=== PATIENT | female | born 1970 | race Caucasian/White ===

== ENCOUNTER 2021-08-13 10:51 | Outpatient (REF) | payer BC, SELFPAY ==
[2021-08-13 12:07] LABS: MANUAL DIFF FLAG NO
[2021-08-13 13:02] LABS: Basophils Percent Auto 0.4 % (0-2); Eosinophils Absolute Auto 0.3 X10*3/uL (0.0-0.4); Eosinophils Percent Auto 4.2 % (0-4); Hematocrit 41.3 % (37-47); Hemoglobin 13.1 g/dl (12.0-16.0); Imm Gran Abs Auto 0.04 X10*3/uL (0.00-0.03); Imm Gran Pct Auto 0.6 % (0.0-0.4); Lymphocytes Absolute Auto 1.6 X10*3/uL (1.2-4.9); Lymphocytes Percent Auto 22.3 % (20-40); Mean Corpuscular HGB Conc 31.7 g/dl (31.0-35.0); Mean Corpuscular Volume 85.2 fL (80-98); Mean Platelet Volume 9.5 fL (9.4-12.3); Monocytes Absolute Auto 0.5 X10*3/uL (0.1-1.2); Monocytes Percent Auto 6.3 % (2-11); Neutrophils Absolute Auto 4.7 X10*3/uL (2.0-8.3); Neutrophils Percent Auto 66.2 % (45-73); Platelet Count 258 X10*3/uL (160-400); Red Blood Count 4.85 X10*6/uL (4.20-5.50); Red Cell Distribution Width 14.6 % (11.0-16.0); White Blood Count 7.2 X10*3/uL (4.8-10.8)
[2021-08-13 13:57] LABS: Erythrocyte Sedimentation Rate 51 MM/HR (0-20)
[2021-08-20 17:12] LABS: Asperg fumigatus Precip Abs NEGATIVE (NEGATIVE); Micropoly faeni Abs NEGATIVE (NEGATIVE); Pigeon serum Abs NEGATIVE (NEGATIVE); Saccharo pora viridis Abs NEGATIVE (NEGATIVE); Thermo candidus Abs NEGATIVE (NEGATIVE); Thermoa vulgaris #1 NEGATIVE (NEGATIVE)
== END 2021-08-13 10:52 | disposition home or self-care (01) ==
LOC: HO.LAB 10:51
PROVIDERS: PCP Internal Medicine; Visit Provider Hospitalist
DX: J47.9 Bronchiectasis, uncomplicated (principal); J45.50 Severe persistent asthma, uncomplicated; R91.8 Other nonspecific abnormal finding of lung field; J30.9 Allergic rhinitis, unspecified; G47.33 Obstructive sleep apnea (adult) (pediatric); Z99.89 Dependence on other enabling machines and devices
CPT/HCPCS: 36415; 82785; 85025; 85652; 86003; 86331; 86606; 86609

== ENCOUNTER 2021-08-19 14:50 | Outpatient (REF) | payer BC, SELFPAY ==
--- NOTE | 2021-08-19 | PFT_ITS ---
Forced vital capacity FEV1, [id number], and MVV are normal. Post-bronchodilator therapy, there is no change. Total lung capacity normal. Residual volume slightly increased. Diffusion capacity normal. CONCLUSION: 1. Normal pulmonary function test. 2. No obstructive or restrictive pulmonary disorder. Thom Waterman MD MSB/MODL / [id number]
== END 2021-08-19 14:51 | disposition home or self-care (01) ==
LOC: HO.RESP 14:50
PROVIDERS: PCP Internal Medicine; Visit Provider Hospitalist
DX: R06.00 Dyspnea, unspecified (principal)
CPT/HCPCS: 94060; 94727; 94729

== ENCOUNTER 2021-09-09 15:12 | Outpatient (REF) | payer BC, SELFPAY ==
--- NOTE | ~2021-09-09 | XR_ITS ---
EXAMINATION: XR CHEST CLINICAL INFORMATION: Chest pain. COMPARISON: None TECHNIQUE: 2 views of the chest were obtained. FINDINGS: No significant abnormality is noted involving the heart, lungs, mediastinum, bony thorax or soft tissues. XR/XR chest 2V IMPRESSION: Unremarkable chest examination.
== END 2021-09-09 15:13 | disposition home or self-care (01) ==
LOC: HO.XRAY 15:12
PROVIDERS: PCP Internal Medicine; Visit Provider Hospitalist
DX: R07.1 Chest pain on breathing (principal); J47.9 Bronchiectasis, uncomplicated; J45.51 Severe persistent asthma with (acute) exacerbation; G47.33 Obstructive sleep apnea (adult) (pediatric); J30.9 Allergic rhinitis, unspecified; L30.9 Dermatitis, unspecified; Z99.89 Dependence on other enabling machines and devices; Z79.899 Other long term (current) drug therapy; Z79.51 Long term (current) use of inhaled steroids
CPT/HCPCS: 71046

== ENCOUNTER → 2021-09-16 13:58 | Outpatient (BNVA) | payer BC, SELFPAY | PROVIDERS: PCP Internal Medicine; Visit Provider Hospitalist | DX: J45.909 Unspecified asthma, uncomplicated (principal); J47.9 Bronchiectasis, uncomplicated; R91.8 Other nonspecific abnormal finding of lung field ==

== ENCOUNTER → 2021-10-06 14:16 | Outpatient (BNVA) | payer BC, SELFPAY | PROVIDERS: PCP Internal Medicine; Visit Provider Hospitalist | DX: J45.909 Unspecified asthma, uncomplicated (principal); J47.9 Bronchiectasis, uncomplicated; R91.8 Other nonspecific abnormal finding of lung field; G47.33 Obstructive sleep apnea (adult) (pediatric); Z99.89 Dependence on other enabling machines and devices ==

== ENCOUNTER 2021-11-08 15:07 | Inpatient (IN) | payer BC, SELFPAY ==
[2021-11-08] VITALS (8 sets, daily range): BP systolic 122–178; BP diastolic 66–90; PULSE 80–103; RESP 20–31; TEMP 36.2–36.8; O2SAT 90–95; BMI 54.8; BMI 50.0
--- NOTE | 2021-11-08 | ECG_ITS ---
Test Reason : CHEST PAIN Blood Pressure : / mmHG Vent. Rate : 096 BPM Atrial Rate : 096 BPM P-R Int : 148 ms QRS Dur : 084 ms QT Int : 366 ms P-R-T Axes : 060 012 006 degrees QTc Int : 462 ms Normal sinus rhythm Possible Left atrial enlargement Cannot rule out Anterior infarct , age undetermined Abnormal ECG No previous ECGs available Referred By: Generic ED Physician Electronically Signed By:Sergo Jaquez
--- NOTE | ~2021-11-08 | US_ITS ---
EXAMINATION: US ABDOMEN LIMITED CLINICAL INFORMATION: Mild transaminase and alkaline phosphatase elevation. Rule out cirrhosis. Rule out cholecystitis. COMPARISON: None TECHNIQUE: Real-time imaging of the right upper quadrant abdominal viscera. FINDINGS: PANCREAS: Normal. LIVER: Liver is enlarged. Liver echotexture is increased. Liver contour is normal. No focal hepatic lesion. There is no intrahepatic biliary duct dilatation seen. GALLBLADDER: The gallbladder is physiologically distended. Multiple mobile gallstones are present. No evidence of gallbladder wall thickening or pericholecystic fluid. COMMON BILE DUCT: Normal in caliber measuring 0.5 cm in diameter. RIGHT KIDNEY: Normal. No hydronephrosis. No renal calculi or focal parenchymal lesions. The kidney measures 13.3 cm in maximum dimension. FREE FLUID: None. US/US abdomen limited IMPRESSION: Enlarged echogenic liver. Gallstones. No ultrasound evidence of cholecystitis.
--- NOTE | ~2021-11-08 | XR_ITS ---
EXAMINATION: XR CHEST CLINICAL INFORMATION: Shortness of breath COMPARISON: Previous chest x-ray August 2021 TECHNIQUE: Frontal view of the chest was obtained. FINDINGS: The cardiac and mediastinal contours are normal. There are bilateral patchy infiltrates. Covid infection should be excluded. There is no pleural effusion or pneumothorax. There are degenerative changes of the spine. XR/XR chest 1V IMPRESSION: Bilateral patchy infiltrates. Covid infection should be excluded.
[2021-11-08 16:12] LABS: MANUAL DIFF FLAG NO
[2021-11-08 16:15] LABS: Basophils Percent Auto 0.1 % (0-2); Hematocrit 48.6 % (37.0-47.0); Hemoglobin 14.4 g/dl (12.0-16.0); Imm Gran Abs Auto 0.13 X10*3/uL (0.00-0.03); Imm Gran Pct Auto 1.8 % (0.0-0.4); Lymphocytes Absolute Auto 0.9 X10*3/uL (1.2-4.9); Lymphocytes Percent Auto 11.7 % (20-40); Mean Corpuscular HGB Conc 29.6 g/dl (31.0-35.0); Mean Corpuscular Hemoglobin 27.5 pg (27.0-33.0); Mean Corpuscular Volume 92.9 fL (80.0-98.0); Mean Platelet Volume 10.9 fL (9.4-12.3); Monocytes Absolute Auto 0.5 X10*3/uL (0.1-1.2); Neutrophils Absolute Auto 5.9 x10*3/uL (2.0-8.3); Neutrophils Percent Auto 79.4 % (45-73); Platelet Count 244 X10*3/uL (160-400); Red Blood Count 5.23 X10*6/uL (4.20-5.50); Red Cell Distribution Width 17.4 % (11.0-16.0); White Blood Count 7.4 X10*3/uL (4.8-10.8)
[2021-11-08 16:37] LABS: Troponin-I High Sensitivity 3.8 ng/L (<3.5-17.0)
[2021-11-08 16:38] LABS: B Type Natriuretic Peptide 17 pg/mL (<100)
[2021-11-08 16:39] LABS: COVID-19 Test Positive (Negative)
[2021-11-08 16:51] LABS: Anion Gap 31 (12-20); Blood Urea Nitrogen 53 mg/dL (9-16); Carbon Dioxide 7 mmol/L (22-29); Chloride 102 mmol/L (96-108); Creatinine Clr Calc Pharmacy 39.7; Estimated Glomerular Filt Rate 23; Glucose Random 1011 mg/dL (60-115); Potassium 6.6 mmol/L (3.3-5.1); Sodium 133 mmol/L (135-145)
[2021-11-08 17:31] LABS: Alanine Aminotransferase 191 U/L (0-31); Albumin Level 3.9 g/dL (3.5-5.0); Alkaline Phosphatase 176 U/L (39-117); Aspartate Amino Transferase 95 U/L (5-31); Bilirubin Direct 0.3 mg/dL (0.0-0.5); Bilirubin Total 0.3 mg/dL (0.0-1.0); Total Protein 8.5 g/dL (6.5-8.0)
[2021-11-08] MEDS: Insulin Regular, Human 100 UNIT/ML 3 ML VIAL 10 UNIT IVPUSH (17:34)
[2021-11-08] MEDS: 0.9 % Sodium Chloride 1,000 ML 999 ML IV (17:34)
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
[2021-11-08] MEDS: Insulin Regular/NS 100 UNIT/100 ML PLAST..BAG IVCONT (17:55)
[2021-11-08] MEDS: cefTRIAXone sodium 1 GM in 0.9 % Sodium Chloride 50 ML IV (18:00)
--- NOTE | 2021-11-08 18:11 | ECG_ITS ---
Test Reason : Hyperglycemia Blood Pressure : / mmHG Vent. Rate : 101 BPM Atrial Rate : 101 BPM P-R Int : 148 ms QRS Dur : 086 ms QT Int : 356 ms P-R-T Axes : 058 012 011 degrees QTc Int : 461 ms Sinus tachycardia Possible Left atrial enlargement Borderline ECG When compared with ECG of 08-NOV-2021 15:45, No significant change was found Referred By: Anmol Sparks Electronically Signed By:HAILEE MAY MD
--- NOTE | 2021-11-08 18:13 | PHA.MEDREC ---
Pharmacy Consult ? Medication Reconciliation Pharmacy has completed the medication reconciliation. Pt picked up fluconazole 150 on 11/07/21 and took first dose, next dose on day 4 and last dose on day 7. Also picked up dexamethasone 6mg QD x 10 days and started 11/07/21. No remarkable issues. Lolly Sheriff, PharmD
[2021-11-08 18:21] LABS: Glucose, Whole Blood > 600 mg/dL (60-115)
[2021-11-08 18:21] LABS: Glucose, Whole Blood > 600 mg/dL (60-115)
[2021-11-08 18:37] LABS: D Dimer High Sensitivity 160 NG/ML; Lactic Acid 1.7 mmol/L (0.5-2.0)
[2021-11-08 18:47] LABS: Anion Gap 29 (12-20); Blood Urea Nitrogen 54 mg/dL (9-16); Calcium 10.1 mg/dL (8.4-10.2); Carbon Dioxide 9 mmol/L (22-29); Chloride 104 mmol/L (96-108); Creatinine Clr Calc Pharmacy 38.7; Estimated Glomerular Filt Rate 22; Glucose Random 935 mg/dL (60-115); Lipase 51 U/L (8-78); Potassium 6.2 mmol/L (3.3-5.1); Sodium 136 mmol/L (135-145)
[2021-11-08 18:49] LABS: Appearance Urine CLEAR; Color Urine STRAW; Glucose Urine UA >=1000 MG/DL (NEG); Leukocyte Esterase Urine NEG (NEG); Nitrite Urine NEG (NEG); PH 5.5 (5.0-8.0); UACC Culture Trigger NO; Urine Blood 2+ (NEG); Urine Ketones 40 MG/DL (NEG); Urine Protein TRACE MG/DL (NEG-TRACE)
[2021-11-08 18:53] LABS: UPreg QC Valid YES; Urine Pregnancy NEGATIVE (NEGATIVE)
[2021-11-08 18:55] LABS: Bacteria Urine TRACE /LPF; Mucus Urine TRACE /LPF; Squamous Epithelial Cell Urine TRACE /LPF; WBC Urine 0-2 /HPF (0-4)
[2021-11-08 19:23] LABS: Glucose, Whole Blood > 600 mg/dL (60-115)
[2021-11-08] MEDS: Heparin Sodium,Porcine 5,000 UNIT/ML VIAL 5000 UNIT SUBCUT (19:26)
--- NOTE | 2021-11-08 19:33 | P.HPCC_ITS ---
History of Present Illness Date of Service: 11/08/21 Attending physician on admission: Farhad Airas Chief Complaint: Shortness of breath Patient is a 50-year-old female with a past medical history of? diabetes mellitus,? hypertension, asthma,? chronic allergic rhinitis and TERRA? who presented to the emergency room today with complaints of shortness of breath, dyspnea on exertion, fever, chills, nausea, diarrhea and fatigue.? She reports following closely with? stunt woman Dr. Lui? in the past few months for her asthma,? and has been on several antibiotics and steroids.? She also reported being tested for COVID on 11/06/2021, and? was notified yesterday that she was COVID positive and was started on dexamethasone by her stunt woman.? Today in emergency? room? vital signs stable,? satting 93-95% on room air.? But? chemistry showed bicarb of 7, anion gap 29? and ? random glucose of a 1011.? ?ED course:? she received? ceftriaxone and azithromycin,? 1 L bolus,? 10 units of IV push insulin started on insulin drip.? ?Patient will be admitted? to ICU for management of DKA requiring insulin drip Review of Systems Review of Systems: Constitutional: + fever, + fatigue, + chills ENT: No sore throat, No nasal congestion. no ear pain ?Cardiovascular: No Chest pain, no palpitations. ?Pulmonary: + SOB, + wheezing,? + cough productive Gastrointestinal: + nausea? No vomiting, no diarrhea, no abdominal pain Neurological: No headache, no dizziness, no lightheaded Musculoskeletal:??No muscle pain, back pain, joint pain or stiffness. Integumentary: No rash PMFSH Past Medical History Medical History (Updated 11/08/21 @ 20:42 by Jessica Thurman NP) Asthma Bronchiectasis Chronic allergic rhinitis Diabetes mellitus Eczema TERRA on CPAP Social History Social History (Updated 08/13/21 @ 11:04 by CHEY Harden) Patient Tobacco Use Status: Never used Tobacco Advance Directives: No Advance Directives Information Provided: No Patient : No Meds Allergies Allergy/AdvReac Type Severity Reaction Status Date / Time Penicillins Allergy Severe Rash Verified 11/08/21 15:28 Active Medications: Current Medications Dextrose (Dextrose 50 % 25 Gm/50 Ml Syringe) 25 gm IVPUSH Q30M PRN PRN Reason: Nursing Actions in Insulin Infusion Protocol Heparin Sodium (Porcine) (Heparin Sodium,Porcine 5,000 Unit/Ml Vial) 5,000 unit SUBCUT Q8H [facility] Last Admin: 11/08/21 19:26 Dose: 5,000 unit Documented by: Insulin Human Regular (Myxredlin) 100 unit in 100 mls @ 0 mls/hr IVCONT .Q0M ANA; Protocol Last Admin: 11/08/21 17:55 Dose: 5 unit/hr, 5 mls/hr Documented by: Lactated Ringer's (Lr) 1,000 mls @ 150 mls/hr IVCONT .Q6H40M [facility] Ondansetron HCl (Ondansetron Hcl 4 Mg/2 Ml Vial) 4 mg IVPUSH Q8H PRN PRN Reason: Nausea Pharmacy Consult (Consult Rx Perform Med Rec) 1 each MISCELLANE ONCE PRN PRN Reason: Consult order Home Medications Medication Instructions Recorded Confirmed Last Taken Type Oxygen Home Use 08/13/21 Unknown History aspirin 81 mg tablet,delayed 81 mg PO DAILY 08/13/21 11/08/21 11/08/21 History release cetirizine 10 mg tablet (24Hour 10 mg PO DAILY 08/13/21 11/08/21 11/08/21 History Allergy) citalopram 20 mg tablet 20 mg PO DAILY 08/13/21 11/08/21 11/08/21 History losartan 50 mg tablet 50 mg PO DAILY 08/13/21 11/08/21 11/08/21 History metformin 500 mg tablet,extended 500 mg PO DAILY 08/13/21 11/08/21 11/08/21 History release 24 hr omeprazole 20 mg capsule,delayed 20 mg PO DAILY 08/13/21 11/08/21 11/08/21 History release albuterol sulfate 1 vial INHALATION Q4H PRN 11/08/21 11/08/21 Unknown History fluconazole 150 mg tablet 150 mg PO 3XW 11/08/21 11/08/21 11/07/21 History Physical Exam Vital Signs: Vital Signs: Last Vital Signs Temp 98.2 F 11/08/21 18:00 Pulse 103 H 11/08/21 18:00 Resp 26 H 11/08/21 18:00 BP 149/66 H 11/08/21 18:00 Pulse Ox 95 11/08/21 18:00 BMI result Body Mass Index 54.8 Constitutional: Alert, in no distress. Sitting comfortably on the hospital bed. Mental Status: Oriented to person, place and time. Head: Normocephalic. Eyes: Pupils are equal, round and reactive to light. Extraocular muscles intact. Ear, Nose and Throat: Oropharynx clear, mucous membranes moist. Ears and nose without masses, lesions or deformities. Trachea midline. Neck: Supple, Full range of motion. Respiratory: Expiratory wheezing in all lung frye.? Cardiovascular: S1 S2 regular. NSR.No murmurs, rubs or gallops. Gastrointestinal: Abdomen soft, non-tender, non-distended. Normal bowel sounds. No pulsatile mass. No hepatosplenomegaly. Genitourinary: No costovertebral angle tenderness. Neurologic: Cranial nerves II-XII grossly intact. No focal neurological deficits. Moves all extremities spontaneously. Sensation intact bilaterally. Skin: No rashes or lesions. No petechiae or purpura. 1er extremity.? Trace pitting edema of right lower extremity. Musculoskeletal: No gross deformities. Normal range of motion. Psychiatric: Normal mood and affect Results Labs CBC and Chem 7: 11/08/21 16:06 11/08/21 18:09 Labs: Laboratory Results - last 24 hr 11/08/21 11/08/21 11/08/21 16:06 16:07 16:07 MCV 92.9 MCH 27.5 MCHC 29.6 L RDW 17.4 H Plt Count 244 MPV 10.9 Immature Gran % (Auto) 1.8 H Neut % (Auto) 79.4 H Lymph % (Auto) 11.7 L [place] % (Auto) 7.0 Eos % (Auto) 0.0 Baso % (Auto) 0.1 Lymph # (Auto) 0.9 L [place] # (Auto) 0.5 Eos # (Auto) 0.0 Baso # (Auto) 0.0 Abs Immat Gran (auto) 0.13 H Absolute Neuts (auto) 5.9 Absolute Nucleated RBC 0.000 Nucleated RBC % (auto) 0.0 D-Dimer High Sensitivty Anion Gap 31 H Estim Creat Clear Calc 39.7 Estimated GFR 23 POC Glucose Random Glucose 1011 H* Lactic Acid Calcium 10.0 Total Bilirubin 0.3 Direct Bilirubin 0.3 AST 95 H ALT 191 H Alkaline Phosphatase 176 H Troponin I High Sens B-Natriuretic Peptide 17 Total Protein 8.5 H Albumin 3.9 Lipase Urine Color Urine Appearance Urine pH Ur Specific [place] Urine Protein Urine Glucose (UA) Urine Ketones Urine Blood Urine Nitrite Ur Leukocyte Esterase Urine RBC Urine WBC Ur Squamous Epith Cells Urine Bacteria Urine Mucus Urine Test COVID-19 (JENNY) COVID-19 Clin Com 11/08/21 11/08/21 11/08/21 16:07 16:07 17:33 MCV MCH MCHC RDW Plt Count MPV Immature Gran % (Auto) Neut % (Auto) Lymph % (Auto) [place] % (Auto) Eos % (Auto) Baso % (Auto) Lymph # (Auto) [place] # (Auto) Eos # (Auto) Baso # (Auto) Abs Immat Gran (auto) Absolute Neuts (auto) Absolute Nucleated RBC Nucleated RBC % (auto) D-Dimer High Sensitivty Anion Gap Estim Creat Clear Calc Estimated GFR POC Glucose > 600 H* Random Glucose Lactic Acid Calcium Total Bilirubin Direct Bilirubin AST ALT Alkaline Phosphatase Troponin I High Sens 3.8 B-Natriuretic Peptide Total Protein Albumin Lipase Urine Color Urine Appearance Urine pH Ur Specific [place] Urine Protein Urine Glucose (UA) Urine Ketones Urine Blood Urine Nitrite Ur Leukocyte Esterase Urine RBC Urine WBC Ur Squamous Epith Cells Urine Bacteria Urine Mucus Urine Test COVID-19 (JENNY) Positive A COVID-19 Clin Com See Note 11/08/21 11/08/21 11/08/21 18:09 18:09 18:09 MCV MCH MCHC RDW Plt Count MPV Immature Gran % (Auto) Neut % (Auto) Lymph % (Auto) [place] % (Auto) Eos % (Auto) Baso % (Auto) Lymph # (Auto) [place] # (Auto) Eos # (Auto) Baso # (Auto) Abs Immat Gran (auto) Absolute Neuts (auto) Absolute Nucleated RBC Nucleated RBC % (auto) D-Dimer High Sensitivty 160 Anion Gap 29 H Estim Creat Clear Calc 38.7 Estimated GFR 22 POC Glucose Random Glucose 935 H* Lactic Acid 1.7 Calcium 10.1 Total Bilirubin Direct Bilirubin AST ALT Alkaline Phosphatase Troponin I High Sens B-Natriuretic Peptide Total Protein Albumin Lipase 51 Urine Color Urine Appearance Urine pH Ur Specific [place] Urine Protein Urine Glucose (UA) Urine Ketones Urine Blood Urine Nitrite Ur Leukocyte Esterase Urine RBC Urine WBC Ur Squamous Epith Cells Urine Bacteria Urine Mucus Urine Test COVID-19 (JENNY) COVID-19 Clin Com 11/08/21 11/08/21 11/08/21 18:11 18:42 18:42 MCV MCH MCHC RDW Plt Count MPV Immature Gran % (Auto) Neut % (Auto) Lymph % (Auto) [place] % (Auto) Eos % (Auto) Baso % (Auto) Lymph # (Auto) [place] # (Auto) Eos # (Auto) Baso # (Auto) Abs Immat Gran (auto) Absolute Neuts (auto) Absolute Nucleated RBC Nucleated RBC % (auto) D-Dimer High Sensitivty Anion Gap Estim Creat Clear Calc Estimated GFR POC Glucose > 600 H* Random Glucose Lactic Acid Calcium Total Bilirubin Direct Bilirubin AST ALT Alkaline Phosphatase Troponin I High Sens B-Natriuretic Peptide Total Protein Albumin Lipase Urine Color STRAW Urine Appearance CLEAR Urine pH 5.5 Ur Specific [place] 1.020 Urine Protein TRACE Urine Glucose (UA) >=1000 H Urine Ketones 40 Urine Blood 2+ H Urine Nitrite NEG Ur Leukocyte Esterase NEG Urine RBC 1-4 Urine WBC 0-2 Ur Squamous Epith Cells TRACE Urine Bacteria TRACE Urine Mucus TRACE Urine Test NEGATIVE COVID-19 (JENNY) COVID-19 [email or web address] Com 11/08/21 19:18 MCV MCH MCHC RDW Plt Count MPV Immature Gran % (Auto) Neut % (Auto) Lymph % (Auto) [place] % (Auto) Eos % (Auto) Baso % (Auto) Lymph # (Auto) [place] # (Auto) Eos # (Auto) Baso # (Auto) Abs Immat Gran (auto) Absolute Neuts (auto) Absolute Nucleated RBC Nucleated RBC % (auto) D-Dimer High Sensitivty Anion Gap Estim Creat Clear Calc Estimated GFR POC Glucose > 600 H* Random Glucose Lactic Acid Calcium Total Bilirubin Direct Bilirubin AST ALT Alkaline Phosphatase Troponin I High Sens B-Natriuretic Peptide Total Protein Albumin Lipase Urine Color Urine Appearance Urine pH Ur Specific [place] Urine Protein Urine Glucose (UA) Urine Ketones Urine Blood Urine Nitrite Ur Leukocyte Esterase Urine RBC Urine WBC Ur Squamous Epith Cells Urine Bacteria Urine Mucus Urine Test COVID-19 (JENNY) COVID-19 Clin Com Imaging Radiologist's Impressions: Impressions Chest X-Ray 11/08/21 16:10 IMPRESSION: Bilateral patchy infiltrates. Covid infection should be excluded. Assessment and Plan (1) Diabetic ketoacidosis: Status: Acute (2) Diabetes mellitus: Status: Acute (3) CANDIDO (acute kidney injury): Status: Acute (4) COVID-19 virus infection: Status: Acute 50-year-old female past medical history of asthma and diabetes mellitus admitted to the ICU for the management of diabetic ketoacidosis and COVID infection Neuro:? no acute issues?? Cardiac:? no acute issues Pulmonary:?? ?COVID-19 infection:? patient is on room air,? was started on dexamethasone x1 day ago.? Due to patient being in room air,? would not continue steroids especially in the setting of DKA.? If symptoms worsen I will continue to revise my plan.?? Renal:? CANDIDO- ? most likely related to hypoperfusion, nonoliguric.? Continue IV fluid.? Continue to check renal induces and urine output Hyperkalemia-? most likely related to DKA.? Closely monitor electrolytes GI:?? nausea and vomiting from? gastroparesis. ? Continue Zofran p.r.n.,? Endo:?Diabetes mellitus /diabetic ketoacidosis- ? patient has been on multiple rounds of steroids? in the last couple month,? and started on dexamethasone yesterday for management of COVID-19 infection.? This is likely the cause of DKA. Will continue insulin drip until her gap is close. Follow DKA protocol? ID: ? no acute issues? Heme/Onc:? No acute issues. Psych:? No acute issues. Miscellaneous:? No acute issues. Prophylaxis: subcu heparin? Diet: ? NPO? with sips of water ice chips CODE: FULL Critical care time: Does not qualify for critical care time?
[2021-11-08 20:04] LABS: Glucose, Whole Blood > 600 mg/dL (60-115)
[2021-11-08] MEDS: Lactated Ringers 1,000 ML 150 ML IVCONT (20:46)
[2021-11-08] MEDS: Azithromycin 500 MG in 0.9 % Sodium Chloride 250 ML 125 MG IV (20:46)
[2021-11-08 21:08] LABS: Glucose, Whole Blood > 600 mg/dL (60-115)
[2021-11-08 22:04] LABS: Glucose, Whole Blood 564 mg/dL (60-115)
[2021-11-08 23:08] LABS: Glucose, Whole Blood 458 mg/dL (60-115)
[2021-11-09] VITALS (24 sets, daily range): BP systolic 116–170; BP diastolic 55–91; PULSE 63–85; RESP 13–25; TEMP 36.5–37.1; O2SAT 90–95; BMI 50.0
[2021-11-09 00:08] LABS: Glucose, Whole Blood 358 mg/dL (60-115)
[2021-11-09] MEDS: Insulin Regular/NS 100 UNIT/100 ML PLAST..BAG 18 UNIT IVCONT (00:17)
[2021-11-09 01:15] LABS: Glucose, Whole Blood 294 mg/dL (60-115)
[2021-11-09 01:49] LABS: Glucose, Whole Blood 271 mg/dL (60-115)
[2021-11-09 03:51] LABS: Glucose, Whole Blood 155 mg/dL (60-115)
[2021-11-09] MEDS: Dextrose 5 % and Lactated Ring 1,000 ML 150 ML IVCONT ×4 (03:55→23:52)
[2021-11-09] MEDS: Heparin Sodium,Porcine 5,000 UNIT/ML VIAL 5000 UNIT SUBCUT ×3 (03:56→18:05)
--- NOTE | 2021-11-09 04:57 | PC.NURSE ---
Pt to ICU last night at 1945. Pt alert and oriented and in no acute distress. O2 on via nasal cannulaat 2L. Pt transferred self from stretcher to bed but with dyspnea on exertion. O2 sats dropped from 93% to mid 80's. She recovered quickly. Denied pain or discomfort. Initial SBP was 170's but came down to 140's after 15 minutes when pt settled in and calm. Monitor showed NSR, heart rate has been 70's-90's. Insulin drip infusing, see insulin infusion flow sheet. POC sugars initially on arrival to ICU was >600 but came down each hour per direction of MIRNA Lopez. Last POC 155 and IV Lactated Ringers with 5% dextrose infusing at 150 ml/hr. Pt OOB to bedside commode with assist. Gait is steady. Pt gets SOB on exertion. O2 Sats with this activity dropped to 82-83% but again, pt recovers quickly. Sleeping in naps during the night
[2021-11-09 05:44] LABS: Glucose, Whole Blood 165 mg/dL (60-115)
[2021-11-09] MEDS: Insulin Regular/NS 100 UNIT/100 ML PLAST..BAG 12 UNIT IVCONT ×2 (06:17→14:40)
[2021-11-09 07:09] LABS: Albumin Level 3.6 g/dL (3.5-5.0); Anion Gap 17 (12-20); Blood Urea Nitrogen 51 mg/dL (9-16); Calcium 9.8 mg/dL (8.4-10.2); Carbon Dioxide 14 mmol/L (22-29); Chloride 121 mmol/L (96-108); Creatinine Clr Calc Pharmacy 59.8; Estimated Glomerular Filt Rate 39; Glucose Random 177 mg/dL (60-115); Magnesium 3.3 mg/dL (1.6-2.6); Phosphorus 2.8 mg/dL (2.7-4.5); Potassium 4.6 mmol/L (3.3-5.1); Sodium 147 mmol/L (135-145)
[2021-11-09 07:40] LABS: VBG Base Excess -5.7 mmol/L; VBG HCO3 19 mmol/L (22-26); VBG pCO2 34 mmHg; VBG pH 7.35 (7.32-7.43); VBG pO2 28 mmHg
[2021-11-09 07:45] LABS: MANUAL DIFF FLAG NO
[2021-11-09 07:53] LABS: Hematocrit 40.8 % (37.0-47.0); Imm Gran Abs Auto 0.06 X10*3/uL (0.00-0.03); Imm Gran Pct Auto 0.7 % (0.0-0.4); Lymphocytes Absolute Auto 0.9 X10*3/uL (1.2-4.9); Lymphocytes Percent Auto 10.7 % (20-40); Mean Corpuscular HGB Conc 31.9 g/dl (31.0-35.0); Mean Corpuscular Hemoglobin 27.1 pg (27.0-33.0); Mean Platelet Volume 9.8 fL (9.4-12.3); Monocytes Absolute Auto 0.6 X10*3/uL (0.1-1.2); Monocytes Percent Auto 6.8 % (2-11); Neutrophils Absolute Auto 6.9 x10*3/uL (2.0-8.3); Neutrophils Percent Auto 81.8 % (45-73); Platelet Count 198 X10*3/uL (160-400); Red Cell Distribution Width 16.9 % (11.0-16.0); White Blood Count 8.4 X10*3/uL (4.8-10.8)
[2021-11-09 07:55] LABS: Glucose, Whole Blood 176 mg/dL (60-115)
[2021-11-09 08:43] LABS: Venous Blood Gas Refer to POC result
[2021-11-09 10:14] LABS: Glucose, Whole Blood 150 mg/dL (60-115)
[2021-11-09] MEDS: dexAMETHasone 6 MG TABLET PO (10:59)
[2021-11-09] MEDS: Fluconazole 100 MG TABLET PO (11:07)
--- NOTE | 2021-11-09 11:20 | P.PNCC_ITS ---
Subjective Subjective Date of Service: 11/09/21 Interval History: ICU day to for acute hypoxic respiratory failure, COVID-19, diabetic ketoacidosis. 50-year-old lady with underlying history of diabetes mellitus on metformin, hypertension, asthma, TERRA, COVID positive on 11/06/2021, started on dexamethasone by her director of medical services admitted on 11/08/2021 with hypoxemia requiring supplemental oxygen and diabetic ketoacidosis. Patient has been started on insulin drip and transferred to intensive care unit. No events overnight. Continues to requiring insulin drip. FiO2 requirements are stable. Critical Care Time (minutes): 30 Physical Exam Vital Signs: Vital Signs: Last Vital Signs Temp 98.2 F 11/09/21 08:00 Pulse 83 11/09/21 11:00 Resp 21 H 11/09/21 11:00 BP 146/85 H 11/09/21 11:00 Pulse Ox 92 11/09/21 11:00 BMI result Body Mass Index 50.0 Const: General: no acute distress, alert and awake Nutritional Appearance: obese Eyes: Sclerae: sclerae normal EOM: EOMs intact bilaterally Neck: Neck: Yes no lymphadenopathy, Yes trachea midline and Yes supple Resp: Effort & Inspection: normal respiratory effort and no respiratory distr ess Auscultation: clear to auscultation bilaterally Cardio: Rate: regular rate Rhythm: regular rhythm Heart sounds: no gallops, no murmurs and no rubs GI: Palpation (GI): Soft to palpation and Other GI palpation findings present ( Nontender) Auscultation: normal bowel sounds Extrem: General: Yes no pedal edema, No clubbing and No cyanosis Objective Data Labs CBC & Chem 7: 11/09/21 07:33 11/09/21 05:53 Labs: Laboratory Results - last 24 hr 11/08/21 11/08/21 11/08/21 16:06 16:07 16:07 WBC 7.4 RBC 5.23 Hgb 14.4 Hct 48.6 H MCV 92.9 MCH 27.5 MCHC 29.6 L RDW 17.4 H Plt Count 244 MPV 10.9 Immature Gran % (Auto) 1.8 H Neut % (Auto) 79.4 H Lymph % (Auto) 11.7 L [place] % (Auto) 7.0 Eos % (Auto) 0.0 Baso % (Auto) 0.1 Lymph # (Auto) 0.9 L [place] # (Auto) 0.5 Eos # (Auto) 0.0 Baso # (Auto) 0.0 Abs Immat Gran (auto) 0.13 H Absolute Neuts (auto) 5.9 Absolute Nucleated RBC 0.000 Nucleated RBC % (auto) 0.0 D-Dimer High Sensitivty VBG pH VBG pCO2 VBG pO2 VBG HCO3 VBG O2 Saturation VBG Base Excess Sodium 133 L Potassium 6.6 H* Chloride 102 Carbon Dioxide 7 L* Anion Gap 31 H BUN 53 H Creatinine 2.31 H Estim Creat Clear Calc 39.7 Estimated GFR 23 POC Glucose Random Glucose 1011 H* Lactic Acid Calcium 10.0 Phosphorus Magnesium Total Bilirubin 0.3 Direct Bilirubin 0.3 AST 95 H ALT 191 H Alkaline Phosphatase 176 H Troponin I High Sens B-Natriuretic Peptide 17 Total Protein 8.5 H Albumin 3.9 Lipase Urine Color Urine Appearance Urine pH Ur Specific [place] Urine Protein Urine Glucose (UA) Urine Ketones Urine Blood Urine Nitrite Ur Leukocyte Esterase Urine RBC Urine WBC Ur Squamous Epith Cells Urine Bacteria Urine Mucus Urine Test COVID-19 (JENNY) [employer] 11/08/21 11/08/21 11/08/21 16:07 16:07 17:33 WBC RBC Hgb Hct MCV MCH MCHC RDW Plt Count MPV Immature Gran % (Auto) Neut % (Auto) Lymph % (Auto) [place] % (Auto) Eos % (Auto) Baso % (Auto) Lymph # (Auto) [place] # (Auto) Eos # (Auto) Baso # (Auto) Abs Immat Gran (auto) Absolute Neuts (auto) Absolute Nucleated RBC Nucleated RBC % (auto) D-Dimer High Sensitivty VBG pH VBG pCO2 VBG pO2 VBG HCO3 VBG O2 Saturation VBG Base Excess Sodium Potassium Chloride Carbon Dioxide Anion Gap BUN Creatinine Estim Creat Clear Calc Estimated GFR POC Glucose > 600 H* Random Glucose Lactic Acid Calcium Phosphorus Magnesium Total Bilirubin Direct Bilirubin AST ALT Alkaline Phosphatase Troponin I High Sens 3.8 B-Natriuretic Peptide Total Protein Albumin Lipase Urine Color Urine Appearance Urine pH Ur Specific [place] Urine Protein Urine Glucose (UA) Urine Ketones Urine Blood Urine Nitrite Ur Leukocyte Esterase Urine RBC Urine WBC Ur Squamous Epith Cells Urine Bacteria Urine Mucus Urine Test COVID-19 (JENNY) Positive A 6[employer] Pro 360 See Note 11/08/21 11/08/21 11/08/21 18:09 18:09 18:09 WBC RBC Hgb Hct MCV MCH MCHC RDW Plt Count MPV Immature Gran % (Auto) Neut % (Auto) Lymph % (Auto) [place] % (Auto) Eos % (Auto) Baso % (Auto) Lymph # (Auto) [place] # (Auto) Eos # (Auto) Baso # (Auto) Abs Immat Gran (auto) Absolute Neuts (auto) Absolute Nucleated RBC Nucleated RBC % (auto) D-Dimer High Sensitivty 160 VBG pH VBG pCO2 VBG pO2 VBG HCO3 VBG O2 Saturation VBG Base Excess Sodium 136 Potassium 6.2 H* Chloride 104 Carbon Dioxide 9 L* D Anion Gap 29 H BUN 54 H Creatinine 2.37 H Estim Creat Clear Calc 38.7 Estimated GFR 22 POC Glucose Random Glucose 935 H* Lactic Acid 1.7 Calcium 10.1 Phosphorus Magnesium Total Bilirubin Direct Bilirubin AST ALT Alkaline Phosphatase Troponin I High Sens B-Natriuretic Peptide Total Protein Albumin Lipase 51 Urine Color Urine Appearance Urine pH Ur Specific [place] Urine Protein Urine Glucose (UA) Urine Ketones Urine Blood Urine Nitrite Ur Leukocyte Esterase Urine RBC Urine WBC Ur Squamous Epith Cells Urine Bacteria Urine Mucus Urine Test COVID-19 (JENNY) COVID-19 Clin Com 11/08/21 11/08/21 11/08/21 18:11 18:42 18:42 WBC RBC Hgb Hct MCV MCH MCHC RDW Plt Count MPV Immature Gran % (Auto) Neut % (Auto) Lymph % (Auto) [place] % (Auto) Eos % (Auto) Baso % (Auto) Lymph # (Auto) [place] # (Auto) Eos # (Auto) Baso # (Auto) Abs Immat Gran (auto) Absolute Neuts (auto) Absolute Nucleated RBC Nucleated RBC % (auto) D-Dimer High Sensitivty VBG pH VBG pCO2 VBG pO2 VBG HCO3 VBG O2 Saturation VBG Base Excess Sodium Potassium Chloride Carbon Dioxide Anion Gap BUN Creatinine Estim Creat Clear Calc Estimated GFR POC Glucose > 600 H* Random Glucose Lactic Acid Calcium Phosphorus Magnesium Total Bilirubin Direct Bilirubin AST ALT Alkaline Phosphatase Troponin I High Sens B-Natriuretic Peptide Total Protein Albumin Lipase Urine Color STRAW Urine Appearance CLEAR Urine pH 5.5 Ur Specific [place] 1.020 Urine Protein TRACE Urine Glucose (UA) >=1000 H Urine Ketones 40 Urine Blood 2+ H Urine Nitrite NEG Ur Leukocyte Esterase NEG Urine RBC 1-4 Urine WBC 0-2 Ur Squamous Epith Cells TRACE Urine Bacteria TRACE Urine Mucus TRACE Urine Test NEGATIVE COVID-19 (JENNY) COVID-19 Clin Com 11/08/21 11/08/21 11/08/21 19:18 20:00 21:04 WBC RBC Hgb Hct MCV MCH MCHC RDW Plt Count MPV Immature Gran % (Auto) Neut % (Auto) Lymph % (Auto) [place] % (Auto) Eos % (Auto) Baso % (Auto) Lymph # (Auto) [place] # (Auto) Eos # (Auto) Baso # (Auto) Abs Immat Gran (auto) Absolute Neuts (auto) Absolute Nucleated RBC Nucleated RBC % (auto) D-Dimer High Sensitivty VBG pH VBG pCO2 VBG pO2 VBG HCO3 VBG O2 Saturation VBG Base Excess Sodium Potassium Chloride Carbon Dioxide Anion Gap BUN Creatinine Estim Creat Clear Calc Estimated GFR POC Glucose > 600 H* > 600 H* > 600 H* Random Glucose Lactic Acid Calcium Phosphorus Magnesium Total Bilirubin Direct Bilirubin AST ALT Alkaline Phosphatase Troponin I High Sens B-Natriuretic Peptide Total Protein Albumin Lipase Urine Color Urine Appearance Urine pH Ur Specific [place] Urine Protein Urine Glucose (UA) Urine Ketones Urine Blood Urine Nitrite Ur Leukocyte Esterase Urine RBC Urine WBC Ur Squamous Epith Cells Urine Bacteria Urine Mucus Urine Test COVID-19 (JENNY) COVID-19 [facility] Com 11/08/21 11/08/21 11/09/21 22:01 23:04 00:01 WBC RBC Hgb Hct MCV MCH MCHC RDW Plt Count MPV Immature Gran % (Auto) Neut % (Auto) Lymph % (Auto) [place] % (Auto) Eos % (Auto) Baso % (Auto) Lymph # (Auto) [place] # (Auto) Eos # (Auto) Baso # (Auto) Abs Immat Gran (auto) Absolute Neuts (auto) Absolute Nucleated RBC Nucleated RBC % (auto) D-Dimer High Sensitivty VBG pH VBG pCO2 VBG pO2 VBG HCO3 VBG O2 Saturation VBG Base Excess Sodium Potassium Chloride Carbon Dioxide Anion Gap BUN Creatinine Estim Creat Clear Calc Estimated GFR POC Glucose 564 H* 458 H* 358 H* Random Glucose Lactic Acid Calcium Phosphorus Magnesium Total Bilirubin Direct Bilirubin AST ALT Alkaline Phosphatase Troponin I High Sens B-Natriuretic Peptide Total Protein Albumin Lipase Urine Color Urine Appearance Urine pH Ur Specific [place] Urine Protein Urine Glucose (UA) Urine Ketones Urine Blood Urine Nitrite Ur Leukocyte Esterase Urine RBC Urine WBC Ur Squamous Epith Cells Urine Bacteria Urine Mucus Urine Test COVID-19 (JENNY) COVID-19 [facility] Com 11/09/21 11/09/21 11/09/21 01:11 01:44 03:46 WBC RBC Hgb Hct MCV MCH MCHC RDW Plt Count MPV Immature Gran % (Auto) Neut % (Auto) Lymph % (Auto) [place] % (Auto) Eos % (Auto) Baso % (Auto) Lymph # (Auto) [place] # (Auto) Eos # (Auto) Baso # (Auto) Abs Immat Gran (auto) Absolute Neuts (auto) Absolute Nucleated RBC Nucleated RBC % (auto) D-Dimer High Sensitivty VBG pH VBG pCO2 VBG pO2 VBG HCO3 VBG O2 Saturation VBG Base Excess Sodium Potassium Chloride Carbon Dioxide Anion Gap BUN Creatinine Estim Creat Clear Calc Estimated GFR POC Glucose 294 H 271 H 155 H Random Glucose Lactic Acid Calcium Phosphorus Magnesium Total Bilirubin Direct Bilirubin AST ALT Alkaline Phosphatase Troponin I High Sens B-Natriuretic Peptide Total Protein Albumin Lipase Urine Color Urine Appearance Urine pH Ur Specific [place] Urine Protein Urine Glucose (UA) Urine Ketones Urine Blood Urine Nitrite Ur Leukocyte Esterase Urine RBC Urine WBC Ur Squamous Epith Cells Urine Bacteria Urine Mucus Urine Test COVID-19 (JENNY) COVID-19 [facility] Com 11/09/21 11/09/21 11/09/21 05:39 05:53 07:33 WBC 8.4 RBC 4.80 Hgb 13.0 Hct 40.8 MCV 85.0 D MCH 27.1 MCHC 31.9 RDW 16.9 H Plt Count 198 MPV 9.8 Immature Gran % (Auto) 0.7 H Neut % (Auto) 81.8 H Lymph % (Auto) 10.7 L [place] % (Auto) 6.8 Eos % (Auto) 0.0 Baso % (Auto) 0.0 Lymph # (Auto) 0.9 L [place] # (Auto) 0.6 Eos # (Auto) 0.0 Baso # (Auto) 0.0 Abs Immat Gran (auto) 0.06 H Absolute Neuts (auto) 6.9 Absolute Nucleated RBC 0.000 Nucleated RBC % (auto) 0.0 D-Dimer High Sensitivty VBG pH VBG pCO2 VBG pO2 VBG HCO3 VBG O2 Saturation VBG Base Excess Sodium 147 H Potassium 4.6 D Chloride 121 H Carbon Dioxide 14 L Anion Gap 17 BUN 51 H Creatinine 1.43 H Estim Creat Clear Calc 59.8 Estimated GFR 39 POC Glucose 165 H Random Glucose 177 H D Lactic Acid Calcium 9.8 Phosphorus 2.8 Magnesium 3.3 H Total Bilirubin Direct Bilirubin AST ALT Alkaline Phosphatase Troponin I High Sens B-Natriuretic Peptide Total Protein Albumin 3.6 Lipase Urine Color Urine Appearance Urine pH Ur Specific [place] Urine Protein Urine Glucose (UA) Urine Ketones Urine Blood Urine Nitrite Ur Leukocyte Esterase Urine RBC Urine WBC Ur Squamous Epith Cells Urine Bacteria Urine Mucus Urine Test COVID-19 (JENNY) [employer] 11/09/21 11/09/21 11/09/21 07:33 07:51 10:09 WBC RBC Hgb Hct MCV MCH MCHC RDW Plt Count MPV Immature Gran % (Auto) Neut % (Auto) Lymph % (Auto) [place] % (Auto) Eos % (Auto) Baso % (Auto) Lymph # (Auto) [place] # (Auto) Eos # (Auto) Baso # (Auto) Abs Immat Gran (auto) Absolute Neuts (auto) Absolute Nucleated RBC Nucleated RBC % (auto) D-Dimer High Sensitivty VBG pH 7.35 VBG pCO2 34 VBG pO2 28 VBG HCO3 19 L VBG O2 Saturation 45.0 VBG Base Excess -5.7 Sodium Potassium Chloride Carbon Dioxide Anion Gap BUN Creatinine Estim Creat Clear Calc Estimated GFR POC Glucose 176 H 150 H Random Glucose Lactic Acid Calcium Phosphorus Magnesium Total Bilirubin Direct Bilirubin AST ALT Alkaline Phosphatase Troponin I High Sens B-Natriuretic Peptide Total Protein Albumin Lipase Urine Color Urine Appearance Urine pH Ur Specific [place] Urine Protein Urine Glucose (UA) Urine Ketones Urine Blood Urine Nitrite Ur Leukocyte Esterase Urine RBC Urine WBC Ur Squamous Epith Cells Urine Bacteria Urine Mucus Urine Test COVID-19 (JENNY) COVID-19 [facility] Progress Note: A&P Assessment and plan (1) COVID-19 virus infection: Status: Acute (2) CANDIDO (acute kidney injury): Status: Acute (3) Diabetes mellitus: Status: Acute (4) Diabetic ketoacidosis: Status: Acute (5) 2018 novel coronavirus-infected pneumonia (NCIP): Status: Acute (6) TERRA on CPAP: Status: Acute (7) Asthma: Status: Acute Assessment and Plan: Assessment: 51-year-old lady with underlying obesity, asthma, diabetes mellitus admitted with acute hypoxic respiratory failure secondary to COVID-19 and d iabetic ketoacidosis requiring insulin drip. Plan: Neuro: No acute issues. Cardiac: No acute issues. Pulmonary: Acute hypoxic respiratory failure secondary to COVID-19. Continue to titrate off supplemental oxygen as tolerated. Underlying history of asthma, continue with nebulized bronchodilators. Renal: Acute kidney injury secondary to diabetic ketoacidosis. Non oliguric. Continue to monitor renal indices and urine output. Endo: Diabetic ketoacidosis, continue to titrate off insulin drip as tolerated. GI: No acute issues. ID: COVID 19 with hypoxemia, started on p.o. dexamethasone. Heme/Onc: No acute issues. Psych: No acute issues. Miscellaneous: No acute issues. Prophylaxis: Heparin Diet: NPO Critical care time spent: 30 minutes Quality Stroke Does the patient have a stroke diagnosis?: No VTE Prior VTE?: No VTE Risk Level:: Medical - moderate - high VTE Device Contraindication: Treatment Not Indicated VTE Drug Contraindication: N/A - Med Ordered
[2021-11-09 11:49] LABS: Glucose, Whole Blood 160 mg/dL (60-115)
[2021-11-09 13:07] LABS: Anion Gap 14 (12-20); Blood Urea Nitrogen 50 mg/dL (9-16); Calcium 9.6 mg/dL (8.4-10.2); Carbon Dioxide 19 mmol/L (22-29); Chloride 121 mmol/L (96-108); Creatinine Clr Calc Pharmacy 59.8; Estimated Glomerular Filt Rate 39; Glucose Random 160 mg/dL (60-115); Potassium 4.2 mmol/L (3.3-5.1); Sodium 150 mmol/L (135-145)
[2021-11-09 14:38] LABS: Glucose, Whole Blood 152 mg/dL (60-115)
[2021-11-09 16:16] LABS: Glucose, Whole Blood 163 mg/dL (60-115)
[2021-11-09 18:00] LABS: Glucose, Whole Blood 200 mg/dL (60-115)
[2021-11-09 18:33] LABS: Anion Gap 12 (12-20); Blood Urea Nitrogen 46 mg/dL (9-16); Calcium 9.4 mg/dL (8.4-10.2); Carbon Dioxide 18 mmol/L (22-29); Chloride 121 mmol/L (96-108); Creatinine Clr Calc Pharmacy 63.3; Estimated Glomerular Filt Rate 42; Glucose Random 233 mg/dL (60-115); Potassium 4.2 mmol/L (3.3-5.1); Sodium 147 mmol/L (135-145)
[2021-11-09 20:11] LABS: Glucose, Whole Blood 252 mg/dL (60-115)
[2021-11-09 22:09] LABS: Glucose, Whole Blood 261 mg/dL (60-115)
[2021-11-09] MEDS: Insulin Regular/NS 100 UNIT/100 ML PLAST..BAG 14 UNIT IVCONT (22:53)
[2021-11-10] VITALS (25 sets, daily range): BP systolic 119–187; BP diastolic 68–105; PULSE 52–89; RESP 16–29; TEMP 36.7–37.1; O2SAT 89–96; BMI 51.4
[2021-11-10 00:10] LABS: Glucose, Whole Blood 212 mg/dL (60-115)
[2021-11-10] MEDS: Heparin Sodium,Porcine 5,000 UNIT/ML VIAL 5000 UNIT SUBCUT ×2 (02:00→08:36)
[2021-11-10 02:11] LABS: Glucose, Whole Blood 237 mg/dL (60-115)
[2021-11-10] MEDS: Insulin Regular/NS 100 UNIT/100 ML PLAST..BAG 15 UNIT IVCONT (04:08)
[2021-11-10 04:20] LABS: VBG Base Excess -5.8 mmol/L; VBG HCO3 18 mmol/L (22-26); VBG pCO2 30 mmHg; VBG pH 7.38 (7.32-7.43); VBG pO2 41 mmHg
[2021-11-10 04:23] LABS: Venous Blood Gas Refer to POC result
[2021-11-10 04:32] LABS: MANUAL DIFF FLAG NO
[2021-11-10 04:33] LABS: Basophils Percent Auto 0.2 % (0-2); Hematocrit 38.5 % (37.0-47.0); Hemoglobin 12.2 g/dl (12.0-16.0); Imm Gran Abs Auto 0.06 X10*3/uL (0.00-0.03); Lymphocytes Absolute Auto 0.5 X10*3/uL (1.2-4.9); Lymphocytes Percent Auto 8.4 % (20-40); Mean Corpuscular HGB Conc 31.7 g/dl (31.0-35.0); Mean Corpuscular Hemoglobin 26.9 pg (27.0-33.0); Mean Corpuscular Volume 84.8 fL (80.0-98.0); Mean Platelet Volume 10.3 fL (9.4-12.3); Monocytes Absolute Auto 0.3 X10*3/uL (0.1-1.2); Monocytes Percent Auto 5.4 % (2-11); Neutrophils Absolute Auto 5.1 x10*3/uL (2.0-8.3); Platelet Count 157 X10*3/uL (160-400); Red Blood Count 4.54 X10*6/uL (4.20-5.50); White Blood Count 5.9 X10*3/uL (4.8-10.8)
[2021-11-10 04:56] LABS: Glucose, Whole Blood 200 mg/dL (60-115)
[2021-11-10 05:05] LABS: Anion Gap 12 (12-20); Blood Urea Nitrogen 42 mg/dL (9-16); Carbon Dioxide 19 mmol/L (22-29); Chloride 122 mmol/L (96-108); Potassium 3.9 mmol/L (3.3-5.1); Sodium 149 mmol/L (135-145)
[2021-11-10 05:06] LABS: Albumin Level 2.9 g/dL (3.5-5.0); Calcium 9.3 mg/dL (8.4-10.2); Creatinine Clr Calc Pharmacy 76.3; Estimated Glomerular Filt Rate 51; Glucose Random 193 mg/dL (60-115); Magnesium 2.8 mg/dL (1.6-2.6); Phosphorus 1.8 mg/dL (2.7-4.5)
[2021-11-10] MEDS: Dextrose 5 % and Lactated Ring 1,000 ML 150 ML IVCONT (05:54)
[2021-11-10 06:17] LABS: Glucose, Whole Blood 185 mg/dL (60-115)
--- NOTE | 2021-11-10 06:31 | PC.NURSE ---
CARE ASSUMED 23:15...AWAKE..ALERT..ORIENTED X3...D5LR 150 CC/HR AND INSULIN DRIP PER MAR/PAPER FLOW SHEET...OOB AT HS WITH STEADY GAIT TO VOID..BACK TO BED...O2 4 L/M AT HS...SAO2 92-95%...RT PRESENT AND PLACED ON NOCTURNAL CPAP 6-10CM/O2 4 L/M...RESTFUL OVERNIGHT...NSR..NO ECTOPY...OFF CPAP 6AM PER REQUEST..MENTATING AT BASE-LINE...PHARMACY CALLED FOR POTASSIUM PHOSPHATE AAS ORDERED..RECEIPT PENDING...DENIES/OFFERS NO COMPLAINTS
[2021-11-10 08:13] LABS: Glucose, Whole Blood 108 mg/dL (60-115)
[2021-11-10] MEDS: dexAMETHasone 6 MG TABLET PO (08:36)
[2021-11-10] MEDS: Fluconazole 100 MG TABLET PO (08:36)
[2021-11-10 09:00] LABS: Glucose, Whole Blood 165 mg/dL (60-115)
[2021-11-10 10:07] LABS: Hemoglobin A1c % > 14.0 %
[2021-11-10 10:15] LABS: Glucose, Whole Blood 331 mg/dL (60-115)
[2021-11-10] MEDS: Aspirin 325 MG TABLET PO (10:50)
[2021-11-10] MEDS: Thiamine HCL 100 MG TABLET 200 MG PO ×2 (10:50→20:36)
[2021-11-10] MEDS: Cholecalciferol (Vitamin D3) 25 MCG TABLET 50 MCG PO (10:50)
[2021-11-10] MEDS: Ascorbic Acid 500 MG TABLET 1000 MG PO ×4 (10:50→20:36)
[2021-11-10] MEDS: Insulin Lispro 100 UNIT/ML 3 ML VIAL 20 UNIT SUBCUT ×2 (10:54→18:12)
[2021-11-10] MEDS: Insulin Glargine,Hum.rec.anlog 100 UNIT/ML 10 ML VIAL 30 UNIT SUBCUT ×2 (10:55→20:36)
[2021-11-10] MEDS: Sodium Chloride 0.45 % 1,000 ML 150 ML IVCONT ×3 (10:57→22:13)
[2021-11-10 11:47] LABS: Glucose, Whole Blood 402 mg/dL (60-115)
--- NOTE | 2021-11-10 13:45 | MHC.CM.PN ---
Pt continues care in ICU for DKA/COVID: pt resides at home with family and is independent with all care needs: Family to transport: [facility] X2. HCP requested
[2021-11-10 14:17] LABS: Glucose, Whole Blood 502 mg/dL (60-115)
[2021-11-10] MEDS: Insulin Regular, Human 100 UNIT/ML 3 ML VIAL 25 UNIT IVPUSH (14:32)
[2021-11-10] MEDS: Enoxaparin Sodium 40 MG/0.4 ML SYRINGE SUBCUT (14:32)
[2021-11-10 15:59] LABS: Glucose, Whole Blood 446 mg/dL (60-115)
[2021-11-10] MEDS: Insulin Lispro 100 UNIT/ML 3 ML VIAL 30 UNIT SUBCUT (16:43)
[2021-11-10 17:59] LABS: Glucose, Whole Blood 492 mg/dL (60-115)
[2021-11-10] MEDS: Insulin Regular, Human 100 UNIT/ML 3 ML VIAL 20 UNIT IVPUSH (18:12)
[2021-11-10 20:27] LABS: Glucose, Whole Blood 370 mg/dL (60-115)
--- NOTE | 2021-11-10 21:47 | P.PNCC_ITS ---
Subjective Subjective Date of Service: 11/10/21 Interval History: Ms. Sin was admitted to the ICU yesterday (Nov 09) because of DKA. The patient is a 50-year-old female with a past medical history of morbid obesity, TERRA compliant with CPAP at home (not on oxygen, AFAIK), DM, HTN, and asthma. She presented to the ED Nov 08 because of severe and worsening SOB and CRUM x4 days, fever, chills, nausea, diarrhea and fatigue.? She?d been sick for two months with SOB and CRUM, thought secondary to his severe asthma, bronchiectasis, and yeast infections.? Don?t know if she had a COVID test during that time. ?Followed closely by her rail switchman, Dr. Lui.? Has been on several antibiotics and steroids.? On 11/06/2021 she tested positive for COVID and was started on dexamethasone by Dr. Lui. ?Also recently noticed polydipsia and blurred vision. ?O2 Sat was 80% at home on room air.? She had COVID vaccination x2 in December,. In ED, Sat 90-95% on room air.? But chemistries showed bicarb of 7 and random glucose of a 1011, w BUN/creat 53/2.3 (don?t have any prev labs). ?White count normal, hemoglobin was hemoconcentrated, COVID positive.? Chest x-ray showed bilateral patchy and interstitial infiltrates consistent with COVID. She was given ceftriaxone and azithromycin, IV fluids, insulin, and admitted to ICU for management of DKA.? Usual management except that she required high dose insulin infusion for a prolonged period.? Early yesterday morning, she was godfrey ged to D5LR.? Last night, bicarb was up to 18, BUN/creatinine down to 46/1.3. ?This morning, she was still on 15units/hr.? Her POC dropped to 105.? BUN/creatinine down to 42/1.1, sodium 149. ?We shut the insulin drip off, changed her IV fluids to ? NS, and and gave her Lantus 30 units and have been giving her SQ and/or IVP insulin q2hrs thru the day. She?s been eating her meals throughout the day today.? Alert with normal mental status.? On 4L NC, RR thru the day?s been running 20-24, with no WOB, w Sat 90- 95%.? With getting up to go to the commode, Sat drops into 80?s, and the FiO2 is increased to 8L, with Sat rising to 94%.? HR 60, SR, BP 179/99.? She?s been afebrile throughout. LABORATORY DATA:? Below.? Notably, phosphorus was 1.8 this morning, magnesium was 2.8.? Potassium was 3.9.? POC hit 502 during the afternoon today, treated with IV bolus insulin. IMPRESSION: 1. Underlying obesity with TERRA.? Wearing CPAP at night.? Using her own machine here. 2. Bilat COVID pneumonia.? Impossible to estimate her symptom onset date.? Hoping that she?s well into the pulmonary phase and her oxygen requirement won?t get worse.? She?s on Decadron.? I added vitamin-C, vitamin-D, aspirin, and thiamine.? If her oxygenation worsens, I?ll change the Decadron to Solu-Medrol, and go to full dose Lovenox. 3. Acute hypoxemic resp failure.? Oxygen requirement has been stable. 4. Uncontrolled DM with DKA.? Huge insulin requirement, for unclear reasons -- given that she?s not on insulin at home, only takes low dose metformin.? Hb A1c is > 14, however (off the scale high), so her glucose levels were not previously well controlled.? DKA is now resolving, despite the persistently high POCs. 5. Uncontrolled HTN.? She doesn?t take any medications at home. ?I?ll start her on Lisinopril. 6. Still hypovolemic.? Continue IVF with ? NS 7. CANDIDO. ?2? hypovolemia.? Resolving slowly with vol resuscitation. 8. Metabolic.? Replete potassium and phosphate. Time:? [id number]. Critical Care Time (minutes): 0 Physical Exam Vital Signs: Vital Signs: Last Vital Signs Temp 98.3 F 11/10/21 15:00 Pulse 56 11/10/21 21:00 Resp 20 11/10/21 21:00 BP 175/93 H 11/10/21 21:00 Pulse Ox 95 11/10/21 21:00 BMI result Body Mass Index 51.4 Objective Data Labs CBC & Chem 7: 11/10/21 04:16 11/10/21 04:16 Labs: Laboratory Results - last 24 hr 11/09/21 11/10/21 11/10/21 22:04 00:00 02:04 WBC RBC Hgb Hct MCV MCH MCHC RDW Plt Count MPV Immature Gran % (Auto) Neut % (Auto) Lymph % (Auto) [place] % (Auto) Eos % (Auto) Baso % (Auto) Lymph # (Auto) [place] # (Auto) Eos # (Auto) Baso # (Auto) Abs Immat Gran (auto) Absolute Neuts (auto) Absolute Nucleated RBC Nucleated RBC % (auto) VBG pH VBG pCO2 VBG pO2 VBG HCO3 VBG O2 Saturation VBG Base Excess Sodium Potassium Chloride Carbon Dioxide Anion Gap BUN Creatinine Estim Creat Clear Calc Estimated GFR POC Glucose 261 H 212 H 237 H Random Glucose Estimat Average Glucose Hemoglobin A1c % Calcium Phosphorus Magnesium Albumin 11/10/21 11/10/21 11/10/21 04:03 04:14 04:16 WBC 5.9 RBC 4.54 Hgb 12.2 Hct 38.5 MCV 84.8 MCH 26.9 L MCHC 31.7 RDW 17.0 H Plt Count 157 L MPV 10.3 Immature Gran % (Auto) 1.0 H Neut % (Auto) 85.0 H Lymph % (Auto) 8.4 L [place] % (Auto) 5.4 Eos % (Auto) 0.0 Baso % (Auto) 0.2 Lymph # (Auto) 0.5 L [place] # (Auto) 0.3 Eos # (Auto) 0.0 Baso # (Auto) 0.0 Abs Immat Gran (auto) 0.06 H Absolute Neuts (auto) 5.1 Absolute Nucleated RBC 0.000 Nucleated RBC % (auto) 0.0 VBG pH 7.38 VBG pCO2 30 VBG pO2 41 VBG HCO3 18 L VBG O2 Saturation 69.0 VBG Base Excess -5.8 Sodium Potassium Chloride Carbon Dioxide Anion Gap BUN Creatinine Estim Creat Clear Calc Estimated GFR POC Glucose 200 H Random Glucose Estimat Average Glucose Hemoglobin A1c % Calcium Phosphorus Magnesium Albumin 11/10/21 11/10/21 11/10/21 04:16 04:16 05:58 WBC RBC Hgb Hct MCV MCH MCHC RDW Plt Count MPV Immature Gran % (Auto) Neut % (Auto) Lymph % (Auto) [place] % (Auto) Eos % (Auto) Baso % (Auto) Lymph # (Auto) [place] # (Auto) Eos # (Auto) Baso # (Auto) Abs Immat Gran (auto) Absolute Neuts (auto) Absolute Nucleated RBC Nucleated RBC % (auto) VBG pH VBG pCO2 VBG pO2 VBG HCO3 VBG O2 Saturation VBG Base Excess Sodium 149 H Potassium 3.9 Chloride 122 H Carbon Dioxide 19 L Anion Gap 12 BUN 42 H Creatinine 1.14 Estim Creat Clear Calc 76.3 Estimated GFR 51 POC Glucose 185 H Random Glucose 193 H Estimat Average Glucose TNP Hemoglobin A1c % > 14.0 Calcium 9.3 Phosphorus 1.8 L Magnesium 2.8 H Albumin 2.9 L 11/10/21 11/10/21 11/10/21 08:06 08:55 10:09 WBC RBC Hgb Hct MCV MCH MCHC RDW Plt Count MPV Immature Gran % (Auto) Neut % (Auto) Lymph % (Auto) [place] % (Auto) Eos % (Auto) Baso % (Auto) Lymph # (Auto) [place] # (Auto) Eos # (Auto) Baso # (Auto) Abs Immat Gran (auto) Absolute Neuts (auto) Absolute Nucleated RBC Nucleated RBC % (auto) VBG pH VBG pCO2 VBG pO2 VBG HCO3 VBG O2 Saturation VBG Base Excess Sodium Potassium Chloride Carbon Dioxide Anion Gap BUN Creatinine Estim Creat Clear Calc Estimated GFR POC Glucose 108 165 H 331 H Random Glucose Estimat Average Glucose Hemoglobin A1c % Calcium Phosphorus Magnesium Albumin 11/10/21 11/10/21 11/10/21 11:42 14:14 15:55 WBC RBC Hgb Hct MCV MCH MCHC RDW Plt Count MPV Immature Gran % (Auto) Neut % (Auto) Lymph % (Auto) [place] % (Auto) Eos % (Auto) Baso % (Auto) Lymph # (Auto) [place] # (Auto) Eos # (Auto) Baso # (Auto) Abs Immat Gran (auto) Absolute Neuts (auto) Absolute Nucleated RBC Nucleated RBC % (auto) VBG pH VBG pCO2 VBG pO2 VBG HCO3 VBG O2 Saturation VBG Base Excess Sodium Potassium Chloride Carbon Dioxide Anion Gap BUN Creatinine Estim Creat Clear Calc Estimated GFR POC Glucose 402 H* 502 H* 446 H* Random Glucose Estimat Average Glucose Hemoglobin A1c % Calcium Phosphorus Magnesium Albumin 11/10/21 11/10/21 17:54 20:02 WBC RBC Hgb Hct MCV MCH MCHC RDW Plt Count MPV Immature Gran % (Auto) Neut % (Auto) Lymph % (Auto) [place] % (Auto) Eos % (Auto) Baso % (Auto) Lymph # (Auto) [place] # (Auto) Eos # (Auto) Baso # (Auto) Abs Immat Gran (auto) Absolute Neuts (auto) Absolute Nucleated RBC Nucleated RBC % (auto) VBG pH VBG pCO2 VBG pO2 VBG HCO3 VBG O2 Saturation VBG Base Excess Sodium Potassium Chloride Carbon Dioxide Anion Gap BUN Creatinine Estim Creat Clear Calc Estimated GFR POC Glucose 492 H* 370 H* Random Glucose Estimat Average Glucose Hemoglobin A1c % Calcium Phosphorus Magnesium Albumin Microbiology Microbiology Results: Microbiology 11/08/21 18:03 Blood - Venous Blood Culture - Preliminary No growth after 48 hours. 11/08/21 18:09 Blood - Venous Blood Culture - Preliminary No growth after 48 hours. Quality Stroke Does the patient have a stroke diagnosis?: No VTE Prior VTE?: No VTE Risk Level:: Medical - moderate - high VTE Device Contraindication: Treatment Not Indicated VTE Drug Contraindication: N/A - Med Ordered
[2021-11-10 22:05] LABS: Glucose, Whole Blood 302 mg/dL (60-115)
[2021-11-10] MEDS: Insulin Regular, Human 100 UNIT/ML 3 ML VIAL IVPUSH (22:13)
[2021-11-10] MEDS: Insulin Glargine,Hum.rec.anlog 100 UNIT/ML 10 ML VIAL 10 UNIT SUBCUT (22:13)
[2021-11-11] VITALS (27 sets, daily range): BP systolic 122–187; BP diastolic 63–124; PULSE 47–90; RESP 15–29; TEMP 35.1–37.1; O2SAT 86–96; BMI 52.8
[2021-11-11 00:09] LABS: Glucose, Whole Blood 242 mg/dL (60-115)
[2021-11-11] MEDS: Potassium Chloride Packet 20 MEQ PACKET 40 MEQ PO (00:58)
[2021-11-11 02:16] LABS: Glucose, Whole Blood 251 mg/dL (60-115)
[2021-11-11] MEDS: Insulin Lispro 100 UNIT/ML 3 ML VIAL SUBCUT ×2 (02:25→08:28)
[2021-11-11 04:13] LABS: D Dimer High Sensitivity 280 NG/ML
[2021-11-11 04:28] LABS: Anion Gap 12 (12-20); Blood Urea Nitrogen 35 mg/dL (9-16); C Reactive Protein 2.65 mg/dL (< or = 0.50); Calcium 8.7 mg/dL (8.4-10.2); Carbon Dioxide 17 mmol/L (22-29); Chloride 117 mmol/L (96-108); Creatinine Clr Calc Pharmacy 87.9; Estimated Glomerular Filt Rate 60; Glucose Random 267 mg/dL (60-115); Magnesium 2.4 mg/dL (1.6-2.6); Phosphorus 2.8 mg/dL (2.7-4.5); Potassium 4.9 mmol/L (3.3-5.1); Sodium 141 mmol/L (135-145)
[2021-11-11 04:39] LABS: Lactate Dehydrogenase 483 U/L (122-220)
[2021-11-11 05:01] LABS: Ferritin 442 ng/mL (10-250)
[2021-11-11] MEDS: Sodium Chloride 0.45 % 1,000 ML 150 ML IVCONT ×3 (05:17→18:28)
[2021-11-11 08:15] LABS: Glucose, Whole Blood 234 mg/dL (60-115)
[2021-11-11] MEDS: Insulin Glargine,Hum.rec.anlog 100 UNIT/ML 10 ML VIAL 40 UNIT SUBCUT (08:28)
[2021-11-11] MEDS: Cholecalciferol (Vitamin D3) 25 MCG TABLET 50 MCG PO (08:29)
[2021-11-11] MEDS: lisinopriL 5 MG TABLET PO (08:29)
[2021-11-11] MEDS: dexAMETHasone 6 MG TABLET PO (08:29)
[2021-11-11] MEDS: Aspirin 325 MG TABLET PO (08:29)
[2021-11-11] MEDS: Ascorbic Acid 500 MG TABLET 1000 MG PO ×4 (08:29→20:13)
[2021-11-11] MEDS: Enoxaparin Sodium 40 MG/0.4 ML SYRINGE SUBCUT (08:30)
[2021-11-11] MEDS: Fluconazole 100 MG TABLET PO (08:30)
[2021-11-11 11:11] LABS: Glucose, Whole Blood 407 mg/dL (60-115)
[2021-11-11] MEDS: Thiamine HCL 100 MG TABLET 200 MG PO ×2 (11:55→20:13)
[2021-11-11] MEDS: Insulin Lispro 100 UNIT/ML 3 ML VIAL 30 UNIT SUBCUT ×3 (11:55→17:26)
[2021-11-11 14:16] LABS: Glucose, Whole Blood 381 mg/dL (60-115)
[2021-11-11 16:51] LABS: Glucose, Whole Blood 399 mg/dL (60-115)
--- NOTE | 2021-11-11 17:44 | PM.CCPN ---
Subjective Subjective Date of Service: 11/11/21 Interval History: Ms. Sin was admitted to the ICU Nov 09 because of DKA. The patient is a 50-year-old female with a past medical history of morbid obesity, TERRA compliant with CPAP at home (not on oxygen, AFAIK), DM, HTN, and asthma. She presented to the ED Nov 08 because of severe and worsening SOB and CRUM x4 days, fever, chills, nausea, diarrhea and fatigue.? She?d been sick for two months with SOB and CRUM, thought secondary to his severe asthma, bronchiectasis, and yeast infections.? Followed closely by her merchandise processor, Dr. Lui.? Has been on several antibiotics and steroids.? Didn?t get a COVID test till about Oct 13, when her and son tested positive.? She tested negative that day. On 11/06/2021 she tested positive for COVID and was started on dexamethasone by Dr. Lui. ?(Symptom onset date undetermined.)? Also recently noticed polydipsia and blurred vision.? O2 Sat was 80% at home on room air.? She had COVID vaccination x2 in December,. In ED, Sat 90-95% on room air.? But chemistries showed bicarb of 7 and random glucose of a 1011, w BUN/creat 53/2.3 (don?t have any prev labs). ?White count normal, hemoglobin was hemoconcentrated, COVID positive.? Chest x-ray showed bilateral patchy and interstitial infiltrates consistent with COVID. She was given ceftriaxone and azithromycin, IV fluids, insulin, and admitted to ICU for management of DKA.? Usual management except that she required high dose insulin infusion for a prolonged period.? The insulin drip was turned off yesterday and since then we?ve been checking her POC q2hr and treating her with SQ and IV bolus insulin.? This morning we started her on Lantus 40 units bid, and we?re covering her every 2 hours with SQ Lispro.? She?s been getting 20-30 units of Lispro q2hrs.? She?s on a 2000 kenzie ADA diet.? Her Hb A1c was off the scale high (> 14). She?s been eating her meals with no problem.? Getting in and out of bed with no problem, altho her Sats drop into the 80?s with exertion.? Fully alert with normal mental status, able to talk at length with no problem, and give me a good history.? On 5L NC, RR is about 20, Sat 93%, with no WOB.? HR 69, SR, BP 129/63.? She?s been afebrile throughout.? No JVD at 10?.? Chest shows markedly diminished BS, but clear, with normal exp phase.? No audible heart tones.? Abdomen benign.? Traced pretibial edema. LABORATORY DATA:? Below.? Notably, BUN/creat continue to come down on ? NS @ 150 cc/hr.? Had massive phosphorus and potassium repletion yesterday.? Despite the Lantus, POC still hitting 400.? OI?m giving her 30 units Lispro almost every two hours. IMPRESSION: 1. Underlying obesity with TERRA.? Wearing CPAP at night.? Using her own machine here. 2. Bilat COVID pneumonia.? Symptom onset date is sometime betw Oct 13 and Nov 06.? Hoping that she?s well into the pulmonary phase and her oxygen requirement won?t get worse.? She?s on Decadron.? I added vitamin-C, vitamin-D, aspirin, and thiamine.? If her oxygenation worsens, I?ll change the Decadron to Solu-Medrol, and go to full dose Lovenox. 3. Acute hypoxemic resp failure.? Oxygen requirement has been stable. 4. Uncontrolled DM with DKA.? Huge insulin requirement.? Hb A1c shows that she?s been uncontrolled for years.? DKA is now resolving, despite the persistently high POCs. 5. Uncontrolled HTN.? She takes Losartan at home.? I?ll start that tonight. 6. Still hypovolemic.? Continue IVF with ? NS 7. CANDIDO.? 2? hypovolemia.? Resolving slowly with vol resuscitation. 8. Metabolic.? Bicarb not yet back to normal.? Continue with insulin and IVF 9. Nutrition.? I?ll cut her diet back to 1800 kenzie. 10. Perineal yeast infection.? On 10 day course of fluconazole. Time:? [id number]. Critical Care Time (minutes): 0 Physical Exam Vital Signs: Vital Signs: Last Vital Signs Temp 97.9 F 11/11/21 15:40 Pulse 80 11/11/21 16:56 Resp 28 H 11/11/21 16:56 BP 160/124 H 11/11/21 16:56 Pulse Ox 89 L 11/11/21 16:56 BMI result Body Mass Index 52.8 Objective Data Labs CBC & Chem 7: 11/10/21 04:16 11/11/21 03:59 Labs: Laboratory Results - last 24 hr 11/10/21 11/10/21 11/10/21 17:54 20:02 22:00 D-Dimer High Sensitivty Sodium Potassium Chloride Carbon Dioxide Anion Gap BUN Creatinine Estim Creat Clear Calc Estimated GFR POC Glucose 492 H* 370 H* 302 H Random Glucose Calcium Phosphorus Magnesium Ferritin Lactate Dehydrogenase C-Reactive Protein 11/11/21 11/11/21 11/11/21 00:05 02:08 03:59 D-Dimer High Sensitivty 280 Sodium Potassium Chloride Carbon Dioxide Anion Gap BUN Creatinine Estim Creat Clear Calc Estimated GFR POC Glucose 242 H 251 H Random Glucose Calcium Phosphorus Magnesium Ferritin Lactate Dehydrogenase C-Reactive Protein 11/11/21 11/11/21 11/11/21 03:59 07:49 11:07 D-Dimer High Sensitivty Sodium 141 Potassium 4.9 D Chloride 117 H Carbon Dioxide 17 L Anion Gap 12 BUN 35 H Creatinine 0.99 Estim Creat Clear Calc 87.9 Estimated GFR 60 POC Glucose 234 H 407 H* Random Glucose 267 H Calcium 8.7 D Phosphorus 2.8 Magnesium 2.4 Ferritin 442 H Lactate Dehydrogenase 483 H C-Reactive Protein 2.65 H 11/11/21 11/11/21 14:11 16:43 D-Dimer High Sensitivty Sodium Potassium Chloride Carbon Dioxide Anion Gap BUN Creatinine Estim Creat Clear Calc Estimated GFR POC Glucose 381 H* 399 H* Random Glucose Calcium Phosphorus Magnesium Ferritin Lactate Dehydrogenase C-Reactive Protein Microbiology Microbiology Results: Microbiology 11/08/21 18:03 Blood - Venous Blood Culture - Preliminary No growth after 48 hours. 11/08/21 18:09 Blood - Venous Blood Culture - Preliminary No growth after 48 hours. Quality Stroke Does the patient have a stroke diagnosis?: No VTE Prior VTE?: No VTE Risk Level:: Medical - moderate - high VTE Device Contraindication: Treatment Not Indicated VTE Drug Contraindication: N/A - Med Ordered
[2021-11-11] MEDS: Losartan Potassium 50 MG TABLET PO (18:27)
[2021-11-11 19:33] LABS: Glucose, Whole Blood 401 mg/dL (60-115)
[2021-11-11] MEDS: Insulin Lispro 100 UNIT/ML 3 ML VIAL 40 UNIT SUBCUT (20:13)
[2021-11-11] MEDS: Insulin Glargine,Hum.rec.anlog 100 UNIT/ML 10 ML VIAL SUBCUT (21:18)
[2021-11-11] MEDS: Omeprazole 40 MG CAPSULE.DR PO (21:19)
[2021-11-11 21:56] LABS: Glucose, Whole Blood 247 mg/dL (60-115)
[2021-11-12] VITALS (28 sets, daily range): BP systolic 97–194; BP diastolic 48–94; PULSE 44–72; RESP 12–29; TEMP 36.3–37.1; O2SAT 88–98; BMI 52.9
[2021-11-12 01:12] LABS: Glucose, Whole Blood 144 mg/dL (60-115)
[2021-11-12] MEDS: Sodium Chloride 0.45 % 1,000 ML 150 ML IVCONT ×2 (01:35→08:59)
[2021-11-12 05:54] LABS: VBG Base Excess -2.7 mmol/L; VBG HCO3 21 mmol/L (22-26); VBG pCO2 34 mmHg; VBG pH 7.39 (7.32-7.43); VBG pO2 27 mmHg
[2021-11-12 06:33] LABS: Glucose, Whole Blood 106 mg/dL (60-115)
[2021-11-12 06:38] LABS: Alanine Aminotransferase 105 U/L (0-31); Albumin Level 2.8 g/dL (3.5-5.0); Alkaline Phosphatase 133 U/L (39-117); Anion Gap 11 (12-20); Aspartate Amino Transferase 122 U/L (5-31); Bilirubin Total 0.5 mg/dL (0.0-1.0); Blood Urea Nitrogen 25 mg/dL (9-16); Calcium 8.5 mg/dL (8.4-10.2); Carbon Dioxide 19 mmol/L (22-29); Chloride 115 mmol/L (96-108); Creatinine Clr Calc Pharmacy 94.4; Estimated Glomerular Filt Rate > 60; Glucose Random 114 mg/dL (60-115); Magnesium 2.2 mg/dL (1.6-2.6); Phosphorus 3.6 mg/dL (2.7-4.5); Potassium 4.1 mmol/L (3.3-5.1); Sodium 141 mmol/L (135-145)
[2021-11-12] MEDS: Omeprazole 40 MG CAPSULE.DR PO (06:40)
[2021-11-12 06:41] LABS: Venous Blood Gas Refer to POC result
[2021-11-12 06:45] LABS: Basophils Percent Auto 0.1 % (0-2); Eosinophils Percent Auto 0.1 % (0-4); Hematocrit 37.6 % (37.0-47.0); Hemoglobin 12.1 g/dl (12.0-16.0); Imm Gran Pct Auto 2.7 % (0.0-0.4); Lymphocytes Absolute Auto 1.1 X10*3/uL (1.2-4.9); Lymphocytes Percent Auto 14.4 % (20-40); MANUAL DIFF FLAG NO; Mean Corpuscular HGB Conc 32.2 g/dl (31.0-35.0); Mean Corpuscular Hemoglobin 26.9 pg (27.0-33.0); Mean Corpuscular Volume 83.6 fL (80.0-98.0); Mean Platelet Volume 10.5 fL (9.4-12.3); Monocytes Absolute Auto 0.5 X10*3/uL (0.1-1.2); Monocytes Percent Auto 6.2 % (2-11); Neutrophils Absolute Auto 5.7 x10*3/uL (2.0-8.3); Neutrophils Percent Auto 76.5 % (45-73); Platelet Count 141 X10*3/uL (160-400); Red Cell Distribution Width 15.9 % (11.0-16.0); White Blood Count 7.4 X10*3/uL (4.8-10.8)
[2021-11-12] MEDS: Losartan Potassium 50 MG TABLET PO (08:48)
[2021-11-12] MEDS: Ascorbic Acid 500 MG TABLET 1000 MG PO ×4 (08:48→19:56)
[2021-11-12] MEDS: Enoxaparin Sodium 40 MG/0.4 ML SYRINGE SUBCUT (08:48)
[2021-11-12] MEDS: Fluconazole 100 MG TABLET PO (08:48)
[2021-11-12] MEDS: Thiamine HCL 100 MG TABLET 200 MG PO ×2 (08:48→19:57)
[2021-11-12] MEDS: Aspirin 325 MG TABLET PO (08:48)
[2021-11-12] MEDS: Cholecalciferol (Vitamin D3) 25 MCG TABLET 50 MCG PO (08:48)
[2021-11-12] MEDS: dexAMETHasone 6 MG TABLET PO (08:49)
[2021-11-12 09:30] LABS: Glucose, Whole Blood 134 mg/dL (60-115)
[2021-11-12] MEDS: Insulin Glargine,Hum.rec.anlog 100 UNIT/ML 10 ML VIAL 80 UNIT SUBCUT (10:37)
[2021-11-12 12:03] LABS: Glucose, Whole Blood 274 mg/dL (60-115)
[2021-11-12] MEDS: Insulin Lispro 100 UNIT/ML 3 ML VIAL 20 UNIT SUBCUT (12:44)
[2021-11-12 14:05] LABS: Glucose, Whole Blood 336 mg/dL (60-115)
--- NOTE | 2021-11-12 14:33 | MHC.CM.PN ---
Call placed to pt's spouse to clarify some of her d/c needs/concerns. Per Garrett, pt has a CPAP (usage is sporadic) and a cannister of O2 that he keeps in his police cruiser for prn asthma needs. Pt does not have an O2 script. He states pt had been checking her BG daily for about 3 weeks in the fall but has since stopped because her readings were better Pt was independent prior to admission with no services. Discussed pt's need for outpt f/u and likely need for insulin, and possible O2. Will discuss VNA options with pt. CM to follow.
[2021-11-12] MEDS: Insulin Lispro 100 UNIT/ML 3 ML VIAL 30 UNIT SUBCUT ×2 (14:38→16:36)
[2021-11-12 16:15] LABS: Glucose, Whole Blood 327 mg/dL (60-115)
[2021-11-12 17:54] LABS: Glucose, Whole Blood 236 mg/dL (60-115)
[2021-11-12] MEDS: Insulin Lispro 100 UNIT/ML 3 ML VIAL 25 UNIT SUBCUT (18:16)
[2021-11-12] MEDS: Insulin Glargine,Hum.rec.anlog 100 UNIT/ML 10 ML VIAL 45 UNIT SUBCUT ×2 (18:17)
--- NOTE | 2021-11-12 19:07 | PC.NURSE ---
AFEBRILE. VSS. DENIES PAIN. REMAINS ON 8L MACK CANNULA - TOLERATING WELL. THIS AFTERNOON REPORTED FEELING A LITTLE ANXIOUS FOR A FEW MINUTES, BUT FEELS BETTER NOW. STANDBY ASSIST TO COMMODE AND RECLINER. ATE 100% OF MEALS. SEE [facility] FOR ALL INSULIN COVERAGE. NO FURTHER EPISODES OF PAUSES SINCE THIS AM. CARDIOLOGY AND MD AWARE.
--- NOTE | 2021-11-12 19:43 | P.PNCC_ITS ---
Subjective Subjective Date of Service: 11/12/21 Interval History: Ms. Sin was admitted to the ICU Nov 09 because of DKA. The patient is a 50-year-old female with a past medical history of morbid obesity, TERRA compliant with CPAP at home (not on oxygen, AFAIK), DM, HTN, and asthma. She presented to the ED Nov 08 because of severe and worsening SOB and CRUM x4 days, fever, chills, nausea, diarrhea and fatigue.? She?d been sick for two months with SOB and CRUM, thought secondary to his severe asthma, bronchiectasis, and yeast infections.? Followed closely by her claim adjuster, Dr. Lui.? Has been on several antibiotics and steroids.? Didn?t get a COVID test till about Oct 13, when her and son tested positive.? She tested negative that day. On 11/06/2021 she tested positive for COVID and was started on dexamethasone by Dr. Lui. ?(Symptom onset date undetermined.)? Also recently noticed polydipsia and blurred vision.? O2 Sat was 80% at home on room air.? She had COVID vaccination x2 in December,. In ED, Sat 90-95% on room air.? But chemistries showed bicarb of 7 and random glucose of a 1011, w BUN/creat 53/2.3 (don?t have any prev labs). ?White count normal, hemoglobin was hemoconcentrated, COVID positive.? Chest x-ray showed bilateral patchy and interstitial infiltrates consistent with COVID. She was given ceftriaxone and azithromycin, IV fluids, insulin, and admitted to ICU for management of DKA.? Her Hb A1c was off the scale high (> 14).? Usual management except that she required high dose insulin infusion for a prolonged period.? The insulin drip was turned off the morning of Nov 10, and since then we?ve been checking her POC q2hr and treating her with Lantus and sliding scale Lispro SQ insulin. Last night she was given Lantus 100 units.? Her POC this morning was 106.? We gave her Lantus 80 units this morning.? From there ther POC key during the day.? At noon, her POC was 274 and we started again with high dose SS Lispro. She?s been eating her meals with no problem.? Getting in and out of bed with no problem, altho her Sats drop into the 80?s with exertion.? Fully alert with normal mental status, able to talk at length with no problem.? On 5L NC, RR is about 20-24, Sat 95%, with no WOB.? HR 51, SR, BP 159/78.? When she sleeps, her heart rate has been dropping into the 40s, even a few numbers in the 30s.? This morning, while the patient was sleeping she had a 3.2 second pause and another about 2 second pause. ?(The strips are in her chart.) ?She?s been afebrile throughout.? No JVD at 10?.? Normal exp phase.? Abdomen benign.? Trace pretibial edema. LABORATORY DATA:? Below.? Notably, BUN/creat continue to come down on ? NS @ 150 cc/hr. IMPRESSION: 1. Underlying obesity with TERRA.? Wearing CPAP at night.? Using her own machine here. 2. Bilat COVID pneumonia.? Symptom onset date is sometime betw Oct 13 and Nov 06.? Hoping that she?s well into the pulmonary phase and her oxygen requirement won?t get worse.? It?s been stable since she?s been here.? She?s on Decadron.? I added vitamin-C, vitamin-D, aspirin, and thiamine.? If her oxygenation worsens, I?ll change the Decadron to Solu-Medrol, and go to full dose Lovenox. 3. Acute hypoxemic resp failure.? Oxygen requirement has been stable. 4. Uncontrolled DM with DKA.? Huge insulin requirement.? Hb A1c shows that she?s been uncontrolled for years.? Discussed this evening with Dr. Holman from Endocrine. 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 ?DKA is now resolving, despite the persistently high POCs. 5. Sinus pauses, bradycardia.? Occuring while she?s sleeping. ?Discussed with Dr. Brennan.? My own inclination is to continue to watch and see what happens.? She is probably going to be in the hospital for probably least another week, maybe two, and she will be monitored the whole time.? Given that the cause appeared reversible, we are holding off on a formal consult. 6. Uncontrolled HTN.? Improved on the Losartan she takes at home. 7. She?s approaching euvolemia (based on her renal indices.? We stopped the IVF. 8. CANDIDO.? 2? hypovolemia.? Resolving post vol resuscitation. 9. Metabolic.? Bicarb still not yet back to normal.? Expect it will normalize once her glucose is under control. 10. Nutrition. Cut her diet back to 1800 kenzie. 11. Perineal yeast infection.? On 10 day course of fluconazole. Time:? . Critical Care Time (minutes): 0 Physical Exam Verdana 4l Vital Signs: Verdana 4d Verdana 4d Vital Signs: Verdana 4d Verdana 4Bd Last Vital Signs Verdana 4d Advisory Internship New 4d Advisory Internship New 4d Temp 98.8 F 11/12/21 08:00 Advisory Internship New 4d Pulse 52 11/12/21 19:00 Advisory Internship New 4d Resp 19 11/12/21 19:00 BP 159/78 H 11/12/21 19:00 Pulse Ox 97 11/12/21 19:00 BMI result Body Mass Index 52.9 Objective Data Labs CBC & Chem 7: 11/12/21 06:00 11/12/21 05:35 Labs: Laboratory Results - last 24 hr 11/11/21 11/12/21 11/12/21 21:52 01:08 05:32 WBC RBC Hgb Hct MCV MCH MCHC RDW Plt Count MPV Immature Gran % (Auto) Neut % (Auto) Lymph % (Auto) [place] % (Auto) Eos % (Auto) Baso % (Auto) Lymph # (Auto) [place] # (Auto) Eos # (Auto) Baso # (Auto) Abs Immat Gran (auto) Absolute Neuts (auto) Absolute Nucleated RBC Nucleated RBC % (auto) VBG pH VBG pCO2 VBG pO2 VBG HCO3 VBG O2 Saturation VBG Base Excess Sodium Potassium Chloride Carbon Dioxide Anion Gap BUN Creatinine Estim Creat Clear Calc Estimated GFR POC Glucose 247 H 144 H 106 Random Glucose Calcium Phosphorus Magnesium Total Bilirubin AST ALT Alkaline Phosphatase Total Protein Albumin 11/12/21 11/12/21 11/12/21 05:35 05:40 06:00 WBC 7.4 RBC 4.50 Hgb 12.1 Hct 37.6 MCV 83.6 MCH 26.9 L MCHC 32.2 RDW 15.9 Plt Count 141 L MPV 10.5 Immature Gran % (Auto) 2.7 H Neut % (Auto) 76.5 H Lymph % (Auto) 14.4 L [place] % (Auto) 6.2 Eos % (Auto) 0.1 Baso % (Auto) 0.1 Lymph # (Auto) 1.1 L [place] # (Auto) 0.5 Eos # (Auto) 0.0 Baso # (Auto) 0.0 Abs Immat Gran (auto) 0.20 H Absolute Neuts (auto) 5.7 Absolute Nucleated RBC 0.000 Nucleated RBC % (auto) 0.0 VBG pH 7.39 VBG pCO2 34 VBG pO2 27 VBG HCO3 21 L VBG O2 Saturation 39.0 VBG Base Excess -2.7 Sodium 141 Potassium 4.1 Chloride 115 H Carbon Dioxide 19 L Anion Gap 11 L BUN 25 H Creatinine 0.94 Estim Creat Clear Calc 94.4 Estimated GFR > 60 POC Glucose Random Glucose 114 Calcium 8.5 Phosphorus 3.6 Magnesium 2.2 Total Bilirubin 0.5 AST 122 H ALT 105 H Alkaline Phosphatase 133 H D Total Protein 6.0 L D Albumin 2.8 L 11/12/21 11/12/21 11/12/21 09:27 11:55 14:02 WBC RBC Hgb Hct MCV MCH MCHC RDW Plt Count MPV Immature Gran % (Auto) Neut % (Auto) Lymph % (Auto) [place] % (Auto) Eos % (Auto) Baso % (Auto) Lymph # (Auto) [place] # (Auto) Eos # (Auto) Baso # (Auto) Abs Immat Gran (auto) Absolute Neuts (auto) Absolute Nucleated RBC Nucleated RBC % (auto) VBG pH VBG pCO2 VBG pO2 VBG HCO3 VBG O2 Saturation VBG Base Excess Sodium Potassium Chloride Carbon Dioxide Anion Gap BUN Creatinine Estim Creat Clear Calc Estimated GFR POC Glucose 134 H 274 H 336 H Random Glucose Calcium Phosphorus Magnesium Total Bilirubin AST ALT Alkaline Phosphatase Total Protein Albumin 11/12/21 11/12/21 16:07 17:42 WBC RBC Hgb Hct MCV MCH MCHC RDW Plt Count MPV Immature Gran % (Auto) Neut % (Auto) Lymph % (Auto) [place] % (Auto) Eos % (Auto) Baso % (Auto) Lymph # (Auto) [place] # (Auto) Eos # (Auto) Baso # (Auto) Abs Immat Gran (auto) Absolute Neuts (auto) Absolute Nucleated RBC Nucleated RBC % (auto) VBG pH VBG pCO2 VBG pO2 VBG HCO3 VBG O2 Saturation VBG Base Excess Sodium Potassium Chloride Carbon Dioxide Anion Gap BUN Creatinine Estim Creat Clear Calc Estimated GFR POC Glucose 327 H 236 H Random Glucose Calcium Phosphorus Magnesium Total Bilirubin AST ALT Alkaline Phosphatase Total Protein Albumin Microbiology Microbiology Results: Microbiology 11/08/21 18:03 Blood - Venous Blood Culture - Preliminary No growth after 48 hours. 11/08/21 18:09 Blood - Venous Blood Culture - Preliminary No growth after 48 hours. Quality Stroke Does the patient have a stroke diagnosis?: No VTE Prior VTE?: No VTE Risk Level:: Medical - moderate - high VTE Device Contraindication: Treatment Not Indicated VTE Drug Contraindication: N/A - Med Ordered
[2021-11-12] MEDS: Escitalopram Oxalate 10 MG TABLET PO (19:57)
[2021-11-12 22:00] LABS: Glucose, Whole Blood 130 mg/dL (60-115)
[2021-11-13] VITALS (7 sets, daily range): BP systolic 143–186; BP diastolic 69–87; PULSE 51–67; RESP 15–22; TEMP 36.1–37.2; O2SAT 95–98; BMI 52.2
[2021-11-13 02:12] LABS: Glucose, Whole Blood 120 mg/dL (60-115)
[2021-11-13 05:35] LABS: Glucose, Whole Blood 90 mg/dL (60-115)
[2021-11-13 05:45] LABS: Hematocrit 37.7 % (37.0-47.0); Hemoglobin 12.2 g/dl (12.0-16.0); Mean Corpuscular HGB Conc 32.4 g/dl (31.0-35.0); Mean Corpuscular Hemoglobin 27.1 pg (27.0-33.0); Mean Corpuscular Volume 83.8 fL (80.0-98.0); Platelet Count 161 X10*3/uL (160-400); Red Cell Distribution Width 15.3 % (11.0-16.0); White Blood Count 7.1 X10*3/uL (4.8-10.8)
[2021-11-13] MEDS: Omeprazole 40 MG CAPSULE.DR PO (05:52)
[2021-11-13 06:05] LABS: Atypical Lymph Absolute Manual 0.1 x10*3/uL; Atypical Lymphs Percent Manual 1 % (0-6); Band Neutrophils Percent 3 % (3-5); Lymphocytes Absolute Manual 0.9 X10*3/uL (1.2-4.9); Lymphocytes Percent Manual 12 % (20-40); Metamyelocytes Absolute 0.2 X10*3/uL; Metamyelocytes Percent 3 %; Monocytes Absolute Manual 0.4 X10*3/uL (0.1-1.2); Monocytes Percent Manual 5 % (2-11); Neutrophils Absolute Manual 5.6 X10*3/uL (2.0-8.3); Neutrophils Percent Manual 76 % (45-73)
[2021-11-13 06:07] LABS: Large Platelet PRESENT; Platelet Estimate SLIGHTLY DECREASED (NORMAL); Platelet Morphology Comment NOTED; RBC Morphology NORMAL
[2021-11-13 06:15] LABS: Alanine Aminotransferase 125 U/L (0-31); Albumin Level 2.8 g/dL (3.5-5.0); Alkaline Phosphatase 158 U/L (39-117); Anion Gap 10 (12-20); Aspartate Amino Transferase 139 U/L (5-31); Bilirubin Total 0.4 mg/dL (0.0-1.0); Blood Urea Nitrogen 21 mg/dL (9-16); Calcium 8.9 mg/dL (8.4-10.2); Carbon Dioxide 24 mmol/L (22-29); Chloride 109 mmol/L (96-108); Creatinine Clr Calc Pharmacy 102.3; Estimated Glomerular Filt Rate > 60; Glucose Random 98 mg/dL (60-115); Magnesium 2.2 mg/dL (1.6-2.6); Phosphorus 4.3 mg/dL (2.7-4.5); Potassium 4.3 mmol/L (3.3-5.1); Sodium 139 mmol/L (135-145); Total Protein 6.2 g/dL (6.5-8.0)
[2021-11-13 07:14] LABS: Hemoglobin A1c % > 14.0 %
[2021-11-13 07:19] LABS: Glucose, Whole Blood 171 mg/dL (60-115)
[2021-11-13] MEDS: Insulin Lispro 100 UNIT/ML 3 ML VIAL SUBCUT ×3 (07:59→22:30)
[2021-11-13] MEDS: Insulin Lispro 100 UNIT/ML 3 ML VIAL 30 UNIT SUBCUT ×4 (08:00→22:28)
--- NOTE | 2021-11-13 08:33 | P.PNCC_ITS ---
Subjective Subjective Date of Service: 11/13/21 Interval History: Ms. Sin was admitted to the ICU on Nov 09 because of DKA. The patient is a 50-year-old female with a past medical history of morbid obesity, TERRA compliant with CPAP at home (not on oxygen), DM, HTN, and asthma.? She had COVID vaccination x2 in December,. Been sick for last two months with SOB and CRUM, thought secondary to her severe asthma, bronchiectasis, and yeast infections.? Followed closely by her lacquer mixer, Dr. Lui.? Has been on several antibiotics and steroids.? Didn?t get a COVID test till about Oct 13, when her and son tested positive.? She tested negative that day. On 11/06/2021 she tested positive for COVID and was started on dexamethasone by Dr. Lui. ?(Symptom onset date undetermined.)? Also recently noticed polydipsia and blurred vision.? She presented to the ED Nov 08 because of sev ere and worsening SOB and CRUM x4 days, fever, chills, nausea, diarrhea and fatigue. In ED, Sat 90-95% on room air. ?But chemistries showed bicarb of 7 and random glucose of a 1011, w BUN/creat 53/2.3 (don?t have any prev labs). ?White count normal, hemoglobin was hemoconcentrated, COVID positive.? Chest x-ray showed bilateral patchy and interstitial infiltrates consistent with COVID. She was given ceftriaxone and azithromycin, IV fluids, insulin, and admitted to ICU for management of DKA.? Her Hb A1c was off the scale high (> 14).? DKA was managed in the usual fashion except that she required high dose insulin infusion for a prolonged period.? The insulin drip was turned off the morning of Nov 10, and since then we?ve been checking her POC q2hr and treating her with Lantus and sliding scale Lispro SQ insulin, up to 30 units q2hrs. Last night I discussed her situation with endocrinology, Dr. Holman ([phone]).? We started her on Lantus 100units qAM, 90 units qPM.? [Dr. Holman indicated that when using Lantus, giving 100units in a single injection might not be absorbed well, so she recommended giving that amount in two divided injections, 50 units each.? So we?re giving the morning dose as two 50 unit injections.]? On top of that, we?re giving her Lispro four times daily, QACHS, 30 units + sliding scale. She?s been eating her meals with no problem.? Getting in and out of bed with no problem, altho her Sats drop into the 80?s with exertion.? When she?s sleeping, her HR drops into the 50s and 40s, and rarely the 30s, with stable BP.? Yesterday morning, while the patient was sleeping, she had a 3.2 second pause and another 2 second pause.? (The strips are in her chart.) She?s been fully alert with normal mental status, able to talk at length with no problem.? On 5L NC, RR is about 20-24, Sat 95%, with no WOB.? HR 50 this morning while she?s sleeping, SR.? BP 147/79.? She?s been afebrile throughout.? No JVD at 10?.? Normal exp phase. LABORATORY DATA:? Below.? Notably, BUN/creat 21/0.8, continuing to come down.? Bicarb finally normal.? We stopped her IVF yesterday. IMPRESSION: 1. Underlying obesity with TERRA.? Wearing CPAP at night.? Using her own machine here. 2. Bilat COVID pneumonia.? Symptom onset date is sometime betw Oct 13 and Nov 06.? She?s on Decadron.? I added vitamin-C, vitamin-D, aspirin, and thiamine.? If her oxygenation worsened, my plan was to change the Decadron to Solu-Medrol, and go to full dose Lovenox. 3. Acute hypoxemic resp failure.? Oxygen requirement has been stable since she?s been here at about 5L NC. 4. Uncontrolled DM with DKA.? Huge insulin requirement.? Hb A1c shows that sh e?s been uncontrolled for years.? 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 DKA is resolved.? Based on this morning?s POC of 90, I?ll drop her evening dose of Lantus to 80 units, given in one single injection. 5. Sinus pauses, bradycardia.? Occuring while she?s sleeping.? Discussed with Dr. Brennan.? My own inclination is to continue to watch and see what happens.? She?s probably going to be in the hospital for probably at least another week, and she?ll be monitored the whole time.? Given that the cause appeared reversible, we are holding off on a formal consult. 6. Uncontrolled HTN.? Improved on the Losartan she takes at home. 7. CANDIDO.? 2? hypovolemia.? Resolved post vol resuscitation. 8. Metabolic.? Bicarb finally normalized, which suggests that her glucose l evels are finally under control. 9. Nutrition. Cut her diet back to 1800 kenzie. 10. Perineal yeast infection.? On 10 day course of fluconazole. Time:? 32937. Critical Care Time (minutes): 0 Physical Exam Verdana 4l Vital Signs: Verdana 4d Verdana 4d Vital Signs: Verdana 4d Verdana 4Bd Last Vital Signs Verdana 4d Supervisor Capacitor Processing New 4d Supervisor Capacitor Processing New 4d Temp 98.7 F 11/13/21 08:00 Supervisor Capacitor Processing New 4d Pulse 61 11/13/21 08:00 Supervisor Capacitor Processing New 4d Resp 19 11/13/21 08:00 BP 147/79 H 11/13/21 08:00 Pulse Ox 95 11/13/21 08:00 BMI result Body Mass Index 52.2 Objective Data Labs CBC & Chem 7: 11/13/21 05:11 11/13/21 05:11 Labs: Laboratory Results - last 24 hr 11/12/21 11/12/21 11/12/21 09:27 11:55 14:02 WBC RBC Hgb Hct MCV MCH MCHC RDW Plt Count MPV Immature Gran % (Auto) Neut % (Auto) Lymph % (Auto) Eddy % (Auto) Eos % (Auto) Baso % (Auto) Lymph # (Auto) Eddy # (Auto) Eos # (Auto) Baso # (Auto) Abs Immat Gran (auto) Absolute Neuts (auto) Absolute Nucleated RBC Nucleated RBC % (auto) Neutrophils % (Manual) Band Neutrophils % Lymphocytes % (Manual) Atypical Lymphs % (Man) Monocytes % (Manual) Metamyelocytes % Abs Neuts (Manual) Lymphocytes # (Manual) Atyp Lymphs # (Manual) Monocytes # (Manual) Metamyelocytes # Platelet Estimate Large Platelets Plt Morphology Comment RBC Morphology Sodium Potassium Chloride Carbon Dioxide Anion Gap BUN Creatinine Estim Creat Clear Calc Estimated GFR POC Glucose 134 H 274 H 336 H Random Glucose Estimat Average Glucose Hemoglobin A1c % Calcium Phosphorus Magnesium Total Bilirubin AST ALT Alkaline Phosphatase Total Protein Albumin 11/12/21 11/12/21 11/12/21 16:07 17:42 21:55 WBC RBC Hgb Hct MCV MCH MCHC RDW Plt Count MPV Immature Gran % (Auto) Neut % (Auto) Lymph % (Auto) Eddy % (Auto) Eos % (Auto) Baso % (Auto) Lymph # (Auto) Eddy # (Auto) Eos # (Auto) Baso # (Auto) Abs Immat Gran (auto) Absolute Neuts (auto) Absolute Nucleated RBC Nucleated RBC % (auto) Neutrophils % (Manual) Band Neutrophils % Lymphocytes % (Manual) Atypical Lymphs % (Man) Monocytes % (Manual) Metamyelocytes % Abs Neuts (Manual) Lymphocytes # (Manual) Atyp Lymphs # (Manual) Monocytes # (Manual) Metamyelocytes # Platelet Estimate Large Platelets Plt Morphology Comment RBC Morphology Sodium Potassium Chloride Carbon Dioxide Anion Gap BUN Creatinine Estim Creat Clear Calc Estimated GFR POC Glucose 327 H 236 H 130 H Random Glucose Estimat Average Glucose Hemoglobin A1c % Calcium Phosphorus Magnesium Total Bilirubin AST ALT Alkaline Phosphatase Total Protein Albumin 11/13/21 11/13/21 11/13/21 02:02 05:11 05:11 WBC 7.1 RBC 4.50 Hgb 12.2 Hct 37.7 MCV 83.8 MCH 27.1 MCHC 32.4 RDW 15.3 Plt Count 161 MPV 11.0 Immature Gran % (Auto) Cancelled Neut % (Auto) Cancelled Lymph % (Auto) Cancelled Eddy % (Auto) Cancelled Eos % (Auto) Cancelled Baso % (Auto) Cancelled Lymph # (Auto) Cancelled Eddy # (Auto) Cancelled Eos # (Auto) Cancelled Baso # (Auto) Cancelled Abs Immat Gran (auto) Cancelled Absolute Neuts (auto) Cancelled Absolute Nucleated RBC 0.000 Nucleated RBC % (auto) 0.0 Neutrophils % (Manual) 76 H Band Neutrophils % 3 Lymphocytes % (Manual) 12 L Atypical Lymphs % (Man) 1 Monocytes % (Manual) 5 Metamyelocytes % 3 Abs Neuts (Manual) 5.6 Lymphocytes # (Manual) 0.9 L Atyp Lymphs # (Manual) 0.1 Monocytes # (Manual) 0.4 Metamyelocytes # 0.2 Platelet Estimate SLIGHTLY DECREASED Large Platelets PRESENT Plt Morphology Comment NOTED RBC Morphology NORMAL Sodium Cancelled Potassium Cancelled Chloride Cancelled Carbon Dioxide Cancelled Anion Gap Cancelled BUN Cancelled Creatinine Cancelled Estim Creat Clear Calc Cancelled Estimated GFR Cancelled POC Glucose 120 H Random Glucose Cancelled Estimat Average Glucose Hemoglobin A1c % Calcium Cancelled Phosphorus Cancelled Magnesium Cancelled Total Bilirubin AST ALT Alkaline Phosphatase Total Protein Albumin 11/13/21 11/13/21 11/13/21 05:11 05:11 05:28 WBC RBC Hgb Hct MCV MCH MCHC RDW Plt Count MPV Immature Gran % (Auto) Neut % (Auto) Lymph % (Auto) Eddy % (Auto) Eos % (Auto) Baso % (Auto) Lymph # (Auto) Eddy # (Auto) Eos # (Auto) Baso # (Auto) Abs Immat Gran (auto) Absolute Neuts (auto) Absolute Nucleated RBC Nucleated RBC % (auto) Neutrophils % (Manual) Band Neutrophils % Lymphocytes % (Manual) Atypical Lymphs % (Man) Monocytes % (Manual) Metamyelocytes % Abs Neuts (Manual) Lymphocytes # (Manual) Atyp Lymphs # (Manual) Monocytes # (Manual) Metamyelocytes # Platelet Estimate Large Platelets Plt Morphology Comment RBC Morphology Sodium 139 Potassium 4.3 Chloride 109 H Carbon Dioxide 24 Anion Gap 10 L BUN 21 H Creatinine 0.86 Estim Creat Clear Calc 102.3 Estimated GFR > 60 POC Glucose 90 Random Glucose 98 Estimat Average Glucose TNP Hemoglobin A1c % > 14.0 Calcium 8.9 Phosphorus 4.3 Magnesium 2.2 Total Bilirubin 0.4 AST 139 H ALT 125 H Alkaline Phosphatase 158 H Total Protein 6.2 L Albumin 2.8 L 11/13/21 07:08 WBC RBC Hgb Hct MCV MCH MCHC RDW Plt Count MPV Immature Gran % (Auto) Neut % (Auto) Lymph % (Auto) Eddy % (Auto) Eos % (Auto) Baso % (Auto) Lymph # (Auto) Eddy # (Auto) Eos # (Auto) Baso # (Auto) Abs Immat Gran (auto) Absolute Neuts (auto) Absolute Nucleated RBC Nucleated RBC % (auto) Neutrophils % (Manual) Band Neutrophils % Lymphocytes % (Manual) Atypical Lymphs % (Man) Monocytes % (Manual) Metamyelocytes % Abs Neuts (Manual) Lymphocytes # (Manual) Atyp Lymphs # (Manual) Monocytes # (Manual) Metamyelocytes # Platelet Estimate Large Platelets Plt Morphology Comment RBC Morphology Sodium Potassium Chloride Carbon Dioxide Anion Gap BUN Creatinine Estim Creat Clear Calc Estimated GFR POC Glucose 171 H Random Glucose Estimat Average Glucose Hemoglobin A1c % Calcium Phosphorus Magnesium Total Bilirubin AST ALT Alkaline Phosphatase Total Protein Albumin Microbiology Microbiology Results: Microbiology 11/08/21 18:03 Blood - Venous Blood Culture - Preliminary No growth after 48 hours. 11/08/21 18:09 Blood - Venous Blood Culture - Preliminary No growth after 48 hours. Quality Stroke Does the patient have a stroke diagnosis?: No VTE Prior VTE?: No VTE Risk Level:: Medical - moderate - high VTE Device Contraindication: Treatment Not Indicated VTE Drug Contraindication: N/A - Med Ordered
[2021-11-13] MEDS: Enoxaparin Sodium 40 MG/0.4 ML SYRINGE SUBCUT (10:03)
[2021-11-13] MEDS: Losartan Potassium 50 MG TABLET PO (10:03)
[2021-11-13] MEDS: Aspirin 325 MG TABLET PO (10:03)
[2021-11-13] MEDS: Cholecalciferol (Vitamin D3) 25 MCG TABLET 50 MCG PO (10:03)
[2021-11-13] MEDS: Ascorbic Acid 500 MG TABLET 1000 MG PO ×4 (10:03→22:27)
[2021-11-13] MEDS: Escitalopram Oxalate 10 MG TABLET PO (10:03)
[2021-11-13] MEDS: Thiamine HCL 100 MG TABLET 200 MG PO ×2 (10:03→22:28)
[2021-11-13] MEDS: Fluconazole 100 MG TABLET PO (10:03)
[2021-11-13] MEDS: dexAMETHasone 6 MG TABLET PO (10:03)
[2021-11-13] MEDS: Insulin Glargine,Hum.rec.anlog 100 UNIT/ML 10 ML VIAL 50 UNIT SUBCUT ×2 (10:05→10:06)
[2021-11-13 11:47] LABS: Glucose, Whole Blood 135 mg/dL (60-115)
[2021-11-13 16:40] LABS: Glucose, Whole Blood 230 mg/dL (60-115)
[2021-11-13 21:04] LABS: Glucose, Whole Blood 310 mg/dL (60-115)
[2021-11-13] MEDS: Insulin Glargine,Hum.rec.anlog 100 UNIT/ML 10 ML VIAL 80 UNIT SUBCUT (22:27)
[2021-11-14] VITALS (9 sets, daily range): BP systolic 141–188; BP diastolic 64–98; PULSE 52–72; RESP 18–20; TEMP 36.2–36.7; O2SAT 93–98
[2021-11-14] MEDS: Omeprazole 40 MG CAPSULE.DR PO (05:58)
[2021-11-14 06:12] LABS: Glucose, Whole Blood 90 mg/dL (60-115)
[2021-11-14 07:19] LABS: Alanine Aminotransferase 154 U/L (0-31); Albumin Level 2.9 g/dL (3.5-5.0); Alkaline Phosphatase 163 U/L (39-117); Anion Gap 10 (12-20); Aspartate Amino Transferase 155 U/L (5-31); Bilirubin Total 0.6 mg/dL (0.0-1.0); Blood Urea Nitrogen 26 mg/dL (9-16); Calcium 8.7 mg/dL (8.4-10.2); Carbon Dioxide 26 mmol/L (22-29); Chloride 109 mmol/L (96-108); Estimated Glomerular Filt Rate > 60; Glucose Random 94 mg/dL (60-115); Sodium 141 mmol/L (135-145); Total Protein 6.2 g/dL (6.5-8.0)
[2021-11-14 07:36] LABS: Glucose, Whole Blood 74 mg/dL (60-115)
[2021-11-14 08:41] LABS: HBS Num1 1.52 mIU/mL (0-7.99); HBc Num1 0.17 S/CO (0.00-0.79); Hepatitis A Antibody IgM 0.17 Index (0-0.79); Hepatitis B Core Antibody Nonreactive (Nonreactive); Hepatitis B Surface Antigen Negative (Negative); ~HepC Num1 0.13 S/CO (0.00-0.79); ~Hepatitis A Antibody IgM Nonreactive (Nonreactive); ~Hepatitis B Surface Antibody NONREACTIVE (Nonreactive); ~Hepatitis C Antibody Nonreactive (Nonreactive)
[2021-11-14] MEDS: dexAMETHasone 6 MG TABLET PO (10:56)
[2021-11-14] MEDS: Fluconazole 100 MG TABLET PO (10:56)
[2021-11-14] MEDS: Cholecalciferol (Vitamin D3) 25 MCG TABLET 50 MCG PO (10:57)
[2021-11-14] MEDS: Aspirin 325 MG TABLET PO (10:57)
[2021-11-14] MEDS: Losartan Potassium 50 MG TABLET PO (10:57)
[2021-11-14] MEDS: Ascorbic Acid 500 MG TABLET 1000 MG PO ×4 (10:57→20:51)
[2021-11-14] MEDS: Escitalopram Oxalate 10 MG TABLET PO (10:57)
[2021-11-14] MEDS: Thiamine HCL 100 MG TABLET 200 MG PO ×2 (10:57→20:51)
[2021-11-14] MEDS: Enoxaparin Sodium 40 MG/0.4 ML SYRINGE SUBCUT (10:57)
[2021-11-14 11:05] LABS: Glucose, Whole Blood 174 mg/dL (60-115)
[2021-11-14] MEDS: Insulin Lispro 100 UNIT/ML 3 ML VIAL SUBCUT ×3 (12:47→20:52)
[2021-11-14] MEDS: Insulin Lispro 100 UNIT/ML 3 ML VIAL 10 UNIT SUBCUT ×2 (12:56→17:40)
--- NOTE | 2021-11-14 14:32 | P.PNIM_ITS ---
Subjective Subjective Date of Service: 11/14/21 Interval History: Doing well...of O2. Sugars markedly improved. No acute issues overnight Review of Systems Denies CP Denies SOB Denies N/V/D Physical Exam Verdana 4l Vital Signs: Verdana 4d Verdana 4d Vital Signs: Verdana 4d Verdana 4Bd Last Vital Signs Verdana 4d Digital Media Buyer New 4d Digital Media Buyer New 4d Temp 98.0 F 11/14/21 12:00 Digital Media Buyer New 4d Pulse 72 11/14/21 12:00 Digital Media Buyer New 4d Resp 20 11/14/21 12:00 BP 142/89 H 11/14/21 12:00 Pulse Ox 96 11/14/21 12:00 BMI result Body Mass Index 52.2 Const: Other: No acute issues. Resp: Other: Clear A/P Cardio: Other: -S4 +S1S2 -S3 M/R/G GI: Other: Soft NABS [id number] Extrem: Other: No edema bilat Objective Data Active Medications Ascorbic Acid (Ascorbic Acid 500 Mg Tablet) 1,000 mg PO QID [facility] Last Admin: 11/14/21 12:47 Dose: 1,000 mg Documented by: KELLY Aspirin (Aspirin 325 Mg Tablet) 325 mg PO DAILY [facility] Last Admin: 11/14/21 10:57 Dose: 325 mg Documented by: KELLY Dexamethasone (Dexamethasone 6 Mg Tablet) 6 mg PO DAILY [facility] Last Admin: 11/14/21 10:56 Dose: 6 mg Documented by: KELLY Dextrose (Dextrose 50 % 25 Gm/50 Ml Syringe) 25 gm IVPUSH Q15M PRN; Protocol PRN Reason: per Hypoglycemia Standing Ord. Enoxaparin Sodium (Enoxaparin Sodium 40 Mg/0.4 Ml Syringe) 40 mg SUBCUT DAILY [facility] Last Admin: 11/14/21 10:57 Dose: 40 mg Documented by: KELLY Escitalopram Oxalate (Escitalopram Oxalate 10 Mg Tablet) 10 mg PO DAILY [facility] Last Admin: 11/14/21 10:57 Dose: 10 mg Documented by: KELLY Fluconazole (Fluconazole 100 Mg Tablet) 100 mg PO DAILY [facility] Stop: 11/18/21 09:01 Last Admin: 11/14/21 10:56 Dose: 100 mg Documented by: KELLY Glucose (Glucose Gel 15 Gm Gel..Gram.) 15 gm PO Q15M PRN; Protocol PRN Reason: per Hypoglycemia Standing Ord. Insulin Glargine (Insulin Glargine,Hum.Rec.Anlog 100 Unit/Ml 10 Ml Vial) 30 unit SUBCUT BEDTIME [facility] Insulin Human Lispro (Insulin Lispro 100 Unit/Ml 3 Ml Vial) 0 unit SUBCUT QIDACHS [facility]; Protocol Last Admin: 11/14/21 12:47 Dose: 5 unit Documented by: KELLY Insulin Human Lispro (Insulin Lispro 100 Unit/Ml 3 Ml Vial) 10 unit SUBCUT TIDAC [facility] Last Admin: 11/14/21 12:56 Dose: 10 unit Documented by: KELLY Losartan Potassium (Losartan Potassium 50 Mg Tablet) 50 mg PO DAILY [facility]; Protocol Last Admin: 11/14/21 10:57 Dose: 50 mg Documented by: KELLY Metformin HCl (Metformin Hcl 500 Mg Tablet) 500 mg PO BIDWM [facility] Omeprazole (Omeprazole 40 Mg Capsule.Dr) 40 mg PO DAILY@0630 [facility] Last Admin: 11/14/21 05:58 Dose: 40 mg Documented by: ОЛЕГ Ondansetron HCl (Ondansetron Hcl 4 Mg/2 Ml Vial) 4 mg IVPUSH Q8H PRN PRN Reason: Nausea Pharmacy Consult (Consult Rx Perform Med Rec) 1 each MISCELLANE ONCE PRN PRN Reason: Consult order Thiamine HCl (Thiamine Hcl 100 Mg Tablet) 200 mg PO BID [facility] Last Admin: 11/14/21 10:57 Dose: 200 mg Documented by: KELLY Vitamin D (Cholecalciferol (Vitamin D3) 25 Mcg Tablet) 50 mcg PO DAILY [facility] Last Admin: 11/14/21 10:57 Dose: 50 mcg Documented by: KELLY Labs CBC & Chem 7: 11/13/21 05:11 11/14/21 06:08 Labs: Laboratory Results - last 24 hr 11/13/21 11/13/21 11/14/21 16:37 21:01 06:08 Anion Gap 10 L Estim Creat Clear Calc 106.0 Estimated GFR > 60 POC Glucose 230 H 310 H Random Glucose 94 Calcium 8.7 Total Bilirubin 0.6 AST 155 H ALT 154 H Alkaline Phosphatase 163 H Total Protein 6.2 L Albumin 2.9 L Hepatitis A IgM Ab Hep Bs Antigen Hep Bs Antibody Hep B Core Total Ab Hepatitis C Ab (EIA) 11/14/21 11/14/21 11/14/21 06:08 06:09 07:32 Anion Gap Estim Creat Clear Calc Estimated GFR POC Glucose 90 74 Random Glucose Calcium Total Bilirubin AST ALT Alkaline Phosphatase Total Protein Albumin Hepatitis A IgM Ab Nonreactive Hep Bs Antigen Negative Hep Bs Antibody NONREACTIVE Hep B Core Total Ab Nonreactive Hepatitis C Ab (EIA) Nonreactive 11/14/21 11:01 Anion Gap Estim Creat Clear Calc Estimated GFR POC Glucose 174 H Random Glucose Calcium Total Bilirubin AST ALT Alkaline Phosphatase Total Protein Albumin Hepatitis A IgM Ab Hep Bs Antigen Hep Bs Antibody Hep B Core Total Ab Hepatitis C Ab (EIA) Microbiology Microbiology Results: Microbiology 11/08/21 18:03 Blood Culture - Final Blood - Venous No growth after 5 days. 11/08/21 18:09 Blood Culture - Final Blood - Venous No growth after 5 days. Assessment and Plan (1) COVID-19 virus infection: Status: Acute (2) CANDIDO (acute kidney injury): Status: Acute (3) 2019 novel coronavirus-infected pneumonia (NCIP): Status: Acute (4) Acute respiratory failure due to COVID-19: Status: Acute Plan 51-year-old lady with underlying obesity, asthma, diabetes mellitus admitted with acute hypoxic respiratory failure secondary to COVID-19 and diabetic ketoacidosis requiring insulin drip; returning back to baseline. SUgars markedly improved 1. Acute hypoxic respiratory failure secondary to COVID-19 - O2 sats 94-96% RA - prn nebs with Hx asthma 2.Acute kidney injury secondary to diabetic ketoacidosis/Covid - reolved - follow renals/divalents 3. DMII - elevated secondary to Covid/High dose steroids....normalizing. - deiscussed with Endo.. -Lantus 30nuits at HS -resume Metformin - Lispro 10units TID AC -cover with sliding scale/POCs TID AC and HS Prophylaxis: Heparin Diet: NPO Quality Stroke Does the patient have a stroke diagnosis?: No VTE Prior VTE?: No VTE Risk Level:: Medical - moderate - high VTE Device Contraindication: Treatment Not Indicated VTE Drug Contraindication: N/A - Med Ordered
--- NOTE | 2021-11-14 15:43 | MHC.CM.PN ---
Female 51 DX DKA Covid+ No discharge today per Dr Mcmillan. Medication management for adjustment New Insulin. [facility] will start services on Wednesday. Patients discharge is planned for Wednesday. A same day start was requested and denied. Patient will arrange for transportation home.
[2021-11-14 16:59] LABS: Glucose, Whole Blood 210 mg/dL (60-115)
[2021-11-14] MEDS: metFORMIN HCl 500 MG TABLET PO (17:26)
[2021-11-14 20:46] LABS: Glucose, Whole Blood 268 mg/dL (60-115)
[2021-11-14] MEDS: Insulin Glargine,Hum.rec.anlog 100 UNIT/ML 10 ML VIAL 30 UNIT SUBCUT (20:52)
[2021-11-15] VITALS (8 sets, daily range): BP systolic 117–164; BP diastolic 67–101; PULSE 48–89; RESP 18–20; TEMP 36.2–37.1; O2SAT 94–98
[2021-11-15] MEDS: Omeprazole 40 MG CAPSULE.DR PO (05:35)
[2021-11-15 07:45] LABS: Glucose, Whole Blood 90 mg/dL (60-115)
[2021-11-15 08:28] LABS: Hematocrit 36.7 % (37.0-47.0); Hemoglobin 11.9 g/dl (12.0-16.0); Mean Corpuscular HGB Conc 32.4 g/dl (31.0-35.0); Mean Corpuscular Volume 83.2 fL (80.0-98.0); Mean Platelet Volume 10.9 fL (9.4-12.3); Platelet Count 221 X10*3/uL (160-400); Red Blood Count 4.41 X10*6/uL (4.20-5.50); Red Cell Distribution Width 15.4 % (11.0-16.0)
[2021-11-15 08:55] LABS: Alanine Aminotransferase 201 U/L (0-31); Albumin Level 2.9 g/dL (3.5-5.0); Alkaline Phosphatase 161 U/L (39-117); Anion Gap 11 (12-20); Aspartate Amino Transferase 177 U/L (5-31); Atypical Lymph Absolute Manual 0.1 x10*3/uL; Atypical Lymphs Percent Manual 1 % (0-6); Band Neutrophils Percent 5 % (3-5); Bilirubin Total 0.5 mg/dL (0.0-1.0); Blood Urea Nitrogen 26 mg/dL (9-16); Calcium 8.8 mg/dL (8.4-10.2); Carbon Dioxide 26 mmol/L (22-29); Chloride 109 mmol/L (96-108); Creatinine Clr Calc Pharmacy 103.4; Estimated Glomerular Filt Rate > 60; Glucose Random 90 mg/dL (60-115); Lymphocytes Absolute Manual 1.7 X10*3/uL (1.2-4.9); Lymphocytes Percent Manual 19 % (20-40); Metamyelocytes Absolute 0.1 X10*3/uL; Metamyelocytes Percent 1 %; Monocytes Absolute Manual 0.7 X10*3/uL (0.1-1.2); Monocytes Percent Manual 8 % (2-11); Neutrophils Absolute Manual 6.4 X10*3/uL (2.0-8.3); Neutrophils Percent Manual 66 % (45-73); Potassium 4.1 mmol/L (3.3-5.1); Sodium 142 mmol/L (135-145)
[2021-11-15 08:56] LABS: Platelet Estimate NORMAL (NORMAL); RBC Morphology NORMAL
[2021-11-15 08:57] LABS: Large Platelet PRESENT; Platelet Morphology Comment NOTED
[2021-11-15] MEDS: Thiamine HCL 100 MG TABLET 200 MG PO ×2 (10:08→22:19)
[2021-11-15] MEDS: Cholecalciferol (Vitamin D3) 25 MCG TABLET 50 MCG PO (10:09)
[2021-11-15] MEDS: Ascorbic Acid 500 MG TABLET 1000 MG PO ×4 (10:09→22:19)
[2021-11-15] MEDS: Aspirin 325 MG TABLET PO (10:09)
[2021-11-15] MEDS: Escitalopram Oxalate 10 MG TABLET PO (10:09)
[2021-11-15] MEDS: dexAMETHasone 6 MG TABLET PO (10:09)
[2021-11-15] MEDS: metFORMIN HCl 500 MG TABLET PO ×2 (10:09→17:04)
[2021-11-15] MEDS: Losartan Potassium 50 MG TABLET PO (10:09)
[2021-11-15] MEDS: Enoxaparin Sodium 40 MG/0.4 ML SYRINGE SUBCUT (10:10)
[2021-11-15 11:19] LABS: Glucose, Whole Blood 163 mg/dL (60-115)
--- NOTE | 2021-11-15 11:26 | P.PNIM_ITS ---
Subjective Subjective Date of Service: 11/15/21 Interval History: Doing well with therapies. Sugars controlled. Review of Systems Denies CP Denies SOB Denies N/V/D Physical Exam Verdana 4l Vital Signs: Verdana 4d Verdana 4d Vital Signs: Verdana 4d Verdana 4Bd Last Vital Signs Verdana 4d Piping Manager New 4d Piping Manager New 4d Temp 97.2 F 11/15/21 09:50 Piping Manager New 4d Pulse 67 11/15/21 08:00 Piping Manager New 4d Resp 20 11/15/21 08:00 BP 146/101 H 11/15/21 08:00 Pulse Ox 94 11/15/21 08:00 BMI result Body Mass Index 52.2 Const: Other: No acute issues. Resp: Other: Clear A/P Cardio: Other: -S4 +S1S2 -S3 M/R/G GI: Other: Soft NABS [id number] Extrem: Other: No edema bilat Objective Data Active Medications Ascorbic Acid (Ascorbic Acid 500 Mg Tablet) 1,000 mg PO QID [facility] Last Admin: 11/15/21 10:09 Dose: 1,000 mg Documented by: JENNIFFER Aspirin (Aspirin 325 Mg Tablet) 325 mg PO DAILY [facility] Last Admin: 11/15/21 10:09 Dose: 325 mg Documented by: JENNIFFER Dexamethasone (Dexamethasone 6 Mg Tablet) 6 mg PO DAILY [facility] Last Admin: 11/15/21 10:09 Dose: 6 mg Documented by: JENNIFFER Dextrose (Dextrose 50 % 25 Gm/50 Ml Syringe) 25 gm IVPUSH Q15M PRN; Protocol PRN Reason: per Hypoglycemia Standing Ord. Enoxaparin Sodium (Enoxaparin Sodium 40 Mg/0.4 Ml Syringe) 40 mg SUBCUT DAILY [facility] Last Admin: 11/15/21 10:10 Dose: 40 mg Documented by: JENNIFFER Escitalopram Oxalate (Escitalopram Oxalate 10 Mg Tablet) 10 mg PO DAILY [facility] Last Admin: 11/15/21 10:09 Dose: 10 mg Documented by: JENNIFFER Fluconazole (Fluconazole 100 Mg Tablet) 100 mg PO DAILY [facility] Stop: 11/18/21 09:01 Last Admin: 11/14/21 10:56 Dose: 100 mg Documented by: KELLY Glucose (Glucose Gel 15 Gm Gel..Gram.) 15 gm PO Q15M PRN; Protocol PRN Reason: per Hypoglycemia Standing Ord. Insulin Glargine (Insulin Glargine,Hum.Rec.Anlog 100 Unit/Ml 10 Ml Vial) 30 unit SUBCUT BEDTIME [facility] Last Admin: 11/14/21 20:52 Dose: 30 unit Documented by: GIFTY Insulin Human Lispro (Insulin Lispro 100 Unit/Ml 3 Ml Vial) 0 unit SUBCUT QIDACHS [facility]; Protocol Last Admin: 11/15/21 10:03 Dose: Not Given Documented by: JENNIFFER Non-Admin Reason: No Insulin Coverage Insulin Human Lispro (Insulin Lispro 100 Unit/Ml 3 Ml Vial) 10 unit SUBCUT TIDAC [facility] Last Admin: 11/15/21 10:03 Dose: Not Given Documented by: JENNIFFER Non-Admin Reason: Physician Approved Losartan Potassium (Losartan Potassium 50 Mg Tablet) 50 mg PO DAILY [facility]; Protocol Last Admin: 11/15/21 10:09 Dose: 50 mg Documented by: JENNIFFER Metformin HCl (Metformin Hcl 500 Mg Tablet) 500 mg PO BIDWM [facility] Last Admin: 11/15/21 10:09 Dose: 500 mg Documented by: JENNIFFER Omeprazole (Omeprazole 40 Mg Capsule.Dr) 40 mg PO DAILY@0630 [facility] Last Admin: 11/15/21 05:35 Dose: 40 mg Documented by: GIFTY Ondansetron HCl (Ondansetron Hcl 4 Mg/2 Ml Vial) 4 mg IVPUSH Q8H PRN PRN Reason: Nausea Pharmacy Consult (Consult Rx Perform Med Rec) 1 each MISCELLANE ONCE PRN PRN Reason: Consult order Thiamine HCl (Thiamine Hcl 100 Mg Tablet) 200 mg PO BID [facility] Last Admin: 11/15/21 10:08 Dose: 200 mg Documented by: JENNIFFER Vitamin D (Cholecalciferol (Vitamin D3) 25 Mcg Tablet) 50 mcg PO DAILY [facility] Last Admin: 11/15/21 10:09 Dose: 50 mcg Documented by: JENNIFFER Labs CBC & Chem 7: 11/15/21 08:13 11/15/21 08:13 Labs: Laboratory Results - last 24 hr 11/14/21 11/14/21 11/15/21 16:52 20:43 07:40 MCV MCH MCHC RDW Plt Count MPV Immature Gran % (Auto) Neut % (Auto) Lymph % (Auto) [place] % (Auto) Eos % (Auto) Baso % (Auto) Lymph # (Auto) [place] # (Auto) Eos # (Auto) Baso # (Auto) Abs Immat Gran (auto) Absolute Neuts (auto) Absolute Nucleated RBC Nucleated RBC % (auto) Neutrophils % (Manual) Band Neutrophils % Lymphocytes % (Manual) Atypical Lymphs % (Man) Monocytes % (Manual) Metamyelocytes % Abs Neuts (Manual) Lymphocytes # (Manual) Atyp Lymphs # (Manual) Monocytes # (Manual) Metamyelocytes # Platelet Estimate Large Platelets Plt Morphology Comment RBC Morphology Anion Gap Estim Creat Clear Calc Estimated GFR POC Glucose 210 H 268 H 90 Random Glucose Calcium Total Bilirubin AST ALT Alkaline Phosphatase Total Protein Albumin 11/15/21 11/15/21 11/15/21 08:13 08:13 11:15 MCV 83.2 MCH 27.0 MCHC 32.4 RDW 15.4 Plt Count 221 D MPV 10.9 Immature Gran % (Auto) Cancelled Neut % (Auto) Cancelled Lymph % (Auto) Cancelled [place] % (Auto) Cancelled Eos % (Auto) Cancelled Baso % (Auto) Cancelled Lymph # (Auto) Cancelled [place] # (Auto) Cancelled Eos # (Auto) Cancelled Baso # (Auto) Cancelled Abs Immat Gran (auto) Cancelled Absolute Neuts (auto) Cancelled Absolute Nucleated RBC 0.000 Nucleated RBC % (auto) 0.0 Neutrophils % (Manual) 66 Band Neutrophils % 5 Lymphocytes % (Manual) 19 L Atypical Lymphs % (Man) 1 Monocytes % (Manual) 8 Metamyelocytes % 1 Abs Neuts (Manual) 6.4 Lymphocytes # (Manual) 1.7 Atyp Lymphs # (Manual) 0.1 Monocytes # (Manual) 0.7 Metamyelocytes # 0.1 Platelet Estimate NORMAL Large Platelets PRESENT Plt Morphology Comment NOTED RBC Morphology NORMAL Anion Gap 11 L Estim Creat Clear Calc 103.4 Estimated GFR > 60 POC Glucose 163 H Random Glucose 90 Calcium 8.8 Total Bilirubin 0.5 AST 177 H ALT 201 H Alkaline Phosphatase 161 H Total Protein 6.0 L Albumin 2.9 L Assessment and Plan (1) Acute respiratory failure due to COVID-19: Status: Acute (2) CANDIDO (acute kidney injury): Status: Acute (3) Diabetes mellitus: Status: Acute Plan 51-year-old lady with underlying obesity, asthma, diabetes mellitus admitted with acute hypoxic respiratory failure secondary to COVID-19 and diabetic ketoacidosis requiring insulin drip; returning back to baseline. SUgars markedly improved 1. Acute hypoxic respiratory failure secondary to COVID-19 - O2 sats 94-96% RA - prn nebs with Hx asthma 2.Acute kidney injury secondary to diabetic ketoacidosis/Covid - reolved - follow renals/divalents 3. DMII - elevated secondary to Covid/High dose steroids....normalizing. - discussed with Endo.. -Lantus 30nuits at HS -resume Metformin - Lispro 10units TID AC -cover with sliding scale/POCs TID AC and HS Prophylaxis: Heparin Quality Stroke Does the patient have a stroke diagnosis?: No VTE Prior VTE?: No VTE Risk Level:: Medical - moderate - high VTE Device Contraindication: Treatment Not Indicated VTE Drug Contraindication: N/A - Med Ordered
[2021-11-15] MEDS: Insulin Lispro 100 UNIT/ML 3 ML VIAL SUBCUT ×3 (12:36→22:19)
[2021-11-15] MEDS: Insulin Lispro 100 UNIT/ML 3 ML VIAL 10 UNIT SUBCUT ×2 (12:38→17:04)
[2021-11-15 16:58] LABS: Glucose, Whole Blood 194 mg/dL (60-115)
[2021-11-15] MEDS: Fluconazole 100 MG TABLET PO (17:04)
[2021-11-15 20:22] LABS: Glucose, Whole Blood 271 mg/dL (60-115)
[2021-11-15] MEDS: Insulin Glargine,Hum.rec.anlog 100 UNIT/ML 10 ML VIAL 30 UNIT SUBCUT (22:20)
[2021-11-16 04:00] VITALS: BP 142/78; PULSE 73; RESP 18; TEMP 36.7; O2SAT 96
[2021-11-16] MEDS: Omeprazole 40 MG CAPSULE.DR PO (05:57)
[2021-11-16 06:36] LABS: Hematocrit 36.2 % (37.0-47.0); Hemoglobin 11.8 g/dl (12.0-16.0); Mean Corpuscular HGB Conc 32.6 g/dl (31.0-35.0); Mean Corpuscular Hemoglobin 27.1 pg (27.0-33.0); Mean Platelet Volume 11.5 fL (9.4-12.3); Platelet Count 239 X10*3/uL (160-400); Red Blood Count 4.36 X10*6/uL (4.20-5.50); Red Cell Distribution Width 15.7 % (11.0-16.0); White Blood Count 9.6 X10*3/uL (4.8-10.8)
[2021-11-16 07:28] LABS: Alanine Aminotransferase 232 U/L (0-31); Albumin Level 2.9 g/dL (3.5-5.0); Alkaline Phosphatase 153 U/L (39-117); Anion Gap 13 (12-20); Aspartate Amino Transferase 178 U/L (5-31); Bilirubin Total 0.4 mg/dL (0.0-1.0); Blood Urea Nitrogen 28 mg/dL (9-16); Calcium 8.9 mg/dL (8.4-10.2); Carbon Dioxide 23 mmol/L (22-29); Chloride 108 mmol/L (96-108); Creatinine Clr Calc Pharmacy 98.9; Estimated Glomerular Filt Rate > 60; Glucose Fasting 171 mg/dL (60-99); Potassium 4.6 mmol/L (3.3-5.1); Sodium 139 mmol/L (135-145); Total Protein 6.2 g/dL (6.5-8.0)
[2021-11-16 07:29] LABS: Band Neutrophils Percent 4 % (3-5); Eosinophils Absolute Manual 0.2 X10*3/uL (0.0-0.4); Eosinophils Percent Manual 2 % (0-4); Lymphocytes Absolute Manual 1.4 X10*3/uL (1.2-4.9); Lymphocytes Percent Manual 15 % (20-40); Metamyelocytes Absolute 0.1 X10*3/uL; Metamyelocytes Percent 1 %; Monocytes Absolute Manual 0.9 X10*3/uL (0.1-1.2); Monocytes Percent Manual 9 % (2-11); Neutrophils Percent Manual 69 % (45-73)
[2021-11-16 07:31] LABS: Large Platelet PRESENT; Platelet Estimate NORMAL (NORMAL); Platelet Morphology Comment NOTED; RBC Morphology NORMAL
[2021-11-16 07:33] LABS: Glucose, Whole Blood 125 mg/dL (60-115)
[2021-11-16 08:00] VITALS: BP 140/70; PULSE 62; RESP 20; TEMP 36.3; O2SAT 98
[2021-11-16] MEDS: Insulin Lispro 100 UNIT/ML 3 ML VIAL 10 UNIT SUBCUT ×2 (08:08→12:11)
[2021-11-16] MEDS: Ascorbic Acid 500 MG TABLET 1000 MG PO ×2 (08:09→12:12)
[2021-11-16] MEDS: Escitalopram Oxalate 10 MG TABLET PO (08:10)
[2021-11-16] MEDS: Cholecalciferol (Vitamin D3) 25 MCG TABLET 50 MCG PO (08:10)
[2021-11-16] MEDS: dexAMETHasone 6 MG TABLET PO (08:10)
[2021-11-16] MEDS: Aspirin 325 MG TABLET PO (08:10)
[2021-11-16] MEDS: metFORMIN HCl 500 MG TABLET PO (08:10)
[2021-11-16] MEDS: Thiamine HCL 100 MG TABLET 200 MG PO (08:10)
[2021-11-16] MEDS: Losartan Potassium 50 MG TABLET PO (08:10)
[2021-11-16] MEDS: Enoxaparin Sodium 40 MG/0.4 ML SYRINGE SUBCUT (08:11)
[2021-11-16] MEDS: Fluconazole 100 MG TABLET PO (08:16)
[2021-11-16 11:29] LABS: Glucose, Whole Blood 145 mg/dL (60-115)
[2021-11-16 11:55] VITALS: BP 135/70; PULSE 65; RESP 20; TEMP 36.7; O2SAT 96
--- NOTE | 2021-11-16 12:05 | P.DS_ITS ---
DS: Providers Provider Date of Service: 11/16/21 Date of admission: 11/08/21 17:55 Date of discharge: 11/16/21 Primary care physician: Shady Crowley MD DS: Diagnosis Discharge Diagnosis (1) Diabetic ketoacidosis: Status: Acute (2) CANDIDO (acute kidney injury): Status: Acute (3) Acute respiratory failure due to COVID-19: Status: Acute DS: Summary Hospital Course Hospital Course: 50-year-old female with a past medical history of? diabetes mellitus,? hypertension, asthma,? chronic allergic rhinitis and TERRA? who presented to the emergency room today with complaints of shortness of breath, dyspnea on exertion, fever, chills, nausea, diarrhea and fatigue.? She reports following closely with? bundle breaker Dr. Lui? in the past few months for her asthma,? and has been on several antibiotics and steroids.? She also reported being tested for COVID on 11/06/2021, and? was notified yesterday that she was COVID positive and was started on dexamethasone by her bundle breaker.? Today in emergency? room? vital signs stable,? satting 93-95% on room air.? But? chemistry showed bicarb of 7, anion gap 29? and ? random glucose of a 1011.? ?ED course:? she received? ceftriaxone and azithromycin,? 1 L bolus,? 10 units of IV push insulin started on insulin drip.? ?Patient will be admitted? to ICU for management of DKA requiring insulin drip Hospital Course Admitted to ICU on insulin drip until bicarb normalized. Transitioned to GMF. Case discussed with Endocrinology; Advised Lantus 30units at bedtime and Humalog 10 TID-AC. Observed x 24hrs after implementaion without issue. Will be D/C to home with [facility] for assistance and teaching Time Spent with Patient Time attestation: Total time spent providing and/or coordinating discharge services: Discharge coordination time: Greater than 30 minutes Quality: Stroke Does the patient have a stroke diagnosis?: No Physical Exam Verdana 4l Vital Signs: Verdana 4d Verdana 4d Vital Signs: Verdana 4d Verdana 4Bd Last Vital Signs Verdana 4d Bilingual Speech Therapist New 4d Bilingual Speech Therapist New 4d Temp 98.1 F 11/16/21 11:55 Bilingual Speech Therapist New 4d Pulse 65 11/16/21 11:55 Bilingual Speech Therapist New 4d Resp 20 11/16/21 11:55 BP 135/70 11/16/21 11:55 Pulse Ox 96 11/16/21 11:55 BMI result Body Mass Index 52.2 Const: Other: No acute issues. Resp: Other: Clear A/P Cardio: Other: -S4 +S1S2 -S3 M/R/G GI: Other: Soft NABS [id number] Extrem: Other: No edema bilat DS: Data Data Completed and Pending Labs on day of discharge: Laboratory Results - last 24 hr 11/15/21 11/15/21 11/16/21 16:53 20:18 06:11 WBC 9.6 RBC 4.36 Hgb 11.8 L Hct 36.2 L MCV 83.0 MCH 27.1 MCHC 32.6 RDW 15.7 Plt Count 239 MPV 11.5 Immature Gran % (Auto) Cancelled Neut % (Auto) Cancelled Lymph % (Auto) Cancelled [place] % (Auto) Cancelled Eos % (Auto) Cancelled Baso % (Auto) Cancelled Lymph # (Auto) Cancelled [place] # (Auto) Cancelled Eos # (Auto) Cancelled Baso # (Auto) Cancelled Abs Immat Gran (auto) Cancelled Absolute Neuts (auto) Cancelled Absolute Nucleated RBC 0.000 Nucleated RBC % (auto) 0.0 Neutrophils % (Manual) 69 Band Neutrophils % 4 Lymphocytes % (Manual) 15 L Monocytes % (Manual) 9 Eosinophils % (Manual) 2 Metamyelocytes % 1 Abs Neuts (Manual) 7.0 Lymphocytes # (Manual) 1.4 Monocytes # (Manual) 0.9 Eosinophils # (Manual) 0.2 Metamyelocytes # 0.1 Platelet Estimate NORMAL Large Platelets PRESENT Plt Morphology Comment NOTED RBC Morphology NORMAL Sodium Potassium Chloride Carbon Dioxide Anion Gap BUN Creatinine Estim Creat Clear Calc Estimated GFR POC Glucose 194 H 271 H Fasting Glucose Calcium Total Bilirubin AST ALT Alkaline Phosphatase Total Protein Albumin 11/16/21 11/16/21 11/16/21 06:11 07:28 10:52 WBC RBC Hgb Hct MCV MCH MCHC RDW Plt Count MPV Immature Gran % (Auto) Neut % (Auto) Lymph % (Auto) [place] % (Auto) Eos % (Auto) Baso % (Auto) Lymph # (Auto) [place] # (Auto) Eos # (Auto) Baso # (Auto) Abs Immat Gran (auto) Absolute Neuts (auto) Absolute Nucleated RBC Nucleated RBC % (auto) Neutrophils % (Manual) Band Neutrophils % Lymphocytes % (Manual) Monocytes % (Manual) Eosinophils % (Manual) Metamyelocytes % Abs Neuts (Manual) Lymphocytes # (Manual) Monocytes # (Manual) Eosinophils # (Manual) Metamyelocytes # Platelet Estimate Large Platelets Plt Morphology Comment RBC Morphology Sodium 139 Potassium 4.6 Chloride 108 Carbon Dioxide 23 Anion Gap 13 BUN 28 H Creatinine 0.89 Estim Creat Clear Calc 98.9 Estimated GFR > 60 POC Glucose 125 H 145 H Fasting Glucose 171 H Calcium 8.9 Total Bilirubin 0.4 AST 178 H ALT 232 H Alkaline Phosphatase 153 H Total Protein 6.2 L Albumin 2.9 L Discharge Plan Discharge Patient Disposition: Home Health Service Discharge Diagnosis: Diabetic Ketoacidosis Referrals: Shady Crowley MD [Primary Care Provider] - 1 Week Discharge Medications: Continued metformin 500 mg tablet extended release 24 hr 500 mg PO DAILY 0RF losartan 50 mg tablet 50 mg PO DAILY 0RF citalopram 20 mg tablet 20 mg PO DAILY 0RF aspirin 81 mg tablet,delayed release (DR/EC) 81 mg PO DAILY 0RF omeprazole 20 mg capsule,delayed release(DR/EC) 20 mg PO DAILY 0RF cetirizine [24Hour Allergy] 10 mg tablet 10 mg PO DAILY 0RF Breztri Aerosphere 160-9-4.8 mcg/actuation HFA aerosol inhaler 2 inh inhalation BID 30 Days Qty: 10.7 11RF montelukast 10 mg tablet 10 mg PO DAILY 30 Days Qty: 30 11RF albuterol sulfate 90 mcg/actuation HFA aerosol inhaler 2 inh inhalation Q4H PRN (Reason: shortness of breath or wheezing) Qty: 8.5 11RF Discontinued dexamethasone [Decadron] 6 mg tablet 6 mg PO DAILY 10 Days Qty: 10 0RF Rx Instructions: DAILY X 10 DAYS, STARTED ON 11/07/21 albuterol sulfate 2.5 mg /3 mL (0.083 %) solution for nebulization 1 vial inhalation Q4H PRN (Reason: wheezing) 0RF fluconazole 150 mg tablet 150 mg PO 3XW 0RF Rx Instructions: 1 TAB PO ON DAY 1,4,7; DAY ONE TAKEN ON 11/07/21 (DME) Oxygen Home Use Kit See Rx Instructions .ROUTE 0RF Rx Instructions: As directed Discharge Orders: Discharge Order (Routine); Ordered 11/16/21 Ordered By: Gonzalo Mcmillan Diet: diabetic diet Activity on Discharge: As tolerated Stand Alone Forms: Patient Portal Discharge page Care Plan Goals: Continue metformin. Lantus pen 30 units at bedtime;Humalog pen 10 units 15 minutes before each meal. Health Concerns: Follow up with PCP 1-2 weeks; Call PCP 11/18/21 for Endocrine referral Plan of Treatment: Try to adhere to diabetic diet... Assessment: as per D/C summary
--- NOTE | 2021-11-16 12:12 | MHC.CM.PN ---
Patient has been medically cleared for dc to home today with services. [facility] has been notified of today,sent the dc summary, and has confirmed SOC for tomorrow.
== END 2021-11-16 14:31 | disposition home health service (06) | DRG 137 ==
LOC: HO.ED 18:10 → HO.EDOVER 18:14 → HO.ICU 18:55 → HO.IMC 11-13 11:31
PROVIDERS: Anesthesiology; Physician Assistant Medical; Admitting Provider Internal Medicine Pulmonary Disease; Emergency Provider Emergency Medicine Emergency Medical Services; PCP Internal Medicine; Visit Provider Hospitalist
DX: U07.1 COVID-19 (principal); J96.01 Acute respiratory failure with hypoxia; J12.82 Pneumonia due to coronavirus disease 2019; E11.10 Type 2 diabetes mellitus with ketoacidosis without coma; N17.9 Acute kidney failure, unspecified; E87.5 Hyperkalemia; K31.84 Gastroparesis; Z68.43 Body mass index [BMI] 50.0-59.9, adult; E11.43 Type 2 diabetes mellitus with diabetic autonomic (poly)neuropathy; E66.01 Morbid (severe) obesity due to excess calories; G47.33 Obstructive sleep apnea (adult) (pediatric); B37.2 Candidiasis of skin and nail; Z99.89 Dependence on other enabling machines and devices; Z79.82 Long term (current) use of aspirin; Z79.84 Long term (current) use of oral hypoglycemic drugs; Z79.899 Other long term (current) drug therapy
CPT/HCPCS: 36415; 71045; 76705; 80048; 80053; 80076; 81001; 81025; 82040; 82728; 82803; 82947; 83036; 83605; 83615; 83690; 83735; 83880; 84100; 84484; 85007; 85025; 85027; 85379; 86140; 86704; 86706; 86709; 86803; 87040; 87340; 87635; 93005; 94660; 96361; 96365; 96367; 96375; 99285; 99291; J0456; J0696; J1650; J8540

== ENCOUNTER → 2021-12-19 13:53 | Outpatient (BNVA) | payer BC, SELFPAY | PROVIDERS: PCP Internal Medicine; Visit Provider Hospitalist ==

== ENCOUNTER 2022-02-16 14:34 | Outpatient (REF) | payer BC, SELFPAY ==
--- NOTE | ~2022-02-16 | XR_ITS ---
EXAMINATION: XR CHEST CLINICAL INFORMATION: Bronchiectasis COMPARISON: Previous chest x-ray most recent October 2021 TECHNIQUE: 2 views of the chest were obtained. FINDINGS: The cardiac and mediastinal contours are stable. The lungs are clear. The previously identified pulmonary infiltrates October 2021 are no longer seen. There is no significant pleural effusion. There is slight blunting of the right costophrenic angle questionable for tiny right pleural effusion. There is no pneumothorax. There are degenerative changes of the spine. XR/XR chest 2V IMPRESSION: No evidence for acute disease in the chest. Cleared pulmonary infiltrates from October 2021 exam.
== END 2022-02-16 14:35 | disposition home or self-care (01) ==
LOC: HO.XRAY 14:34
PROVIDERS: PCP Internal Medicine; Visit Provider Hospitalist
DX: J45.909 Unspecified asthma, uncomplicated (principal); J47.9 Bronchiectasis, uncomplicated
CPT/HCPCS: 71046

== ENCOUNTER → 2022-02-19 14:39 | Outpatient (BNVA) | payer BC, SELFPAY | PROVIDERS: PCP Internal Medicine; Visit Provider Hospitalist | DX: Z13.89 Encounter for screening for other disorder (principal) ==

== ENCOUNTER → 2022-03-14 20:18 | Outpatient (REF) | payer BC, SELFPAY | LOC: HO.SL 20:18 | PROVIDERS: PCP Internal Medicine; Visit Provider Hospitalist | DX: G47.33 Obstructive sleep apnea (adult) (pediatric) (principal) | CPT/HCPCS: 95811 ==

== ENCOUNTER 2023-01-18 13:52 | Outpatient (REF) | payer BC, SELFPAY ==
--- NOTE | ~2023-01-18 | XR_ITS ---
EXAMINATION: XR CHEST CLINICAL INFORMATION: Asthma with acute exacerbation COMPARISON: Chest x-ray 02/16/2022 TECHNIQUE: 2 views of the chest were obtained. FINDINGS: The lungs are well-expanded and clear. The heart size and pulmonary vascularity is normal. There is mild elevation of right hemidiaphragm. No gross bony abnormality seen. XR/XR chest 2V IMPRESSION: Unremarkable chest examination. No change from 02/16/2022
[2023-01-18 14:58] LABS: MANUAL DIFF FLAG NO
[2023-01-18 15:24] LABS: Basophils Percent Auto 0.3 % (0-2); Eosinophils Absolute Auto 0.2 X10*3/uL (0.0-0.4); Eosinophils Percent Auto 1.4 % (0-4); Hematocrit 38.7 % (37.0-47.0); Hemoglobin 12.2 g/dl (12.0-16.0); Imm Gran Abs Auto 0.13 X10*3/uL (0.00-0.03); Lymphocytes Absolute Auto 3.5 X10*3/uL (1.2-4.9); Lymphocytes Percent Auto 26.8 % (20-40); Mean Corpuscular HGB Conc 31.5 g/dl (31.0-35.0); Mean Corpuscular Hemoglobin 26.2 pg (27.0-33.0); Mean Platelet Volume 9.3 fL (9.4-12.3); Monocytes Absolute Auto 0.8 X10*3/uL (0.1-1.2); Neutrophils Absolute Auto 8.3 x10*3/uL (2.0-8.3); Neutrophils Percent Auto 64.5 % (45-73); Platelet Count 245 X10*3/uL (160-400); Red Blood Count 4.66 X10*6/uL (4.20-5.50); Red Cell Distribution Width 15.9 % (11.0-16.0); White Blood Count 12.9 X10*3/uL (4.8-10.8)
[2023-01-18 16:15] LABS: Erythrocyte Sedimentation Rate 34 MM/HR (0-20)
[2023-01-19 14:33] LABS: IgA 349 mg/dL (47-310); IgG 1251 mg/dL (600-1640); IgM 84 mg/dL (50-300)
== END 2023-01-18 13:53 | disposition home or self-care (01) ==
LOC: HO.LAB 13:52
PROVIDERS: PCP Internal Medicine; Visit Provider Hospitalist
DX: J45.51 Severe persistent asthma with (acute) exacerbation (principal); J47.9 Bronchiectasis, uncomplicated; J30.9 Allergic rhinitis, unspecified; L30.9 Dermatitis, unspecified; Z99.89 Dependence on other enabling machines and devices
CPT/HCPCS: 36415; 71046; 82784; 82785; 85025; 85652; 86003; 94640

== ENCOUNTER → 2023-03-09 15:04 | Outpatient (BNVA) | payer BC, SELFPAY | PROVIDERS: PCP Internal Medicine; Visit Provider Hospitalist ==

== ENCOUNTER 2023-12-21 09:05 | Outpatient (AMB) | payer BC, SELFPAY ==
--- NOTE | 2023-12-21 09:15 | A.OFFVIS_ITS ---
Intake Vital Signs 12/21/23 09:16 Pulse 82 Pulse Source Pulse Oximeter Pulse Oximetry (%) 98 Oxygen Delivery Method Room Air Intake Visit Reasons: Prod cough, HX of Asthma Labeling Strategist Required: No Cartography Professor: Cartography Professor offered & declined Accompanied by: Spouse Allergies Penicillins Allergy (Severe, Verified 12/21/23 09:20) Rash Medication List - Last Reconciled 12/21/23 by Kirsten Brewster LPN albuterol sulfate 2.5 mg (3 mL) inhalation Q4H PRN 30 days albuterol sulfate 90 mcg/actuation 2 puffs PO Q4H PRN ascorbate calcium (vitamin C) 500 mg PO DAILY Breztri Aerosphere 160-9-4.8 mcg/actuation (ropmuhnnkp-gcggqyii-rzhnylbevl) 2 inhalations PO BID NS cetirizine 10 mg PO DAILY citalopram 20 mg PO DAILY CPAP (CPAP Machine/Device) As directed hydrochlorothiazide 12.5 mg PO DAILY ipratropium-albuterol 0.5 mg-3 mg(2.5 mg base)/3 mL 3 mL inhalation QID 30 days losartan 50 mg PO DAILY montelukast 10 mg PO DAILY nebulizers As directed nystatin 500,000 units PO TID 14 days omeprazole 20 mg PO DAILY HPI Prod cough, HX of Asthma HPI Details Oliva is a pleasant 53 year old female, never smoker with underlying asthma, bronchiectasis and TERRA on CPAP. At baseline, she is moderately controlled on Breztri, singulair and albuterol MDI/neb. She does note that she has not been using her albuterol. Today she presents for an acute visit. She reports chest congestion with difficulty expectorating, wheezing and dyspnea for the past month. She reports being evaluated at an urgent care and prescribed prednisone x 10 days and doxcycline, finishing prescriptions two weeks ago. She notes mild improvement with medications and once finished, symptoms began to worsen. She felt feverish a few days ago, denies any known sick contacts. [facility] Medical History (Updated 03/09/23 @ 22:09 by Corwin Lui MD) Asthma exacerbation TERRA (obstructive sleep apnea) COVID-19 (~10/2021) Diabetes mellitus Eczema TERRA on CPAP Chronic allergic rhinitis Bronchiectasis Asthma Social History (Updated 12/21/23 @ 09:27 by Kirsten Brewster LPN) Household Members: Spouse and Children Housing: House Do you presently have visiting nurse or other home services: No Patient Tobacco Use Status: Never used Tobacco service: No Current occupational status: previously employed Review of Systems Const Denies chills, Denies excessive sweating, Denies fever(s), Denies headache(s) and Denies night sweats Eyes Denies dry eyes, Denies irritation and Denies itchy eyes ENT Reports Normal hearing present, Denies headache(s), Denies nasal congestion, Denies nasal discharge, Denies post nasal drip and Denies sore throat Card Denies chest pain, Denies chest pain at rest, Denies chest pain with activity, Denies claudication, Denies leg edema, Denies orthopnea and Denies paroxysmal nocturnal dyspnea Resp Denies excessive phlegm production, Denies pain on inspiration, Denies pain with cough and Denies stridor Musc Denies myalgias Neuro Reports Normal hearing present and Denies headache(s) Endo Denies excessive sweating Geronimo/Lymph Denies lymphadenopathy Aller/Immun Denies itchy eyes and Denies seasonal rhinorrhea Physical Exam Vital Signs: Last Vital Signs Pulse 82 12/21/23 09:16 Pulse Ox 98 12/21/23 09:16 Oxygen Delivery Method Room Air 12/21/23 09:16 Const General: cooperative, healthy appearing, comfortable, no acute distress, well developed and alert Nutritional Appearance: obese Orientation/consciousness: patient oriented x3 Limitations: no limitations HEENT Head: Yes normal to inspection, Yes normocephalic and Yes atraumatic Ears: hearing grossly normal bilaterally and external ears normal Eyes General: appearance normal, both eyes and all related structures Eyelids: Yes eyelids normal Sclerae: sclerae normal EOM: EOMs intact bilaterally Neck Neck: Yes normal visual inspection and Yes no lymphadenopathy Lymphatic: no lymphadenopathy noted Chest Chest palpation & inspection: normal inspection of the chest Resp Other: moderate rhonchi on examination Effort & Inspection: normal respiratory effort, able to speak in complete sentences, no stridor, not tachypneic, no tripod positioning and no use of accessory muscles Cardio Jugular venous distension: no JVD Rate: regular rate Rhythm: regular rhythm Skin Other: warm, dry General skin exam: no rashes or lesions noted Neuro General: patient oriented x3 Cranial nerves: Yes Normal hearing present Cognition (Neuro): normal cognition Gait exam (Neuro): Normal gait present Extrem General: Yes normal to inspection, Yes capillary refill normal, Yes no clubbing, cyanosis or edema and Yes no pedal edema Psych Appearance: grossly normal and well kempt Speech and movement: Normal speech and movement present and Clear speech present Affect: normal affect Attitude: cooperative Thought process: Normal thought process present Thought content: Normal thought content present Insight: Good insight present (Psych) Judgement: Good judgement present (Psych) Assessment & Plan Assessment & Plan (1) Asthma: Code(s): J45.909 - Unspecified asthma, uncomplicated Qualifiers: Asthma severity: severe Asthma persistence: persistent Asthma complication type: uncomplicated Qualified Code(s): J45.50 - Severe persistent asthma, uncomplicated (2) Bronchiectasis: Code(s): J47.9 - Bronchiectasis, uncomplicated Qualifiers: Bronchiectasis type: uncomplicated Qualified Code(s): J47.9 - Bronchiectasis, uncomplicated Plan Will treat bronchitic symptoms with levaquin, due to poor response to doxycycline and PCN allergy. Will also send in prednisone and encouraged patient to use nebulizer PRN. Patient is aware if symptoms do not improve, will send for CXR. All questions were answered and patient is in agreement of plan. Encouraged patient to make a follow up appointment with Dr. Lui as she has not been seen since February 2023. Medications: New levofloxacin 750 mg PO DAILY 7 tabs 0RF prednisone see taper instructions; 40 mg Daily x3 days, 30 mg daily x3 days, 20 mg daily x3 days, 10 mg daily x3 days 10 mg PO DIRECTED 30 tabs 0RF Refilled albuterol sulfate 90 mcg/actuation 2 puffs PO Q4H PRN 1 ea 0RF for wheezing Coding Level of Care Code Est Pt Level 3 (71629) Diagnoses Severe persistent asthma without complication J45.50 Asthma severity: severe Asthma persistence: persistent Asthma complication type: uncomplicated Bronchiectasis without complication J47.9 Bronchiectasis type: uncomplicated
[2023-12-21 09:16] VITALS: PULSE 82; O2SAT 98
== END 2023-12-21 09:42 | disposition home or self-care (01) ==
PROVIDERS: PCP Internal Medicine; Visit Provider Nurse Practitioner Family
DX: J45.50 Severe persistent asthma, uncomplicated (principal); J47.9 Bronchiectasis, uncomplicated
CPT/HCPCS: 99213

== ENCOUNTER → 2023-12-21 09:05 | Outpatient (BNVA) | payer BC, SELFPAY | PROVIDERS: PCP Internal Medicine; Visit Provider Nurse Practitioner Family ==

== ENCOUNTER 2023-12-30 13:05 | Outpatient (REF) | payer BC, SELFPAY ==
--- NOTE | ~2023-12-30 | XR_ITS ---
EXAMINATION: XR CHEST CLINICAL INFORMATION: Cough unspecified. COMPARISON: 01/18/2023 and 03/08/2022 chest radiographs. TECHNIQUE: 2 views of the chest were obtained. FINDINGS: There is no gross pneumothorax. Lung volumes are low. Heart size is normal. Redemonstration of trace blunting of the right costophrenic angle, possibly representing trace pleural fluid or pleural thickening, also present on 03/08/2022 chest radiograph. No new focal consolidation to suggest pneumonia. Mild degenerative changes in the thoracic spine. XR/XR chest 2V IMPRESSION: Redemonstration of trace blunting of the right costophrenic angle, possibly representing trace pleural fluid or pleural thickening, also present on 03/08/2022 chest radiograph. No new focal consolidation to suggest pneumonia.
== END 2023-12-30 13:06 | disposition home or self-care (01) ==
LOC: HO.XRAY 13:05
PROVIDERS: PCP Internal Medicine; Visit Provider Nurse Practitioner Family
DX: R05.9 Cough, unspecified (principal)
CPT/HCPCS: 71046

== ENCOUNTER 2024-01-11 08:53 | Outpatient (AMB) | payer BC, SELFPAY ==
--- NOTE | 2024-01-10 19:56 | A.OFFVIS_ITS ---
Intake Vital Signs 01/11/24 08:56 Pulse 98 Pulse Oximetry (%) 96 Oxygen Delivery Method Room Air Intake Visit Reasons: coughing, congestion Digital Content Manager Required: No Chair And Couch Maker: Chair And Couch Maker offered & declined Accompanied by: Self / Same As Patient Allergies Penicillins Allergy (Severe, Verified 01/11/24 08:57) Rash Medication List - Last Reconciled 01/11/24 by Kirsten Brewster LPN albuterol sulfate 2.5 mg (3 mL) inhalation Q4H PRN 30 days albuterol sulfate 90 mcg/actuation 2 puffs PO Q4H PRN ascorbate calcium (vitamin C) 500 mg PO DAILY Breztri Aerosphere 160-9-4.8 mcg/actuation (fvucnwdedh-urvdxmyc-gdylugfemr) 2 inhalations PO BID NS cetirizine 10 mg PO DAILY citalopram 20 mg PO DAILY CPAP (CPAP Machine/Device) As directed hydrochlorothiazide 12.5 mg PO DAILY ipratropium-albuterol 0.5 mg-3 mg(2.5 mg base)/3 mL 3 mL inhalation QID 30 days losartan 50 mg PO DAILY montelukast 10 mg PO DAILY nebulizers As directed nystatin 500,000 units PO TID 14 days omeprazole 20 mg PO DAILY tirzepatide (Mounjaro) 7.5 mg subcut QWEEK HPI coughing, congestion HPI Details Oliva is a pleasant 53 year old female, never smoker with underlying asthma, bronchiectasis and TERRA on CPAP. At baseline, she is moderately controlled on Breztri, singulair and albuterol MDI/neb. Today she presents for an acute visit. She reports chest congestion with difficulty expectorating, wheezing and dyspnea for the last 6 weeks. She reports being evaluated at an urgent care and prescribed prednisone x 10 days and doxcycline, finishing prescriptions a month ago. She notes mild improvement with medications and once finished, symptoms began to worsen. She felt feverish a few days ago, denies any known sick contacts. She was then prescribed levaquin and prednisone, with improvement, however when discontinued symptoms returned. CXR from 12/29 negative for any acute changes. She continues to report wheezing, dyspnea, chest congestion with difficulty expectorating and dry cough. She was previously using duoneb q 3 hours and continues to use TID. She denies any fevers or chills. [facility] Medical History (Updated 12/30/23 @ 09:45 by Madai Andersen NP) Asthma exacerbation TERRA (obstructive sleep apnea) COVID-19 (~10/2021) Diabetes mellitus Eczema TERRA on CPAP Chronic allergic rhinitis Bronchiectasis Asthma Social History (Updated 01/11/24 @ 09:01 by Kirsten Brewster LPN) Household Members: Spouse and Children Housing: House Do you presently have visiting nurse or other home services: No Patient Tobacco Use Status: Never used Tobacco Smoked in Last 30 Days: No service: No Current occupational status: previously employed Review of Systems Const Denies chills, Denies excessive sweating, Denies fever(s), Denies headache(s) and Denies night sweats Eyes Denies dry eyes, Denies irritation and Denies itchy eyes ENT Reports Normal hearing present, Denies headache(s), Denies nasal congestion, Denies nasal discharge, Denies post nasal drip and Denies sore throat Card Denies chest pain, Denies chest pain at rest, Denies chest pain with activity, Denies claudication, Denies leg edema, Reports dyspnea, Denies orthopnea and Denies paroxysmal nocturnal dyspnea Resp Reports chest congestion, Reports cough, Denies excessive phlegm production, Denies pain on inspiration, Denies pain with cough, Reports dyspnea, Denies stridor and Reports wheezing Musc Denies myalgias Neuro Reports Normal hearing present and Denies headache(s) Endo Denies excessive sweating Geronimo/Lymph Denies lymphadenopathy Aller/Immun Denies itchy eyes, Denies seasonal rhinorrhea and Reports wheezing Physical Exam Vital Signs: Last Vital Signs Pulse 98 01/11/24 08:56 Pulse Ox 96 01/11/24 08:56 Oxygen Delivery Method Room Air 01/11/24 08:56 Const General: cooperative, healthy appearing, comfortable, no acute distress, well developed and alert Nutritional Appearance: obese Orientation/consciousness: patient oriented x3 Limitations: no limitations HEENT Head: Yes normal to inspection, Yes normocephalic and Yes atraumatic Ears: hearing grossly normal bilaterally and external ears normal Eyes General: appearance normal, both eyes and all related structures Eyelids: Yes eyelids normal Sclerae: sclerae normal EOM: EOMs intact bilaterally Neck Neck: Yes normal visual inspection and Yes no lymphadenopathy Lymphatic: no lymphadenopathy noted Chest Chest palpation & inspection: normal inspection of the chest Resp Effort & Inspection: normal respiratory effort, able to speak in complete sentences, no audible wheezes, no stridor, not tachypneic, no tripod positioning and no use of accessory muscles Auscultation: rhonchi, wheezes and diminished lung sounds Cardio Jugular venous distension: no JVD Rate: regular rate Rhythm: regular rhythm Skin Other: warm, dry General skin exam: no rashes or lesions noted Neuro General: patient oriented x3 Cranial nerves: Yes Normal hearing present Cognition (Neuro): normal cognition Gait exam (Neuro): Normal gait present Extrem General: Yes normal to inspection, Yes capillary refill normal, Yes no clubbing, cyanosis or edema and Yes no pedal edema Psych Appearance: grossly normal and well kempt Speech and movement: Normal speech and movement present and Clear speech present Affect: normal affect Attitude: cooperative Thought process: Normal thought process present Thought content: Normal thought content present Insight: Good insight present (Psych) Judgement: Good judgement present (Psych) Assessment & Plan Assessment & Plan (1) Asthma: Code(s): J45.909 - Unspecified asthma, uncomplicated Qualifiers: Asthma severity: severe Asthma persistence: persistent Asthma complication type: uncomplicated Qualified Code(s): J45.50 - Severe persistent asthma, uncomplicated (2) Bronchiectasis: Code(s): J47.9 - Bronchiectasis, uncomplicated Qualifiers: Bronchiectasis type: uncomplicated Qualified Code(s): J47.9 - Bronchiectasis, uncomplicated Plan Patient with persistent symptoms over the last 6 weeks despite doxycycline and levaquin-PCN allergy. Will send for sputum culture and determine treatment based on results. If unable to obtain sample, will consider bronchoscopy with Dr. Lui. Recommended patient use flutter valve and mucinex DM. Will also send in prednisone as patient with moderate wheezing on exam. Patient is aware if symptoms do not improve, to call office. All questions were answered and patient is in agreement of plan. Orders: Orders Sputum Cult + Gram stain Today J40 - Bronchitis, not specified as acute or chronic Medications: New prednisone see taper instructions Take 4 pills daily for 5 days, then go down by 1 pill every 5 days; 20 days 50 tabs 0RF 10 mg PO DIRECTED 50 tabs 0RF Coding Level of Care Code Est Pt Level 4 (03550) Diagnoses Severe persistent asthma without complication J45.50 Asthma severity: severe Asthma persistence: persistent Asthma complication type: uncomplicated Bronchiectasis without complication J47.9 Bronchiectasis type: uncomplicated
[2024-01-11 08:56] VITALS: PULSE 98; O2SAT 96
== END 2024-01-11 09:47 | disposition home or self-care (01) ==
PROVIDERS: PCP Internal Medicine; Visit Provider Nurse Practitioner Family
DX: J45.50 Severe persistent asthma, uncomplicated (principal); J47.9 Bronchiectasis, uncomplicated
CPT/HCPCS: 99214

== ENCOUNTER → 2024-01-11 08:53 | Outpatient (BNVA) | payer BC, SELFPAY | PROVIDERS: PCP Internal Medicine; Visit Provider Nurse Practitioner Family ==

== ENCOUNTER 2024-02-29 13:52 | Outpatient (AMB) | payer BC, SELFPAY ==
--- NOTE | 2024-02-29 13:56 | MHC.OFFVIS ---
Vital Signs 02/29/24 13:57 Height 5 ft 2 in Weight 273 lb BMI 49.9 Pulse 83 Pulse Source Pulse Oximeter Pulse Oximetry (%) 95 Oxygen Delivery Method Room Air Intake Visit Reasons: hx of asthma Health And Fitness Instructor Required: No Allergies Penicillins Allergy (Severe, Verified 02/29/24 13:58) Rash HPI Comments Details: The patient is a 53-year-old woman with a known history of lifelong asthma. The patient was premature. I do not have the details at this time. Since she was a child she had multiple asthma flare ups and was followed closely by Allergy. She has significant allergies to therefore she was never provided allergy shots due to her significant asthma. She was maintained on respiratory therapy. She did get a 2nd opinion in [facility] and [facility]. There she followed up with Pulmonary for many years. Now she is looking to relocating back in the area. The patient does have significant asthma and does require prednisone 2 to 3 times a year. She has been on Symbicort twice a day which is been partially helpful. In addition to that she takes her allergy medication including Singulair and Zyrtec. She was offered biologic therapy in [place] but she would have to travel back and forth and that will be very difficult for her. Will looking to biologic therapy closer by. In the meantime her other conditions include obstructive sleep apnea. She has been diagnosed with for now about 15 years. Her last machine she got was about 80 years ago. Unfortunately she has not set up with a [employer] and she has not gotten supplies. Therefore, she has been using the same supplies for many years which I find that is not healthy for her specially with her underlying obstructive airway disease. She did have a CT scan of the chest back in 2015 when she was diagnosed with pneumonia and I personally reviewed it. It appears that she does have obstructions status changes she primarily at the bases left more than right in does have areas of atelectasis suggesting recurrent infections. 09/09/2021 the patient is here for a pulmonary follow-up visit. The patient is here for sick visit. Apparently for the last 3 4 days she is developing worsening shortness of breath and wheezing. She has also has chest tightness. She has been using her nebulized therapy regularly. Denies any fevers or chills. The patient is concerned that she is getting worse. She has a productive cough. She did call over the weekend she was given a course of prednisone 40 mg for 5 days and also azithromycin. Her symptoms did not improve significantly. However, she did not take the higher dose prednisone as prescribed. In the office she has significant wheezing. Therefore given Solu-Medrol 125 mg IM x1 and also she received 2 DuoNeb treatments. After she was breathing a little better although she was still having significant chest tightness and wheezing. She also has some pleuritic chest discomfort primarily in the lower lung zones. Therefore have her get an x-ray prior to going home. She understands that her symptoms worsen on the current additional therapy if she develops worsening chest discomfort she would have to go to the ER for further evaluation. In the meantime view of her severe persistent asthma we did review her blood work demonstrating significant eosinophilia and significant allergies to both cats and dogs and also trees. The patient does have an elevated eosinophil count and also an elevated IgE. The patient also has a history of eczema. No evidence of any nasal polyps. In view of her symptoms in the findings I do believe that Dupixent will be a good option for her. Therefore will start the process for her to start Dupixent therapy. 09/16/2021 the patient is here for sick visit. She was just seen about a week ago with significant asthma exacerbation. She did receive Solu-Medrol in the office in a did improve her symptoms. She also started doxycycline. Unfortunately, the patient still has a significant cough very congested and difficult to expectorate. Moderate severity. She has been using her nebulizer regularly. She is still using the prednisone at 30 mg. At this point she does not have any significant wheezing therefore we will give her additional steroids. However, will broaden her antibiotic coverage in case she has a resistant organism. Her chest x-ray did not demonstrate any focal airspace disease. However, x-rays may be limited. It may be that she is developing something. some if he needs she continues to be symptomatic we can always consider getting a CT scan of the chest to further address her ongoing symptoms. Bronchoscopy is also another options to assess her airways and send the cultures. In the meantime she does have significant allergies and a way to control her respiratory symptoms will be to start biologic therapy. Once her respiratory status is better we can see about starting biologic therapy. At this point is either between starting and IL5 inhibitor versus IL4/ 13 inhibitor. In addition to that she does have underlying sleep apnea. She has not gotten supplies in years. CPAP therapy has been very affecting beneficial. I did download her machine and her usage is more than 6 hours average. Her average pressure is around 12 cm. In her AHI 0.8 therefore, the patient needs to have a repeat sleep study in order to get activated again with a DME company and start getting supplies. Currently she is using really all supplies and tubing has holes in therefore resulted in increased leakage. I do not have any tubing supplies available to give her otherwise I would. 10/06/2021 the patient is here for a pulmonary follow-up visit. She is now better from her previous exacerbation. She did complete the prednisone and also the antibiotics. Again, she continues on an aggressive respiratory regimen. She is agreeable to starting biologic therapy. I believe Dupixent will be the best option for her for both eosinophilic in IgE levels are elevated. The patient also and is requiring high levels of steroids frequently. Therefore biologic therapy will help decrease the need for systemic steroids and the adverse effects that come with that. In the meantime she continues with CPAP therapy. The CPAP therapy continues to be affecting beneficial. She continues using more than 4 hours a night. she does need new supplies. She patient is scheduled to have a repeat sleep study in order for us to we activate her with a [employer] company in order to get supplies. 12/19/2021 the patient is here for a pulmonary follow-up visit. Since we last spoke the patient was admitted to the hospital with severe COVID. She developed severe DKA in addition to renal failure in addition to COVID pneumonia. She required oxygen supplementation. The patient was able to improved. In the meantime we will trying to get her on biologic therapy for severe asthma. She was denied for Dupixent. We did appeal the decision from the insurance company in view of her severe asthma. We are awaiting the results of the appeal at this time. The patient did have says a significant issue with steroids. Therefore the use of biologics will help decrease the need for steroids in view of her severe DKA presenting to the hospital. Her blood sugar was 1100 upon arrival to the hospital and hemoglobin A1c was 14. This at this point is getting better with the help of endocrinology. 02/19/2022 the patient is here for a pulmonary follow-up visit. Overall she is starting to feel a lot better. Seems like her breathing has been improving. She continues use the oxygen at nighttime while sleeping. The patient does have issues with significant snoring. Apparently her having hard time with her snoring. She is also waking up tired. Her [place] score is elevated 12/24. She did carry a diagnosis of sleep apnea but she had not been adherent to her therapy. At this point she is on oxygen therefore I will request an in-lab sleep study to further address her significant worsening sleep apnea symptoms. The patient also was approved to start Dupixent. There was an issue with her specialty pharmacy and she did not requested early in off and then . Now we have to resubmit for the medication and have her come in the 1st dose. She does have severe persistent asthma and she will respond very well to this biologic therapy. 06/12/2022 The patient is here for a pulmonary follow up visit. She is overall doing better. He breathing and asthma is much better. She did not need to start Biologics. The patient is doing better with the diabetes. She continues to have daytime drowsiness. Her [place] score is 11/24. We reviewed the PSG. She dose have significant TERRA. We need to start CPAP at this time. 01/18/2023 the patient is here for sick visit. The patient had been in her usual state health until about 3-4 weeks ago. She started developing worsening cough. She was placed on doxycycline briefly. However, no improvement. She will back to her primary care doctor because the worsening cough and she was then placed on a 5 day course of prednisone. She initially felt better but then when she stops prednisone her symptoms return. She does have a cough. Moderate to severe. No significant expectoration. She is having worsening shortness of breath. Moderate severity. Having hard time sleeping. She is using her CPAP even during the daytime just to improve with the work of breathing. The patient denies any fevers or chills. Denies any sick contacts. In the office visit her exam demonstrates significant wheezing. She was given 2 DuoNeb treatments. 03/09/2023 the patient is here for pulmonary follow-up visit. The patient overall is feeling better. She is using her CPAP with good effect. The therapy has been affecting beneficial and she does more than 4 hours a day. The patient has been using her respiratory therapy. She continues to have episodic flare-ups Requiring her rescue inhaler for nerve 6 times a week. She is currently off prednisone the last time she used it was last month. The patient did have blood work demonstrating significant elevation in her IgE. The patient does have significant allergic asthma. She also had uncontrolled diabetes and therefore the use of prednisone will resulting worsening diabetes control. The patient is currently maximized on respiratory therapy and will be a good candidate for biologic therapy. We will request Dupixent as a good option for her. Xolair would also be a good option for her to help with her ongoing asthma flare ups. 03/01/2024 the patient is here for a pulmonary follow-up visit. She has been sick now for since November. She developed a lower respiratory infection. At that time she was placed on an antibiotic that she did not feel any significant improvement. Continued to have significant shortness of breath cough and hypoxia. She did have oxygen available at home so therefore she started using the because her oxygen was down in the 80s. The patient was evaluated by our office for a sick visit. She had a chest x-ray demonstrating no acute disease although she does have an slightly elevated right hemidiaphragm with blunting of the recess which appears to be chronic for her. She was given a 2nd course of antibiotics. Although she did not really feels significantly better. She also had some prednisone and she did not feel also that is significantly help. She continued to have cough felt congested and felt rattling but was unable to expectorate. at time she is able to bring up some mucus plugs but not much. On exam she does have some crackles in the right base and also has some rhonchi and prolonged expiratory phase with some wheezing. In view of not responding to the prednisone and 2 courses of antibiotics will go ahead and give her 3rd course of antibiotics but also request a CT scan of the chest for suspicion of pneumonia. The patient also would benefit from a bronchoscopy. Will wait for the CT scan of the chest to then decide to perform the bronchoscopy. In the meantime she does continue to use CPAP. The CPAP therapy continues to be affecting beneficial. She does try to use it more than 4 hours a night. She has also been developing some lower extremity edema. She was placed on a mild diuretic. She does maintain a low-sodium diet. [facility] Medical History (Updated 02/29/24 @ 22:14 by Corwin Lui MD) Pneumonia Asthma exacerbation TERRA (obstructive sleep apnea) COVID-19 (~10/2021) Diabetes mellitus Eczema TERRA on CPAP Chronic allergic rhinitis Bronchiectasis Asthma Social History (Updated 01/11/24 @ 09:01 by Kirsten Brewster LPN) Household Members: Spouse and Children Housing: House Do you presently have visiting nurse or other home services: No Patient Tobacco Use Status: Never used Tobacco service: No Current occupational status: previously employed Review of Systems Const Denies daytime sleepiness, Reports fatigue, Reports headache(s), Denies snoring and Denies stops breathing during sleep Eyes Denies change in vision ENT Denies change in voice, Reports headache(s), Reports nasal congestion and Reports nasal discharge Card Denies chest pain, Denies dyspnea and Reports dyspnea on exertion Resp Reports change in phlegm color, Reports chest congestion, Reports cough, Denies hemoptysis, Reports pain with cough, Denies dyspnea, Reports dyspnea on exertion, Denies snoring and Reports wheezing GI Reports no additional complaints Musc Reports no additional complaints Skin/Breast Denies rash Neuro Reports headache(s) Endo Reports fatigue Aller/Immun Reports wheezing Physical Exam Vital Signs: Last Vital Signs Pulse 83 02/29/24 13:57 Pulse Ox 95 02/29/24 13:57 Oxygen Delivery Method Room Air 02/29/24 13:57 BMI result Body Mass Index 49.9 Const General: alert Neck Neck: Yes normal visual inspection, Yes full ROM and Yes no lymphadenopathy Chest Chest palpation & inspection: normal inspection of the chest Resp Effort & Inspection: audible wheezes and prolonged expiratory phase Auscultation: crackles on the right, no rales, rhonchi, wheezes and diminished lung sounds Cardio Rate: regular rate Rhythm: regular rhythm Heart sounds: S1 normal heart sound present and S2 normal heart sound present GI Palpation (GI): Soft to palpation and nontender Auscultation: normal bowel sounds Skin General skin exam: rashes and/or lesions noted Results Reviewed Results Reviewed: personally reviewd CXR 2023 and 2022 with mild elevated on the right hemidiaphram and blunting of the right recess Assessment & Plan Assessment & Plan (1) Pneumonia: Code(s): J18.9 - Pneumonia, unspecified organism Category: Medical Qualifiers: Pneumonia type: due to unspecified organism Laterality: right Lung location: unspecified part of lung Qualified Code(s): J18.9 - Pneumonia, unspecified organism (2) Asthma: Code(s): J45.909 - Unspecified asthma, uncomplicated Category: Medical Qualifiers: Asthma complication type: uncomplicated Asthma persistence: persistent Asthma severity: severe Qualified Code(s): J45.50 - Severe persistent asthma, uncomplicated (3) Bronchiectasis: Code(s): J47.9 - Bronchiectasis, uncomplicated Category: Medical Qualifiers: Bronchiectasis type: uncomplicated Qualified Code(s): J47.9 - Bronchiectasis, uncomplicated (4) Chronic allergic rhinitis: Code(s): J30.9 - Allergic rhinitis, unspecified Category: Medical (5) TERRA on CPAP: Code(s): G47.33 - Obstructive sleep apnea (adult) (pediatric); Z99.89 - Dependence on other enabling machines and devices Category: Medical (6) Eczema: Code(s): L30.9 - Dermatitis, unspecified Category: Medical Qualifiers: Eczema type: flexural Qualified Code(s): L20.82 - Flexural eczema Plan Start Vantin CT chest will likely need abronchosocopy, will await the CT chest to decide continue Breztri 2 puffs BID OMI as needed Did not start the Dupixent Continue Zyrtec and Singulair continue APAP F/U 6-8 weeks Orders: Orders CT chest wo IV con Today J18.9 - Pneumonia, unspecified organism, J47.9 - Bronchiectasis, uncomplicated Medications: New cefpodoxime must administer with a meal/food 200 mg PO BID 20 tabs 0RF Coding Level of Care Code Est Pt Level 5 (67223) Diagnoses Pneumonia of right lung due to infectious organism, unspecified part of lung J18.9 Pneumonia type: due to unspecified organism Laterality: right Lung location: unspecified part of lung Severe persistent asthma without complication J45.50 Asthma complication type: uncomplicated Asthma persistence: persistent Asthma severity: severe Bronchiectasis without complication J47.9 Bronchiectasis type: uncomplicated Chronic allergic rhinitis J30.9 TERRA on CPAP G47.33; Z99.89 Flexural eczema L20.82 Eczema type: flexural Time Spent (min) 35
[2024-02-29 13:57] VITALS: PULSE 83; O2SAT 95; BMI 49.9
== END 2024-02-29 14:20 | disposition home or self-care (01) ==
PROVIDERS: PCP Internal Medicine; Visit Provider Hospitalist
DX: J45.50 Severe persistent asthma, uncomplicated (principal); J18.9 Pneumonia, unspecified organism; J47.9 Bronchiectasis, uncomplicated; G47.33 Obstructive sleep apnea (adult) (pediatric); Z99.89 Dependence on other enabling machines and devices; L20.82 Flexural eczema
CPT/HCPCS: 99215

== ENCOUNTER → 2024-02-29 13:52 | Outpatient (BNVA) | payer BC, SELFPAY | PROVIDERS: PCP Internal Medicine; Visit Provider Hospitalist ==

== ENCOUNTER 2024-04-04 14:45 | Outpatient (REF) | payer BC, SELFPAY ==
--- NOTE | ~2024-04-04 | CT_ITS ---
EXAMINATION: CT CHEST WITHOUT CONTRAST CLINICAL INFORMATION: Bronchiectasis, pneumonia. COMPARISON: No prior CT available. Correlation made with chest x-ray 12/30/2023. TECHNIQUE: Multidetector volumetric CT imaging of the chest was done. Axial MIP volume rendering provided. Sagittal and coronal reformatted images were obtained. This CT examination was performed using dose optimization techniques as appropriate, variously including the following: *Automated exposure control *Adjustment of mA and/or kV according to patient size (this includes techniques or standardized protocols for targeted exams where dose is matched to indication/reason for exam; i.e. extremities or head) *Use of iterative reconstruction technique DLP: 303 mGy-cm Please note, due to [employer] technical systems and internal issues, this examination was not available for dictation until 05/08/2024. FINDINGS: PULLMAN CONDUCTOR: Increased BMI. Mild elevation of the right hemidiaphragm with right costophrenic angle blunting. LUNGS: -There are no abnormal groundglass opacities or consolidations. -Cylindrical bronchiectasis is present most notably in the right middle lobe and bilateral lower lobes, without evidence of bronchial wall thickening or endobronchial filling defects. -The trachea and mainstem bronchi are normal. -There are foci of parenchymal scarring in the bilateral posterior and medial costophrenic sulci. -A 3 mm calcified granuloma is present (series 6, image 116) in the middle lobe. -There are no suspicious pulmonary nodules. -There is a small amount of parenchymal scarring in the right anterior and lateral costophrenic sulci as well. PLEURA: There is no pleural effusion. No pleural mass or thickening. MEDIASTINUM: -Partially imaged thyroid is normal. -The aorta is normal in caliber and course. -Main pulmonary artery is normal in caliber. -Great vessels branch normally. -No abnormal lymphadenopathy within the mediastinum or hilum. -Heart size is normal. -Esophagus is grossly normal. Probable small type I hiatus hernia. -No pericardial effusion. CORONARY ARTERY CALCIFICATION: Mild to moderate three-vessel coronary calcification. Moderate calcification of the mitral annulus. AXILLA/CHEST WALL: No lymphadenopathy. UPPER ABDOMEN: -There are calcified gallstones in a normal-appearing gallbladder. OSSEOUS STRUCTURES: There is no suspicious lytic or blastic bone lesion. -[id number] degenerative spondylosis of the imaged spine. CT/CT chest wo IV con IMPRESSION: 1. No definite active pulmonary disease. 2. Cylindrical bronchiectasis present in the right middle lobe and bilateral lower lobes, without endobronchial filling defect or bronchial wall thickening. 3. Parenchymal scarring in the posterior and medial costophrenic sulci, as well as the right lateral costophrenic sulcus as well. 4. No suspicious pulmonary nodules or abnormal lymphadenopathy. 5. Elevated right hemidiaphragm. 6. Ancillary findings as discussed in the body of the report. Fleischner guidelines were followed.
== END 2024-04-04 14:46 | disposition home or self-care (01) ==
LOC: HO.CT 14:45
PROVIDERS: PCP Internal Medicine; Visit Provider Hospitalist
DX: J47.9 Bronchiectasis, uncomplicated (principal); J18.9 Pneumonia, unspecified organism
CPT/HCPCS: 71250

== ENCOUNTER → 2024-04-04 14:47 | Outpatient (BNV) | payer BC, SELFPAY | PROVIDERS: PCP Internal Medicine; Visit Provider Radiology Diagnostic Radiology | DX: J47.9 Bronchiectasis, uncomplicated (principal); J18.9 Pneumonia, unspecified organism | CPT/HCPCS: 71250 ==

== ENCOUNTER 2024-04-06 09:45 | Outpatient (AMB) | payer BC, SELFPAY ==
[2024-04-06 10:05] VITALS: PULSE 87; O2SAT 97; BMI 49.9
--- NOTE | 2024-04-06 10:05 | MHC.OFFVIS ---
Vital Signs 04/06/24 10:05 Height 5 ft 2 in Weight 272 lb 14.916 oz BMI 49.9 Pulse 87 Pulse Source Pulse Oximeter Pulse Oximetry (%) 97 Oxygen Delivery Method Room Air Intake Visit Reasons: Asthma/CT Chest Follow Up [employer] Required: No Allergies Penicillins Allergy (Severe, Verified 04/06/24 10:06) Rash HPI Comments Details: The patient is a 53-year-old woman with a known history of lifelong asthma. The patient was premature. I do not have the details at this time. Since she was a child she had multiple asthma flare ups and was followed closely by Allergy. She has significant allergies to therefore she was never provided allergy shots due to her significant asthma. She was maintained on respiratory therapy. She did get a 2nd opinion in [facility] and [facility]. There she followed up with Pulmonary for many years. Now she is looking to relocating back in the area. The patient does have significant asthma and does require prednisone 2 to 3 times a year. She has been on Symbicort twice a day which is been partially helpful. In addition to that she takes her allergy medication including Singulair and Zyrtec. She was offered biologic therapy in [place] but she would have to travel back and forth and that will be very difficult for her. Will looking to biologic therapy closer by. In the meantime her other conditions include obstructive sleep apnea. She has been diagnosed with for now about 15 years. Her last machine she got was about 80 years ago. Unfortunately she has not set up with a [employer] company and she has not gotten supplies. Therefore, she has been using the same supplies for many years which I find that is not healthy for her specially with her underlying obstructive airway disease. She did have a CT scan of the chest back in 2015 when she was diagnosed with pneumonia and I personally reviewed it. It appears that she does have obstructions status changes she primarily at the bases left more than right in does have areas of atelectasis suggesting recurrent infections. 09/09/2021 the patient is here for a pulmonary follow-up visit. The patient is here for sick visit. Apparently for the last 3 4 days she is developing worsening shortness of breath and wheezing. She has also has chest tightness. She has been using her nebulized therapy regularly. Denies any fevers or chills. The patient is concerned that she is getting worse. She has a productive cough. She did call over the weekend she was given a course of prednisone 40 mg for 5 days and also azithromycin. Her symptoms did not improve significantly. However, she did not take the higher dose prednisone as prescribed. In the office she has significant wheezing. Therefore given Solu-Medrol 125 mg IM x1 and also she received 2 DuoNeb treatments. After she was breathing a little better although she was still having significant chest tightness and wheezing. She also has some pleuritic chest discomfort primarily in the lower lung zones. Therefore have her get an x-ray prior to going home. She understands that her symptoms worsen on the current additional therapy if she develops worsening chest discomfort she would have to go to the ER for further evaluation. In the meantime view of her severe persistent asthma we did review her blood work demonstrating significant eosinophilia and significant allergies to both cats and dogs and also trees. The patient does have an elevated eosinophil count and also an elevated IgE. The patient also has a history of eczema. No evidence of any nasal polyps. In view of her symptoms in the findings I do believe that Dupixent will be a good option for her. Therefore will start the process for her to start Dupixent therapy. 09/16/2021 the patient is here for sick visit. She was just seen about a week ago with significant asthma exacerbation. She did receive Solu-Medrol in the office in a did improve her symptoms. She also started doxycycline. Unfortunately, the patient still has a significant cough very congested and difficult to expectorate. Moderate severity. She has been using her nebulizer regularly. She is still using the prednisone at 30 mg. At this point she does not have any significant wheezing therefore we will give her additional steroids. However, will broaden her antibiotic coverage in case she has a resistant organism. Her chest x-ray did not demonstrate any focal airspace disease. However, x-rays may be limited. It may be that she is developing something. some if he needs she continues to be symptomatic we can always consider getting a CT scan of the chest to further address her ongoing symptoms. Bronchoscopy is also another options to assess her airways and send the cultures. In the meantime she does have significant allergies and a way to control her respiratory symptoms will be to start biologic therapy. Once her respiratory status is better we can see about starting biologic therapy. At this point is either between starting and IL5 inhibitor versus IL4/ 13 inhibitor. In addition to that she does have underlying sleep apnea. She has not gotten supplies in years. CPAP therapy has been very affecting beneficial. I did download her machine and her usage is more than 6 hours average. Her average pressure is around 12 cm. In her AHI 0.8 therefore, the patient needs to have a repeat sleep study in order to get activated again with a DME company and start getting supplies. Currently she is using really all supplies and tubing has holes in therefore resulted in increased leakage. I do not have any tubing supplies available to give her otherwise I would. 10/06/2021 the patient is here for a pulmonary follow-up visit. She is now better from her previous exacerbation. She did complete the prednisone and also the antibiotics. Again, she continues on an aggressive respiratory regimen. She is agreeable to starting biologic therapy. I believe Dupixent will be the best option for her for both eosinophilic in IgE levels are elevated. The patient also and is requiring high levels of steroids frequently. Therefore biologic therapy will help decrease the need for systemic steroids and the adverse effects that come with that. In the meantime she continues with CPAP therapy. The CPAP therapy continues to be affecting beneficial. She continues using more than 4 hours a night. she does need new supplies. She patient is scheduled to have a repeat sleep study in order for us to we activate her with a [employer] company in order to get supplies. 12/19/2021 the patient is here for a pulmonary follow-up visit. Since we last spoke the patient was admitted to the hospital with severe COVID. She developed severe DKA in addition to renal failure in addition to COVID pneumonia. She required oxygen supplementation. The patient was able to improved. In the meantime we will trying to get her on biologic therapy for severe asthma. She was denied for Dupixent. We did appeal the decision from the insurance company in view of her severe asthma. We are awaiting the results of the appeal at this time. The patient did have says a significant issue with steroids. Therefore the use of biologics will help decrease the need for steroids in view of her severe DKA presenting to the hospital. Her blood sugar was 1100 upon arrival to the hospital and hemoglobin A1c was 14. This at this point is getting better with the help of endocrinology. 02/19/2022 the patient is here for a pulmonary follow-up visit. Overall she is starting to feel a lot better. Seems like her breathing has been improving. She continues use the oxygen at nighttime while sleeping. The patient does have issues with significant snoring. Apparently her having hard time with her snoring. She is also waking up tired. Her Sanford score is elevated 12/24. She did carry a diagnosis of sleep apnea but she had not been adherent to her therapy. At this point she is on oxygen therefore I will request an in-lab sleep study to further address her significant worsening sleep apnea symptoms. The patient also was approved to start Dupixent. There was an issue with her specialty pharmacy and she did not requested early in off and then . Now we have to resubmit for the medication and have her come in the 1st dose. She does have severe persistent asthma and she will respond very well to this biologic therapy. 06/12/2022 The patient is here for a pulmonary follow up visit. She is overall doing better. He breathing and asthma is much better. She did not need to start Biologics. The patient is doing better with the diabetes. She continues to have daytime drowsiness. Her Sanford score is 11/24. We reviewed the PSG. She dose have significant TERRA. We need to start CPAP at this time. 01/18/2023 the patient is here for sick visit. The patient had been in her usual state health until about 3-4 weeks ago. She started developing worsening cough. She was placed on doxycycline briefly. However, no improvement. She will back to her primary care doctor because the worsening cough and she was then placed on a 5 day course of prednisone. She initially felt better but then when she stops prednisone her symptoms return. She does have a cough. Moderate to severe. No significant expectoration. She is having worsening shortness of breath. Moderate severity. Having hard time sleeping. She is using her CPAP even during the daytime just to improve with the work of breathing. The patient denies any fevers or chills. Denies any sick contacts. In the office visit her exam demonstrates significant wheezing. She was given 2 DuoNeb treatments. 03/09/2023 the patient is here for pulmonary follow-up visit. The patient overall is feeling better. She is using her CPAP with good effect. The therapy has been affecting beneficial and she does more than 4 hours a day. The patient has been using her respiratory therapy. She continues to have episodic flare-ups Requiring her rescue inhaler for nerve 6 times a week. She is currently off prednisone the last time she used it was last month. The patient did have blood work demonstrating significant elevation in her IgE. The patient does have significant allergic asthma. She also had uncontrolled diabetes and therefore the use of prednisone will resulting worsening diabetes control. The patient is currently maximized on respiratory therapy and will be a good candidate for biologic therapy. We will request Dupixent as a good option for her. Xolair would also be a good option for her to help with her ongoing asthma flare ups. 03/01/2024 the patient is here for a pulmonary follow-up visit. She has been sick now for since November. She developed a lower respiratory infection. At that time she was placed on an antibiotic that she did not feel any significant improvement. Continued to have significant shortness of breath cough and hypoxia. She did have oxygen available at home so therefore she started using the because her oxygen was down in the 80s. The patient was evaluated by our office for a sick visit. She had a chest x-ray demonstrating no acute disease although she does have an slightly elevated right hemidiaphragm with blunting of the recess which appears to be chronic for her. She was given a 2nd course of antibiotics. Although she did not really feels significantly better. She also had some prednisone and she did not feel also that is significantly help. She continued to have cough felt congested and felt rattling but was unable to expectorate. at time she is able to bring up some mucus plugs but not much. On exam she does have some crackles in the right base and also has some rhonchi and prolonged expiratory phase with some wheezing. In view of not responding to the prednisone and 2 courses of antibiotics will go ahead and give her 3rd course of antibiotics but also request a CT scan of the chest for suspicion of pneumonia. The patient also would benefit from a bronchoscopy. Will wait for the CT scan of the chest to then decide to perform the bronchoscopy. In the meantime she does continue to use CPAP. The CPAP therapy continues to be affecting beneficial. She does try to use it more than 4 hours a night. She has also been developing some lower extremity edema. She was placed on a mild diuretic. She does maintain a low-sodium diet. 04/06/2024 the patient is here for a pulmonary follow-up visit. She is feeling better. He completed the antibiotics. Still having some shortness of breath and chest congestion. Difficult to expectorate. Also having intermittent wheezing. Has been using her respiratory therapy. Also has been using the CPAP. We did review her CT scan demonstrating some evidence of bronchiectatic changes and chronic bronchitis. No evidence of any airspace disease which is referring. Still the patient has a hard time expectorating. We did talk about CPT with hypertonic saline and Acapella valve to see if she can help clear the secretions herself. If the patient is no better she can always call and we can plan for diagnostic/ therapeutic bronchoscopy. The patient will continue her current respiratory regimen. She also continues use her CPAP every night. CPAP therapy continues to be affecting beneficial. Will follow-up in 3-4 months. Again, the patient is no better or worse she will call to set up the bronchoscopy. [facility] Medical History (Updated 02/29/24 @ 22:14 by Corwin Lui MD) Pneumonia Asthma exacerbation TERRA (obstructive sleep apnea) COVID-19 (~10/2021) Diabetes mellitus Eczema TERRA on CPAP Chronic allergic rhinitis Bronchiectasis Asthma Social History (Updated 01/11/24 @ 09:01 by Kirsten Brewster LPN) Household Members: Spouse and Children Housing: House Do you presently have visiting nurse or other home services: No Patient Tobacco Use Status: Never used Tobacco service: No Current occupational status: previously employed Review of Systems Const Denies daytime sleepiness, Reports fatigue, Reports headache(s), Denies snoring and Denies stops breathing during sleep Eyes Denies change in vision ENT Denies change in voice, Reports headache(s), Reports nasal congestion and Reports nasal discharge Card Denies chest pain, Denies dyspnea and Reports dyspnea on exertion Resp Denies change in phlegm color, Reports chest congestion, Reports cough, Denies hemoptysis, Denies pain with cough, Denies dyspnea, Reports dyspnea on exertion, Denies snoring and Reports wheezing GI Reports no additional complaints Musc Reports no additional complaints Skin/Breast Denies rash Neuro Reports headache(s) Endo Reports fatigue Aller/Immun Reports wheezing Physical Exam Vital Signs: Last Vital Signs Pulse 87 04/06/24 10:05 Pulse Ox 97 04/06/24 10:05 Oxygen Delivery Method Room Air 04/06/24 10:05 BMI result Body Mass Index 49.9 Const General: alert Neck Neck: Yes normal visual inspection, Yes full ROM and Yes no lymphadenopathy Chest Chest palpation & inspection: normal inspection of the chest Resp Effort & Inspection: normal respiratory effort and prolonged expiratory phase Auscultation: no crackles, no rales, no rhonchi, wheezes and diminished lung sounds Cardio Rate: regular rate Rhythm: regular rhythm Heart sounds: S1 normal heart sound present and S2 normal heart sound present GI Palpation (GI): Soft to palpation and nontender Auscultation: normal bowel sounds Skin General skin exam: rashes and/or lesions noted Assessment & Plan Assessment & Plan (1) Asthma: Code(s): J45.909 - Unspecified asthma, uncomplicated Category: Medical Qualifiers: Asthma complication type: uncomplicated Asthma persistence: persistent Asthma severity: severe Qualified Code(s): J45.50 - Severe persistent asthma, uncomplicated (2) Bronchiectasis: Code(s): J47.9 - Bronchiectasis, uncomplicated Category: Medical Qualifiers: Bronchiectasis type: uncomplicated Qualified Code(s): J47.9 - Bronchiectasis, uncomplicated (3) Chronic allergic rhinitis: Code(s): J30.9 - Allergic rhinitis, unspecified Category: Medical (4) TERRA on CPAP: Code(s): G47.33 - Obstructive sleep apnea (adult) (pediatric); Z99.89 - Dependence on other enabling machines and devices Category: Medical (5) Eczema: Code(s): L30.9 - Dermatitis, unspecified Category: Medical Qualifiers: Eczema type: flexural Qualified Code(s): L20.82 - Flexural eczema Plan awaiting the CT chest final report continue Breztri 2 puffs BID start CPT with albuterol neb followed by hypertonic saline then acapella valve if no better plan for a diagnostic/therapeutic bronchoscopy OMI as needed Did not start the Dupixent Continue Zyrtec and Singulair continue APAP F/U 6-8 weeks Medications: New sodium chloride 3% 4 mL inhalation BID 30 days 240 mL 11RF J47.9 - Bronchiectasis, uncomplicated Coding Level of Care Code Est Pt Level 4 (19626) Diagnoses Severe persistent asthma without complication J45.50 Asthma complication type: uncomplicated Asthma persistence: persistent Asthma severity: severe Bronchiectasis without complication J47.9 Bronchiectasis type: uncomplicated Chronic allergic rhinitis J30.9 TERRA on CPAP G47.33; Z99.89 Flexural eczema L20.82 Eczema type: flexural Time Spent (min) 17
== END 2024-04-06 10:35 | disposition home or self-care (01) ==
PROVIDERS: PCP Internal Medicine; Visit Provider Hospitalist
DX: J45.50 Severe persistent asthma, uncomplicated (principal); J47.9 Bronchiectasis, uncomplicated; J30.9 Allergic rhinitis, unspecified; G47.33 Obstructive sleep apnea (adult) (pediatric); Z99.89 Dependence on other enabling machines and devices; L20.82 Flexural eczema
CPT/HCPCS: 99214

== ENCOUNTER → 2024-04-06 09:45 | Outpatient (BNVA) | payer BC, SELFPAY | PROVIDERS: PCP Internal Medicine; Visit Provider Hospitalist ==

== ENCOUNTER 2024-06-12 14:39 | Outpatient (AMB) | payer BC, SELFPAY ==
--- NOTE | 2024-06-12 14:43 | A.OFFVIS_ITS ---
Vital Signs 06/12/24 14:44 Height 5 ft 2 in Weight 295 lb BMI 54.0 Pulse 92 Pulse Source Pulse Oximeter Pulse Oximetry (%) 97 Oxygen Delivery Method Room Air Intake Visit Reasons: Asthma/CT Chest Follow Up Process Control Operator Required: No Allergies Penicillins Allergy (Severe, Verified 06/12/24 14:44) Rash HPI Comments Details: The patient is a 53-year-old woman with a known history of lifelong asthma. The patient was premature. I do not have the details at this time. Since she was a child she had multiple asthma flare ups and was followed closely by Allergy. She has significant allergies to therefore she was never provided allergy shots due to her significant asthma. She was maintained on respiratory therapy. She did get a 2nd opinion in [facility] and [facility]. There she followed up with Pulmonary for many years. Now she is looking to relocating back in the area. The patient does have significant asthma and does require prednisone 2 to 3 times a year. She has been on Symbicort twice a day which is been partially helpful. In addition to that she takes her allergy medication including Singulair and Zyrtec. She was offered biologic therapy in [place] but she would have to travel back and forth and that will be very difficult for her. Will looking to biologic therapy closer by. In the meantime her other conditions include obstructive sleep apnea. She has been diagnosed with for now about 15 years. Her last machine she got was about 80 years ago. Unfortunately she has not set up with a [facility] and she has not gotten supplies. Therefore, she has been using the same supplies for many years which I find that is not healthy for her specially with her underlying obstructive airway disease. She did have a CT scan of the chest back in 2015 when she was diagnosed with pneumonia and I personally reviewed it. It appears that she does have obstructions status changes she primarily at the bases left more than right in does have areas of atelectasis suggesting recurrent infections. 09/09/2021 the patient is here for a pulmonary follow-up visit. The patient is here for sick visit. Apparently for the last 3 4 days she is developing worsening shortness of breath and wheezing. She has also has chest tightness. She has been using her nebulized therapy regularly. Denies any fevers or chills. The patient is concerned that she is getting worse. She has a productive cough. She did call over the weekend she was given a course of prednisone 40 mg for 5 days and also azithromycin. Her symptoms did not improve significantly. However, she did not take the higher dose prednisone as prescribed. In the office she has significant wheezing. Therefore given Solu- Medrol 125 mg IM x1 and also she received 2 DuoNeb treatments. After she was breathing a little better although she was still having significant chest tightness and wheezing. She also has some pleuritic chest discomfort primarily in the lower lung zones. Therefore have her get an x-ray prior to going home. She understands that her symptoms worsen on the current additional therapy if she develops worsening chest discomfort she would have to go to the ER for further evaluation. In the meantime view of her severe persistent asthma we did review her blood work demonstrating significant eosinophilia and significant allergies to both cats and dogs and also trees. The patient does have an elevated eosinophil count and also an elevated IgE. The patient also has a history of eczema. No evidence of any nasal polyps. In view of her symptoms in the findings I do believe that Dupixent will be a good option for her. Therefore will start the process for her to start Dupixent therapy. 09/16/2021 the patient is here for sick visit. She was just seen about a week ago with significant asthma exacerbation. She did receive Solu-Medrol in the office in a did improve her symptoms. She also started doxycycline. Unfortunately, the patient still has a significant cough very congested and difficult to expectorate. Moderate severity. She has been using her nebulizer regularly. She is still using the prednisone at 30 mg. At this point she does not have any significant wheezing therefore we will give her additional steroids. However, will broaden her antibiotic coverage in case she has a resistant organism. Her chest x-ray did not demonstrate any focal airspace disease. However, x-rays may be limited. It may be that she is developing something. some if he needs she continues to be symptomatic we can always consider getting a CT scan of the chest to further address her ongoing symptoms. Bronchoscopy is also another options to assess her airways and send the cultures. In the meantime she does have significant allergies and a way to control her respiratory symptoms will be to start biologic therapy. Once her respiratory status is better we can see about starting biologic therapy. At this point is either between starting and IL5 inhibitor versus IL4/ 13 inhibitor. In addition to that she does have underlying sleep apnea. She has not gotten supplies in years. CPAP therapy has been very affecting beneficial. I did download her machine and her usage is more than 6 hours average. Her average pressure is around 12 cm. In her AHI 0.8 therefore, the patient needs to have a repeat sleep study in order to get activated again with a DME company and start getting supplies. Currently she is using really all supplies and tubing has holes in therefore resulted in increased leakage. I do not have any tubing supplies available to give her otherwise I would. 10/06/2021 the patient is here for a pulmonary follow-up visit. She is now better from her previous exacerbation. She did complete the prednisone and also the antibiotics. Again, she continues on an aggressive respiratory regimen. She is agreeable to starting biologic therapy. I believe Dupixent will be the best option for her for both eosinophilic in IgE levels are elevated. The patient also and is requiring high levels of steroids frequently. Therefore biologic therapy will help decrease the need for systemic steroids and the adverse effects that come with that. In the meantime she continues with CPAP therapy. The CPAP therapy continues to be affecting beneficial. She continues using more than 4 hours a night. she does need new supplies. She patient is scheduled to have a repeat sleep study in order for us to we activate her with a [employer] company in order to get supplies. 12/19/2021 the patient is here for a pulmonary follow-up visit. Since we last spoke the patient was admitted to the hospital with severe COVID. She developed severe DKA in addition to renal failure in addition to COVID pneumonia. She required oxygen supplementation. The patient was able to improved. In the meantime we will trying to get her on biologic therapy for severe asthma. She was denied for Dupixent. We did appeal the decision from the insurance company in view of her severe asthma. We are awaiting the results of the appeal at this time. The patient did have says a significant issue with steroids. Therefore the use of biologics will help decrease the need for steroids in view of her severe DKA presenting to the hospital. Her blood sugar was 1100 upon arrival to the hospital and hemoglobin A1c was 14. This at this point is getting better with the help of endocrinology. 02/19/2022 the patient is here for a pulmonary follow-up visit. Overall she is starting to feel a lot better. Seems like her breathing has been improving. She continues use the oxygen at nighttime while sleeping. The patient does have issues with significant snoring. Apparently her having hard time with her snoring. She is also waking up tired. Her [place] score is elevated 12/24. She did carry a diagnosis of sleep apnea but she had not been adherent to her therapy. At this point she is on oxygen therefore I will request an in-lab sleep study to further address her significant worsening sleep apnea symptoms. The patient also was approved to start Dupixent. There was an issue with her specialty pharmacy and she did not requested early in off and then . Now we have to resubmit for the medication and have her come in the 1st dose. She does have severe persistent asthma and she will respond very well to this biolog ic therapy. 06/12/2022 The patient is here for a pulmonary follow up visit. She is overall doing better. He breathing and asthma is much better. She did not need to start Biologics. The patient is doing better with the diabetes. She continues to have daytime drowsiness. Her [place] score is 11/24. We reviewed the PSG. She dose have significant TERRA. We need to start CPAP at this time. 01/18/2023 the patient is here for sick visit. The patient had been in her usual state health until about 3-4 weeks ago. She started developing worsening cough. She was placed on doxycycline briefly. However, no improvement. She will back to her primary care doctor because the worsening cough and she was then placed on a 5 day course of prednisone. She initially felt better but then when she stops prednisone her symptoms return. She does have a cough. Moderate to severe. No significant expectoration. She is having worsening shortness of breath. Moderate severity. Having hard time sleeping. She is using her CPAP even during the daytime just to improve with the work of breathing. The patient denies any fevers or chills. Denies any sick contacts. In the office visit her exam demonstrates significant wheezing. She was given 2 DuoNeb treatments. 03/09/2023 the patient is here for pulmonary follow-up visit. The patient overall is feeling better. She is using her CPAP with good effect. The therapy has been affecting beneficial and she does more than 4 hours a day. The patient has been using her respiratory therapy. She continues to have episodic flare- ups Requiring her rescue inhaler for nerve 6 times a week. She is currently off prednisone the last time she used it was last month. The patient did have blood work demonstrating significant elevation in her IgE. The patient does have significant allergic asthma. She also had uncontrolled diabetes and therefore the use of prednisone will resulting worsening diabetes control. The patient is currently maximized on respiratory therapy and will be a good candidate for biologic therapy. We will request Dupixent as a good option for her. Xolair would also be a good option for her to help with her ongoing asthma flare ups. 03/01/2024 the patient is here for a pulmonary follow-up visit. She has been sick now for since November. She developed a lower respiratory infection. At that time she was placed on an antibiotic that she did not feel any significant improvement. Continued to have significant shortness of breath cough and hypoxia. She did have oxygen available at home so therefore she started using the because her oxygen was down in the 80s. The patient was evaluated by our office for a sick visit. She had a chest x-ray demonstrating no acute disease although she does have an slightly elevated right hemidiaphragm with blunting of the recess which appears to be chronic for her. She was given a 2nd course of antibiotics. Although she did not really feels significantly better. She also had some prednisone and she did not feel also that is significantly help. She continued to have cough felt congested and felt rattling but was unable to expectorate. at time she is able to bring up some mucus plugs but not much. On exam she does have some crackles in the right base and also has some rhonchi and prolonged expiratory phase with some wheezing. In view of not responding to the prednisone and 2 courses of antibiotics will go ahead and give her 3rd course of antibiotics but also request a CT scan of the chest for suspicion of pneumonia. The patient also would benefit from a bronchoscopy. Will wait for the CT scan of the chest to then decide to perform the bronchoscopy. In the meantime she does continue to use CPAP. The CPAP therapy continues to be affecting beneficial. She does try to use it more than 4 hours a night. She has also been developing some lower extremity edema. She was placed on a mild diuretic. She does maintain a low-sodium diet. 04/06/2024 the patient is here for a pulmonary follow-up visit. She is feeling better. He completed the antibiotics. Still having some shortness of breath and chest congestion. Difficult to expectorate. Also having intermittent wheezing. Has been using her respiratory therapy. Also has been using the CPAP. We did review her CT scan demonstrating some evidence of bronchiectatic changes and chronic bronchitis. No evidence of any airspace disease which is referring. Still the patient has a hard time expectorating. We did talk about CPT with hypertonic saline and Acapella valve to see if she can help clear the secretions herself. If the patient is no better she can always call and we can plan for diagnostic/ therapeutic bronchoscopy. The patient will continue her current respiratory regimen. She also continues use her CPAP every night. CPAP therapy continues to be affecting beneficial. Will follow-up in 3-4 months. Again, the patient is no better or worse she will call to set up the br onchoscopy. 06/12/2024 the patient is here for a pulmonary follow-up visit. Patient has not seen any significant improvement she still struggling with cough chest congestion shortness breath and chest tightness. She has been having to use her nebulizer several times a day. Her rescue inhalers that effective. We did talk about bronchoscopy during the last visit. I do believe that is the right approach at this time. The patient is agreeable this time and will go ahead and plan to do it hopefully next week. In the meantime she completed all antibiotics. She also has been off prednisone. Will go ahead and request additional blood work to assess her eosinophils and IgE level to see if she is a candidate for biologic therapy. I do believe Dupixent be a good option for her although other biologics would also would be reasonable depending on her results. Also from her bronchoscopy we can provide her a set up a differential to assess her type of inflammatory condition within the airways. She continues use her CPAP. The CPAP therapy continues to be affecting beneficial. She will continue to use more than 4 hours a night. Will go ahead and plan to order the bronchoscopy will follow-up after the bronchoscopy to review the procedure and the results. [facility] Medical History (Updated 02/29/24 @ 22:14 by Corwin Lui MD) Pneumonia Asthma exacerbation TERRA (obstructive sleep apnea) COVID-19 (~10/2021) Diabetes mellitus Eczema TERRA on CPAP Chronic allergic rhinitis Bronchiectasis Asthma Social History (Updated 01/11/24 @ 09:01 by Kirsten Brewster LPN) Household Members: Spouse and Children Housing: House Do you presently have visiting nurse or other home services: No Patient Tobacco Use Status: Never used Tobacco service: No Current occupational status: previously employed Review of Systems Const Denies daytime sleepiness, Reports fatigue, Reports headache(s), Denies snoring and Denies stops breathing during sleep Eyes Denies change in vision ENT Denies change in voice, Reports dry mouth, Reports headache(s), Reports nasal congestion and Reports nasal discharge Card Denies chest pain, Denies dyspnea and Reports dyspnea on exertion Resp Denies change in phlegm color, Reports chest congestion, Reports cough, Denies hemoptysis, Denies pain with cough, Denies dyspnea, Reports dyspnea on exertion, Denies snoring and Reports wheezing GI Reports no additional complaints Musc Reports no additional complaints Skin/Breast Denies rash Neuro Reports headache(s) Endo Reports fatigue Aller/Immun Reports wheezing Physical Exam Vital Signs: Last Vital Signs Pulse 92 06/12/24 14:44 Pulse Ox 97 06/12/24 14:44 Oxygen Delivery Method Room Air 06/12/24 14:44 BMI result Body Mass Index 54.0 Const General: alert Neck Neck: Yes normal visual inspection, Yes full ROM and Yes no lymphadenopathy Chest Chest palpation & inspection: normal inspection of the chest Resp Effort & Inspection: normal respiratory effort and prolonged expiratory phase Auscultation: no crackles, no rales, rhonchi, wheezes and diminished lung sounds Cardio Rate: regular rate Rhythm: regular rhythm Heart sounds: S1 normal heart sound present and S2 normal heart sound present GI Palpation (GI): Soft to palpation and nontender Auscultation: normal bowel sounds Skin General skin exam: rashes and/or lesions noted Results Reviewed Results Reviewed: personally reviewd CT chest 04/2024 with bronchiectasis bilaterally Assessment & Plan Assessment & Plan (1) Asthma: Code(s): J45.909 - Unspecified asthma, uncomplicated Category: Medical Qualifiers: Asthma complication type: uncomplicated Asthma persistence: persistent Asthma severity: severe Qualified Code(s): J45.50 - Severe persistent asthma, uncomplicated (2) Bronchiectasis: Code(s): J47.9 - Bronchiectasis, uncomplicated Category: Medical Qualifiers: Bronchiectasis type: uncomplicated Qualified Code(s): J47.9 - Bronchiectasis, uncomplicated (3) Chronic allergic rhinitis: Code(s): J30.9 - Allergic rhinitis, unspecified Category: Medical (4) TERRA on CPAP: Code(s): G47.33 - Obstructive sleep apnea (adult) (pediatric); Z99.89 - Dependence on other enabling machines and devices Category: Medical (5) Eczema: Code(s): L30.9 - Dermatitis, unspecified Category: Medical Qualifiers: Eczema type: flexural Qualified Code(s): L20.82 - Flexural eczema Plan continue Breztri 2 puffs BID continue CPT with albuterol neb followed by hypertonic saline then acapella valve plan for a diagnostic/therapeutic bronchoscopy OMI as needed bloodwork to assess for biologic treatment for her severe asthma Continue Zyrtec and Singulair continue APAP F/U 4-6 weeks Orders: Orders Immunoglobulin E Today J18.9 - Pneumonia, unspecified organism, J45.50 - Severe persistent asthma, uncomplicated, J47.9 - Bronchiectasis, uncomplicated Erythrocyte Sedimentation Rate Today J18.9 - Pneumonia, unspecified organism, J45.50 - Severe persistent asthma, uncomplicated, J47.9 - Bronchiectasis, uncomplicated CHEL Reflex Titer and Pattern Today J18.9 - Pneumonia, unspecified organism, J45.50 - Severe persistent asthma, uncomplicated, J47.9 - Bronchiectasis, uncomplicated Cyclic Citrullinated Peptide Today J18.9 - Pneumonia, unspecified organism, J45.50 - Severe persistent asthma, uncomplicated, J47.9 - Bronchiectasis, uncomplicated Cortisol Random Today J18.9 - Pneumonia, unspecified organism, J45.50 - Severe persistent asthma, uncomplicated, J47.9 - Bronchiectasis, uncomplicated Complete Blood Count Auto Diff Today J18.9 - Pneumonia, unspecified organism, J45.50 - Severe persistent asthma, uncomplicated, J47.9 - Bronchiectasis, uncomplicated Hypersensitive Pneumonitis Prf Today J18.9 - Pneumonia, unspecified organism, J45.50 - Severe persistent asthma, uncomplicated, J47.9 - Bronchiectasis, uncomplicated, R91.8 - Other nonspecific abnormal finding of lung field Immunoglobulins,IgG IgA IgM Today J18.9 - Pneumonia, unspecified organism, J45.50 - Severe persistent asthma, uncomplicated, J47.9 - Bronchiectasis, uncomplicated Sjogren's Antibodies Today J18.9 - Pneumonia, unspecified organism, J45.50 - Severe persistent asthma, uncomplicated, J47.9 - Bronchiectasis, uncomplicated Coding Level of Care Code Est Pt Level 5 (46445) Diagnoses Severe persistent asthma without complication J45.50 Asthma complication type: uncomplicated Asthma persistence: persistent Asthma severity: severe Bronchiectasis without complication J47.9 Bronchiectasis type: uncomplicated Chronic allergic rhinitis J30.9 TERRA on CPAP G47.33; Z99.89 Flexural eczema L20.82 Eczema type: flexural Time Spent (min) 30
[2024-06-12 14:44] VITALS: PULSE 92; O2SAT 97; BMI 54.0
== END 2024-06-12 15:14 | disposition home or self-care (01) ==
PROVIDERS: PCP Internal Medicine; Visit Provider Hospitalist
DX: J45.50 Severe persistent asthma, uncomplicated (principal); J47.9 Bronchiectasis, uncomplicated; G47.33 Obstructive sleep apnea (adult) (pediatric); Z99.89 Dependence on other enabling machines and devices; L20.82 Flexural eczema
CPT/HCPCS: 99214

== ENCOUNTER 2024-06-12 14:39 | Outpatient (REF) | payer BC, SELFPAY ==
[2024-06-12 15:26] LABS: MANUAL DIFF FLAG NO
[2024-06-12 15:51] LABS: Basophils Absolute Auto 0.1 X10*3/uL (0.0-0.2); Basophils Percent Auto 0.6 % (0-2); Eosinophils Absolute Auto 0.2 X10*3/uL (0.0-0.4); Eosinophils Percent Auto 2.4 % (0-4); Hemoglobin 12.4 g/dl (12.0-16.0); Imm Gran Abs Auto 0.06 X10*3/uL (0.00-0.03); Imm Gran Pct Auto 0.6 % (0.0-0.4); Lymphocytes Percent Auto 21.3 % (20-40); Mean Corpuscular HGB Conc 31.8 g/dl (31.0-35.0); Mean Corpuscular Hemoglobin 25.7 pg (27.0-33.0); Mean Corpuscular Volume 80.7 fL (80.0-98.0); Mean Platelet Volume 9.9 fL (9.4-12.3); Monocytes Absolute Auto 0.6 X10*3/uL (0.1-1.2); Monocytes Percent Auto 6.7 % (2-11); Neutrophils Absolute Auto 6.4 x10*3/uL (2.0-8.3); Neutrophils Percent Auto 68.4 % (45-73); Platelet Count 254 X10*3/uL (160-400); Red Blood Count 4.83 X10*6/uL (4.20-5.50); Red Cell Distribution Width 14.8 % (11.0-16.0); White Blood Count 9.3 X10*3/uL (4.8-10.8)
[2024-06-12 16:38] LABS: Erythrocyte Sedimentation Rate 67 MM/HR (0-20)
[2024-06-12 16:39] LABS: Cortisol Random 5.1 ug/dL
[2024-06-13 08:52] LABS: IgA 445 mg/dL (47-310); IgG 1699 mg/dL (600-1640); IgM 90 mg/dL (50-300)
[2024-06-13 18:18] LABS: Antibody to SS-A Antigen <1.0 NEG AI (<1.0 NEG); Antibody to SS-B Antigen <1.0 NEG AI (<1.0 NEG)
[2024-06-13 20:03] LABS: Immunoglobulin E 411 kU/L (<OR=114)
[2024-06-15 13:09] LABS: Cyclic Citrullinated Peptide <16 UNITS
[2024-06-15 20:22] LABS: Anti Nuclear Antibody Screen NEGATIVE (NEGATIVE)
[2024-06-28 13:13] LABS: Asperg fumigatus Precip Abs NEGATIVE (NEGATIVE); Micropoly faeni Abs NEGATIVE (NEGATIVE); Pigeon serum Abs NEGATIVE (NEGATIVE); Saccharo pora viridis Abs NEGATIVE (NEGATIVE); Thermo candidus Abs NEGATIVE (NEGATIVE); Thermoa vulgaris #1 NEGATIVE (NEGATIVE)
== END 2024-06-12 14:40 | disposition home or self-care (01) ==
LOC: HO.LAB 14:39
PROVIDERS: PCP Internal Medicine; Visit Provider Hospitalist
DX: J47.9 Bronchiectasis, uncomplicated (principal); J45.50 Severe persistent asthma, uncomplicated; J18.9 Pneumonia, unspecified organism; R91.8 Other nonspecific abnormal finding of lung field
CPT/HCPCS: 36415; 82533; 82784; 82785; 85025; 85652; 86038; 86200; 86235; 86331; 86606; 86609

== ENCOUNTER 2024-06-20 12:52 | Day surgery (SDC) | payer BC, SELFPAY ==
--- NOTE | 2024-06-15 14:07 | P.CONAN_ITS ---
Documented by User: Karissa Barry NP 06/15/24 14:08 HPI - Anesthesia Eval Consult details Narrative: 53yo F for Bronchoscopy Fiberoptic Anesthesia Pre-Procedure Meds Is the patient on any of the following meds?: GLP1/DPP4 PMFSH Active Problems Active Problems: All Active Problems Pneumonia (Acute) Cough (Acute) Asthma exacerbation (Acute) TERRA (obstructive sleep apnea) (Acute) COVID-19 (Acute ~10/2021) Diabetes mellitus (Acute) Eczema (Acute) Chest pain (Acute) TERRA on CPAP (Acute) Chronic allergic rhinitis (Acute) Bronchiectasis (Acute) Asthma (Acute) Past Medical History Medical History (Updated 06/20/24 @ 13:12 by Kajal Pugh RN) Carpal tunnel syndrome on both sides Pneumonia Asthma exacerbation TERRA (obstructive sleep apnea) COVID-19 (~10/2021) Diabetes mellitus Eczema TERRA on CPAP Chronic allergic rhinitis Bronchiectasis Asthma Surgical History Surgical History (Updated 06/20/24 @ 13:12 by Kajal Pugh RN) History of prior ablation treatment Social History Social History (Updated 01/11/24 @ 09:01 by Kirsten Brewster LPN) Household Members: Spouse and Children Housing: House Are you a primary animal care specialist to a significant other at home: No Do you presently have visiting nurse or other home services: No Patient Tobacco Use Status: Never used Tobacco Use of substances other than those prescribed or required for medical reasons: No Have you been hit, kicked, punched, or otherwise hurt by someone within the past year? If so, by whom?: No Are you DNR?: No Advance Directives: No Advance Directives Information Provided: Yes Recently lost weight without trying: No Nutrition Risks: No Nutritional Risk service: No Current occupational status: previously employed Meds Allergies Allergy/AdvReac Type Severity Reaction Status Date / Time Penicillins Allergy Severe Rash Verified 06/20/24 13:09 Home Medications ?Medication ?Instructions ?Recorded ?Confirmed ?Last Taken ?Type omeprazole 20 mg capsule,delayed 20 mg PO DAILY 08/13/21 06/20/24 11/08/21 History release ascorbate calcium (vitamin C) 500 500 mg PO DAILY 12/19/21 06/20/24 06/20/24 History mg tablet CPAP (CPAP Machine/Device) 01/18/23 06/20/24 Unknown History nebulizers 01/18/23 06/20/24 Unknown History hydrochlorothiazide 12.5 mg tablet 12.5 mg PO DAILY 12/21/23 06/20/24 06/20/24 History Exam Pertinent Lab Results Pertinent Lab Results: Laboratory Tests 06/12/24 15:24 WBC 9.3 Hgb 12.4 Hct 39.0 Plt Count 254 Assessment and Plan Assessment Anesthesia Assessment: Chart Reviewed Documented by User: Gilbert Preciado MD 06/20/24 14:01 [facility] Past Medical History Medical History (Updated 06/20/24 @ 13:12 by Kajal Pugh RN) Carpal tunnel syndrome on both sides Pneumonia Asthma exacerbation TERRA (obstructive sleep apnea) COVID-19 (~10/2021) Diabetes mellitus Eczema TERRA on CPAP Chronic allergic rhinitis Bronchiectasis Asthma Family History Family history of problems with anesthesia: No Surgical History Surgical History (Updated 06/20/24 @ 13:12 by Kajal Pugh RN) History of prior ablation treatment History of Problems with Anesthesia: No Social History Social History (Updated 01/11/24 @ 09:01 by Kirsten Brewster LPN) Household Members: Spouse and Children Housing: House Are you a primary animal care specialist to a significant other at home: No Do you presently have visiting nurse or other home services: No Patient Tobacco Use Status: Never used Tobacco Use of substances other than those prescribed or required for medical reasons: No Have you been hit, kicked, punched, or otherwise hurt by someone within the past year? If so, by whom?: No Are you DNR?: No Advance Directives: No Advance Directives Information Provided: Yes Recently lost weight without trying: No Nutrition Risks: No Nutritional Risk service: No Current occupational status: previously employed Meds Allergies Allergy/AdvReac Type Severity Reaction Status Date / Time Penicillins Allergy Severe Rash Verified 06/20/24 13:09 Home Medications ?Medication ?Instructions ?Recorded ?Confirmed ?Last Taken ?Type omeprazole 20 mg capsule,delayed 20 mg PO DAILY 08/13/21 06/20/24 11/08/21 History release ascorbate calcium (vitamin C) 500 500 mg PO DAILY 12/19/21 06/20/24 06/20/24 History mg tablet CPAP (CPAP Machine/Device) 01/18/23 06/20/24 Unknown History nebulizers 01/18/23 06/20/24 Unknown History hydrochlorothiazide 12.5 mg tablet 12.5 mg PO DAILY 12/21/23 06/20/24 06/20/24 History Exam Airway Mallampati Class: II TM Dist: <=3cm Neck ROM: Full Loose/Missing/Broken Teeth: No Heart: ok Lungs: ok Assessment and Plan Assessment Anesthesia Assessment: Anesthesia Plan Discussed Final Anesthetic Review Family History of Problems with Anesthesia: No History of Problems with Anesthesia: No NPO: Yes ASA Class: III Final Preanesthetic Review: No Changes in Pt Med Stat, Meds/Allgs Chart Reviewed, Consent Obtained/Reviewed and Anes Risks/Benef Reviewed Patient Risk: High Procedure Risk: Intermediate Anesthetic Plan Anesthetic Plan: GA and Agree w/ Assess. and Plan Disposition: Standard PACU
[2024-06-20] VITALS (8 sets, daily range): BP systolic 138–172; BP diastolic 81–106; PULSE 73–89; RESP 16–18; TEMP 36–36.6; O2SAT 97–100; BMI 50.2
[2024-06-20 13:36] LABS: Glucose, Whole Blood 86 mg/dL (60-115)
--- NOTE | 2024-06-20 13:44 | MHC.SHP ---
Pre-Procedural Eval Section A - 24 Hr Update-Section A only Date of Service: 06/20/24 The patient is an INPATIENT: No Changes since office visit: No Cold of Flu in the past 2 weeks, No New Medical Problems, No Changes in Medication and No Patient answered all questions The patient has been examined within 24 hours of the surgical procedure. The History & Physical has been completed within 30 days and I have reviewed it.: Yes Section B - Complete if H&P > 30 days Chief Complaint: Bronchiectasis, uncomplicated Allergies: Allergies Allergy/AdvReac Type Severity Reaction Status Date / Time Penicillins Allergy Severe Rash Verified 06/20/24 13:09 Plan I have reviewed the history and physical and performed a pertinent physical examination on my patient. No changes have occurred unless specified. Time Spent With Patient Time: Total time managing care of this patient today ____ minutes.
[2024-06-20] MEDS: Albuterol Sulfate (0.083%) 2.5 MG/3 ML VIAL.NEB INHALE (14:01)
[2024-06-20] MEDS: Lactated Ringers 1,000 ML 100 ML IVCONT (14:11)
--- NOTE | 2024-06-20 15:02 | P.BOP_ITS ---
Brief Operative Note Date of Service: 06/20/24 Pre-op diagnosis: bronchiectasis Post-op diagnosis: other (bronchiectasis, tracheobronchitis) Procedure: bronchoscopy with therapeutic cleaning and brushings Implants: Surgeon: Corwin Lui MD Anesthesia: GLMA Was an Petroleum Refinery Operator used for this Procedure?: No Estimated blood loss (mL): 0 Pathology: none sent Condition: stable Disposition: same day
--- NOTE | 2024-06-21 09:49 | OP_ITS ---
DATE OF SERVICE: 06/20/2024 SURGEON: Corwin Lui MD PREOPERATIVE DIAGNOSIS: Bronchiectasis. POSTOPERATIVE DIAGNOSIS: PROCEDURE PERFORMED: Bronchoscopy with therapeutic cleaning and brushings and washings. ESTIMATED BLOOD LOSS: COMPLICATIONS: ANESTHESIA: LMA. ASSISTANTS: None. SPECIMENS: ASA CLASSIFICATION: IV. POSTOPERATIVE DIAGNOSES: Bronchiectasis, tracheobronchitis, and suppurative secretions. DESCRIPTION OF PROCEDURE: After the patient was adequately sedated, LMA in place, a flexible digital bronchoscope was inserted via the LMA to the level of the larynx. The larynx appeared normal with normal vocal cords. The vocal cords did move symmetrically to the midline. After instilling lidocaine, the bronchoscope was then passed the vocal cords to the level of the trachea. The trachea appeared patent, however, erythematous with evidence of trachitis. No evidence of any tracheomalacia. After instilling additional lidocaine, the bronchoscope navigated through the entire tracheobronchial tree. The patient did have purulent secretions throughout, left more than right, and also friable mucosa with some irritation of the airways. No endobronchial lesions or masses were noted. No evidence of any aspiration. Therapeutic cleaning was provided to all the airways up to the subsegmental level. The patient also received Mucomyst 10% 2 mL to each lung to try to help with the copious secretions. Next, using a micro brush that was introduced into the right lower lobe, the specimen was sent for the appropriate Gram stain and culture. The bronchoscope was then removed. The patient tolerated the procedure well. Vital signs were stable throughout the procedure. No complications were noted. Bronchial washings were sent in addition to the brushings for microbiology and also cytology. MD ALIX Dennis/DERRELL / [id number]
== END 2024-06-20 15:53 | disposition home or self-care (01) ==
PROVIDERS: PCP Internal Medicine; Visit Provider Hospitalist
PROC: 0BJ08ZZ Inspection of Tracheobronchial Tree, Via Natural or Artificial Opening Endoscopic (ICD-10-PCS; CPT 31622; principal; 2024-06-20 14:30)
DX: J47.9 Bronchiectasis, uncomplicated (principal); J40 Bronchitis, not specified as acute or chronic; J45.50 Severe persistent asthma, uncomplicated; J30.9 Allergic rhinitis, unspecified; G47.33 Obstructive sleep apnea (adult) (pediatric); Z87.01 Personal history of pneumonia (recurrent); E11.9 Type 2 diabetes mellitus without complications; L20.82 Flexural eczema; Z99.89 Dependence on other enabling machines and devices; Z79.51 Long term (current) use of inhaled steroids; Z88.0 Allergy status to penicillin
CPT/HCPCS: 31623; 82947; 87070; 87077; 87102; 87107; 87116; 87205; 87206; 88112; 88305; 94640; J0171; J2250; J2704; J3010

== ENCOUNTER → 2024-06-20 12:52 | Outpatient (BNV) | payer BC, SELFPAY | PROVIDERS: PCP Internal Medicine; Visit Provider Hospitalist | DX: J47.9 Bronchiectasis, uncomplicated (principal) | CPT/HCPCS: 31623; 31645 ==

== ENCOUNTER 2024-07-06 09:08 | Outpatient (AMB) | payer BC, SELFPAY ==
[2024-07-06 09:10] VITALS: BP 148/80; PULSE 82; O2SAT 98; BMI 53.2
--- NOTE | 2024-07-06 09:10 | A.OFFVIS_ITS ---
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 The patient was premature. I do not have the details at this time. Since she was a child she had multiple asthma flare ups and was followed closely by Allergy. She has significant allergies to therefore she was never provided allergy shots due to her significant asthma. She was maintained on respiratory therapy. She did get a 2nd opinion in [facility] and [facility]. There she followed up with Pulmonary for many years. Now she is looking to relocating back in the area. The patient does have significant asthma and does require prednisone 2 to 3 times a year. She has been on Symbicort twice a day which is been partially helpful. In addition to that she takes her allergy medication including Singulair and Zyrtec. She was offered biologic therapy in [place] but she would have to travel back and forth and that will be very difficult for her. Will looking to biologic therapy closer by. In the meantime her other conditions include obstructive sleep apnea. She has been diagnosed with for now about 15 years. Her last machine she got was about 80 years ago. Unfortunately she has not set up with a [employer] and she has not gotten supplies. Therefore, she has been using the same supplies for many years which I find that is not healthy for her specially with her underlying obstructive airway disease. She did have a CT scan of the chest back in 2015 when she was diagnosed with pneumonia and I personally reviewed it. It appears that she does have obstructions status changes she primarily at the bases left more than right in does have areas of atelectasis suggesting recurrent infections. 09/09/2021 the patient is here for a pulmonary follow-up visit. The patient is here for sick visit. Apparently for the last 3 4 days she is developing worsening shortness of breath and wheezing. She has also has chest tightness. She has been using her nebulized therapy regularly. Denies any fevers or chills. The patient is concerned that she is getting worse. She has a productive cough. She did call over the weekend she was given a course of prednisone 40 mg for 5 days and also azithromycin. Her symptoms did not improve significantly. However, she did not take the higher dose prednisone as prescribed. In the office she has significant wheezing. Therefore given Solu- Medrol 125 mg IM x1 and also she received 2 DuoNeb treatments. After she was breathing a little better although she was still having significant chest tightness and wheezing. She also has some pleuritic chest discomfort primarily in the lower lung zones. Therefore have her get an x-ray prior to going home. She understands that her symptoms worsen on the current additional therapy if she develops worsening chest discomfort she would have to go to the ER for further evaluation. In the meantime view of her severe persistent asthma we did review her blood work demonstrating significant eosinophilia and significant allergies to both cats and dogs and also trees. The patient does have an elevated eosinophil count and also an elevated IgE. The patient also has a history of eczema. No evidence of any nasal polyps. In view of her symptoms in the findings I do believe that Dupixent will be a good option for her. Therefore will start the process for her to start Dupixent therapy. 09/16/2021 the patient is here for sick visit. She was just seen about a week ago with significant asthma exacerbation. She did receive Solu-Medrol in the office in a did improve her symptoms. She also started doxycycline. Unfortunately, the patient still has a significant cough very congested and difficult to expectorate. Moderate severity. She has been using her nebulizer regularly. She is still using the prednisone at 30 mg. At this point she does not have any significant wheezing therefore we will give her additional steroids. However, will broaden her antibiotic coverage in case she has a resistant organism. Her chest x-ray did not demonstrate any focal airspace disease. However, x-rays may be limited. It may be that she is developing something. some if he needs she continues to be symptomatic we can always consider getting a CT scan of the chest to further address her ongoing symptoms. Bronchoscopy is also another options to assess her airways and send the cultures. In the meantime she does have significant allergies and a way to control her respiratory symptoms will be to start biologic therapy. Once her respiratory status is better we can see about starting biologic therapy. At this point is either between starting and IL5 inhibitor versus IL4/ 13 inhibitor. In addition to that she does have underlying sleep apnea. She has not gotten supplies in years. CPAP therapy has been very affecting beneficial. I did download her machine and her usage is more than 6 hours average. Her average pressure is around 12 cm. In her AHI 0.8 therefore, the patient needs to have a repeat sleep study in order to get activated again with a DME company and start getting supplies. Currently she is using really all supplies and tubing has holes in therefore resulted in increased leakage. I do not have any tubing supplies available to give her otherwise I would. 10/06/2021 the patient is here for a pulmonary follow-up visit. She is now better from her previous exacerbation. She did complete the prednisone and also the antibiotics. Again, she continues on an aggressive respiratory regimen. She is agreeable to starting biologic therapy. I believe Dupixent will be the best option for her for both eosinophilic in IgE levels are elevated. The patient also and is requiring high levels of steroids frequently. Therefore biologic therapy will help decrease the need for systemic steroids and the adverse effects that come with that. In the meantime she continues with CPAP therapy. The CPAP therapy continues to be affecting beneficial. She continues using more than 4 hours a night. she does need new supplies. She patient is scheduled to have a repeat sleep study in order for us to we activate her with a [employer] company in order to get supplies. 12/19/2021 the patient is here for a pulmonary follow-up visit. Since we last spoke the patient was admitted to the hospital with severe COVID. She developed severe DKA in addition to renal failure in addition to COVID pneumonia. She required oxygen supplementation. The patient was able to improved. In the florencia ntime we will trying to get her on biologic therapy for severe asthma. She was denied for Dupixent. We did appeal the decision from the insurance company in view of her severe asthma. We are awaiting the results of the appeal at this time. The patient did have says a significant issue with steroids. Therefore the use of biologics will help decrease the need for steroids in view of her severe DKA presenting to the hospital. Her blood sugar was 1100 upon arrival to the hospital and hemoglobin A1c was 14. This at this point is getting better with the help of endocrinology. 02/19/2022 the patient is here for a pulmonary follow-up visit. Overall she is starting to feel a lot better. Seems like her breathing has been improving. She continues use the oxygen at nighttime while sleeping. The patient does have issues with significant snoring. Apparently her having hard time with her snoring. She is also waking up tired. Her [place] score is elevated 12/24. She did carry a diagnosis of sleep apnea but she had not been adherent to her therapy. At this point she is on oxygen therefore I will request an in-lab sleep study to further address her significant worsening sleep apnea symptoms. The patient also was approved to start Dupixent. There was an issue with her specialty pharmacy and she did not requested early in off and then . Now we have to resubmit for the medication and have her come in the 1st dose. She does have severe persistent asthma and she will respond very well to this biologic therapy. 06/12/2022 The patient is here for a pulmonary follow up visit. She is overall doing better. He breathing and asthma is much better. She did not need to start Biologics. The patient is doing better with the diabetes. She continues to have daytime drowsiness. Her [place] score is 11/24. We reviewed the PSG. She dose have significant TERRA. We need to start CPAP at this time. 01/18/2023 the patient is here for sick visit. The patient had been in her usual state health until about 3-4 weeks ago. She started developing worsening cough. She was placed on doxycycline briefly. However, no improvement. She will back to her primary care doctor because the worsening cough and she was then placed on a 5 day course of prednisone. She initially felt better but then when she stops prednisone her symptoms return. She does have a cough. Moderate to severe. No significant expectoration. She is having worsening shortness of breath. Moderate severity. Having hard time sleeping. She is using her CPAP even during the daytime just to improve with the work of breathing. The patient denies any fevers or chills. Denies any sick contacts. In the office visit her exam demonstrates significant wheezing. She was given 2 DuoNeb treatments. 03/09/2023 the patient is here for pulmonary follow-up visit. The patient overall is feeling better. She is using her CPAP with good effect. The therapy has been affecting beneficial and she does more than 4 hours a day. The patient has been using her respiratory therapy. She continues to have episodic flare- ups Requiring her rescue inhaler for nerve 6 times a week. She is currently off prednisone the last time she used it was last month. The patient did have blood work demonstrating significant elevation in her IgE. The patient does have significant allergic asthma. She also had uncontrolled diabetes and therefore the use of prednisone will resulting worsening diabetes control. The patient is currently maximized on respiratory therapy and will be a good candidate for biologic therapy. We will request Dupixent as a good option for her. Xolair would also be a good option for her to help with her ongoing asthma flare ups. 03/01/2024 the patient is here for a pulmonary follow-up visit. She has been sick now for since November. She developed a lower respiratory infection. At that time she was placed on an antibiotic that she did not feel any significant improvement. Continued to have significant shortness of breath cough and hypoxia. She did have oxygen available at home so therefore she started using the because her oxygen was down in the 80s. The patient was evaluated by our office for a sick visit. She had a chest x-ray demonstrating no acute disease although she does have an slightly elevated right hemidiaphragm with blunting of the recess which appears to be chronic for her. She was given a 2nd course of antibiotics. Although she did not really feels significantly better. She also had some prednisone and she did not feel also that is significantly help. She continued to have cough felt congested and felt rattling but was unable to expectorate. at time she is able to bring up some mucus plugs but not much. On exam she does have some crackles in the right base and also has some rhonchi and prolonged expiratory phase with some wheezing. In view of not responding to the prednisone and 2 courses of antibiotics will go ahead and give her 3rd course of antibiotics but also request a CT scan of the chest for suspicion of pneumonia. The patient also would benefit from a bronchoscopy. Will wait for the CT scan of the chest to then decide to perform the bronchoscopy. In the meantime she does continue to use CPAP. The CPAP therapy continues to be affecting beneficial. She does try to use it more than 4 hours a night. She desir s also been developing some lower extremity edema. She was placed on a mild diuretic. She does maintain a low-sodium diet. 04/06/2024 the patient is here for a pulmonary follow-up visit. She is feeling better. He completed the antibiotics. Still having some shortness of breath and chest congestion. Difficult to expectorate. Also having intermittent wheezing. Has been using her respiratory therapy. Also has been using the CPAP. We did review her CT scan demonstrating some evidence of bronchiectatic changes and chronic bronchitis. No evidence of any airspace disease which is referring. Still the patient has a hard time expectorating. We did talk about CPT with hypertonic saline and Acapella valve to see if she can help clear the secretions herself. If the patient is no better she can always call and we can plan for diagnostic/ therapeutic bronchoscopy. The patient will continue her current respiratory regimen. She also continues use her CPAP every night. CPAP therapy continues to be affecting beneficial. Will follow-up in 3-4 months. Again, the patient is no better or worse she will call to set up the bronchoscopy. 06/12/2024 the patient is here for a pulmonary follow-up visit. Patient has not seen any significant improvement she still struggling with cough chest congestion shortness breath and chest tightness. She has been having to use her nebulizer several times a day. Her rescue inhalers that effective. We did talk about bronchoscopy during the last visit. I do believe that is the right approach at this time. The patient is agreeable this time and will go ahead and plan to do it hopefully next week. In the meantime she completed all antibiotics. She also has been off prednisone. Will go ahead and request additional blood work to assess her eosinophils and IgE level to see if she is a candidate for biologic therapy. I do believe Dupixent be a good option for her although other biologics would also would be reasonable depending on her results. Also from her bronchoscopy we can provide her a set up a differential to assess her type of inflammatory condition within the airways. She continues use her CPAP. The CPAP therapy continues to be affecting beneficial. She will continue to use more than 4 hours a night. Will go ahead and plan to order the bronchoscopy will follow-up after the bronchoscopy to review the procedure and the results. 07/06/2024 the patient is here for pulmonary follow-up visit. She is status post bronchoscopy. She did have purulent secretions throughout. No evidence of any tracheomalacia which is reassuring. Her cultures positive for stenotrophomonas. She was started on doxycycline with good effect. However, then she got sick with a respiratory virus. Her asthma has been more active and she has been having more wheezing. She had to start using her nebulizer. She is happy she has been able to expectorate better. She is continue her respiratory therapy. We did review her blood work which is reassuring. She does have an elevated IgG and also an elevated sedimentation rate likely acute phase reactant. Will recheck him at some point. At this point she does have some wheezing on exam due to her viral syndrome. She will continue with the doxycycline at least for 3 months and then will reassess. The patient may need prednisone. We did check a cortisol level that which is low normal the last time. I did explain to her that prednisone will affect her cortisol level further and therefore we can minimize the amount of steroids. [facility] Medical History (Updated 07/06/24 @ 20:01 by Corwin Lui MD) Carpal tunnel syndrome on both sides Pneumonia Asthma exacerbation TERRA (obstructive sleep apnea) COVID-19 (~10/2021) Diabetes mellitus Eczema TERRA on CPAP Chronic allergic rhinitis Bronchiectasis Asthma Surgical History (Updated 06/20/24 @ 13:12 by Kajal Pugh RN) History of prior ablation treatment Social History (Updated 01/11/24 @ 09:01 by Kirsten Brewster LPN) Household Members: Spouse and Children Housing: House Are you a primary healthcare business analyst to a significant other at home: No Do you presently have visiting nurse or other home services: No Patient Tobacco Use Status: Never used Tobacco service: No Current occupational status: previously employed Review of Systems Const Denies daytime sleepiness, Reports fatigue, Reports headache(s), Denies snoring and Denies stops breathing during sleep Eyes Denies change in vision ENT Denies change in voice, Reports dry mouth, Reports headache(s), Reports nasal congestion and Reports nasal discharge Card Denies chest pain, Denies dyspnea and Reports dyspnea on exertion Resp Denies change in phlegm color, Denies chest congestion, Reports cough, Denies hemoptysis, Denies pain with cough, Denies dyspnea, Reports dyspnea on exertion, Denies snoring and Reports wheezing GI Reports no additional complaints Musc Reports no additional complaints Skin/Breast Denies rash Neuro Reports headache(s) Endo Reports fatigue Aller/Immun Reports wheezing Physical Exam Vital Signs: Last Vital Signs Pulse 82 07/06/24 09:10 BP 148/80 H 07/06/24 09:10 Pulse Ox 98 07/06/24 09:10 Oxygen Delivery Method Room Air 07/06/24 09:10 BMI result Body Mass Index 53.2 Const General: alert Neck Neck: Yes normal visual inspection, Yes full ROM and Yes no lymphadenopathy Chest Chest palpation & inspection: normal inspection of the chest Resp Effort & Inspection: normal respiratory effort and prolonged expiratory phase Auscultation: no crackles, no rales, no rhonchi, wheezes and diminished lung sounds Cardio Rate: regular rate Rhythm: regular rhythm Heart sounds: S1 normal heart sound present and S2 normal heart sound present GI Palpation (GI): Soft to palpation and nontender Auscultation: normal bowel sounds Skin General skin exam: rashes and/or lesions noted Assessment & Plan Assessment & Plan (1) Asthma: Code(s): J45.909 - Unspecified asthma, uncomplicated Category: Medical Qualifiers: Asthma severity: severe Asthma persistence: persistent Asthma complication type: with acute exacerbation Qualified Code(s): J45.51 - Severe persistent asthma with (acute) exacerbation (2) Bronchiectasis: Code(s): J47.9 - Bronchiectasis, uncomplicated Category: Medical Qualifiers: Bronchiectasis type: uncomplicated Qualified Code(s): J47.9 - Bronch iectasis, uncomplicated (3) Chronic allergic rhinitis: Code(s): J30.9 - Allergic rhinitis, unspecified Category: Medical (4) TERRA on CPAP: Code(s): G47.33 - Obstructive sleep apnea (adult) (pediatric); Z99.89 - Dependence on other enabling machines and devices Category: Medical (5) Eczema: Code(s): L30.9 - Dermatitis, unspecified Category: Medical Qualifiers: Eczema type: flexural Qualified Code(s): L20.82 - Flexural eczema Plan continue Breztri 2 puffs BID continue CPT with albuterol neb followed by hypertonic saline then acapella valve prednisone taper continue Doxycycline BID->daily OMI as needed Continue Zyrtec and Singulair continue APAP F/U 3-4 months Medications: New fluconazole (Diflucan) 100 mg PO DAILY 10 tabs 0RF 10 days prednisone PO daily; Take 4 tabs x 3 days, then 3 tabs x 3 days, then 2 tabs daily x 3 days, then 1 tab x 3 days to complete. 30 tabs 0RF 12 days doxycycline monohydrate 100 mg PO BID 60 tabs 3RF 30 days Coding Level of Care Code Est Pt Level 4 (20575) Diagnoses Severe persistent asthma with acute exacerbation J45.51 Asthma severity: severe Asthma persistence: persistent Asthma complication type: with acute exacerbation Bronchiectasis without complication J47.9 Bronchiectasis type: uncomplicated Chronic allergic rhinitis J30.9 TERRA on CPAP G47.33; Z99.89 Flexural eczema L20.82 Eczema type: flexural Time Spent (min) 17
== END 2024-07-06 09:48 | disposition home or self-care (01) ==
PROVIDERS: PCP Internal Medicine; Visit Provider Hospitalist
DX: J45.51 Severe persistent asthma with (acute) exacerbation (principal); J47.9 Bronchiectasis, uncomplicated; J30.9 Allergic rhinitis, unspecified; G47.33 Obstructive sleep apnea (adult) (pediatric); Z99.89 Dependence on other enabling machines and devices; L20.82 Flexural eczema
CPT/HCPCS: 99214

== ENCOUNTER → 2024-07-06 09:08 | Outpatient (BNVA) | payer BC, SELFPAY | PROVIDERS: PCP Internal Medicine; Visit Provider Hospitalist ==

== ENCOUNTER 2024-10-02 08:50 | Outpatient (AMB) | payer BC, SELFPAY ==
[2024-10-02 09:10] VITALS: BP 122/68; PULSE 90; O2SAT 95
--- NOTE | 2024-10-02 09:10 | MHC.OFFVIS ---
Vital Signs 10/02/24 09:10 Weight 297 lb 9.985 oz BP 122/68 Blood Pressure Location Rt brachial Position Sitting Pulse 90 Pulse Source Pulse Oximeter Pulse Oximetry (%) 95 Intake Visit Reasons: Asthma Allergies Penicillins Allergy (Severe, Verified 10/02/24 09:16) Rash Medication List - Last Reconciled 10/02/24 by Lanie Sanabria LPN albuterol sulfate 2.5 mg (3 mL) inhalation Q4H PRN 30 days albuterol sulfate 90 mcg/actuation 2 puffs PO Q4H PRN ascorbate calcium (vitamin C) 500 mg PO DAILY Breztri Aerosphere 160-9-4.8 mcg/actuation (avofogkmpk-lnojulmg-nklctiexvp) 2 inhalations PO BID NS citalopram 40 mg PO DAILY CPAP (CPAP Machine/Device) As directed doxycycline monohydrate 100 mg PO BID 14 days fluconazole (Diflucan) 100 mg PO DAILY 10 days hydrochlorothiazide 12.5 mg PO DAILY ipratropium-albuterol 0.5 mg-3 mg(2.5 mg base)/3 mL 3 mL inhalation QID 30 days losartan 50 mg PO DAILY montelukast 10 mg PO DAILY nebulizers As directed omeprazole 20 mg PO DAILY sodium chloride 3% 4 mL inhalation BID 30 days tirzepatide (Mounjaro) 2.5 mg subcut QWEEK HPI Comments Details: The patient is a 53-year-old woman with a known history of lifelong asthma. The patient was premature. I do not have the details at this time. Since she was a child she had multiple asthma flare ups and was followed closely by Allergy. She has significant allergies to therefore she was never provided allergy shots due to her significant asthma. She was maintained on respiratory therapy. She did get a 2nd opinion in [facility]. There she followed up with Pulmonary for many years. Now she is looking to relocating back in the area. The patient does have significant asthma and does require prednisone 2 to 3 times a year. She has been on Symbicort twice a day which is been partially helpful. In addition to that she takes her allergy medication including Singulair and Zyrtec. She was offered biologic therapy in [place] but she would have to travel back and forth and that will be very difficult for her. Will looking to biologic therapy closer by. In the meantime her other conditions include obstructive sleep apnea. She has been diagnosed with for now about 15 years. Her last machine she got was about 80 years ago. Unfortunately she has not set up with a [employer] and she has not gotten supplies. Therefore, she has been using the same supplies for many years which I find that is not healthy for her specially with her underlying obstructive airway disease. She did have a CT scan of the chest back in 2016 when she was diagnosed with pneumonia and I personally reviewed it. It appears that she does have obstructions status changes she primarily at the bases left more than right in does have areas of atelectasis suggesting recurrent infections. 09/09/2021 the patient is here for a pulmonary follow-up visit. The patient is here for sick visit. Apparently for the last 3 4 days she is developing worsening shortness of breath and wheezing. She has also has chest tightness. She has been using her nebulized therapy regularly. Denies any fevers or chills. The patient is concerned that she is getting worse. She has a productive cough. She did call over the weekend she was given a course of prednisone 40 mg for 5 days and also azithromycin. Her symptoms did not improve significantly. However, she did not take the higher dose prednisone as prescribed. In the office she has significant wheezing. Therefore given Solu-Medrol 125 mg IM x1 and also she received 2 DuoNeb treatments. After she was breathing a little better although she was still having significant chest tightness and wheezing. She also has some pleuritic chest discomfort primarily in the lower lung zones. Therefore have her get an x-ray prior to going home. She understands that her symptoms worsen on the current additional therapy if she develops worsening chest discomfort she would have to go to the ER for further evaluation. In the meantime view of her severe persistent asthma we did review her blood work demonstrating significant eosinophilia and significant allergies to both cats and dogs and also trees. The patient does have an elevated eosinophil count and also an elevated IgE. The patient also has a history of eczema. No evidence of any nasal polyps. In view of her symptoms in the findings I do believe that Dupixent will be a good option for her. Therefore will start the process for her to start Dupixent therapy. 09/16/2021 the patient is here for sick visit. She was just seen about a week ago with significant asthma exacerbation. She did receive Solu-Medrol in the office in a did improve her symptoms. She also started doxycycline. Unfortunately, the patient still has a significant cough very congested and difficult to expectorate. Moderate severity. She has been using her nebulizer regularly. She is still using the prednisone at 30 mg. At this point she does not have any significant wheezing therefore we will give her additional steroids. However, will broaden her antibiotic coverage in case she has a resistant organism. Her chest x-ray did not demonstrate any focal airspace disease. However, x-rays may be limited. It may be that she is developing something. some if he needs she continues to be symptomatic we can always consider getting a CT scan of the chest to further address her ongoing symptoms. Bronchoscopy is also another options to assess her airways and send the cultures. In the meantime she does have significant allergies and a way to control her respiratory symptoms will be to start biologic therapy. Once her respiratory status is better we can see about starting biologic therapy. At this point is either between starting and IL5 inhibitor versus IL4/ 13 inhibitor. In addition to that she does have underlying sleep apnea. She has not gotten supplies in years. CPAP therapy has been very affecting beneficial. I did download her machine and her usage is more than 6 hours average. Her average pressure is around 12 cm. In her AHI 0.8 therefore, the patient needs to have a repeat sleep study in order to get activated again with a [employer] company and start getting supplies. Currently she is using really all supplies and tubing has holes in therefore resulted in increased leakage. I do not have any tubing supplies available to give her otherwise I would. 10/06/2021 the patient is here for a pulmonary follow-up visit. She is now better from her previous exacerbation. She did complete the prednisone and also the antibiotics. Again, she continues on an aggressive respiratory regimen. She is agreeable to starting biologic therapy. I believe Dupixent will be the best option for her for both eosinophilic in IgE levels are elevated. The patient also and is requiring high levels of steroids frequently. Therefore biologic therapy will help decrease the need for systemic steroids and the adverse effects that come with that. In the meantime she continues with CPAP therapy. The CPAP therapy continues to be affecting beneficial. She continues using more than 4 hours a night. she does need new supplies. She patient is scheduled to have a repeat sleep study in order for us to we activate her with a [employer] in order to get supplies. 12/19/2021 the patient is here for a pulmonary follow-up visit. Since we last spoke the patient was admitted to the hospital with severe COVID. She developed severe DKA in addition to renal failure in addition to COVID pneumonia. She required oxygen supplementation. The patient was able to improved. In the meantime we will trying to get her on biologic therapy for severe asthma. She was denied for Dupixent. We did appeal the decision from the insurance company in view of her severe asthma. We are awaiting the results of the appeal at this time. The patient did have says a significant issue with steroids. Therefore the use of biologics will help decrease the need for steroids in view of her severe DKA presenting to the hospital. Her blood sugar was 1100 upon arrival to the hospital and hemoglobin A1c was 14. This at this point is getting better with the help of endocrinology. 02/19/2022 the patient is here for a pulmonary follow-up visit. Overall she is starting to feel a lot better. Seems like her breathing has been improving. She continues use the oxygen at nighttime while sleeping. The patient does have issues with significant snoring. Apparently her having hard time with her snoring. She is also waking up tired. Her [place] score is elevated 12/24. She did carry a diagnosis of sleep apnea but she had not been adherent to her therapy. At this point she is on oxygen therefore I will request an in-lab sleep study to further address her significant worsening sleep apnea symptoms. The patient also was approved to start Dupixent. There was an issue with her specialty pharmacy and she did not requested early in off and then . Now we have to resubmit for the medication and have her come in the 1st dose. She does have severe persistent asthma and she will respond very well to this biologic therapy. 06/12/2022 The patient is here for a pulmonary follow up visit. She is overall doing better. He breathing and asthma is much better. She did not need to start Biologics. The patient is doing better with the diabetes. She continues to have daytime drowsiness. Her [place] score is 11/24. We reviewed the PSG. She dose have significant TERRA. We need to start CPAP at this time. 01/18/2023 the patient is here for sick visit. The patient had been in her usual state health until about 3-4 weeks ago. She started developing worsening cough. She was placed on doxycycline briefly. However, no improvement. She will back to her primary care doctor because the worsening cough and she was then placed on a 5 day course of prednisone. She initially felt better but then when she stops prednisone her symptoms return. She does have a cough. Moderate to severe. No significant expectoration. She is having worsening shortness of breath. Moderate severity. Having hard time sleeping. She is using her CPAP even during the daytime just to improve with the work of breathing. The patient denies any fevers or chills. Denies any sick contacts. In the office visit her exam demonstrates significant wheezing. She was given 2 DuoNeb treatments. 03/09/2023 the patient is here for pulmonary follow-up visit. The patient overall is feeling better. She is using her CPAP with good effect. The therapy has been affecting beneficial and she does more than 4 hours a day. The patient has been using her respiratory therapy. She continues to have episodic flare-ups Requiring her rescue inhaler for nerve 6 times a week. She is currently off prednisone the last time she used it was last month. The patient did have blood work demonstrating significant elevation in her IgE. The patient does have significant allergic asthma. She also had uncontrolled diabetes and therefore the use of prednisone will resulting worsening diabetes control. The patient is currently maximized on respiratory therapy and will be a good candidate for biologic therapy. We will request Dupixent as a good option for her. Xolair would also be a good option for her to help with her ongoing asthma flare ups. 03/01/2024 the patient is here for a pulmonary follow-up visit. She has been sick now for since November. She developed a lower respiratory infection. At that time she was placed on an antibiotic that she did not feel any significant improvement. Continued to have significant shortness of breath cough and hypoxia. She did have oxygen available at home so therefore she started using the because her oxygen was down in the 80s. The patient was evaluated by our office for a sick visit. She had a chest x-ray demonstrating no acute disease although she does have an slightly elevated right hemidiaphragm with blunting of the recess which appears to be chronic for her. She was given a 2nd course of antibiotics. Although she did not really feels significantly better. She also had some prednisone and she did not feel also that is significantly help. She continued to have cough felt congested and felt rattling but was unable to expectorate. at time she is able to bring up some mucus plugs but not much. On exam she does have some crackles in the right base and also has some rhonchi and prolonged expiratory phase with some wheezing. In view of not responding to the prednisone and 2 courses of antibiotics will go ahead and give her 3rd course of antibiotics but also request a CT scan of the chest for suspicion of pneumonia. The patient also would benefit from a bronchoscopy. Will wait for the CT scan of the chest to then decide to perform the bronchoscopy. In the meantime she does continue to use CPAP. The CPAP therapy continues to be affecting beneficial. She does try to use it more than 4 hours a night. She has also been developing some lower extremity edema. She was placed on a mild diuretic. She does maintain a low-sodium diet. 04/06/2024 the patient is here for a pulmonary follow-up visit. She is feeling better. He completed the antibiotics. Still having some shortness of breath and chest congestion. Difficult to expectorate. Also having intermittent wheezing. Has been using her respiratory therapy. Also has been using the CPAP. We did review her CT scan demonstrating some evidence of bronchiectatic changes and chronic bronchitis. No evidence of any airspace disease which is referring. Still the patient has a hard time expectorating. We did talk about CPT with hypertonic saline and Acapella valve to see if she can help clear the secretions herself. If the patient is no better she can always call and we can plan for diagnostic/ therapeutic bronchoscopy. The patient will continue her current respiratory regimen. She also continues use her CPAP every night. CPAP therapy continues to be affecting beneficial. Will follow-up in 3-4 months. Again, the patient is no better or worse she will call to set up the bronchoscopy. 06/12/2024 the patient is here for a pulmonary follow-up visit. Patient has not seen any significant improvement she still struggling with cough chest congestion shortness breath and chest tightness. She has been having to use her nebulizer several times a day. Her rescue inhalers that effective. We did talk about bronchoscopy during the last visit. I do believe that is the right approach at this time. The patient is agreeable this time and will go ahead and plan to do it hopefully next week. In the meantime she completed all antibiotics. She also has been off prednisone. Will go ahead and request additional blood work to assess her eosinophils and IgE level to see if she is a candidate for biologic therapy. I do believe Dupixent be a good option for her although other biologics would also would be reasonable depending on her results. Also from her bronchoscopy we can provide her a set up a differential to assess her type of inflammatory condition within the airways. She continues use her CPAP. The CPAP therapy continues to be affecting beneficial. She will continue to use more than 4 hours a night. Will go ahead and plan to order the bronchoscopy will follow-up after the bronchoscopy to review the procedure and the results. 07/06/2024 the patient is here for pulmonary follow-up visit. She is status post bronchoscopy. She did have purulent secretions throughout. No evidence of any tracheomalacia which is reassuring. Her cultures positive for stenotrophomonas. She was started on doxycycline with good effect. However, then she got sick with a respiratory virus. Her asthma has been more active and she has been having more wheezing. She had to start using her nebulizer. She is happy she has been able to expectorate better. She is continue her respiratory therapy. We did review her blood work which is reassuring. She does have an elevated IgG and also an elevated sedimentation rate likely acute phase reactant. Will recheck him at some point. At this point she does have some wheezing on exam due to her viral syndrome. She will continue with the doxycycline at least for 3 months and then will reassess. The patient may need prednisone. We did check a cortisol level that which is low normal the last time. I did explain to her that prednisone will affect her cortisol level further and therefore we can minimize the amount of steroids. 10/02/2024 the patient is here for a pulmonary follow-up visit. Overall she is doing okay. She is responding well to the doxycycline. She does take it twice a day. She had been taking now for couple months. Those will movement which she ran out of the medication she was waiting for the refill and she was without the medicine for about 4 days. She started becoming symptomatic at that point she became concerned. The stenotrophomonas was not culture for sensitivities. Therefore we are limited as far as what other medications she can receive. Therefore, will try to decrease the doxycycline to daily for the next couple months. If the patient has any worsening respiratory complaints worsening cough congestion short send another sputum sample. In addition to that will request additional blood work to address her significant allergies. She continues uses CPAP. CPAP therapy continues to be affecting beneficial. She does use nasal pillows. She does use it every night. [facility] Medical History (Updated 10/02/24 @ 20:19 by Corwin Lui MD) Carpal tunnel syndrome on both sides Pneumonia Asthma exacerbation TERRA (obstructive sleep apnea) COVID-19 (~10/2021) Diabetes mellitus Eczema TERRA on CPAP Chronic allergic rhinitis Bronchiectasis Asthma Surgical History (Updated 06/20/24 @ 13:12 by Kajal Pugh RN) History of prior ablation treatment Social History (Updated 01/11/24 @ 09:01 by Kirsten Brewster LPN) Household Members: Spouse and Children Housing: House Are you a primary memory care program director to a significant other at home: No Do you presently have visiting nurse or other home services: No Patient Tobacco Use Status: Never used Tobacco service: No Current occupational status: previously employed Review of Systems Const Denies daytime sleepiness, Reports fatigue, Reports headache(s), Denies snoring and Denies stops breathing during sleep Eyes Denies change in vision ENT Denies change in voice, Reports dry mouth, Reports headache(s), Reports nasal congestion and Reports nasal discharge Card Denies chest pain, Denies dyspnea and Reports dyspnea on exertion Resp Denies change in phlegm color, Denies chest congestion, Reports cough, Denies hemoptysis, Denies pain with cough, Denies dyspnea, Reports dyspnea on exertion, Denies snoring and Reports wheezing GI Reports no additional complaints Musc Reports no additional complaints Skin/Breast Denies rash Neuro Reports headache(s) Endo Reports fatigue Aller/Immun Reports wheezing Physical Exam Vital Signs: Last Vital Signs Pulse 90 10/02/24 09:10 BP 122/68 10/02/24 09:10 Pulse Ox 95 10/02/24 09:10 Const General: alert Neck Neck: Yes normal visual inspection, Yes full ROM and Yes no lymphadenopathy Chest Chest palpation & inspection: normal inspection of the chest Resp Effort & Inspection: normal respiratory effort Auscultation: no crackles, no rales, no rhonchi, no wheezes and diminished lung sounds Cardio Rate: regular rate Rhythm: regular rhythm Heart sounds: S1 normal heart sound present and S2 normal heart sound present GI Palpation (GI): Soft to palpation and nontender Auscultation: normal bowel sounds Skin General skin exam: rashes and/or lesions noted Office Procedures Flu Questionnaire Does the patient have a severe egg allergy?: No Does the patient have severe life threatening allergies?: No Does the patient have a fever or illness today?: No Has the patient ever had Guillain-[place] Syndrome?: No Has the patient ever had any past reaction to a flu shot?: No Immunizations Fluarix Triv [id number] (PF) 45 mcg (15 mcg x 3)/0.5 mL IM syringe Performing Provider: Corwin Lui MD Performing Location: [facility] [place] [facility] [place] [facility] Administered by: Lanie Sanabria LPN on 10/02/24 09:46 Dose Route Admin Location Dispensed Lot Number Expiration Date NDC Rol[employer] 0.5 mL IM Right Deltoid 0.5 mL [id number] 04/16/25 44562-965-79 Rounds VIS Given Date VIS Provided VIS Publication Date 10/02/24 Single Vaccine 21 Eligibility Eligibility Date Funding Source Not [facility] Eligible 10/02/24 Private Assessment & Plan Assessment & Plan (1) Asthma: Code(s): J45.909 - Unspecified asthma, uncomplicated Category: Medical Qualifiers: Asthma complication type: uncomplicated Asthma persistence: persistent Asthma severity: severe Qualified Code(s): J45.50 - Severe persistent asthma, uncomplicated (2) Bronchiectasis: Code(s): J47.9 - Bronchiectasis, uncomplicated Category: Medical Qualifiers: Bronchiectasis type: uncomplicated Qualified Code(s): J47.9 - Bronchiectasis, uncomplicated (3) Chronic allergic rhinitis: Code(s): J30.9 - Allergic rhinitis, unspecified Category: Medical (4) TERRA on CPAP: Code(s): G47.33 - Obstructive sleep apnea (adult) (pediatric); Z99.89 - Dependence on other enabling machines and devices Category: Medical (5) Eczema: Code(s): L30.9 - Dermatitis, unspecified Category: Medical Qualifiers: Eczema type: flexural Qualified Code(s): L20.82 - Flexural eczema (6) Pneumonia: Code(s): J18.9 - Pneumonia, unspecified organism Category: Medical Qualifiers: Laterality: right Lung location: unspecified part of lung Pneumonia type: due to unspecified organism Qualified Code(s): J18.9 - Pneumonia, unspecified organism Plan continue Breztri 2 puffs BID continue CPT with albuterol neb followed by hypertonic saline then acapella valve sputum culture bloodwork continue Doxycycline BID->daily OMI as needed Continue Zyrtec and Singulair continue APAP F/U 2-3 months Orders: Orders Basic Metabolic Panel Today J18.9 - Pneumonia, unspecified organism Influenza [id number] Immunization Today J45.51 - Severe persistent asthma with (acute) exacerbation Sputum Cult + Gram stain Today J18.9 - Pneumonia, unspecified organism Complete Blood Count Auto Diff Today J18.9 - Pneumonia, unspecified organism Immunoglobulins,IgG IgA IgM Today J18.9 - Pneumonia, unspecified organism Immunoglobulin E Today J18.9 - Pneumonia, unspecified organism Hypersensitive Pneumonitis Prf Today J18.9 - Pneumonia, unspecified organism, R91.8 - Other nonspecific abnormal finding of lung field Coding Level of Care Code Est Pt Level 4 (76291) Diagnoses Severe persistent asthma without complication J45.50 Asthma complication type: uncomplicated Asthma persistence: persistent Asthma severity: severe Bronchiectasis without complication J47.9 Bronchiectasis type: uncomplicated Chronic allergic rhinitis J30.9 TERRA on CPAP G47.33; Z99.89 Flexural eczema L20.82 Eczema type: flexural Pneumonia of right lung due to infectious organism, unspecified part of lung J18.9 Laterality: right Lung location: unspecified part of lung Pneumonia type: due to unspecified organism Time Spent (min) 17
== END 2024-10-02 09:46 | disposition home or self-care (01) ==
PROVIDERS: PCP Internal Medicine; Visit Provider Hospitalist
DX: J45.50 Severe persistent asthma, uncomplicated (principal); J47.9 Bronchiectasis, uncomplicated; J30.9 Allergic rhinitis, unspecified; G47.33 Obstructive sleep apnea (adult) (pediatric); Z99.89 Dependence on other enabling machines and devices; L20.82 Flexural eczema; J18.9 Pneumonia, unspecified organism; J45.51 Severe persistent asthma with (acute) exacerbation
CPT/HCPCS: 99214

== ENCOUNTER 2025-01-02 09:19 | Outpatient (AMB) | payer BC, SELFPAY ==
--- NOTE | 2025-01-02 09:22 | MHC.OFFVIS ---
Vital Signs 01/02/25 09:23 Height 5 ft 2 in Weight 276 lb 10.882 oz BMI 50.6 BP 130/76 Blood Pressure Location Rt brachial Position Sitting Pulse 86 Pulse Source Pulse Oximeter Pulse Oximetry (%) 97 Oxygen Delivery Method Room Air Intake Visit Reasons: Asthma Allergies Penicillins Allergy (Severe, Verified 01/02/25 09:26) Rash HPI Comments Details: The patient is a 54-year-old woman with a known history of lifelong asthma. The patient was premature. I do not have the details at this time. Since she was a child she had multiple asthma flare ups and was followed closely by Allergy. She has significant allergies to therefore she was never provided allergy shots due to her significant asthma. She was maintained on respiratory therapy. She did get a 2nd opinion in [facility] and [facility]. There she followed up with Pulmonary for many years. Now she is looking to relocating back in the area. The patient does have significant asthma and does require prednisone 2 to 3 times a year. She has been on Symbicort twice a day which is been partially helpful. In addition to that she takes her allergy medication including Singulair and Zyrtec. She was offered biologic therapy in [place] but she would have to travel back and forth and that will be very difficult for her. Will looking to biologic therapy closer by. In the meantime her other conditions include obstructive sleep apnea. She has been diagnosed with for now about 15 years. Her last machine she got was about 80 years ago. Unfortunately she has not set up with a [employer] company and she has not gotten supplies. Therefore, she has been using the same supplies for many years which I find that is not healthy for her specially with her underlying obstructive airway disease. She did have a CT scan of the chest back in 2015 when she was diagnosed with pneumonia and I personally reviewed it. It appears that she does have obstructions status changes she primarily at the bases left more than right in does have areas of atelectasis suggesting recurrent infections. 09/09/2021 the patient is here for a pulmonary follow-up visit. The patient is here for sick visit. Apparently for the last 3 4 days she is developing worsening shortness of breath and wheezing. She has also has chest tightness. She has been using her nebulized therapy regularly. Denies any fevers or chills. The patient is concerned that she is getting worse. She has a productive cough. She did call over the weekend she was given a course of prednisone 40 mg for 5 days and also azithromycin. Her symptoms did not improve significantly. However, she did not take the higher dose prednisone as prescribed. In the office she has significant wheezing. Therefore given Solu-Medrol 125 mg IM x1 and also she received 2 DuoNeb treatments. After she was breathing a little better although she was still having significant chest tightness and wheezing. She also has some pleuritic chest discomfort primarily in the lower lung zones. Therefore have her get an x-ray prior to going home. She understands that her symptoms worsen on the current additional therapy if she develops worsening chest discomfort she would have to go to the ER for further evaluation. In the meantime view of her severe persistent asthma we did review her blood work demonstrating significant eosinophilia and significant allergies to both cats and dogs and also trees. The patient does have an elevated eosinophil count and also an elevated IgE. The patient also has a history of eczema. No evidence of any nasal polyps. In view of her symptoms in the findings I do believe that Dupixent will be a good option for her. Therefore will start the process for her to start Dupixent therapy. 09/16/2021 the patient is here for sick visit. She was just seen about a week ago with significant asthma exacerbation. She did receive Solu-Medrol in the office in a did improve her symptoms. She also started doxycycline. Unfortunately, the patient still has a significant cough very congested and difficult to expectorate. Moderate severity. She has been using her nebulizer regularly. She is still using the prednisone at 30 mg. At this point she does not have any significant wheezing therefore we will give her additional steroids. However, will broaden her antibiotic coverage in case she has a resistant organism. Her chest x-ray did not demonstrate any focal airspace disease. However, x-rays may be limited. It may be that she is developing something. some if he needs she continues to be symptomatic we can always consider getting a CT scan of the chest to further address her ongoing symptoms. Bronchoscopy is also another options to assess her airways and send the cultures. In the meantime she does have significant allergies and a way to control her respiratory symptoms will be to start biologic therapy. Once her respiratory status is better we can see about starting biologic therapy. At this point is either between starting and IL5 inhibitor versus IL4/ 13 inhibitor. In addition to that she does have underlying sleep apnea. She has not gotten supplies in years. CPAP therapy has been very affecting beneficial. I did download her machine and her usage is more than 6 hours average. Her average pressure is around 12 cm. In her AHI 0.8 therefore, the patient needs to have a repeat sleep study in order to get activated again with a DME company and start getting supplies. Currently she is using really all supplies and tubing has holes in therefore resulted in increased leakage. I do not have any tubing supplies available to give her otherwise I would. 10/06/2021 the patient is here for a pulmonary follow-up visit. She is now better from her previous exacerbation. She did complete the prednisone and also the antibiotics. Again, she continues on an aggressive respiratory regimen. She is agreeable to starting biologic therapy. I believe Dupixent will be the best option for her for both eosinophilic in IgE levels are elevated. The patient also and is requiring high levels of steroids frequently. Therefore biologic therapy will help decrease the need for systemic steroids and the adverse effects that come with that. In the meantime she continues with CPAP therapy. The CPAP therapy continues to be affecting beneficial. She continues using more than 4 hours a night. she does need new supplies. She patient is scheduled to have a repeat sleep study in order for us to we activate her with a [employer] company in order to get supplies. 12/19/2021 the patient is here for a pulmonary follow-up visit. Since we last spoke the patient was admitted to the hospital with severe COVID. She developed severe DKA in addition to renal failure in addition to COVID pneumonia. She required oxygen supplementation. The patient was able to improved. In the meantime we will trying to get her on biologic therapy for severe asthma. She was denied for Dupixent. We did appeal the decision from the insurance company in view of her severe asthma. We are awaiting the results of the appeal at this time. The patient did have says a significant issue with steroids. Therefore the use of biologics will help decrease the need for steroids in view of her severe DKA presenting to the hospital. Her blood sugar was 1100 upon arrival to the hospital and hemoglobin A1c was 14. This at this point is getting better with the help of endocrinology. 02/19/2022 the patient is here for a pulmonary follow-up visit. Overall she is starting to feel a lot better. Seems like her breathing has been improving. She continues use the oxygen at nighttime while sleeping. The patient does have issues with significant snoring. Apparently her having hard time with her snoring. She is also waking up tired. Her [place] score is elevated 12/24. She did carry a diagnosis of sleep apnea but she had not been adherent to her therapy. At this point she is on oxygen therefore I will request an in-lab sleep study to further address her significant worsening sleep apnea symptoms. The patient also was approved to start Dupixent. There was an issue with her specialty pharmacy and she did not requested early in off and then . Now we have to resubmit for the medication and have her come in the 1st dose. She does have severe persistent asthma and she will respond very well to this biologic therapy. 06/12/2022 The patient is here for a pulmonary follow up visit. She is overall doing better. He breathing and asthma is much better. She did not need to start Biologics. The patient is doing better with the diabetes. She continues to have daytime drowsiness. Her [place] score is 11/24. We reviewed the PSG. She dose have significant TERRA. We need to start CPAP at this time. 01/18/2023 the patient is here for sick visit. The patient had been in her usual state health until about 3-4 weeks ago. She started developing worsening cough. She was placed on doxycycline briefly. However, no improvement. She will back to her primary care doctor because the worsening cough and she was then placed on a 5 day course of prednisone. She initially felt better but then when she stops prednisone her symptoms return. She does have a cough. Moderate to severe. No significant expectoration. She is having worsening shortness of breath. Moderate severity. Having hard time sleeping. She is using her CPAP even during the daytime just to improve with the work of breathing. The patient denies any fevers or chills. Denies any sick contacts. In the office visit her exam demonstrates significant wheezing. She was given 2 DuoNeb treatments. 03/09/2023 the patient is here for pulmonary follow-up visit. The patient overall is feeling better. She is using her CPAP with good effect. The therapy has been affecting beneficial and she does more than 4 hours a day. The patient has been using her respiratory therapy. She continues to have episodic flare-ups Requiring her rescue inhaler for nerve 6 times a week. She is currently off prednisone the last time she used it was last month. The patient did have blood work demonstrating significant elevation in her IgE. The patient does have significant allergic asthma. She also had uncontrolled diabetes and therefore the use of prednisone will resulting worsening diabetes control. The patient is currently maximized on respiratory therapy and will be a good candidate for biologic therapy. We will request Dupixent as a good option for her. Xolair would also be a good option for her to help with her ongoing asthma flare ups. 03/01/2024 the patient is here for a pulmonary follow-up visit. She has been sick now for since November. She developed a lower respiratory infection. At that time she was placed on an antibiotic that she did not feel any significant improvement. Continued to have significant shortness of breath cough and hypoxia. She did have oxygen available at home so therefore she started using the because her oxygen was down in the 80s. The patient was evaluated by our office for a sick visit. She had a chest x-ray demonstrating no acute disease although she does have an slightly elevated right hemidiaphragm with blunting of the recess which appears to be chronic for her. She was given a 2nd course of antibiotics. Although she did not really feels significantly better. She also had some prednisone and she did not feel also that is significantly help. She continued to have cough felt congested and felt rattling but was unable to expectorate. at time she is able to bring up some mucus plugs but not much. On exam she does have some crackles in the right base and also has some rhonchi and prolonged expiratory phase with some wheezing. In view of not responding to the prednisone and 2 courses of antibiotics will go ahead and give her 3rd course of antibiotics but also request a CT scan of the chest for suspicion of pneumonia. The patient also would benefit from a bronchoscopy. Will wait for the CT scan of the chest to then decide to perform the bronchoscopy. In the meantime she does continue to use CPAP. The CPAP therapy continues to be affecting beneficial. She does try to use it more than 4 hours a night. She has also been developing some lower extremity edema. She was placed on a mild diuretic. She does maintain a low-sodium diet. 04/06/2024 the patient is here for a pulmonary follow-up visit. She is feeling better. He completed the antibiotics. Still having some shortness of breath and chest congestion. Difficult to expectorate. Also having intermittent wheezing. Has been using her respiratory therapy. Also has been using the CPAP. We did review her CT scan demonstrating some evidence of bronchiectatic changes and chronic bronchitis. No evidence of any airspace disease which is referring. Still the patient has a hard time expectorating. We did talk about CPT with hypertonic saline and Acapella valve to see if she can help clear the secretions herself. If the patient is no better she can always call and we can plan for diagnostic/ therapeutic bronchoscopy. The patient will continue her current respiratory regimen. She also continues use her CPAP every night. CPAP therapy continues to be affecting beneficial. Will follow-up in 3-4 months. Again, the patient is no better or worse she will call to set up the bronchoscopy. 06/12/2024 the patient is here for a pulmonary follow-up visit. Patient has not seen any significant improvement she still struggling with cough chest congestion shortness breath and chest tightness. She has been having to use her nebulizer several times a day. Her rescue inhalers that effective. We did talk about bronchoscopy during the last visit. I do believe that is the right approach at this time. The patient is agreeable this time and will go ahead and plan to do it hopefully next week. In the meantime she completed all antibiotics. She also has been off prednisone. Will go ahead and request additional blood work to assess her eosinophils and IgE level to see if she is a candidate for biologic therapy. I do believe Dupixent be a good option for her although other biologics would also would be reasonable depending on her results. Also from her bronchoscopy we can provide her a set up a differential to assess her type of inflammatory condition within the airways. She continues use her CPAP. The CPAP therapy continues to be affecting beneficial. She will continue to use more than 4 hours a night. Will go ahead and plan to order the bronchoscopy will follow-up after the bronchoscopy to review the procedure and the results. 07/06/2024 the patient is here for pulmonary follow-up visit. She is status post bronchoscopy. She did have purulent secretions throughout. No evidence of any tracheomalacia which is reassuring. Her cultures positive for stenotrophomonas. She was started on doxycycline with good effect. However, then she got sick with a respiratory virus. Her asthma has been more active and she has been having more wheezing. She had to start using her nebulizer. She is happy she has been able to expectorate better. She is continue her respiratory therapy. We did review her blood work which is reassuring. She does have an elevated IgG and also an elevated sedimentation rate likely acute phase reactant. Will recheck him at some point. At this point she does have some wheezing on exam due to her viral syndrome. She will continue with the doxycycline at least for 3 months and then will reassess. The patient may need prednisone. We did check a cortisol level that which is low normal the last time. I did explain to her that prednisone will affect her cortisol level further and therefore we can minimize the amount of steroids. 10/02/2024 the patient is here for a pulmonary follow-up visit. Overall she is doing okay. She is responding well to the doxycycline. She does take it twice a day. She had been taking now for couple months. Those will movement which she ran out of the medication she was waiting for the refill and she was without the medicine for about 4 days. She started becoming symptomatic at that point she became concerned. The stenotrophomonas was not culture for sensitivities. Therefore we are limited as far as what other medications she can receive. Therefore, will try to decrease the doxycycline to daily for the next couple months. If the patient has any worsening respiratory complaints worsening cough congestion short send another sputum sample. In addition to that will request additional blood work to address her significant allergies. She continues uses CPAP. CPAP therapy continues to be affecting beneficial. She does use nasal pillows. She does use it every night. 01/02/2025 the patient is here for a pulmonary follow-up visit. Overall she is doing better. She completed the doxycycline. At this point will hold off on any additional refills. She did have a scare where she all of a sudden developed some difficulty breathing and felt like she needed a nebulizer treatment after eating. She was not sure if she had an allergic reaction. She happened to have an antihistamine in her pocket and she took it. After 15 minutes her symptoms subsided. Will go ahead and refer her to Allergy at this time. In the meantime I did give her a order for food allergies that we can check for. If she finds out of any foods that we need to check she will let us know so we can order allergy testing in the interim. Her chest congestion is better. She does have some chest congestion but minimal. She is still needs to do her chest PT hypertonic saline to keep her airways clear by providing good chest physical therapy. If she starts developing additional sputum she will call and will try to get a sputum culture sent to make sure that we identify the active infection. In the meantime she has been using the CPAP and the CPAP therapy has been affecting beneficial. She does use it for more than 4 hours. She continue to use it at this time. Will plan to follow-up in 3 months. If the patient develops any worsening symptoms prior to that she will call for an earlier assessment. [facility] Medical History (Updated 01/02/25 @ 09:42 by Corwin Lui MD) Carpal tunnel syndrome on both sides Pneumonia Asthma exacerbation TERRA (obstructive sleep apnea) COVID-19 (~10/2021) Diabetes mellitus Eczema TERRA on CPAP Chronic allergic rhinitis Bronchiectasis Asthma Surgical History (Updated 06/20/24 @ 13:12 by Kajal Pugh RN) History of prior ablation treatment Social History Household Members: Spouse and Children Housing: House Are you a primary senior caregiver to a significant other at home: No Do you presently have visiting nurse or other home services: No Patient Tobacco Use Status: Never used Tobacco service: No Current occupational status: previously employed Review of Systems Const Denies daytime sleepiness, Denies snoring and Denies stops breathing during sleep Eyes Denies change in vision ENT Denies change in voice, Reports dry mouth, Reports nasal congestion and Reports nasal discharge Card Denies chest pain, Denies dyspnea and Reports dyspnea on exertion Resp Denies change in phlegm color, Denies chest congestion, Reports cough, Denies hemoptysis, Denies pain with cough, Denies dyspnea, Reports dyspnea on exertion, Denies snoring and Reports wheezing GI Reports no additional complaints Musc Reports no additional complaints Skin/Breast Denies rash Aller/Immun Reports wheezing Physical Exam Vital Signs: Last Vital Signs Pulse 86 01/02/25 09:23 BP 130/76 01/02/25 09:23 Pulse Ox 97 01/02/25 09:23 Oxygen Delivery Method Room Air 01/02/25 09:23 BMI result Body Mass Index 50.6 Const General: alert Neck Neck: Yes normal visual inspection, Yes full ROM and Yes no lymphadenopathy Chest Chest palpation & inspection: normal inspection of the chest Resp Effort & Inspection: normal respiratory effort Auscultation: no crackles, no rales, no rhonchi, no wheezes and diminished lung sounds Cardio Rate: regular rate Rhythm: regular rhythm Heart sounds: S1 normal heart sound present and S2 normal heart sound present GI Palpation (GI): Soft to palpation and nontender Auscultation: normal bowel sounds Skin General skin exam: rashes and/or lesions noted Assessment & Plan Assessment & Plan (1) Asthma: Code(s): J45.909 - Unspecified asthma, uncomplicated Category: Medical Qualifiers: Asthma complication type: uncomplicated Asthma persistence: persistent Asthma severity: severe Qualified Code(s): J45.50 - Severe persistent asthma, uncomplicated (2) Bronchiectasis: Code(s): J47.9 - Bronchiectasis, uncomplicated Category: Medical Qualifiers: Bronchiectasis type: uncomplicated Qualified Code(s): J47.9 - Bronchiectasis, uncomplicated (3) Chronic allergic rhinitis: Code(s): J30.9 - Allergic rhinitis, unspecified Category: Medical (4) TERRA on CPAP: Code(s): G47.33 - Obstructive sleep apnea (adult) (pediatric); Z99.89 - Dependence on other enabling machines and devices Category: Medical (5) Eczema: Code(s): L30.9 - Dermatitis, unspecified Category: Medical Qualifiers: Eczema type: flexural Qualified Code(s): L20.82 - Flexural eczema (6) Food allergy: Code(s): Z91.018 - Allergy to other foods Category: Medical Plan continue Breztri 2 puffs BID continue CPT with albuterol neb followed by hypertonic saline then acapella valve sputum culture continue Doxycycline BID->daily-->stopped OMI as needed Continue Zyrtec and Singulair continue APAP allergy referral Consider allergy testing if reoccurs F/U 2-3 months Orders: Orders Sputum Cult + Gram stain Today R91.1 - Solitary pulmonary nodule Referrals Allergy & Immunology Referral J45.909 - Unspecified asthma, uncomplicated, Z91.018 - Allergy to other foods Medications: Changed From albuterol sulfate 90 mcg/actuation 2 puffs PO Q4H PRN 9 grams 0RF for wheezing To albuterol sulfate 90 mcg/actuation 2 puffs inhalation Q4H PRN 9 grams 12RF for wheezing Coding Level of Care Code Est Pt Level 4 (10335) Complex EM visit Add On G2211 Diagnoses Severe persistent asthma without complication J45.50 Asthma complication type: uncomplicated Asthma persistence: persistent Asthma severity: severe Bronchiectasis without complication J47.9 Bronchiectasis type: uncomplicated Chronic allergic rhinitis J30.9 TERRA on CPAP G47.33; Z99.89 Flexural eczema L20.82 Eczema type: flexural Food allergy Z91.018 Time Spent (min) 18
[2025-01-02 09:23] VITALS: BP 130/76; PULSE 86; O2SAT 97; BMI 50.6
== END 2025-01-02 09:48 | disposition home or self-care (01) ==
LOC: HO.HPS 09:19
PROVIDERS: PCP Internal Medicine; Visit Provider Hospitalist
DX: J45.50 Severe persistent asthma, uncomplicated (principal); J47.9 Bronchiectasis, uncomplicated; J30.9 Allergic rhinitis, unspecified; G47.33 Obstructive sleep apnea (adult) (pediatric); Z99.89 Dependence on other enabling machines and devices; L20.82 Flexural eczema; Z91.018 Allergy to other foods
CPT/HCPCS: 99214

== ENCOUNTER 2025-04-10 09:04 | Outpatient (AMB) | payer BC, SELFPAY ==
[2025-04-10 09:08] VITALS: BP 146/90; PULSE 82; O2SAT 97; BMI 49.2
--- NOTE | 2025-04-10 09:08 | A.OFFVIS_ITS ---
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 The patient was premature. I do not have the details at this time. Since she was a child she had multiple asthma flare ups and was followed closely by Allergy. She has significant allergies to therefore she was never provided allergy shots due to her significant asthma. She was maintained on respiratory therapy. She did get a 2nd opinion in [facility]. There she followed up with Pulmonary for many years. Now she is looking to relocating back in the area. The patient does have significant asthma and does require prednisone 2 to 3 times a year. She has been on Symbicort twice a day which is been partially helpful. In addition to that she takes her allergy medication including Singulair and Zyrtec. She was offered biologic therapy in [place] but she would have to travel back and forth and that will be very difficult for her. Will looking to biologic therapy closer by. In the meantime her other conditions include obstructive sleep apnea. She has been diagnosed with for now about 15 years. Her last machine she got was about 80 years ago. Unfortunately she has not set up with a [employer] and she has not gotten supplies. Therefore, she has been using the same supplies for many years which I find that is not healthy for her specially with her underlying obstructive airway disease. She did have a CT scan of the chest back in 2015 when she was diagnosed with pneumonia and I personally reviewed it. It appears that she does have obstructions status changes she primarily at the bases left more than right in does have areas of atelectasis suggesting recurrent infections. 09/09/2021 the patient is here for a pulmonary follow-up visit. The patient is here for sick visit. Apparently for the last 3 4 days she is developing worsening shortness of breath and wheezing. She has also has chest tightness. She has been using her nebulized therapy regularly. Denies any fevers or chills. The patient is concerned that she is getting worse. She has a productive cough. She did call over the weekend she was given a course of prednisone 40 mg for 5 days and also azithromycin. Her symptoms did not improve significantly. However, she did not take the higher dose prednisone as prescribed. In the office she has significant wheezing. Therefore given Solu- Medrol 125 mg IM x1 and also she received 2 DuoNeb treatments. After she was breathing a little better although she was still having significant chest tightness and wheezing. She also has some pleuritic chest discomfort primarily in the lower lung zones. Therefore have her get an x-ray prior to going home. She understands that her symptoms worsen on the current additional therapy if she develops worsening chest discomfort she would have to go to the ER for further evaluation. In the meantime view of her severe persistent asthma we did review her blood work demonstrating significant eosinophilia and significant allergies to both cats and dogs and also trees. The patient does have an elevated eosinophil count and also an elevated IgE. The patient also has a history of eczema. No evidence of any nasal polyps. In view of her symptoms in the findings I do believe that Dupixent will be a good option for her. Therefore will start the process for her to start Dupixent therapy. 09/16/2021 the patient is here for sick visit. She was just seen about a week ago with significant asthma exacerbation. She did receive Solu-Medrol in the office in a did improve her symptoms. She also started doxycycline. Unfortunately, the patient still has a significant cough very congested and difficult to expectorate. Moderate severity. She has been using her nebulizer regularly. She is still using the prednisone at 30 mg. At this point she does not have any significant wheezing therefore we will give her additional steroids. However, will broaden her antibiotic coverage in case she has a resistant organism. Her chest x-ray did not demonstrate any focal airspace disease. However, x-rays may be limited. It may be that she is developing something. some if he needs she continues to be symptomatic we can always consider getting a CT scan of the chest to further address her ongoing symptoms. Bronchoscopy is also another options to assess her airways and send the cultures. In the meantime she does have significant allergies and a way to control her respiratory symptoms will be to start biologic therapy. Once her respiratory status is better we can see about starting biologic therapy. At this point is either between starting and IL5 inhibitor versus IL4/ 13 inhibitor. In addition to that she does have underlying sleep apnea. She has not gotten supplies in years. CPAP therapy has been very affecting beneficial. I did download her machine and her usage is more than 6 hours average. Her average pressure is around 12 cm. In her AHI 0.8 therefore, the patient needs to have a repeat sleep study in order to get activated again with a DME company and start getting supplies. Currently she is using really all supplies and tubing has holes in therefore resulted in increased leakage. I do not have any tubing supplies available to give her otherwise I would. 10/06/2021 the patient is here for a pulmonary follow-up visit. She is now better from her previous exacerbation. She did complete the prednisone and also the antibiotics. Again, she continues on an aggressive respiratory regimen. She is agreeable to starting biologic therapy. I believe Dupixent will be the best option for her for both eosinophilic in IgE levels are elevated. The patient also and is requiring high levels of steroids frequently. Therefore biologic therapy will help decrease the need for systemic steroids and the adverse effects that come with that. In the meantime she continues with CPAP therapy. The CPAP therapy continues to be affecting beneficial. She continues using more than 4 hours a night. she does need new supplies. She patient is scheduled to have a repeat sleep study in order for us to we activate her with a [employer] company in order to get supplies. 12/19/2021 the patient is here for a pulmonary follow-up visit. Since we last spoke the patient was admitted to the hospital with severe COVID. She developed severe DKA in addition to renal failure in addition to COVID pneumonia. She required oxygen supplementation. The patient was able to improved. In the meantime we will trying to get her on biologic therapy for severe asthma. She was denied for Dupixent. We did appeal the decision from the insurance company in view of her severe asthma. We are awaiting the results of the appeal at this time. The patient did have says a significant issue with steroids. Therefore the use of biologics will help decrease the need for steroids in view of her severe DKA presenting to the hospital. Her blood sugar was 1100 upon arrival to the hospital and hemoglobin A1c was 14. This at this point is getting better with the help of endocrinology. 02/19/2022 the patient is here for a pulmonary follow-up visit. Overall she is starting to feel a lot better. Seems like her breathing has been improving. She continues use the oxygen at nighttime while sleeping. The patient does have issues with significant snoring. Apparently her having hard time with her snoring. She is also waking up tired. Her Vivian score is elevated 12/24. She did carry a diagnosis of sleep apnea but she had not been adherent to her therapy. At this point she is on oxygen therefore I will request an in-lab sleep study to further address her significant worsening sleep apnea symptoms. The patient also was approved to start Dupixent. There was an issue with her specialty pharmacy and she did not requested early in off and then . Now we have to resubmit for the medication and have her come in the 1st dose. She does have severe persistent asthma and she will respond very well to this bio logic therapy. 06/12/2022 The patient is here for a pulmonary follow up visit. She is overall doing better. He breathing and asthma is much better. She did not need to start Biologics. The patient is doing better with the diabetes. She continues to have daytime drowsiness. Her Vivian score is 11/24. We reviewed the PSG. She dose have significant TERRA. We need to start CPAP at this time. 01/18/2023 the patient is here for sick visit. The patient had been in her usual state health until about 3-4 weeks ago. She started developing worsening cough. She was placed on doxycycline briefly. However, no improvement. She will back to her primary care doctor because the worsening cough and she was then placed on a 5 day course of prednisone. She initially felt better but then when she stops prednisone her symptoms return. She does have a cough. Moderate to severe. No significant expectoration. She is having worsening shortness of breath. Moderate severity. Having hard time sleeping. She is using her CPAP even during the daytime just to improve with the work of breathing. The patient denies any fevers or chills. Denies any sick contacts. In the office visit her exam demonstrates significant wheezing. She was given 2 DuoNeb treatments. 03/09/2023 the patient is here for pulmonary follow-up visit. The patient overall is feeling better. She is using her CPAP with good effect. The therapy has been affecting beneficial and she does more than 4 hours a day. The patient has been using her respiratory therapy. She continues to have episodic flare- ups Requiring her rescue inhaler for nerve 6 times a week. She is currently off prednisone the last time she used it was last month. The patient did have blood work demonstrating significant elevation in her IgE. The patient does have significant allergic asthma. She also had uncontrolled diabetes and therefore the use of prednisone will resulting worsening diabetes control. The patient is currently maximized on respiratory therapy and will be a good candidate for biologic therapy. We will request Dupixent as a good option for her. Xolair would also be a good option for her to help with her ongoing asthma flare ups. 03/01/2024 the patient is here for a pulmonary follow-up visit. She has been sick now for since November. She developed a lower respiratory infection. At that time she was placed on an antibiotic that she did not feel any significant improvement. Continued to have significant shortness of breath cough and hypoxia. She did have oxygen available at home so therefore she started using the because her oxygen was down in the 80s. The patient was evaluated by our office for a sick visit. She had a chest x-ray demonstrating no acute disease although she does have an slightly elevated right hemidiaphragm with blunting of the recess which appears to be chronic for her. She was given a 2nd course of antibiotics. Although she did not really feels significantly better. She also had some prednisone and she did not feel also that is significantly help. She continued to have cough felt congested and felt rattling but was unable to expectorate. at time she is able to bring up some mucus plugs but not much. On exam she does have some crackles in the right base and also has some rhonchi and prolonged expiratory phase with some wheezing. In view of not responding to the prednisone and 2 courses of antibiotics will go ahead and give her 3rd course of antibiotics but also request a CT scan of the chest for suspicion of pneumonia. The patient also would benefit from a bronchoscopy. Will wait for the CT scan of the chest to then decide to perform the bronchoscopy. In the meantime she does continue to use CPAP. The CPAP therapy continues to be affecting beneficial. She does try to use it more than 4 hours a night. She has also been developing some lower extremity edema. She was placed on a mild diuretic. She does maintain a low-sodium diet. 04/06/2024 the patient is here for a pulmonary follow-up visit. She is feeling better. He completed the antibiotics. Still having some shortness of breath and chest congestion. Difficult to expectorate. Also having intermittent wheezing. Has been using her respiratory therapy. Also has been using the CPAP. We did review her CT scan demonstrating some evidence of bronchiectatic changes and chronic bronchitis. No evidence of any airspace disease which is referring. Still the patient has a hard time expectorating. We did talk about CPT with hypertonic saline and Acapella valve to see if she can help clear the secretions herself. If the patient is no better she can always call and we can plan for diagnostic/ therapeutic bronchoscopy. The patient will continue her current respiratory regimen. She also continues use her CPAP every night. CPAP therapy continues to be affecting beneficial. Will follow-up in 3-4 months. Again, the patient is no better or worse she will call to set up the bronchoscopy. 06/12/2024 the patient is here for a pulmonary follow-up visit. Patient has not seen any significant improvement she still struggling with cough chest congestion shortness breath and chest tightness. She has been having to use her nebulizer several times a day. Her rescue inhalers that effective. We did talk about bronchoscopy during the last visit. I do believe that is the right approach at this time. The patient is agreeable this time and will go ahead and plan to do it hopefully next week. In the meantime she completed all antibiotics. She also has been off prednisone. Will go ahead and request additional blood work to assess her eosinophils and IgE level to see if she is a candidate for biologic therapy. I do believe Dupixent be a good option for her although other biologics would also would be reasonable depending on her results. Also from her bronchoscopy we can provide her a set up a differential to assess her type of inflammatory condition within the airways. She continues use her CPAP. The CPAP therapy continues to be affecting beneficial. She will continue to use more than 4 hours a night. Will go ahead and plan to order the bronchoscopy will follow-up after the bronchoscopy to review the procedure and the results. 07/06/2024 the patient is here for pulmonary follow-up visit. She is status post bronchoscopy. She did have purulent secretions throughout. No evidence of any tracheomalacia which is reassuring. Her cultures positive for stenotrophomonas. She was started on doxycycline with good effect. However, then she got sick w ith a respiratory virus. Her asthma has been more active and she has been having more wheezing. She had to start using her nebulizer. She is happy she has been able to expectorate better. She is continue her respiratory therapy. We did review her blood work which is reassuring. She does have an elevated IgG and also an elevated sedimentation rate likely acute phase reactant. Will recheck him at some point. At this point she does have some wheezing on exam due to her viral syndrome. She will continue with the doxycycline at least for 3 months and then will reassess. The patient may need prednisone. We did check a cortisol level that which is low normal the last time. I did explain to her that prednisone will affect her cortisol level further and therefore we can minimize the amount of steroids. 10/02/2024 the patient is here for a pulmonary follow-up visit. Overall she is doing okay. She is responding well to the doxycycline. She does take it twice a day. She had been taking now for couple months. Those will movement which she ran out of the medication she was waiting for the refill and she was without the medicine for about 4 days. She started becoming symptomatic at that point she became concerned. The stenotrophomonas was not culture for sensitivities. Therefore we are limited as far as what other medications she can receive. Therefore, will try to decrease the doxycycline to daily for the next couple months. If the patient has any worsening respiratory complaints worsening cough congestion short send another sputum sample. In addition to that will request additional blood work to address her significant allergies. She continues uses CPAP. CPAP therapy continues to be affecting beneficial. She does use nasal pillows. She does use it every night. 01/02/2025 the patient is here for a pulmonary follow-up visit. Overall she is doing better. She completed the doxycycline. At this point will hold off on any additional refills. She did have a scare where she all of a sudden developed some difficulty breathing and felt like she needed a nebulizer treatment after eating. She was not sure if she had an allergic reaction. She happened to have an antihistamine in her pocket and she took it. After 15 minutes her symptoms subsided. Will go ahead and refer her to Allergy at this time. In the meantime I did give her a order for food allergies that we can check for. If she finds out of any foods that we need to check she will let us know so we can order allergy testing in the interim. Her chest congestion is better. She does have some chest congestion but minimal. She is still needs to do her chest PT hypertonic saline to keep her airways clear by providing good chest physical therapy. If she starts developing additional sputum she will call and will try to get a sputum culture sent to make sure that we identify the active infection. In the meantime she has been using the CPAP and the CPAP therapy has been affecting beneficial. She does use it for more than 4 hours. She continue to use it at this time. Will plan to follow-up in 3 months. If the patient develops any worsening symptoms prior to that she will call for an earlier assessment. 04/10/2025 the patient is here for pulmonary follow-up visit. She did follow-up with Allergy. She did have a sweat test that was negative. She is going to follow-up up with them sometime early April. I do believe she will be a good candidate for biologics at this point in view of her uncontrolled asthma. She also continues to have significant cough and chest congestion. Will try to get another sputum since she has grown multiple organisms including stenotrophomonas and Aspergillus in the past. If the patient grossly Pseudomonas she is a great candidate for inhaled tobramycin. Will also send AFB looking for non tuberculosis mycobacterial infections. The patient will continue with the nebulizer treatments. She does have a flutter valve but it does not appear effective removing her mucus out of her airways specially with the bronchiectasis. We are going to request a percussion vest at this time. If the patient is no better if she worsens we can also consider bronchoscopy for therapeutic cleaning. But the last time she had when she did not feel any significant improvement. [facility] Medical History (Updated 01/02/25 @ 09:42 by Corwin Lui MD) Carpal tunnel syndrome on both sides Pneumonia Asthma exacerbation TERRA (obstructive sleep apnea) COVID-19 (~10/2021) Diabetes mellitus Eczema TERRA on CPAP Chronic allergic rhinitis Bronchiectasis Asthma Surgical History (Updated 06/20/24 @ 13:12 by Kajal Pugh RN) History of prior ablation treatment Social History Household Members: Spouse and Children Housing: House Are you a primary behavioral health care manager to a significant other at home: No Do you presently have visiting nurse or other home services: No Patient Tobacco Use Status: Never used Tobacco service: No Current occupational status: previously employed Review of Systems Const Denies daytime sleepiness, Denies snoring and Denies stops breathing during sleep Eyes Denies change in vision ENT Denies change in voice, Reports dry mouth, Reports nasal congestion and Reports nasal discharge Card Denies chest pain, Denies dyspnea and Reports dyspnea on exertion Resp Reports change in phlegm color, Reports chest congestion, Reports cough, Denies hemoptysis, Denies pain with cough, Denies dyspnea, Reports dyspnea on exertion, Denies snoring and Reports wheezing GI Reports no additional complaints Musc Reports no additional complaints Skin/Breast Denies rash Aller/Immun Reports wheezing Physical Exam Vital Signs: Last Vital Signs Pulse 82 04/10/25 09:08 BP 146/90 H 04/10/25 09:08 Pulse Ox 97 04/10/25 09:08 Oxygen Delivery Method Room Air 04/10/25 09:08 BMI result Body Mass Index 49.2 Const General: alert Neck Neck: Yes normal visual inspection, Yes full ROM and Yes no lymphadenopathy Chest Chest palpation & inspection: normal inspection of the chest Resp Effort & Inspection: normal respiratory effort and prolonged expiratory phase Auscultation: no crackles, no rales, rhonchi, wheezes and diminished lung sounds Cardio Rate: regular rate Rhythm: regular rhythm Heart sounds: S1 normal heart sound present and S2 normal heart sound present GI Palpation (GI): Soft to palpation and nontender Auscultation: normal bowel sounds Skin General skin exam: rashes and/or lesions noted Office Procedures Nebulizer Treatment Nebulizer Treatment [id number] RX initial, or Nebulizer Subsequent Treatment Office Meds levalbuterol HCl 1.25 mg/3 mL solution for nebulization Performing Provider: Corwin Lui MD Performing Location: [facility] Pulmonology [facility] Administered by: Lanie Sanabria LPN on 04/10/25 09:58 Dose Route Admin Location Dispensed Lot Number Expiration Date NDC [employer]er 1.25 mg inhalation 3 mL [id number] 12/15/25 20560-369-86 [employer] sodium chloride 3 % for nebulization Performing Provider: Corwin Lui MD Performing Location: [facility] Pul[facility] Administered by: Lanie Sanabria LPN on 04/10/25 09:58 Dose Route Admin Location Dispensed Lot Number Expiration Date NDC [employer]ostat As[employer]er 3 mL inhalation 3 mL [id number] 07/17/25 [id number] [facility] Assessment & Plan Assessment & Plan (1) Asthma: Code(s): J45.909 - Unspecified asthma, uncomplicated Category: Medical Qualifiers: Asthma complication type: uncomplicated Asthma persistence: persistent Asthma severity: severe Qualified Code(s): J45.50 - Severe persistent asthma, uncomplicated (2) Bronchiectasis: Code(s): J47.9 - Bronchiectasis, uncomplicated Category: Medical Qualifiers: Bronchiectasis type: uncomplicated Qualified Code(s): J47.9 - Bronchiectasis, uncomplicated (3) Chronic allergic rhinitis: Code(s): J30.9 - Allergic rhinitis, unspecified Category: Medical (4) TERRA on CPAP: Code(s): G47.33 - Obstructive sleep apnea (adult) (pediatric); Z99.89 - Dependence on other enabling machines and devices Category: Medical (5) Eczema: Code(s): L30.9 - Dermatitis, unspecified Category: Medical Qualifiers: Eczema type: flexural Qualified Code(s): L20.82 - Flexural eczema Plan continue Breztri 2 puffs BID start Budesonide nebs start Levaquin Sputum cx sent continue CPT with albuterol neb followed by hypertonic salinewith percussion vest (Failed acapella valve and other coughing techiques) sputum culture OMI as needed Continue Zyrtec and Singulair F/U with allergy, MAybe a good candidates for biologics continue APAP F/U 2-3 months Orders: Orders AMB Nebulizer Treatment Today J45.50 - Severe persistent asthma, uncomplicated Sputum Cult + Gram stain Today R91.1 - Solitary pulmonary nodule Acid-fast Culture + Smear Today R91.1 - Solitary pulmonary nodule Coding Level of Care Code Est Pt Level 5 (10939) Diagnoses Severe persistent asthma without complication J45.50 Asthma complication type: uncomplicated Asthma persistence: persistent Asthma severity: severe Bronchiectasis without complication J47.9 Bronchiectasis type: uncomplicated Chronic allergic rhinitis J30.9 TERRA on CPAP G47.33; Z99.89 Flexural eczema L20.82 Eczema type: flexural CPT Codes Nebulizer Treatment - Nebulizer Treatment, initial or subsequent: 60401- Nebulizer/MDI RX initial, or Nebulizer Subsequent Treatment ([id number]) Time Spent (min) 60
== END 2025-04-10 09:52 | disposition home or self-care (01) ==
PROVIDERS: PCP Internal Medicine; Visit Provider Hospitalist
DX: J45.50 Severe persistent asthma, uncomplicated (principal); J47.9 Bronchiectasis, uncomplicated; J30.9 Allergic rhinitis, unspecified; G47.33 Obstructive sleep apnea (adult) (pediatric); Z99.89 Dependence on other enabling machines and devices; L20.82 Flexural eczema
CPT/HCPCS: 99215

== ENCOUNTER → 2025-04-10 09:04 | Outpatient (BNVA) | payer BC, SELFPAY | PROVIDERS: PCP Internal Medicine; Visit Provider Hospitalist | DX: J45.40 Moderate persistent asthma, uncomplicated (principal) | CPT/HCPCS: 94640 ==

== ENCOUNTER 2025-04-10 10:23 | Outpatient (REF) | payer BC, SELFPAY | END 2025-04-10 10:24 | disposition home or self-care (01) | LOC: HO.LNP 10:23 | PROVIDERS: Visit Provider Hospitalist | DX: R91.1 Solitary pulmonary nodule (principal) | CPT/HCPCS: 87070; 87077; 87116; 87186; 87205; 87206 ==

== ENCOUNTER 2025-04-26 12:30 | Day surgery (SDC) | payer BC, SELFPAY ==
--- NOTE | 2025-04-25 09:21 | HO.ANESPROP2 ---
Documented by User: Karissa Barry NP 04/25/25 09:27 HPI - Anesthesia Eval Consult details Narrative: 54yo F for Bronchoscopy Fiberoptic Anesthesia Pre-Procedure Meds Is the patient on any of the following meds?: GLP1/DPP4 PMFSH Active Problems Active Problems: All Active Problems Food allergy (Acute) Cough (Acute) Chest pain (Acute) Pneumonia (Acute) Asthma exacerbation (Acute) TERRA (obstructive sleep apnea) (Acute) COVID-19 (Acute ~10/2021) Diabetes mellitus (Acute) Eczema (Acute) TERRA on CPAP (Acute) Chronic allergic rhinitis (Acute) Bronchiectasis (Acute) Asthma (Acute) Past Medical History Medical History Heart murmur Carpal tunnel syndrome on both sides Pneumonia Asthma exacerbation TERRA (obstructive sleep apnea) COVID-19 (~10/2021) Diabetes mellitus Eczema TERRA on CPAP Chronic allergic rhinitis Bronchiectasis Asthma Family History Family history of problems with anesthesia: No Surgical History Surgical History History of carpal tunnel release of both wrists History of prior ablation treatment History of Problems with Anesthesia: No Social History Social History Household Members: Spouse and Children Housing: House Are you a primary child care education coordinator to a significant other at home: No Do you presently have visiting nurse or other home services: No Patient Tobacco Use Status: Never used Tobacco Use of substances other than those prescribed or required for medical reasons: No Are you DNR?: No Advance Directives: No Advance Directives Information Provided: Yes Patient : No : No Poor oral hygiene: No service: No Current occupational status: previously employed Meds Allergies Allergy/AdvReac Type Severity Reaction Status Date / Time Penicillins Allergy Severe Rash Verified 04/10/25 09:11 Home Medications ?Medication ?Instructions ?Recorded ?Confirmed ?Last Taken ?Type omeprazole 20 mg capsule,delayed 20 mg PO DAILY 08/13/21 10/02/24 04/26/25 History release ascorbate calcium (vitamin C) 500 500 mg PO DAILY 12/19/21 10/02/24 06/20/24 History mg tablet CPAP (CPAP Machine/Device) 01/18/23 06/20/24 Unknown History nebulizers 01/18/23 06/20/24 Unknown History hydrochlorothiazide 12.5 mg tablet 12.5 mg PO DAILY 12/21/23 10/02/24 04/26/25 History citalopram 40 mg tablet 40 mg PO DAILY 10/02/24 10/02/24 Unknown History losartan 50 mg tablet 50 mg PO DAILY 10/02/24 10/02/24 Unknown History magnesium PO DAILY 04/10/25 Unknown History tirzepatide 2.5 mg/0.5 mL 10 mg subcut QWEEK 04/10/25 04/18/25 History subcutaneous pen injector (Mounjaro) Exam Narrative Narrative: CT chest wo IV con 2023 IMPRESSION: 1. No definite active pulmonary disease. 2. Cylindrical bronchiectasis present in the right middle lobe and bilateral lower lobes, without endobronchial filling defect or bronchial wall thickening. 3. Parenchymal scarring in the posterior and medial costophrenic sulci, as well as the right lateral costophrenic sulcus as well. 4. No suspicious pulmonary nodules or abnormal lymphadenopathy. 5. Elevated right hemidiaphragm. 6. Ancillary findings as discussed in the body of the report. Assessment and Plan Assessment Anesthesia Assessment: Chart Reviewed Final Anesthetic Review Family History of Problems with Anesthesia: No History of Problems with Anesthesia: No Documented by User: Adrianne Dumont MD 04/26/25 13:22 [facility] Past Medical History Medical History Heart murmur Carpal tunnel syndrome on both sides Pneumonia Asthma exacerbation TERRA (obstructive sleep apnea) COVID-19 (~10/2021) Diabetes mellitus Eczema TERRA on CPAP Chronic allergic rhinitis Bronchiectasis Asthma Family History Pertinent family history: a Surgical History Surgical History History of carpal tunnel release of both wrists History of prior ablation treatment Social History Social History Household Members: Spouse and Children Housing: House Are you a primary child care education coordinator to a significant other at home: No Do you presently have visiting nurse or other home services: No Patient Tobacco Use Status: Never used Tobacco Use of substances other than those prescribed or required for medical reasons: No Are you DNR?: No Advance Directives: No Advance Directives Information Provided: Yes Patient : No : No Poor oral hygiene: No service: No Current occupational status: previously employed Meds Allergies Allergy/AdvReac Type Severity Reaction Status Date / Time Penicillins Allergy Severe Rash Verified 04/10/25 09:11 Home Medications ?Medication ?Instructions ?Recorded ?Confirmed ?Last Taken ?Type omeprazole 20 mg capsule,delayed 20 mg PO DAILY 08/13/21 10/02/24 04/26/25 History release ascorbate calcium (vitamin C) 500 500 mg PO DAILY 12/19/21 10/02/24 06/20/24 History mg tablet CPAP (CPAP Machine/Device) 01/18/23 06/20/24 Unknown History nebulizers 01/18/23 06/20/24 Unknown History hydrochlorothiazide 12.5 mg tablet 12.5 mg PO DAILY 12/21/23 10/02/24 04/26/25 History citalopram 40 mg tablet 40 mg PO DAILY 10/02/24 10/02/24 Unknown History losartan 50 mg tablet 50 mg PO DAILY 10/02/24 10/02/24 Unknown History magnesium PO DAILY 04/10/25 Unknown History tirzepatide 2.5 mg/0.5 mL 10 mg subcut QWEEK 04/10/25 04/18/25 History subcutaneous pen injector (Mounjaro) Exam Airway Mallampati Class: III TM Dist: >3cm Neck ROM: Full Loose/Missing/Broken Teeth: No Heart: RRR Lungs: CTA Assessment and Plan Assessment Anesthesia Assessment: Anesthesia Plan Discussed Final Anesthetic Review NPO: Yes ASA Class: III Final Preanesthetic Review: Meds/Allgs Chart Reviewed, Consent Obtained/Reviewed and Anes Risks/Benef Reviewed Patient Risk: Intermediate Procedure Risk: Intermediate Anesthetic Plan Anesthetic Plan: GA Disposition: Standard PACU
[2025-04-26] VITALS (8 sets, daily range): BP systolic 100–139; BP diastolic 55–84; PULSE 71–102; RESP 12–16; TEMP 36.6–36.9; O2SAT 90–97; BMI 48.7
--- NOTE | 2025-04-26 12:39 | MHC.SHP ---
Pre-Procedural Eval Section A - 24 Hr Update-Section A only Date of Service: 04/26/25 The patient is an INPATIENT: No Changes since office visit: No Cold of Flu in the past 2 weeks, No New Medical Problems, No Changes in Medication and No Patient answered all questions The patient has been examined within 24 hours of the surgical procedure. The History & Physical has been completed within 30 days and I have reviewed it.: Yes Section B - Complete if H&P > 30 days Chief Complaint: Bronchiectasis, uncomplicated Allergies: Allergies Allergy/AdvReac Type Severity Reaction Status Date / Time Penicillins Allergy Severe Rash Verified 04/10/25 09:11 Plan I have reviewed the history and physical and performed a pertinent physical examination on my patient. No changes have occurred unless specified. Time Spent With Patient Time: Total time managing care of this patient today ____ minutes.
[2025-04-26] MEDS: Albuterol Sulfate (0.083%) 2.5 MG/3 ML VIAL.NEB INHALE (13:00)
[2025-04-26 13:06] LABS: Glucose, Whole Blood 91 mg/dL (60-115)
[2025-04-26] MEDS: Lactated Ringers 1,000 ML 100 ML IVCONT (13:26)
--- NOTE | 2025-04-26 15:34 | P.BOP_ITS ---
Brief Operative Note Date of Service: 04/26/25 Pre-op diagnosis: bronchiectasis Post-op diagnosis: other (Bronchopneumonia, bronchiectasis) Procedure: Bronchosopcy with therapeutic cleaning and washings Implants: Surgeon: Corwin Lui MD Anesthesia: GLMA Was an Lead Furnace Operator used for this Procedure?: No Estimated blood loss (mL): 2 Pathology: none sent Condition: stable Disposition: same day
--- NOTE | 2025-04-27 01:21 | OP_ITS ---
DATE OF SERVICE: 04/26/2025 SURGEON: Corwin Lui MD PREOPERATIVE DIAGNOSIS: Bronchiectasis. POSTOPERATIVE DIAGNOSIS: Bronchiectasis and bronchopneumonia. PROCEDURE PERFORMED: Bronchoscopy with therapeutic cleaning and suctioning of the airways as well as bilateral lung washings. ESTIMATED BLOOD LOSS: COMPLICATIONS: ANESTHESIA: LMA. ASSISTANTS: SPECIMENS: ASA CLASSIFICATION: III. DESCRIPTION OF PROCEDURE: After the patient was adequately sedated, the flexible digital bronchoscope was inserted with LMA to the level of the larynx. The vocal cords demonstrated some fasciculations initially, but normal larynx without any abnormalities noted. After instilling lidocaine, the bronchoscope was then passed the vocal cord to the level of the trachea. The patient appeared to have some central purulent secretions, moderate in amount. After instilling the patient with lidocaine, the bronchoscope then was introduced into the entire tracheobronchial tree up to the segmental level. The patient did have moderate degree of very tenacious purulent secretions, difficult to suction. We were able to suction it all through our larger suction port. Washings were used throughout the airways to clear mucus plugs and significant mucus burden. Once the mucus was removed, we could appreciate the mucosa. The patient has significant erythema with friability of the right lower lobe and bronchus intermedius airways less involving the right upper lobe area. Also, the lingula area, distal left mainstem bronchus and left lower lobe had significant friability as well with some erosions of the mucosa and some oozing or bleeding noted. Due to the significant friability of the mucosa, we did not do any brushes. 1 ampule of epinephrine was introduced half and half, one into the right lower lobe area, one to the left lower lobe area to help her with the significant hyperinjection and irritability of the airways. The bronchoscope was then removed. The total endoscopic time approximately 12 minutes. Patient tolerated the procedure well. Vital signs were stable throughout the procedure. No complications noted. Also, to note the patient did have significant bronchomalacia. SEASONAL CLERK: None. MD ALIX Dennis/DERRELL / [id number]
== END 2025-04-26 15:56 | disposition home or self-care (01) ==
PROVIDERS: PCP Internal Medicine; Visit Provider Hospitalist
PROC: 0BJ08ZZ Inspection of Tracheobronchial Tree, Via Natural or Artificial Opening Endoscopic (ICD-10-PCS; CPT 31622; principal; 2025-04-26 14:30)
DX: J47.0 Bronchiectasis with acute lower respiratory infection (principal); J18.0 Bronchopneumonia, unspecified organism; J45.50 Severe persistent asthma, uncomplicated; J30.9 Allergic rhinitis, unspecified; R91.1 Solitary pulmonary nodule; G47.33 Obstructive sleep apnea (adult) (pediatric); E11.9 Type 2 diabetes mellitus without complications; L20.82 Flexural eczema; Z79.51 Long term (current) use of inhaled steroids; Z79.899 Other long term (current) drug therapy; Z99.89 Dependence on other enabling machines and devices; Z79.85 Long-term (current) use of injectable non-insulin antidiabetic drugs; Z88.0 Allergy status to penicillin; Z98.890 Other specified postprocedural states
CPT/HCPCS: 31624; 31645; 82947; 87070; 87102; 87116; 87205; 87206; J0165; J2003; J2250; J2704; J3010

== ENCOUNTER → 2025-04-26 12:30 | Outpatient (BNV) | payer BC, SELFPAY | PROVIDERS: PCP Internal Medicine; Visit Provider Hospitalist | DX: J18.0 Bronchopneumonia, unspecified organism (principal); J47.0 Bronchiectasis with acute lower respiratory infection | CPT/HCPCS: 31645 ==

== ENCOUNTER 2025-07-02 08:39 | Outpatient (AMB) | payer BC, SELFPAY ==
[2025-07-02 08:41] VITALS: BP 111/78; PULSE 87; O2SAT 96; BMI 49.2
--- NOTE | 2025-07-02 08:41 | MHC.OFFVIS ---
Vital Signs 07/02/25 08:41 Height 5 ft 2 in Weight 269 lb BMI 49.2 BP 111/78 Blood Pressure Location Rt brachial Position Sitting Pulse 87 Pulse Source Pulse Oximeter Pulse Oximetry (%) 96 Oxygen Delivery Method Room Air Intake Visit Reasons: Asthma Allergies Penicillins Allergy (Severe, Verified 07/02/25 08:48) Rash HPI Comments Details: The patient is a 54-year-old woman with a known history of lifelong asthma. The patient was premature. I do not have the details at this time. Since she was a child she had multiple asthma flare ups and was followed closely by Allergy. She has significant allergies to therefore she was never provided allergy shots due to her significant asthma. She was maintained on respiratory therapy. She did get a 2nd opinion in [facility] and [facility]. There she followed up with Pulmonary for many years. Now she is looking to relocating back in the area. The patient does have significant asthma and does require prednisone 2 to 3 times a year. She has been on Symbicort twice a day which is been partially helpful. In addition to that she takes her allergy medication including Singulair and Zyrtec. She was offered biologic therapy in [place] but she would have to travel back and forth and that will be very difficult for her. Will looking to biologic therapy closer by. In the meantime her other conditions include obstructive sleep apnea. She has been diagnosed with for now about 15 years. Her last machine she got was about 80 years ago. Unfortunately she has not set up with a [email or web address] company and she has not gotten supplies. Therefore, she has been using the same supplies for many years which I find that is not healthy for her specially with her underlying obstructive airway disease. She did have a CT scan of the chest back in 2015 when she was diagnosed with pneumonia and I personally reviewed it. It appears that she does have obstructions status changes she primarily at the bases left more than right in does have areas of atelectasis suggesting recurrent infections. 09/09/2021 the patient is here for a pulmonary follow-up visit. The patient is here for sick visit. Apparently for the last 3 4 days she is developing worsening shortness of breath and wheezing. She has also has chest tightness. She has been using her nebulized therapy regularly. Denies any fevers or chills. The patient is concerned that she is getting worse. She has a productive cough. She did call over the weekend she was given a course of prednisone 40 mg for 5 days and also azithromycin. Her symptoms did not improve significantly. However, she did not take the higher dose prednisone as prescribed. In the office she has significant wheezing. Therefore given Solu-Medrol 125 mg IM x1 and also she received 2 DuoNeb treatments. After she was breathing a little better although she was still having significant chest tightness and wheezing. She also has some pleuritic chest discomfort primarily in the lower lung zones. Therefore have her get an x-ray prior to going home. She understands that her symptoms worsen on the current additional therapy if she develops worsening chest discomfort she would have to go to the ER for further evaluation. In the meantime view of her severe persistent asthma we did review her blood work demonstrating significant eosinophilia and significant allergies to both cats and dogs and also trees. The patient does have an elevated eosinophil count and also an elevated IgE. The patient also has a history of eczema. No evidence of any nasal polyps. In view of her symptoms in the findings I do believe that Dupixent will be a good option for her. Therefore will start the process for her to start Dupixent therapy. 09/16/2021 the patient is here for sick visit. She was just seen about a week ago with significant asthma exacerbation. She did receive Solu-Medrol in the office in a did improve her symptoms. She also started doxycycline. Unfortunately, the patient still has a significant cough very congested and difficult to expectorate. Moderate severity. She has been using her nebulizer regularly. She is still using the prednisone at 30 mg. At this point she does not have any significant wheezing therefore we will give her additional steroids. However, will broaden her antibiotic coverage in case she has a resistant organism. Her chest x-ray did not demonstrate any focal airspace disease. However, x-rays may be limited. It may be that she is developing something. some if he needs she continues to be symptomatic we can always consider getting a CT scan of the chest to further address her ongoing symptoms. Bronchoscopy is also another options to assess her airways and send the cultures. In the meantime she does have significant allergies and a way to control her respiratory symptoms will be to start biologic therapy. Once her respiratory status is better we can see about starting biologic therapy. At this point is either between starting and IL5 inhibitor versus IL4/ 13 inhibitor. In addition to that she does have underlying sleep apnea. She has not gotten supplies in years. CPAP therapy has been very affecting beneficial. I did download her machine and her usage is more than 6 hours average. Her average pressure is around 12 cm. In her AHI 0.8 therefore, the patient needs to have a repeat sleep study in order to get activated again with a DME company and start getting supplies. Currently she is using really all supplies and tubing has holes in therefore resulted in increased leakage. I do not have any tubing supplies available to give her otherwise I would. 10/06/2021 the patient is here for a pulmonary follow-up visit. She is now better from her previous exacerbation. She did complete the prednisone and also the antibiotics. Again, she continues on an aggressive respiratory regimen. She is agreeable to starting biologic therapy. I believe Dupixent will be the best option for her for both eosinophilic in IgE levels are elevated. The patient also and is requiring high levels of steroids frequently. Therefore biologic therapy will help decrease the need for systemic steroids and the adverse effects that come with that. In the meantime she continues with CPAP therapy. The CPAP therapy continues to be affecting beneficial. She continues using more than 4 hours a night. she does need new supplies. She patient is scheduled to have a repeat sleep study in order for us to we activate her with a [email or web address] company in order to get supplies. 12/19/2021 the patient is here for a pulmonary follow-up visit. Since we last spoke the patient was admitted to the hospital with severe COVID. She developed severe DKA in addition to renal failure in addition to COVID pneumonia. She required oxygen supplementation. The patient was able to improved. In the meantime we will trying to get her on biologic therapy for severe asthma. She was denied for Dupixent. We did appeal the decision from the insurance company in view of her severe asthma. We are awaiting the results of the appeal at this time. The patient did have says a significant issue with steroids. Therefore the use of biologics will help decrease the need for steroids in view of her severe DKA presenting to the hospital. Her blood sugar was 1100 upon arrival to the hospital and hemoglobin A1c was 14. This at this point is getting better with the help of endocrinology. 02/19/2022 the patient is here for a pulmonary follow-up visit. Overall she is starting to feel a lot better. Seems like her breathing has been improving. She continues use the oxygen at nighttime while sleeping. The patient does have issues with significant snoring. Apparently her having hard time with her snoring. She is also waking up tired. Her Philadelphia score is elevated 12/24. She did carry a diagnosis of sleep apnea but she had not been adherent to her therapy. At this point she is on oxygen therefore I will request an in-lab sleep study to further address her significant worsening sleep apnea symptoms. The patient also was approved to start Dupixent. There was an issue with her specialty pharmacy and she did not requested early in off and then . Now we have to resubmit for the medication and have her come in the 1st dose. She does have severe persistent asthma and she will respond very well to this biologic therapy. 06/12/2022 The patient is here for a pulmonary follow up visit. She is overall doing better. He breathing and asthma is much better. She did not need to start Biologics. The patient is doing better with the diabetes. She continues to have daytime drowsiness. Her Philadelphia score is 11/24. We reviewed the PSG. She dose have significant TERRA. We need to start CPAP at this time. 01/18/2023 the patient is here for sick visit. The patient had been in her usual state health until about 3-4 weeks ago. She started developing worsening cough. She was placed on doxycycline briefly. However, no improvement. She will back to her primary care doctor because the worsening cough and she was then placed on a 5 day course of prednisone. She initially felt better but then when she stops prednisone her symptoms return. She does have a cough. Moderate to severe. No significant expectoration. She is having worsening shortness of breath. Moderate severity. Having hard time sleeping. She is using her CPAP even during the daytime just to improve with the work of breathing. The patient denies any fevers or chills. Denies any sick contacts. In the office visit her exam demonstrates significant wheezing. She was given 2 DuoNeb treatments. 03/09/2023 the patient is here for pulmonary follow-up visit. The patient overall is feeling better. She is using her CPAP with good effect. The therapy has been affecting beneficial and she does more than 4 hours a day. The patient has been using her respiratory therapy. She continues to have episodic flare-ups Requiring her rescue inhaler for nerve 6 times a week. She is currently off prednisone the last time she used it was last month. The patient did have blood work demonstrating significant elevation in her IgE. The patient does have significant allergic asthma. She also had uncontrolled diabetes and therefore the use of prednisone will resulting worsening diabetes control. The patient is currently maximized on respiratory therapy and will be a good candidate for biologic therapy. We will request Dupixent as a good option for her. Xolair would also be a good option for her to help with her ongoing asthma flare ups. 03/01/2024 the patient is here for a pulmonary follow-up visit. She has been sick now for since November. She developed a lower respiratory infection. At that time she was placed on an antibiotic that she did not feel any significant improvement. Continued to have significant shortness of breath cough and hypoxia. She did have oxygen available at home so therefore she started using the because her oxygen was down in the 80s. The patient was evaluated by our office for a sick visit. She had a chest x-ray demonstrating no acute disease although she does have an slightly elevated right hemidiaphragm with blunting of the recess which appears to be chronic for her. She was given a 2nd course of antibiotics. Although she did not really feels significantly better. She also had some prednisone and she did not feel also that is significantly help. She continued to have cough felt congested and felt rattling but was unable to expectorate. at time she is able to bring up some mucus plugs but not much. On exam she does have some crackles in the right base and also has some rhonchi and prolonged expiratory phase with some wheezing. In view of not responding to the prednisone and 2 courses of antibiotics will go ahead and give her 3rd course of antibiotics but also request a CT scan of the chest for suspicion of pneumonia. The patient also would benefit from a bronchoscopy. Will wait for the CT scan of the chest to then decide to perform the bronchoscopy. In the meantime she does continue to use CPAP. The CPAP therapy continues to be affecting beneficial. She does try to use it more than 4 hours a night. She has also been developing some lower extremity edema. She was placed on a mild diuretic. She does maintain a low-sodium diet. 04/06/2024 the patient is here for a pulmonary follow-up visit. She is feeling better. He completed the antibiotics. Still having some shortness of breath and chest congestion. Difficult to expectorate. Also having intermittent wheezing. Has been using her respiratory therapy. Also has been using the CPAP. We did review her CT scan demonstrating some evidence of bronchiectatic changes and chronic bronchitis. No evidence of any airspace disease which is referring. Still the patient has a hard time expectorating. We did talk about CPT with hypertonic saline and Acapella valve to see if she can help clear the secretions herself. If the patient is no better she can always call and we can plan for diagnostic/ therapeutic bronchoscopy. The patient will continue her current respiratory regimen. She also continues use her CPAP every night. CPAP therapy continues to be affecting beneficial. Will follow-up in 3-4 months. Again, the patient is no better or worse she will call to set up the bronchoscopy. 06/12/2024 the patient is here for a pulmonary follow-up visit. Patient has not seen any significant improvement she still struggling with cough chest congestion shortness breath and chest tightness. She has been having to use her nebulizer several times a day. Her rescue inhalers that effective. We did talk about bronchoscopy during the last visit. I do believe that is the right approach at this time. The patient is agreeable this time and will go ahead and plan to do it hopefully next week. In the meantime she completed all antibiotics. She also has been off prednisone. Will go ahead and request additional blood work to assess her eosinophils and IgE level to see if she is a candidate for biologic therapy. I do believe Dupixent be a good option for her although other biologics would also would be reasonable depending on her results. Also from her bronchoscopy we can provide her a set up a differential to assess her type of inflammatory condition within the airways. She continues use her CPAP. The CPAP therapy continues to be affecting beneficial. She will continue to use more than 4 hours a night. Will go ahead and plan to order the bronchoscopy will follow-up after the bronchoscopy to review the procedure and the results. 07/06/2024 the patient is here for pulmonary follow-up visit. She is status post bronchoscopy. She did have purulent secretions throughout. No evidence of any tracheomalacia which is reassuring. Her cultures positive for stenotrophomonas. She was started on doxycycline with good effect. However, then she got sick with a respiratory virus. Her asthma has been more active and she has been having more wheezing. She had to start using her nebulizer. She is happy she has been able to expectorate better. She is continue her respiratory therapy. We did review her blood work which is reassuring. She does have an elevated IgG and also an elevated sedimentation rate likely acute phase reactant. Will recheck him at some point. At this point she does have some wheezing on exam due to her viral syndrome. She will continue with the doxycycline at least for 3 months and then will reassess. The patient may need prednisone. We did check a cortisol level that which is low normal the last time. I did explain to her that prednisone will affect her cortisol level further and therefore we can minimize the amount of steroids. 10/02/2024 the patient is here for a pulmonary follow-up visit. Overall she is doing okay. She is responding well to the doxycycline. She does take it twice a day. She had been taking now for couple months. Those will movement which she ran out of the medication she was waiting for the refill and she was without the medicine for about 4 days. She started becoming symptomatic at that point she became concerned. The stenotrophomonas was not culture for sensitivities. Therefore we are limited as far as what other medications she can receive. Therefore, will try to decrease the doxycycline to daily for the next couple months. If the patient has any worsening respiratory complaints worsening cough congestion short send another sputum sample. In addition to that will request additional blood work to address her significant allergies. She continues uses CPAP. CPAP therapy continues to be affecting beneficial. She does use nasal pillows. She does use it every night. 01/02/2025 the patient is here for a pulmonary follow-up visit. Overall she is doing better. She completed the doxycycline. At this point will hold off on any additional refills. She did have a scare where she all of a sudden developed some difficulty breathing and felt like she needed a nebulizer treatment after eating. She was not sure if she had an allergic reaction. She happened to have an antihistamine in her pocket and she took it. After 15 minutes her symptoms subsided. Will go ahead and refer her to Allergy at this time. In the meantime I did give her a order for food allergies that we can check for. If she finds out of any foods that we need to check she will let us know so we can order allergy testing in the interim. Her chest congestion is better. She does have some chest congestion but minimal. She is still needs to do her chest PT hypertonic saline to keep her airways clear by providing good chest physical therapy. If she starts developing additional sputum she will call and will try to get a sputum culture sent to make sure that we identify the active infection. In the meantime she has been using the CPAP and the CPAP therapy has been affecting beneficial. She does use it for more than 4 hours. She continue to use it at this time. Will plan to follow-up in 3 months. If the patient develops any worsening symptoms prior to that she will call for an earlier assessment. 04/10/2025 the patient is here for pulmonary follow-up visit. She did follow-up with Allergy. She did have a sweat test that was negative. She is going to follow-up up with them sometime early April. I do believe she will be a good candidate for biologics at this point in view of her uncontrolled asthma. She also continues to have significant cough and chest congestion. Will try to get another sputum since she has grown multiple organisms including stenotrophomonas and Aspergillus in the past. If the patient grossly Pseudomonas she is a great candidate for inhaled tobramycin. Will also send AFB looking for non tuberculosis mycobacterial infections. The patient will continue with the nebulizer treatments. She does have a flutter valve but it does not appear effective removing her mucus out of her airways specially with the bronchiectasis. We are going to request a percussion vest at this time. If the patient is no better if she worsens we can also consider bronchoscopy for therapeutic cleaning. But the last time she had when she did not feel any significant improvement. 07/02/2025 the patient is here for pulmonary follow-up visit. The patient overall has been feeling little better. She is tolerating the inhaled TRESSA every 28 days on 20 days off. Her chest congestion is better although she still has mucus on a regular basis. The last bronchoscopy was reassuring without any more micro organisms. Her AFB was negative as well. The patient is still has a hard time breathing. Even with minimal activity she does get breathless. She still has wheezing and rhonchi on exam. The patient does have an elevated eosinophil count in addition to an elevated IgE. She has underlying allergies. She has severe persistent asthma with significant eosinophilia. Based on the fact that she is already maximized on respiratory capacity will go ahead and start her on Dupixent biologic therapy. Will try to get that as soon as possible. I am hopeful that she continues to improve her symptoms. In the meantime she will continue with the nebulized treatments twice a day for CPT using the percussion vest which has been helpful. She also continues uses CPAP at nighttime. CPAP therapy has been affecting beneficial. Will follow-up in 3 months if she has any issues prior to that she will call for further recommendations. [facility] Medical History Heart murmur Carpal tunnel syndrome on both sides Pneumonia Asthma exacerbation TERRA (obstructive sleep apnea) COVID-19 (~10/2021) Diabetes mellitus Eczema TERRA on CPAP Chronic allergic rhinitis Bronchiectasis Asthma Surgical History History of carpal tunnel release of both wrists History of prior ablation treatment Social History Household Members: Spouse and Children Housing: House Are you a primary daycare director to a significant other at home: No Do you presently have visiting nurse or other home services: No Patient Tobacco Use Status: Never used Tobacco service: No Current occupational status: previously employed Review of Systems Const Denies daytime sleepiness, Denies snoring and Denies stops breathing during sleep Eyes Denies change in vision ENT Denies change in voice, Reports dry mouth, Reports nasal congestion and Reports nasal discharge Card Denies chest pain, Denies dyspnea and Reports dyspnea on exertion Resp Reports chest congestion, Reports cough, Denies hemoptysis, Denies pain with cough, Denies dyspnea, Reports dyspnea on exertion, Denies snoring and Reports wheezing GI Reports no additional complaints Musc Reports no additional complaints Skin/Breast Denies rash Aller/Immun Reports wheezing Physical Exam Vital Signs: Last Vital Signs Pulse 87 07/02/25 08:41 BP 111/78 07/02/25 08:41 Pulse Ox 96 07/02/25 08:41 Oxygen Delivery Method Room Air 07/02/25 08:41 BMI result Body Mass Index 49.2 Const General: alert Neck Neck: Yes normal visual inspection, Yes full ROM and Yes no lymphadenopathy Chest Chest palpation & inspection: normal inspection of the chest Resp Effort & Inspection: normal respiratory effort and prolonged expiratory phase Auscultation: no crackles, no rales, wheezes and diminished lung sounds Cardio Rate: regular rate Rhythm: regular rhythm Heart sounds: S1 normal heart sound present and S2 normal heart sound present GI Palpation (GI): Soft to palpation and nontender Auscultation: normal bowel sounds Skin General skin exam: rashes and/or lesions noted Results Reviewed Results Reviewed: personally reviewd CT chest 04/2024 with bronchiectasis bilaterally Assessment & Plan Assessment & Plan (1) Asthma: Code(s): J45.909 - Unspecified asthma, uncomplicated Category: Medical Qualifiers: Asthma complication type: uncomplicated Asthma persistence: persistent Asthma severity: severe Qualified Code(s): J45.50 - Severe persistent asthma, uncomplicated (2) Bronchiectasis: Code(s): J47.9 - Bronchiectasis, uncomplicated Category: Medical Qualifiers: Bronchiectasis type: uncomplicated Qualified Code(s): J47.9 - Bronchiectasis, uncomplicated (3) Chronic allergic rhinitis: Code(s): J30.9 - Allergic rhinitis, unspecified Category: Medical (4) TERRA on CPAP: Code(s): G47.33 - Obstructive sleep apnea (adult) (pediatric); Z99.89 - Dependence on other enabling machines and devices Category: Medical (5) Eczema: Code(s): L30.9 - Dermatitis, unspecified Category: Medical Qualifiers: Eczema type: flexural Qualified Code(s): L20.82 - Flexural eczema Plan continue Breztri 2 puffs BID Budesonide nebs Start Dupixent continue CPT with albuterol neb followed by hypertonic salinewith percussion vest (Failed acapella valve and other coughing techiques) OMI as needed Continue Zyrtec and Singulair continue APAP F/U 2-3 months Medications: Refilled albuterol sulfate 2.5 mg (3 mL) inhalation Q4H PRN 360 mL 11RF shortness of breath or wheezing 30 days albuterol sulfate 90 mcg/actuation 2 puffs inhalation Q4H PRN 8.5 grams 12RF for wheezing Coding Level of Care Code Est Pt Level 5 (16895) Complex EM visit Add On G2211 Diagnoses Severe persistent asthma without complication J45.50 Asthma complication type: uncomplicated Asthma persistence: persistent Asthma severity: severe Bronchiectasis without complication J47.9 Bronchiectasis type: uncomplicated Chronic allergic rhinitis J30.9 TERRA on CPAP G47.33; Z99.89 Flexural eczema L20.82 Eczema type: flexural Time Spent (min) 40
--- OUTSIDE RECORDS SUMMARY | 2025-07-02 09:54 | XMS_ITS | Encounter Summary ---
Author Organization [facility] Address [address] [place] [id number] Phone Care Team Providers Care Hoe Runner Name Role Phone Shady Crowley MD Primary Care Provider [phone] Elenita Cassidy MD, MSc Unavailable [phone] Marcel Granger MD Unavailable Unavailable Shlomo Kunz MD, MS Unavailable Encounter Details Date Type Department Care Team (Late st Contact Info) Description 09/17/2016 Ancillary Orders [facility] [address] [place] [id number] Elenita Cassidy MD, MSc [address] [place] [address] [email or web address] [email or web address] Social History Tobacco Use Types Packs/Day Years Used Date Smoking Tobacco: Never Alcohol Use Standard Drinks/Week Comments Not Asked 0 (1 standard drink = 0.6 oz pur e alcohol) Comments Unknown Sex and Gender Information Value Date Recorded Sex Assigned at Not on file Legal Sex Female 11:23 AM EST Gender Identity Not on file Sexual Orientation Not on file documented as of this encounter Plan of Treatment Not on file documented as of this encounter Results * TTE COMPREHENSIVE (09/17/2016 10:00 AM EST) Left Ventricle Internal Diameter End Diastole 42 37 - 52 mm Left Ventricle Internal Diameter End Systole 28 22 - 35 mm Raw LV EF% 56 % Ejection Fraction 65 50 - 75 % Left Ventricular Mass 139.62 g Left Ventricle indexed to BSA 63.75 g/mL Relative Wall Thickness 0.48 0.22 - 0.42 Body Surface Area 2.19 m2 Left Ventricle E Wave Speed 86.90 cm/s Left Ventricle A Wave Speed 84.90 cm/s Aortic Valve Peak Velocity 205.00 cm/s Aortic Valve Peak Gradient 17.00 mmHg Aortic Sinus Diameter 24 mm Tricuspid Valve Peak Gradient 18.00 mmhg Left Atrium Dimension Anterior-Posterior 39 15 - 40 mm Tricuspid Valve Peak Velocity 2.13 m/s Right Ventricle Peak Systolic Pressure 21 mmHg Right Ventricle Estimated PA Pressure 28.15 mmHg Right Atrium Pressure Estimated 3 mmHg Right Ventricle to Right Atrium Pressure Gradient 18 mmHg Height 157.48 cm Weight 124.74 kg Ascending Aorta Diameter 28 mm Left Ventricular Posterior Wall Thickness 10 mm Interventricular Septum Thickness 10 mm Aortic Valve Sinus Index 1 11 20 - 32 mm Ascending Aorta Diameter 13 mm Aortic Sinus Index 11 mm Ascending Aorta Index 13 mm Anatomical Region Laterality Modality Heart [facility] Narrative 09/17/2016 11:30 AM EST Left Ventricle Left ventricular cavity size is normal. Left ventricular systolic function is normal. There are no segmental left ventricular wall motion abnormalities noted. The estimated ejection fraction is 65% (Normal 50-75%). The left ventricular ejection fraction was measured by visual estimate. Right Ventricle The right ventricular size is normal. The right ventricular systolic function is normal. Left Atrium The left atrium is normal in size. Right Atrium The right atrium is normal in size. The IVC is normal in size (2.1cm or less). The IVC demonstrates normal collapse with inspiration which is consistent with normal RA pressure. Mitral Valve There is diffuse mild increased mitral valve leaflet thickening. There is trace mitral regurgitation detected by spectral and color Doppler. Tricuspid Valve The tricuspid valve appears normal. There is evidence of trace tricuspid regurgitation by color and spectral Doppler. The RV systolic pressure was estimated from the peak TV regurgitant velocity. The estimated RV systolic pressure is 21 mmHg assuming a right atrial pressure of 3 mmHg. Aortic Valve The aorta valve is mildly thickened and calcified. The aortic valve is tricuspid. There is mild thickening of multiple aortic leaflets. There is no evidence of aortic regurgitation by color and spectral Doppler. Pulmonic Valve There is no evidence of pulmonic stenosis. There is evidence of trace pulmonary regurgitation by color and spectral Doppler. Pericardium There is no evidence of pericardial effusion. There is evidence of a pleural effusion. Comparison Findings No prior studies for comparison. us Elenita Cassidy MD, MSc CV ECHO ORDERABLES Fi nal Result documented in this encounter Visit Diagnoses Diagnosis Dyspnea Other dyspnea and respiratory abnormality Dyspnea Other dyspnea and respiratory abnormality documented in this encounter Additional Health Concerns Infection Onset Date Last Indicated Resolved Time CoV-Risk 07/30/2021 07/30/2021 08/09/2021 1:23 AM EDT Assessment Noted Time PHQ-2 Depression Total Score: 0 09/17/20 10:14 AM EST documented as of this encounter Care Teams Hoe Runner Relationship Specialty Start Date End Date Shady Crowley MD [address] [place] [address] [place] [phone] PCP - General Internal Medicine 12/26/15 Elenita Cassidy MD, MSc [address] [place] [address] [place] [address] [email or web address] Consulting Provider Pulmonary Disease 01/30/16 Marcel Granger MD Consulting Provider Allergy 01/30/16 Shlomo Kunz MD, MS [address] [place] [address], [address] [address] [email or web address] [email or web address] Provider Internal Medicine 09/17/16 documented as of this encounter Additional Source Comments The information contained in this document represents components of the legal health record. It is not the complete legal health record.[facility]
--- OUTSIDE RECORDS SUMMARY | 2025-07-02 09:54 | XMS_ITS | Encounter Summary ---
Author Organization [facility] Address [address] [place] [address] [place] [address] Phone Care Team Providers Care Skip Tender Name Role Phone Shady Crowley MD Primary Care Provider [phone] Elenita Cassidy MD, MSc Unavailable [phone] Marcel Granger MD Unavailable Unavailable Shlomo Kunz MD, MS Unavailable [phone] Reason for Referral * MRI/CAT Scan - Closed Specialty Diagnoses / Procedures Referred By Contac t Referred To Contact Radiology Procedures CT Chest Outside (No Interpretation) Elenita Cassidy MD, MSc Phone: tel: fax: [email or web address] Referral ID Status Reason Start Date Expiration Date Visits Re quested Visits Authorized [id number] Closed 02/05/2016 02/04/2017 1 1 Encounter Details Date Type Department Care Team (Late st Contact Info) Description 02/05/2016 Transcribe Orders [facility] [address] [place], [place] [phone] Amando Thomas [address] [place] [address] [email or web address] Social History Tobacco Use Types Packs/Day Years [...] documented as of this encounter Results * CT Chest Outside (No Interpretation) (02/05/2016 12:00 AM EDT) Narrative JESSIE - 02/05/2016 3:25 PM EDT This study is for PACS storage only and not for interpretation. us Elenita Cassidy MD, MSc IMG OUTSIDE IMAGING W /OUT INTERPRETATION Final Result JESSIE documented in this encounter Visit Diagnoses Not on filedocumented in this encounter Additional Health Concerns Infection Onset Date Last Indicated Resolved Time CoV-Risk 07/30/2021 07/30/2021 08/09/2021 1:23 AM EDT Assessment Noted Time PHQ-2 Depression Total Score: 0 01/30/20 16 2:21 PM EDT documented as of this encounter Care Teams Skip Tender Relationship Specialty Start Date End Date Shady Crowley MD [address] [address] PCP - General Internal Medicine 12/26/15 Elenita Cassidy MD, MSc [address] [address] [email or web address] Consulting Provider Pulmonary Disease 01/30/16 Marcel Granger MD Consulting Provider Allergy 01/30/16 Shlomo Kunz MD, MS [address] [place] [address], [address] [address] [email or web address] Consulting Provider Internal Medicine 09/17/16 documented as of this encounter Additional Source Comments The information contained in this document represents components of the legal health record. It is not the complete legal health record.[facility]
--- OUTSIDE RECORDS SUMMARY | 2025-07-02 09:54 | XMS_ITS | Clinical Summary ---
Author Organization [facility] Address [address] [place] [id number] Phone Care Team Providers Care Personal Companion Name Role Phone Shady Crowley MD Primary Care Provider [phone] Elenita Cassidy MD, MSc Unavailable Marcel Granger MD Unavailable Unavailable Shlomo Kunz MD, MS Unavailable Allergies Active Allergy Reactions Criticality Noted Date Comments Penicillins 01/30/2016 Medications multivitamins with minerals (THERAVITE-M) Tab Take 1 tablet by mouth daily. Active multivitamin per tablet Take 1 tablet by mouth daily. Active aspirin 81 MG EC tablet Take 81 mg by mouth daily. Active fluticasone propionate (FLONASE) 50 mcg/actuation nasal spray 1 spray by Nasal route daily. Active valsartan (DIOVAN) 160 MG tablet Take 160 mg by mouth daily. Active citalopram (CELEXA) 20 MG tablet Take 20 mg by mouth daily. Active atorvastatin (LIPITOR) 40 MG tablet Take 10 mg by mouth daily. Active bacillus coagulans-inulin 1 billion-250 cell-mg Cap Take 250 mg by mouth daily. Active ibuprofen (ADVIL,MOTRIN) 800 MG tablet Take 800 mg by mouth every 6 (six) hours as needed for pain (specific location in comments). Active Medication-Free Text Pt. States she takes Echinacea, 1 tablet once daily. Pt is unsure of dosage. Active ipratropium-albute rol (DUONEB) 0.5-2.5 mg/3 mL nebulizer solutionIndication s:Uncomplicated severe persistent asthma Take 3 mL by nebulization every 4 (four) hours as needed for wheezing or shortness of breath/dyspnea. 210 vial 11 09/01/20 18 Active vitamin E acetate (VITAMIN E ORAL) Take by mouth. Active omeprazole (PRILOSEC) 20 MG capsuleIndications :Gastroesophageal reflux disease without esophagitis Take 20 mg by mouth daily. Active losartan (COZAAR) 50 MG tablet Take 50 mg by mouth daily. Active loratadine (CLARITIN) 10 mg tabletIndications: Seasonal allergic rhinitis, unspecified trigger Take 10 mg by mouth daily. Active mucus clearing device DeviIndications:Br onchiectasis without complication 1 Device by Miscellaneous route 4 (four) times a day as needed (Use flutter device to help cough out phlegm, as many times as you need.). 1 Device 08/10/20 19 Active benzonatate (TESSALON) 100 MG capsuleIndications :Severe persistent asthma with acute exacerbation Take 1 capsule (100 mg total) by mouth 3 (three) times a day as needed for cough. 90 capsule 11 02/18/20 20 Active albuterol 90 mcg/actuation inhalerIndications :Uncomplicated severe persistent asthma Inhale 2 puffs into the lungs every 4 (four) hours as needed for wheezing or shortness of breath/dyspnea. 1 Inhaler 11 07/28/20 20 Active montelukast (SINGULAIR) 10 mg tabletIndications: Uncomplicated severe persistent asthma TAKE ONE TABLET BY MOUTH NIGHTLY 90 tablet 3 07/28/20 20 Active budesonide-formote rol (SYMBICORT) 160-4.5 mcg/actuation inhalerIndications :Uncomplicated severe persistent asthma Inhale 2 puffs into the lungs 2 (two) times a day. 1 Inhaler 11 07/28/20 20 Active ondansetron (ZOFRAN-ODT) 4 MG disintegrating tablet Take 1 tablet (4 mg total) by mouth every 8 (eight) hours as needed for nausea. 8 tablet 07/30/20 21 Active Active Problems Problem Noted Date Diagnosed Date Hypertension 08/10/2019 Fever and chills 08/10/2019 Assessment & Plan (08/10/2019 9:04 AM EDT): Recommend fever journal and follow up with either PCP Dr. Crowley or myself. Call if fever >101 or worsening symptoms Obesity, Class III, BMI 40-49.9 (morbid obesity) 05/04/2019 Assessment & Plan (05/04/2019 12:38 PM EDT): Making some impressive dietary, exercise and lifestyle modifications. Encouraged continue GERD (gastroesophageal reflux disease) 7 Assessment & Plan (05/04/2019 12:35 PM EDT): Well controlled with dietary / lifestyle modifications and ranitidine. Continue Assessment & Plan (09/23/2017 11:44 PM EST): Treating GERD is likely to improve asthma control. -continue sleeping on a medical wedge at night -continue ranitidine -continue dietary management to minimize GERD Assessment & Plan (04/12/2017 10:42 AM EDT): Treating GERD is likely to improve asthma control. -Recommended the patient sleep on a medical wedge at night -continue ranitidine -continue dietary management to minimize GERD Assessment & Plan (12/24/2016 6:44 PM EST): GERD may be worsening worsening asthma. -Recommended the patient placed on a medical wedge at night -recommended that patient take ranitidine every day; ranitidine prescription has been sent to her pharmacy -again recommended dietary management to minimize GERD TERRA on CPAP 09/24/2016 Assessment & Plan (09/23/2017 11:39 PM EST): Continue CPAP Assessment & Plan (04/12/2017 10:41 AM EDT): Continue CPAP Assessment & Plan (12/24/2016 6:42 PM EST): Continue CPAP. Assessment & Plan (09/24/2016 5:31 PM EST): Continue CPAP. Dyspnea 01/30/2016 Assessment & Plan (04/12/2017 10:31 AM EDT): Despite acute fluctuations, dyspnea has been slowly improving. Multifactorial etiologies contributing to dyspnea likely include cardiac dysfunction/ volume overloaded (1+ pitting edema on exam, no mention of diastolic dysfunction on TTE), asthma, deconditioning, obesity, and GERD. - continue exercise; restart pulmonary rehab - asthma management as indicated - continue dietary and pharmacologic GERD management Assessment & Plan (09/24/2016 5:41 PM EST): Despite acute fluctuations, dyspnea has been slowly improving. Multifactorial etiologies contributing to dyspnea likely include cardiac dysfunction/ volume overloaded (1+ pitting edema on exam, no mention of diastolic dysfunction on TTE), deconditioning after prolonged illness, chronic TERRA, progressive obesity with suspected chest wall restriction, and GERD. - continue exercise - asthma management as indicated - continue dietary and pharmacologic GERD management - will follow-up with echo reading room regarding possible diastolic dysfunction Assessment & Plan (08/05/2016 3:46 PM EDT): Overall, dyspnea has been slowly improving, although today's presentation appears to have an acute onset consistent with an exacerbation of either asthma, bronchiectasis or bronchitis. Multifactorial etiologies contributing to dyspnea likely include cardiac dysfunction/ volume overloaded (no TTE yet, and 1+ pitting edema on exam), deconditioning after prolonged illness, chronic TERRA, progressive obesity with suspected chest wall restriction, and GERD. - continue exercise - TTE - asthma management as indicated - continue dietary and pharmacologic GERD management Assessment & Plan (04/03/2016 2:54 PM EDT): Dyspnea is improving slowly, still likely multifactorial from deconditioning after prolonged illness and hospitalization, known allergies to dogs that spend time in her bedroom, underlying asthma, mild bronchiectasis, chronic TERRA, obesity and suspected resultant chest wall restriction, GERD. Though rare, ABPA is possible and has not yet been evaluated. She is making remarkable progress with slow graded exercise. - continue exercise - TTE to eval RV function - labs: CBC/diff, IgE, RAST aspergillus - asthma management as indicated - recommended the dogs do not spend time in her bedroom; discussed how dog dander can trigger allergies/asthma - continue dietary and pharmacologic GERD management; pt education provided - for now, will hold on sweat chloride test at [facility], pending lab studies - Follow up in 3 months or sooner if any issues arise; TTE same day Assessment & Plan (01/30/2016 9:49 PM EDT): Dyspnea is likely multifactorial from deconditioning after prolonged illness and hospitalization, underlying asthma, mild bronchiectasis, chronic TERRA, obesity and suspected resultant chest wall restriction. Additional possible factors include pulmonary hypertension (+LE edema, possible +S3), GERD +/- silent aspiration, possible diaphragm muscle weakness, or other underlying inflammatory process. CT imaging and PFTs are reassuring against advanced ILD or chronic obstructive asthma. At the very least, we discussed that Ms. Sin is likely to improve symptomatically with slow, graded exercise and continued attempts at weight loss, and we will continue to investigate additional possible etiologies. - TTE to eval RV function - asthma management as indicated - sweat chloride test - arrange at [facility] - continue CPAP for TERRA - if no improvement at next visit, will consider checking PFTs with Blanca, volumes, DLCO, seated & supine FVC, MIP & MEP; labwork including CHEL, ANCA, RF, myositis panel Uncomplicated severe persistent asthma 6 Assessment & Plan (02/18/2020 11:11 PM EDT): Severe allergic asthma by exacerbations and symptoms, with improved control since 2016 concurrent with increasing exercise tolerance, but currently recovering from asthma exacerbation in setting of suspected bacterial bronchitis 11/2019. Multifactorial influences include bronchiectasis and episodes of bacterial bronchitis, GERD, TERRA, obesity, and occasional sinus congestion. - continue Symbicort BID, continue montelukast daily, albuterol as needed, nasal steroid and duonebs PRN - if another asthma exacerbation before 11/2020 or worsening dysnea, would restart Spiriva -has sputum culture PRN productive cough, given history of recurrent MSSA bronchitis and+radiographic bronchiectasis -patient aware that having dogs in the house likely exacerbates her asthma - trial discontinuation of perfume - trial pre-emptive albuterol prior to exercise - ayana gardner PRN Assessment & Plan (08/10/2019 9:08 AM EDT): Severe allergic asthma by frequent exacerbations and symptoms interfering with everyday activities, recently well controlled concurrent with increasing exercise tolerance. Intermittent dyspnea is complicated by likely multifactorial influences including bronchiectasis and episodes of bacterial bronchitis, GERD, TERRA, obesity, and occasional sinus congestion. -increase Symbicort back to twice daily, - continue montelukast daily, albuterol as needed, nasal steroid and duonebs PRN - low threshold to restart spiriva if worsening dyspnea despite above measures - sinus rinses for sinus congestion - d/c because not using: spiriva, saline nebs, robitussin cough gels, lasix - refilled prednisone rx for PRN, pt does not need it currently -has sputum culture PRN productive cough, given history of recurrent MSSA bronchitis and+radiographic bronchiectasis -patient aware that having dogs in the house likely exacerbates her asthma -Encouraged dietary & exercise improvements - If still having back pain in 3-4 weeks when cold has resolved, contact me or Dr. Crowley to arrange for a CT chest to look for underlying lung problems Assessment & Plan (05/04/2019 12:34 PM EDT): Allergic asthma has been severe by frequent exacerbations and symptoms interfering with everyday activities, but is currently very well controlled with her recent lifestyle changes, such that addition of omalizumab or other biologic therapies for severe asthma are not necessary at this time, and we can trial step-down of therapy. Intermittent dyspnea is complicated by likely multifactorial influences including bronchiectasis and episodes of bacterial bronchitis, GERD, TERRA, obesity, and occasional sinus congestion. Increased exercise improving stamina has reduced symptoms as well. -Encouraged dietary & exercise improvements; -continue Symbicort twice daily, montelukast daily, albuterol as needed, nasal steroid and duonebs PRN; refills provided -ok to stop tiotropium daily: restart if cough / wheeze / dyspnea recur -has sputum culture PRN productive cough, given history of recurrent MSSA bronchitis and+radiographic bronchiectasis -patient is aware that she is allergic to dogs, and that having dogs in the house likely exacerbates her asthma Assessment & Plan (09/08/2018 11:48 PM EST): Allergic asthma has been severe by frequent exacerbations and symptoms interfering with everyday activities. Dyspnea is complicated by likely multifactorial influences including sinus congestion, bronchiectasis, GERD, TERRA, and obesity. The fact that symptoms improved in the setting of recent dietary changes implicates acid reflux and/or aspiration (though video swallow negative). Increased exercise improving stamina has reduced symptoms as well. -Encouraged dietary & exercise improvements; -continue Advair 250/50 twice daily, tiotropium daily, montelukast daily, albuterol as needed, nasal steroid and duonebs PRN; refills provided -increase sinus management: trial of sinus irrigation BID x2 weeks -sputum culture PRN productive cough, given history of recurrent MSSA bronchitis and+radiographic bronchiectasis -patient is aware that she is allergic to dogs, and that having dogs in the house likely exacerbates her asthma Assessment & Plan (04/22/2018 4:27 PM EDT): Allergic asthma has been severe by symptoms and frequent exacerbations interfering with everyday activities. Dyspnea is complicated by likely multi factorial influences including bronchiectasis, GERD, TERRA, and obesity. However, symptoms are much improved in the setting of recent dietary changes (likely reducing aspiration events and possibly reducing acidic reflux) and increased exercise improving stamina. There seems to be objective improvement; will monitor mood changes given mild pressured speech/flight of ideas at today's visit. -Encouraged pt on dietary & exercise improvements; discussed ways to maintain exercise at various gyms as she changes location over the next few months -continue Advair 250/50 twice daily, tiotropium daily, montelukast daily, and albuterol as needed -patient is aware that she is allergic to dogs, and that having dogs in the house likely exacerbates her asthma Assessment & Plan (09/23/2017 11:41 PM EST): Asthma is severe and allergic, based on frequent exacerbations interfering with everyday activities and elevated IgE and perennial allergen-specific RAST testing, although dyspnea is complicated by likely multi factorial influences including bronchiectasis, GERD, TERRA, and obesity. 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 Granger and is amenable to starting them soon - recommended iniation of omalizumab -continue Advair 250/50 twice daily, tiotropium daily, montelukast daily, and albuterol as needed -would be okay to increase Advair to 500/50 twice daily during colds/URIs if sputum culture is submitted concurrently -sputum culture prescription again given for patient to do this closer to home if sputum changes or worsens -patient is aware that she is allergic to dogs, and that having dogs in the house likely exacerbates her asthma -return to clinic in 3 months for reassessment after initiation of omalizumab Assessment & Plan (04/12/2017 10:35 AM EDT): Asthma is severe and allergic, based on frequent exacerbations interfering with everyday activities and elevated IgE and perennial allergen-specific RAST testing, although dyspnea is complicated by likely multi factorial influences as discussed. 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 Granger. -continue Advair 250/50 twice daily, tiotropium daily, montelukast daily, and albuterol as needed -would be okay to increase Advair to 500/50 twice daily during colds/URIs if sputum culture is submitted concurrently -start omalizumab at her local geothermal heat pump machinist office as discussed -sputum culture with sputum induction is ordered if necessary; prescription also given for patient to do this closer to home if sputum changes or worsens -patient is aware that she is allergic to dogs, and that having dogs in the house likely exacerbates her asthma -up-to-date on flu vaccine -return to clinic in 3 months for reassessment after initiation of omalizumab Assessment & Plan (12/24/2016 6:42 PM EST): Asthma is severe based on frequent exacerbations interfering with everyday activities, although dyspnea is complicated by likely multi factorial influences. Asthma appears allergic in nature, with elevated IgE and positive RAST testing to numerous year-round allergens, making patient an excellent candidate for consideration of omalizumab. We had a lengthy discussion today and at her last visit about the risks and benefits of omalizumab, including risk of anaphylaxis and need for monitoring and carrying of an EpiPen on the days of her injections, as well as the logistic difficulties of her getting to our clinic for injections every 2 weeks. She would prefer to pursue omalizumab injections with her geothermal heat pump machinist Dr. Granger - I will try to contact his office again to coordinate. Given her recurrent bronchitis episodes that have recently improved with antibiotics without requiring systemic steroids, she is a rare asthmatic patient in which decreasing her inhaled steroid use may reduce the frequency of these exacerbations, as they seem most likely infectious in nature, so her fluticasone-salmeterol was decreased from 500/50 to 250/50 in 2016. -continue Advair 250/50 twice daily, tiotropium daily, montelukast daily, and albuterol as needed -we are coordinating initiation of omalizumab at her local geothermal heat pump machinist office, and I have recommend a 6 month trial -sputum culture with sputum induction is ordered if necessary; prescription also given for patient to do this closer to home if sputum changes or worsens -patient is aware that she is allergic to dogs, and that having dogs in the house likely exacerbates her asthma -up-to-date on flu vaccine -return to clinic in 3 months for reassessment on omalizumab Assessment & Plan (09/24/2016 5:30 PM EST): Asthma appears severe based on frequent exacerbations interfering with everyday activities, although this assessment is complicated by likely multi factorial influences. Asthma appears allergic in nature, with elevated IgE and positive RAST testing to numerous year-round allergens, making patient in excellent, candidate for consideration of omalizumab. We had a lengthy discussion today about the risks and benefits of omalizumab, including risk of anaphylaxis and need for monitoring and carrying of an EpiPen on the days of her injections, as well as the logistic difficulties of her getting to our clinic for injections every 2 weeks. She would prefer to pursue omalizumab injections with her geothermal heat pump machinist, so we are in touch with his office to set that up. Given her recurrent bronchitis episodes that have recently improved with antibiotics without requiring systemic steroids, she is a rare asthmatic patient in which decreasing her inhaled steroid use may reduce the frequency of these exacerbations, as they seem most likely infectious in nature. -continue Advair 250/50 twice daily, tiotropium daily, montelukast daily, and albuterol as needed -we are coordinating initiation of omalizumab at her local geothermal heat pump machinist office, and I have recommended a 3-6 month trial -sputum culture with sputum induction if necessary; prescription also given for patient to do this closer to home -formal recommendations to avoid close contact with dogs again given to patient -Flu shot given today -return to clinic in 2-3 months for reassessment on omalizumab Assessment & Plan (08/05/2016 3:34 PM EDT): Asthma severity assessment is complicated by multifactorial dyspnea; clinic spirometry shows no evidence of obstruction over multiple attempts. Patient living with dogs despite known dog dander allergy is likely also exacerbating asthma. Given her elevated IgE and persistent asthma symptoms, if she has evidence of an allergic response to a perennial allergen, she may be a candidate for omalizumab and we discussed this at length today. -Okay to continue higher dose inhaled steroid with fluticasone-salmeterol 500/50 twice daily for now -continue tiotropium daily, and albuterol as needed -restart montelukast -sputum culture with sputum induction if necessary; prescription also given for patient to do this closer to home -RAST testing today -formal recommendations to avoid close contact with dogs, given allergy Assessment & Plan (01/30/2016 10:07 PM EDT): Asthma severity assessment is complicated by multifactorial dyspnea, although clinic spirometry shows no evidence of obstruction. Given recent low rescue inhaler frequency, recurrent infections and weight gain, will trial step-down therapy and continue close communication. Pt living with dogs despite known dog dander allergy is likely also exacerbating asthma at least subtly. - decrease Advair to 250/50 BID - continue tiotropium daily, albuterol PRN - if dyspnea worsens, will restart montelukast - check Blanca and IgE at next visit - formal recommendations to avoid close contact with dogs, given allergy Bronchiectasis 01/30/2016 Assessment & Plan (08/10/2019 9:08 AM EDT): Bronchiectasis with recurrent polymicrobial bronchitis; no evidence of exacerbation currently. -sputum culture order and sample cup provided to pt for local use - reviewed airway clearance techniques again - flutter valve PRN -minimizing inhaled steroids as able Assessment & Plan (09/23/2017 11:39 PM EST): Bronchiectasis with recurrent polymicrobial bronchitis; no evidence of exacerbation currently. The reported history of coughing with eating raises concern for aspiration, which could have initiated or could exacerbate bronchiectasis. - video swallow study -sputum culture order and sample cup provided to pt for local use -minimizing inhaled steroids when able Assessment & Plan (04/12/2017 10:49 AM EDT): Bronchiectasis with recurrent polymicrobial bronchitis; no evidence of exacerbation currently. Of note, the herbal extract she has been using ([place], Pelargonium sidoides) has been evaluated by [facility] analysis in 2007 and 2012, and felt to have low quality evidence for improvement in symptoms of acute rhinosinusitis and common cold in adults; although more adverse effects were noted with treatment, these were felt to be non-serious in the [employer]ardo review. The FDA has also cited the [employer] for misbranding (Https://www.[employer]/fdawarning/prod/2011/umBingo.com.shtml) in 2011. -sputum culture order and sample cup provided to pt for local use -minimizing inhaled steroids when able Assessment & Plan (09/24/2016 5:30 PM EST): See above discussion for asthma, with effort to decrease inhaled steroids and minimize risk of bacterial bronchitis or pneumonia. Assessment & Plan (08/05/2016 3:37 PM EDT): New productive cough raises concern for an exacerbation of underlying bronchiectasis, which is most likely due to recurrent MSSA bronchitis although the differential includes silent repeated aspiration. Recent CF mutation screen was negative. -continue benzonatate (Tessalon) perles and cough syrup as needed; refills sent pharmacy -continue flutter valve and chest PT for airway clearance -if symptoms worsen further, will pursue barium swallow study -follow-up in 2 months to discuss omalizumab, or earlier if any issues arise Assessment & Plan (04/03/2016 2:56 PM EDT): Mild, in bilateral lower lobes; ddx includes recent pneumonias, silent aspiration, or primary airway dysfunction such as atypical cystic fibrosis. - continue benzonatate (Tessalon) perles and cough syrup as needed - continue flutter valve and chest PT for airway clearance - CFTR mutation analysis - if ABPA studies are abnormal, [facility] - if symptoms worsen, will consider barium swallow eval Assessment & Plan (01/30/2016 10:47 PM EDT): Mild, in bilateral lower lobes; ddx includes recent pneumonias, silent aspiration, or primary airway dysfunction such as atypical cystic fibrosis. - sputum culture ordered for OSH - sweat chloride testing - continue flutter valve and chest PT for airway clearance - we discussed that if available, chest PT is more effective than PT vest; will defer on ordering vest for now - if symptoms worsen, will consider barium swallow eval Resolved Problems Problem Noted Date Diagnosed Date Resolved Date Methicillin susceptible Stap hylococcus aureus infection 04/01/2017 05/04/2019 Peripheral edema 11/26/2016 05/04/2019 Assessment & Plan (09/08/2018 11:49 PM EST): Suspect diastolic dysfunction contributing to peripheral edema; although pulmonary hypertension is a possibility given h/o TERRA, this is less likely based on normal appearing RV on recent TTE and normal O2 sat at rest. -reinforced limiting salt intake again -continue lasix on an as-needed basis for leg swelling and/or weight gain; encouraged pt to call PCP or myself if symptoms or weight are not improving after 3 days of lasix; encouraged PO potassium intake while on lasix -compression stockings Assessment & Plan (09/23/2017 11:43 PM EST): Suspect diastolic dysfunction contributing to peripheral edema; although pulmonary hypertension is a possibility given h/o TERRA, this is less likely based on normal appearing RV on recent TTE and normal O2 sat at rest. -reinforced limiting salt intake to < 4g salt daily -recommended pt to start lasix on an as-needed basis for leg swelling and/or weight gain; encouraged pt to call PCP or myself if symptoms or weight are not improving after 3 days of lasix; encouraged PO potassium intake while on lasix Assessment & Plan (04/12/2017 10:45 AM EDT): Suspect diastolic dysfunction contributing to peripheral edema; although pulmonary hypertension is a possibility given h/o TERRA, this is less likely based on normal appearing RV on recent TTE and normal O2 sat at rest. -discussed limiting salt intake to < 4g salt daily -recommended pt to start lasix again, with dietary potassium and magnesium supplementation; and check electrolytes after 1-2 weeks on lasix with PCP Thrush 01/30/2016 05/04/2019 Assessment & Plan (09/23/2017 11:46 PM EST): Recurrence of thrush likely due to inhaled steroids without complete oral rinsing after each use - nystatin swish & spit QID x2 weeks - reviewed rinse and spit recommendations after every steroid inhaler use Assessment & Plan (04/03/2016 2:53 PM EDT): Discussed again that trial of lower ICS dose would be beneficial - Advair 250/50 - pt will start within the next 2 weeks - nystatin swish & spit QID x2 weeks Assessment & Plan (01/30/2016 10:09 PM EDT): - decrease Advair as above, gargle/spit with water after - restart nystatin; pt has lozenges and swish & spit Immunizations Immunization Administration Dates Next Due INFLUENZA, SPLIT VIRUS, TRIVALENT W/ PRESERVATIV E IM 07/18/2015 Influenza Quadrivalent Preservative Free IM 08/20,09/17/2016 Pneumococcal conjugate PCV13 04/02/2016 Pneumococcal polysaccharide PPSV23 09/16/2017 Family History Medical History Relation Comments Oral cancer Father Lung cancer Maternal Grandmother in setting of heavy smoking Alzheimer's disease Mother Coronary artery disease Mother s/p CABG Thyroid disease Mother Coronary artery disease Paternal Grandfather Breast cancer Paternal Grandmother Diabetes Paternal Grandmother Coronary artery disease Paternal Uncle all 5 un cles of [place] Autoimmune disease Neg Hx Lung disease Neg Hx Relation Status Comments Father Maternal Grandmother Mother Paternal Grandfather Paternal Grandmother Paternal Uncle Social History Tobacco Use Types Packs/Day Years Used Date Smoking Tobacco: Never Smokeless Tobacco: Never Alcohol Use Standard Drinks/Week Comments Not Asked 0 (1 standard drink = 0.6 oz pur e alcohol) Education Answer Date Recorded Are you interested in more education? Not on florentino e 02/12/2023 Are you concerned about learning? Not on file 02/12/2023 No 02/12/2023 No 02/12/2023 Digital Access Answer Date Recorded No 03/15/2023 No 03/15/2023 No 03/15/2023 Reliable internet access at home? Not on file 03/15/2023 Device with a working camera? Not on file Comments Unknown Sex and Gender Information Value Date Recorded Sex Assigned at Not on file Legal Sex Female 11:23 AM EST Gender Identity Not on file Sexual Orientation Not on file Last Filed Vital Signs Vital Sign Reading Time Taken Comments Blood Pressure 141/95 07/30/2021 3:45 PM EDT Pulse 89 07/30/2021 12:22 PM EDT Temperature 36.7 C (98.1 F) 07/30/2021 3:45 PM EDT Respiratory Rate 20 07/30/2021 3:45 PM EDT Oxygen Saturation 98% 07/30/2021 3:45 PM EDT Inhaled Oxygen Concentration - - Weight 136.1 kg (300 lb) 07/30/2021 12:26 PM EDT Height 157.5 cm (5' 2 ) 07/30/2021 12:26 PM EDT Body Mass Index 54.87 07/30/2021 12:26 PM EDT Plan of Treatment Health Maintenance Due Date Last Done Comments Adult Td,Tdap Booster 1972 BLOOD PRESSURE 1972 LIPID PANEL 1972 HEPATITIS C SCREENING 1990 HIV ONE-TIME SCREENING (18-65 YEARS) 1990 PAP SMEAR 1993 MAMMOGRAM 2012 COLOGUARD 2017 COLONOSCOPY 2017 COLORECTAL CANCER SCREENING 2017 FIT TEST 2017 FOBT 2017 SIGMOIDOSCOPY 2017 VIRTUAL COLONOSCOPY 2017 DEPRESSION SCREENING 09/01/2019 09/01/2018 CREATININE LEVEL 07/30/2022 07/30/2021, , 09/17/2016 POTASSIUM LEVEL 07/30/2022 07/30/2021, 07/18, 09/17/2016 PNEUMOCOCCAL VACCINES (50+ years) (3 of 3 - PCV20 or PCV21) 2022 09/16/2017, 04/02/2016 ZOSTER VACCINES (1 of 2) 2022 COVID-19 VACCINE (3 - 2023-25 season) 2024 01/01/2021, 12/10/2020 INFLUENZA VACCINE (#1) 2025 0, 08/27/2018, 09/16/2017, Additional history exists SMOKING STATUS SCREENING (Once After 26 Yrs) Completed 08/03/2019 HEPATITIS A VACCINES Aged Out No long er eligible based on patient's age to complete this topic HIB VACCINES Aged Out No longer eligi ble based on patient's age to complete this topic MENINGOCOCCAL VACCINES (ACWY) Aged Out No longer eligible based on patient's age to complete this topic MENINGOCOCCAL VACCINES (B) Aged Out N o longer eligible based on patient's age to complete this topic Medical Devices Not on file Procedures Procedure Name Priority Date/Time Associated Diagnosis Comments BASIC METABOLIC PANEL STAT 07/30/2021 12:38 PM EDT from Last 3 Months or Most Recently Relevant to Health Maintenance Results * Basic metabolic panel (07/30/2021 12:38 PM EDT) SODIUM 138 133 - 146 mmol/L [facility] CHLORIDE 101 96 - 108 mmol/L [facility] POTASSIUM 4.3 3.3 - 5.1 mmol/L [facility] CO2 26 21 - 35 mmol/L [facility] BUN 18 6 - 19 mg/dL [facility] CREATININE 0.70 0.5 - 1.5 mg/dL [facility] GLUCOSE 93 70 - 99 mg/dL [facility] CALCIUM 9.8 8.4 - 10.3 mg/dL [facility] EGFR 102 >59 mL/min/1.7 3m2 [facility] Comment:Estimated glomerular filtration rate calculated using the CKD-EPI equation. ANION GAP 15 10 - 20 mmol/L [facility] Blood 07/30/2021 12:3 8 PM EDT 07/30/2021 1:01 PM EDT Comment:# PT IN BATHROOM us Juan Carlos John MD LAB BLOOD ORDERABLES Final Result [facility] [address] [place] [id number] from Last 3 Months or Most Recently Relevant to Health Maintenance [facility] Care Teams Personal Companion Relationship Specialty Start Date End Date Shady Crowley MD [address] [place] [id number] PCP - General Internal Medicine 12/26/15 Elenita Cassidy MD, MSc [address] [place] [id number] [email or web address] Consulting Provider Pulmonary Disease 01/30/16 Marcel Granger MD Consulting Provider Allergy 01/30/16 Shlomo Kunz MD, MS [facility], [address] [address] [email or web address] Consulting Provider Internal Medicine 09/17/16 Additional Source Comments The information contained in this document represents components of the legal health record. It is not the complete legal health record.[facility]
== END 2025-07-02 09:05 | disposition home or self-care (01) ==
LOC: HO.HPS 08:40
PROVIDERS: PCP Internal Medicine; Visit Provider Hospitalist
DX: J45.50 Severe persistent asthma, uncomplicated (principal); J47.9 Bronchiectasis, uncomplicated; J30.9 Allergic rhinitis, unspecified; G47.33 Obstructive sleep apnea (adult) (pediatric); Z99.89 Dependence on other enabling machines and devices; L20.82 Flexural eczema
CPT/HCPCS: 99215

== ENCOUNTER 2025-09-28 14:31 | Outpatient (AMB) | payer BC, SELFPAY ==
[2025-09-28 14:35] VITALS: BP 130/84; PULSE 90; O2SAT 95; BMI 47.6
--- NOTE | 2025-09-28 14:35 | A.OFFVIS_ITS ---
Vital Signs 09/28/25 14:35 Height 5 ft 2 in Weight 260 lb 2.327 oz BMI 47.6 BP 130/84 Blood Pressure Location Lt brachial Position Sitting Pulse 90 Pulse Source Pulse Oximeter Pulse Oximetry (%) 95 Oxygen Delivery Method Room Air Intake Visit Reasons: Asthma Prototype Technician Required: No Accompanied by: Self / Same As Patient Allergies Penicillins Allergy (Severe, Verified 07/02/25 08:48) Rash HPI Comments Details: The patient is a 54-year-old woman with a known history of lifelong asthma. The patient was premature. I do not have the details at this time. Since she was a child she had multiple asthma flare ups and was followed closely by Allergy. She has significant allergies to therefore she was never provided allergy shots due to her significant asthma. She was maintained on respiratory therapy. She did get a 2nd opinion in [facility]. There she followed up with Pulmonary for many years. Now she is looking to relocating back in the area. The patient does have significant asthma and does require prednisone 2 to 3 times a year. She has been on Symbicort twice a day which is been partially helpful. In addition to that she takes her allergy medication including Singulair and Zyrtec. She was offered biologic therapy in [place] but she would have to travel back and forth and that will be very difficult for her. Will looking to biologic therapy closer by. In the meantime her other conditions include obstructive sleep apnea. She has been diagnosed with for now about 15 years. Her last machine she got was about 80 years ago. Unfortunately she has not set up with a [employer] and she has not gotten supplies. Therefore, she has been using the same supplies for many years which I find that is not healthy for her specially with her underlying obstructive airway disease. She did have a CT scan of the chest back in 2015 when she was diagnosed with pneumonia and I personally reviewed it. It appears that she does have obstructions status changes she primarily at the bases left more than right in does have areas of atelectasis suggesting recurrent infections. 09/09/2021 the patient is here for a pulmonary follow-up visit. The patient is here for sick visit. Apparently for the last 3 4 days she is developing worsening shortness of breath and wheezing. She has also has chest tightness. She has been using her nebulized therapy regularly. Denies any fevers or chills. The patient is concerned that she is getting worse. She has a productive cough. She did call over the weekend she was given a course of prednisone 40 mg for 5 days and also azithromycin. Her symptoms did not improve significantly. However, she did not take the higher dose prednisone as prescribed. In the office she has significant wheezing. Therefore given Solu- Medrol 125 mg IM x1 and also she received 2 DuoNeb treatments. After she was breathing a little better although she was still having significant chest tightness and wheezing. She also has some pleuritic chest discomfort primarily in the lower lung zones. Therefore have her get an x-ray prior to going home. She understands that her symptoms worsen on the current additional therapy if she develops worsening chest discomfort she would have to go to the ER for further evaluation. In the meantime view of her severe persistent asthma we did review her blood work demonstrating significant eosinophilia and significant allergies to both cats and dogs and also trees. The patient does have an elevated eosinophil count and also an elevated IgE. The patient also has a history of eczema. No evidence of any nasal polyps. In view of her symptoms in the findings I do believe that Dupixent will be a good option for her. Therefore will start the process for her to start Dupixent therapy. 09/16/2021 the patient is here for sick visit. She was just seen about a week ago with significant asthma exacerbation. She did receive Solu-Medrol in the office in a did improve her symptoms. She also started doxycycline. Unfortunately, the patient still has a significant cough very congested and difficult to expectorate. Moderate severity. She has been using her nebulizer regularly. She is still using the prednisone at 30 mg. At this point she does not have any significant wheezing therefore we will give her additional steroids. However, will broaden her antibiotic coverage in case she has a resistant organism. Her chest x-ray did not demonstrate any focal airspace disease. However, x-rays may be limited. It may be that she is developing something. some if he needs she continues to be symptomatic we can always consider getting a CT scan of the chest to further address her ongoing symptoms. Bronchoscopy is also another options to assess her airways and send the cultures. In the meantime she does have significant allergies and a way to control her respiratory symptoms will be to start biologic therapy. Once her respiratory status is better we can see about starting biologic therapy. At this point is either between starting and IL5 inhibitor versus IL4/ 13 inhibitor. In addition to that she does have underlying sleep apnea. She has not gotten supplies in years. CPAP therapy has been very affecting beneficial. I did download her machine and her usage is more than 6 hours average. Her average pressure is around 12 cm. In her AHI 0.8 therefore, the patient needs to have a repeat sleep study in order to get activated again with a DME company and start getting supplies. Currently she is using really all supplies and tubing has holes in therefore resulted in increased leakage. I do not have any tubing supplies available to give her otherwise I would. 10/06/2021 the patient is here for a pulmonary follow-up visit. She is now better from her previous exacerbation. She did complete the prednisone and also the antibiotics. Again, she continues on an aggressive respiratory regimen. She is agreeable to starting biologic therapy. I believe Dupixent will be the best option for her for both eosinophilic in IgE levels are elevated. The patient also and is requiring high levels of steroids frequently. Therefore biologic therapy will help decrease the need for systemic steroids and the adverse effects that come with that. In the meantime she continues with CPAP therapy. The CPAP therapy continues to be affecting beneficial. She continues using more than 4 hours a night. she does need new supplies. She patient is scheduled to have a repeat sleep study in order for us to we activate her with a [employer] company in order to get supplies. 12/19/2021 the patient is here for a pulmonary follow-up visit. Since we last spoke the patient was admitted to the hospital with severe COVID. She developed severe DKA in addition to renal failure in addition to COVID pneumonia. She required oxygen supplementation. The patient was able to improved. In the meantime we will trying to get her on biologic therapy for severe asthma. She was denied for Dupixent. We did appeal the decision from the insurance company in view of her severe asthma. We are awaiting the results of the appeal at this time. The patient did have says a significant issue with steroids. Therefore the use of biologics will help decrease the need for steroids in view of her severe DKA presenting to the hospital. Her blood sugar was 1100 upon arrival to the hospital and hemoglobin A1c was 14. This at this point is getting better with the help of endocrinology. 02/19/2022 the patient is here for a pulmonary follow-up visit. Overall she is starting to feel a lot better. Seems like her breathing has been improving. She continues use the oxygen at nighttime while sleeping. The patient does have issues with significant snoring. Apparently her having hard time with her snoring. She is also waking up tired. Her Greenwood score is elevated 12/24. She did carry a diagnosis of sleep apnea but she had not been adherent to her therapy. At this point she is on oxygen therefore I will request an in-lab sleep study to further address her significant worsening sleep apnea symptoms. The patient also was approved to start Dupixent. There was an issue with her specialty pharmacy and she did not requested early in off and then . Now we have to resubmit for the medication and have her come in the 1st dose. She does have severe persistent asthma and she will respond very well to this biolog ic therapy. 06/12/2022 The patient is here for a pulmonary follow up visit. She is overall doing better. He breathing and asthma is much better. She did not need to start Biologics. The patient is doing better with the diabetes. She continues to have daytime drowsiness. Her Greenwood score is 11/24. We reviewed the PSG. She dose have significant TERRA. We need to start CPAP at this time. 01/18/2023 the patient is here for sick visit. The patient had been in her usual state health until about 3-4 weeks ago. She started developing worsening cough. She was placed on doxycycline briefly. However, no improvement. She will back to her primary care doctor because the worsening cough and she was then placed on a 5 day course of prednisone. She initially felt better but then when she stops prednisone her symptoms return. She does have a cough. Moderate to severe. No significant expectoration. She is having worsening shortness of breath. Moderate severity. Having hard time sleeping. She is using her CPAP even during the daytime just to improve with the work of breathing. The patient denies any fevers or chills. Denies any sick contacts. In the office visit her exam demonstrates significant wheezing. She was given 2 DuoNeb treatments. 03/09/2023 the patient is here for pulmonary follow-up visit. The patient overall is feeling better. She is using her CPAP with good effect. The therapy has been affecting beneficial and she does more than 4 hours a day. The patient has been using her respiratory therapy. She continues to have episodic flare- ups Requiring her rescue inhaler for nerve 6 times a week. She is currently off prednisone the last time she used it was last month. The patient did have blood work demonstrating significant elevation in her IgE. The patient does have significant allergic asthma. She also had uncontrolled diabetes and therefore the use of prednisone will resulting worsening diabetes control. The patient is currently maximized on respiratory therapy and will be a good candidate for biologic therapy. We will request Dupixent as a good option for her. Xolair would also be a good option for her to help with her ongoing asthma flare ups. 03/01/2024 the patient is here for a pulmonary follow-up visit. She has been sick now for since November. She developed a lower respiratory infection. At that time she was placed on an antibiotic that she did not feel any significant improvement. Continued to have significant shortness of breath cough and hypoxia. She did have oxygen available at home so therefore she started using the because her oxygen was down in the 80s. The patient was evaluated by our office for a sick visit. She had a chest x-ray demonstrating no acute disease although she does have an slightly elevated right hemidiaphragm with blunting of the recess which appears to be chronic for her. She was given a 2nd course of antibiotics. Although she did not really feels significantly better. She also had some prednisone and she did not feel also that is significantly help. She continued to have cough felt congested and felt rattling but was unable to expectorate. at time she is able to bring up some mucus plugs but not much. On exam she does have some crackles in the right base and also has some rhonchi and prolonged expiratory phase with some wheezing. In view of not responding to the prednisone and 2 courses of antibiotics will go ahead and give her 3rd course of antibiotics but also request a CT scan of the chest for suspicion of pneumonia. The patient also would benefit from a bronchoscopy. Will wait for the CT scan of the chest to then decide to perform the bronchoscopy. In the meantime she does continue to use CPAP. The CPAP therapy continues to be affecting beneficial. She does try to use it more than 4 hours a night. She has also been developing some lower extremity edema. She was placed on a mild diuretic. She does maintain a low-sodium diet. 04/06/2024 the patient is here for a pulmonary follow-up visit. She is feeling better. He completed the antibiotics. Still having some shortness of breath and chest congestion. Difficult to expectorate. Also having intermittent wheezing. Has been using her respiratory therapy. Also has been using the CPAP. We did review her CT scan demonstrating some evidence of bronchiectatic changes and chronic bronchitis. No evidence of any airspace disease which is referring. Still the patient has a hard time expectorating. We did talk about CPT with hypertonic saline and Acapella valve to see if she can help clear the secretions herself. If the patient is no better she can always call and we can plan for diagnostic/ therapeutic bronchoscopy. The patient will continue her current respiratory regimen. She also continues use her CPAP every night. CPAP therapy continues to be affecting beneficial. Will follow-up in 3-4 months. Again, the patient is no better or worse she will call to set up the br onchoscopy. 06/12/2024 the patient is here for a pulmonary follow-up visit. Patient has not seen any significant improvement she still struggling with cough chest congestion shortness breath and chest tightness. She has been having to use her nebulizer several times a day. Her rescue inhalers that effective. We did talk about bronchoscopy during the last visit. I do believe that is the right approach at this time. The patient is agreeable this time and will go ahead and plan to do it hopefully next week. In the meantime she completed all antibiotics. She also has been off prednisone. Will go ahead and request additional blood work to assess her eosinophils and IgE level to see if she is a candidate for biologic therapy. I do believe Dupixent be a good option for her although other biologics would also would be reasonable depending on her results. Also from her bronchoscopy we can provide her a set up a differential to assess her type of inflammatory condition within the airways. She continues use her CPAP. The CPAP therapy continues to be affecting beneficial. She will continue to use more than 4 hours a night. Will go ahead and plan to order the bronchoscopy will follow-up after the bronchoscopy to review the procedure and the results. 07/06/2024 the patient is here for pulmonary follow-up visit. She is status post bronchoscopy. She did have purulent secretions throughout. No evidence of any tracheomalacia which is reassuring. Her cultures positive for stenotrophomonas. She was started on doxycycline with good effect. However, then she got sick with a respiratory virus. Her asthma has been more active and she has been having more wheezing. She had to start using her nebulizer. She is happy she has been able to expectorate better. She is continue her respiratory therapy. We did review her blood work which is reassuring. She does have an elevated IgG and also an elevated sedimentation rate likely acute phase reactant. Will recheck him at some point. At this point she does have some wheezing on exam due to her viral syndrome. She will continue with the doxycycline at least for 3 months and then will reassess. The patient may need prednisone. We did check a cortisol level that which is low normal the last time. I did explain to her that prednisone will affect her cortisol level further and therefore we can minimize the amount of steroids. 10/02/2024 the patient is here for a pulmonary follow-up visit. Overall she is doing okay. She is responding well to the doxycycline. She does take it twice a day. She had been taking now for couple months. Those will movement which she ran out of the medication she was waiting for the refill and she was without the medicine for about 4 days. She started becoming symptomatic at that point she became concerned. The stenotrophomonas was not culture for sensitivities. Therefore we are limited as far as what other medications she can receive. Therefore, will try to decrease the doxycycline to daily for the next couple months. If the patient has any worsening respiratory complaints worsening cough congestion short send another sputum sample. In addition to that will request additional blood work to address her significant allergies. She continues uses CPAP. CPAP therapy continues to be affecting beneficial. She does use nasal pillows. She does use it every night. 01/02/2025 the patient is here for a pulmonary follow-up visit. Overall she is doing better. She completed the doxycycline. At this point will hold off on any additional refills. She did have a scare where she all of a sudden developed some difficulty breathing and felt like she needed a nebulizer treatment after eating. She was not sure if she had an allergic reaction. She happened to have an antihistamine in her pocket and she took it. After 15 minutes her symptoms subsided. Will go ahead and refer her to Allergy at this time. In the meantime I did give her a order for food allergies that we can check for. If she finds out of any foods that we need to check she will let us know so we can order allergy testing in the interim. Her chest congestion is better. She does have some chest congestion but minimal. She is still needs to do her chest PT hypertonic saline to keep her airways clear by providing good chest physical therapy. If she starts developing additional sputum she will call and will try to get a sputum culture sent to make sure that we identify the active infection. In the meantime she has been using the CPAP and the CPAP therapy has been affecting beneficial. She does use it for more than 4 hours. She continue to use it at this time. Will plan to follow-up in 3 months. If the patient develops any worsening symptoms prior to that she will call for an earlier assessment. 04/10/2025 the patient is here for pulmonary follow-up visit. She did follow-up with Allergy. She did have a sweat test that was negative. She is going to follow-up up with them sometime early April. I do believe she will be a good candidate for biologics at this point in view of her uncontrolled asthma. She also continues to have significant cough and chest congestion. Will try to get another sputum since she has grown multiple organisms including stenotrophomonas and Aspergillus in the past. If the patient grossly Pseudomonas she is a great candidate for inhaled tobramycin. Will also send AFB looking for non tuberculosis mycobacterial infections. The patient will continue with the nebulizer treatments. She does have a flutter valve but it does not appear effective removing her mucus out of her airways specially with the bronchiectasis. We are going to request a percussion vest at this time. If the patient is no better if she worsens we can also consider bronchoscopy for therapeutic cleaning. But the last time she had when she did not feel any significant improvement. 07/02/2025 the patient is here for pulmonary follow-up visit. The patient sidney michelle has been feeling little better. She is tolerating the inhaled TRESSA every 28 days on 20 days off. Her chest congestion is better although she still has mucus on a regular basis. The last bronchoscopy was reassuring without any more micro organisms. Her AFB was negative as well. The patient is still has a hard time breathing. Even with minimal activity she does get breathless. She still has wheezing and rhonchi on exam. The patient does have an elevated eosinophil count in addition to an elevated IgE. She has underlying allergies. She has severe persistent asthma with significant eosinophilia. Based on the fact that she is already maximized on respiratory capacity will go ahead and start her on Dupixent biologic therapy. Will try to get that as soon as possible. I am hopeful that she continues to improve her symptoms. In the meantime she will continue with the nebulized treatments twice a day for CPT using the percussion vest which has been helpful. She also continues uses CPAP at nighttime. CPAP therapy has been affecting beneficial. Will follow-up in 3 months if she has any issues prior to that she will call for further recommendations. 09/28/2025 the patient is here for pulmonary follow-up visit. Overall the patient has been doing better overall. She is tolerating the Dupixent. The patient continues with the tobramycin and also using the CPT device with a percussion vest with her nebs on a twice a day basis. Although she still gets chest congestion at nighttime. Sometimes she needs to wake up because she starts choking with the phlegm and she needs to do a breathing treatment. She has a history of stenotrophomonas. She understands that the TRESSA is not treating for that. Will start her on doxy to make sure that we can improve her overall mucus burden. If not she is going to provide a chest x-ray in his sputum. She does get some back pain at times it is feels his bilateral feels like it is more the lungs then her back. The patient continues use her CPAP. The CPAP therapy continues to be affecting beneficial she does try to use it more than 4 hours a night. At this point will continue with the current respiratory therapy she will add the doxycycline once a day and see if she gets some relief. She will continue with the Dupixent although this is a question of coverage. If she has any issues with coverage she needs to call our office so we can help facilitate the continuation of the medication. [facility] Medical History Heart murmur Carpal tunnel syndrome on both sides Pneumonia Asthma exacerbation TERRA (obstructive sleep apnea) COVID-19 (~10/2021) Diabetes mellitus Eczema TERRA on CPAP Chronic allergic rhinitis Bronchiectasis Asthma Surgical History History of carpal tunnel release of both wrists History of prior ablation treatment Social History Household Members: Spouse and Children Housing: House Are you a primary manager intensive care unit to a significant other at home: No Do you presently have visiting nurse or other home services: No Patient Tobacco Use Status: Never used Tobacco service: No Current occupational status: previously employed Review of Systems Const Denies daytime sleepiness, Denies snoring and Denies stops breathing during sleep Eyes Denies change in vision ENT Denies change in voice, Reports dry mouth, Reports nasal congestion and Reports nasal discharge Card Denies chest pain, Denies dyspnea and Reports dyspnea on exertion Resp Reports chest congestion, Reports cough, Denies hemoptysis, Denies pain with cough, Denies dyspnea, Reports dyspnea on exertion, Denies snoring and Reports wheezing GI Reports no additional complaints Musc Reports no additional complaints Skin/Breast Denies rash Aller/Immun Reports wheezing Physical Exam Vital Signs: Last Vital Signs Pulse 90 09/28/25 14:35 BP 130/84 09/28/25 14:35 Pulse Ox 95 09/28/25 14:35 Oxygen Delivery Method Room Air 09/28/25 14:35 BMI result Body Mass Index 47.6 Const General: alert Neck Neck: Yes normal visual inspection, Yes full ROM and Yes no lymphadenopathy Chest Chest palpation & inspection: normal inspection of the chest Resp Effort & Inspection: normal respiratory effort Auscultation: no crackles, no rales, wheezes and diminished lung sounds Cardio Rate: regular rate Rhythm: regular rhythm Heart sounds: S1 normal heart sound present and S2 normal heart sound present GI Palpation (GI): Soft to palpation and nontender Auscultation: normal bowel sounds Skin General skin exam: rashes and/or lesions noted Assessment & Plan Assessment & Plan (1) Asthma: Code(s): J45.909 - Unspecified asthma, uncomplicated Category: Medical Qualifiers: Asthma complication type: uncomplicated Asthma persistence: persistent Asthma severity: severe Qualified Code(s): J45.50 - Severe persistent asthma, uncomplicated (2) Bronchiectasis: Code(s): J47.9 - Bronchiectasis, uncomplicated Category: Medical Qualifiers: Bronchiectasis type: uncomplicated Qualified Code(s): J47.9 - Bronchiectasis, uncomplicated (3) Chronic allergic rhinitis: Code(s): J30.9 - Allergic rhinitis, unspecified Category: Medical (4) TERRA on CPAP: Code(s): G47.33 - Obstructive sleep apnea (adult) (pediatric); Z99.89 - Dependence on other enabling machines and devices Category: Medical (5) Eczema: Code(s): L30.9 - Dermatitis, unspecified Category: Medical Qualifiers: Eczema type: flexural Qualified Code(s): L20.82 - Flexural eczema (6) Cough: Code(s): R05.9 - Cough, unspecified Category: Medical Plan continue Breztri 2 puffs BID holding Budesonide nebs continue Dupixent continue Tressa 28 days on/ 28 days off continue CPT with albuterol neb followed by hypertonic salinewith percussion vest (Failed acapella valve and other coughing techiques) OMI as needed Continue Zyrtec and Singulair continue APAP CXR Sputum culture restart Doxycycline F/U 2-3 months Orders: Orders XR chest 2V 09/28/25 R05.9 - Cough, unspecified Sputum Cult + Gram stain 09/28/25 R91.1 - Solitary pulmonary nodule Medications: New doxycycline monohydrate 100 mg PO Q24H 28 tabs 1RF 28 days Coding Level of Care Code Add On Preventative Visit Only Diagnoses Severe persistent asthma without complication J45.50 Asthma complication type: uncomplicated Asthma persistence: persistent Asthma severity: severe Bronchiectasis without complication J47.9 Bronchiectasis type: uncomplicated Chronic allergic rhinitis J30.9 TERRA on CPAP G47.33; Z99.89 Flexural eczema L20.82 Eczema type: flexural Cough R05.9 Time Spent (min) 18
--- OUTSIDE RECORDS SUMMARY | 2025-09-28 19:44 | XMS_ITS | Encounter Summary ---
Author Organization [facility] Address [address] [place] [address] [place] [address] Phone Care Team Providers Care Operations Mgr Name Role Phone Shady Crowley MD Primary Care Provider [phone] Elenita Cassidy MD, MSc Unavailable [phone] Marcel Granger MD Unavailable Unavailable Shlomo Kunz MD, MS Unavailable [phone] Reason for Referral * MRI/CAT Scan - Closed Specialty Diagnoses / Procedures Referred By Contac t Referred To Contact Radiology Procedures CT Chest Outside (No Interpretation) Elenita Cassidy MD, MSc Phone: tel: fax: [email or web address] Referral ID Status Reason Start Date Expiration Date Visits Re quested Visits Authorized [id number] Closed 02/05/2016 02/04/2017 1 1 Encounter Details Date Type Department Care Team (Late st Contact Info) Description 02/05/2016 Transcribe Orders [facility] [address] [place] [address] Amando Thomas [address] [place] [address] [email or web address] Social History Tobacco Use Types [...] documented as of this encounter Care Teams Operations Mgr Relationship Specialty Start Date End Date Shady Crowley MD [address] [address] PCP - General Internal Medicine 12/26/15 Elenita Cassidy MD, MSc [address] [address] [email or web address] Consulting Provider Pulmonary Disease 01/30/16 Marcel Granger MD Consulting Provider Allergy 01/30/16 Shlomo Kunz MD, MS [address] [place] [address], [address] [address] [email or web address] Consulting Provider Internal Medicine 09/17/16 documented as of this encounter Additional Source Comments The information contained in this document represents components of the legal health record. It is not the complete legal health record.[facility]
--- OUTSIDE RECORDS SUMMARY | 2025-09-28 19:44 | XMS_ITS | Encounter Summary ---
Author Organization [facility] Address [address] [place] [address] Phone Care Team Providers Care Applied Exercise Physiologist Name Role Phone Shady Crowley MD Primary Care Provider [phone] Elenita Cassidy MD, MSc Unavailable [phone] Marcel Granger MD Unavailable Unavailable Shlomo Kunz MD, MS Unavailable [phone] Encounter Details Date Type Department Care Team (Late st Contact Info) Description 09/17/2016 Ancillary Orders [facility] [address] [place] [address] Elenita Cassidy MD, MSc [address] [place] [address] [email or web address] Dyspnea Social History Tobacco Use Types [...] 13 mm Anatomical Region Laterality Modality Heart [facility] Narrative 09/17/2016 11:30 AM EST Left Ventricle [...] documented as of this encounter Care Teams Applied Exercise Physiologist Relationship Specialty Start Date End Date Shady Crowley MD [address] [place] [address] [place] [id number] PCP - General Internal Medicine 12/26/15 Elenita Cassidy MD, MSc [address] [place] [address] [place] [address] [email or web address] Consulting Provider Pulmonary Disease 01/30/16 Marcel Granger MD Consulting Provider Allergy 01/30/16 Shlomo Kunz MD, MS [address] [place] [address], [address] [address] [email or web address] Consulting Provider Internal Medicine 09/17/16 documented as of this encounter Additional Source Comments The information contained in this document represents components of the legal health record. It is not the complete legal health record.[facility]
--- OUTSIDE RECORDS SUMMARY | 2025-09-28 19:44 | XMS_ITS | Clinical Summary ---
Author Organization [facility] Address [address] [place] [address] Phone Care Team Providers Care Bumper Machine Operator Name Role Phone Shady Crowley MD Primary Care Provider [phone] Elenita Cassidy MD, MSc Unavailable Marcel Granger [...] hold on sweat chloride test at [facility], pending lab studies - Follow up in [...] - sweat chloride test - arrange at [facility] - continue CPAP for TERRA - if [...] She is arranging omalizumab injections with her veterinary attendant Dr. Granger and is amenable to starting [...] She is arranging omalizumab injections with her veterinary attendant Dr. Granger. -continue Advair 250/50 twice daily, tiotropium daily, montelukast daily, and albuterol as needed -would be okay to increase Advair to 500/50 twice daily during colds/URIs if sputum culture is submitted concurrently -start omalizumab at her local veterinary attendant office as discussed -sputum culture with sputum [...] prefer to pursue omalizumab injections with her veterinary attendant Dr. Granger - I will try to [...] coordinating initiation of omalizumab at her local veterinary attendant office, and I have recommend a 6 [...] prefer to pursue omalizumab injections with her veterinary attendant, so we are in touch with his [...] coordinating initiation of omalizumab at her local veterinary attendant office, and I have recommended a 3-6 [...] were felt to be non-serious in the [place] review. The FDA has also cited the [employer] for misbranding (Https://[email or web address]/prod/2011/[employer].shtml) in 2011. -sputum culture order and sample [...] Paternal Uncle all 5 un cles of [place] Autoimmune disease Neg Hx Lung disease Neg [...] - PCV20 or PCV21) 2022 09/16/2017, 04/02/2016 RSV VACCINE (1 - Risk 50-74 years 1-dose series) 2022 ZOSTER VACCINES (1 of 2) 2022 INFLUENZA VACCINE (#1) 2025 0, 08/27/2018, 09/16/2017, Additional history exists COVID-19 VACCINE ( - 2024- season) 2025 01/01/2021, 12/10/2020 SMOKING STATUS SCREENING (Once After 26 Yrs) [...] Date/Time Associated Diagnosis Comments BASIC METABOLIC PANEL (BMP) STAT 07/30/2021 12:38 PM EDT from Last 3 Months or Most Recently Relevant to Health Maintenance Results * Basic metabolic panel (07/30/2021 12:38 PM EDT) SODIUM 138 133 - 146 mmol/L [facility] CHLORIDE 101 96 - 108 mmol/L [facility] POTASSIUM 4.3 3.3 - 5.1 mmol/L [facility] CO2 26 21 - 35 mmol/L [facility] BUN 18 6 - 19 mg/dL [facility] CREATININE 0.70 0.5 - 1.5 mg/dL [facility] GLUCOSE 93 70 - 99 mg/dL [facility] CALCIUM 9.8 8.4 - 10.3 mg/dL [facility] EGFR 102 >59 mL/min/1.7 3m2 [facility] Comment:Estimated glomerular filtration rate calculated using the CKD-EPI equation. ANION GAP 15 10 - 20 mmol/L [facility] Blood 07/30/2021 12:3 8 PM EDT 07/30/2021 1:01 PM EDT Comment:# PT IN BATHROOM us Juan Carlos John MD LAB BLOOD BKR ORDERABLES F inal Result [facility] [address] [place] [address] from Last 3 Months or Most Recently Relevant to Health Maintenance Insurance [facility] H[facility] POS [facility] Care Teams Bumper Machine Operator Relationship Specialty Start Date End Date Shady Crowley MD [address] [place] [address] PCP - General Internal Medicine 12/26/15 Elenita Cassidy MD, MSc [address] [place] [address] [email or web address] Consulting Provider Pulmonary Disease 01/30/16 Marcel Granger MD Consulting Provider Allergy 01/30/16 Shlomo Kunz MD, MS [address] [place] [address], [place] [address] [email or web address] Consulting Provider Internal Medicine 09/17/16 Additional Source Comments The information contained in this document represents components of the legal health record. It is not the complete legal health record.[facility]
== END 2025-09-28 15:06 | disposition home or self-care (01) ==
PROVIDERS: PCP Internal Medicine; Visit Provider Hospitalist
DX: J45.50 Severe persistent asthma, uncomplicated (principal); J47.9 Bronchiectasis, uncomplicated; J30.9 Allergic rhinitis, unspecified; G47.33 Obstructive sleep apnea (adult) (pediatric); Z99.89 Dependence on other enabling machines and devices; L20.82 Flexural eczema; R05.9 Cough, unspecified
CPT/HCPCS: 99214